=== PATIENT | female | born 1975 | race Caucasian/White ===

== ENCOUNTER 2017-02-06 14:54 | Inpatient (IN) | payer OTHER ==
[2017-02-06 15:05] VITALS: BMI 31.5
[2017-02-06] MEDS ORDERED: MAGNESIUM CITRATE 300 ML BOTTLE PO PRN (15:32)
[2017-02-06] MEDS ORDERED: chlordiazePOXIDE HCL 25 MG CAPSULE PO ONE (15:32)
[2017-02-06] MEDS ORDERED: ACETAMINOPHEN 325 MG TABLET (FP) PO PRN (15:32)
[2017-02-06] MEDS ORDERED: LOPERAMIDE HCL 2 MG CAPSULE PO PRN (15:32)
[2017-02-06] MEDS ORDERED: NICOTINE POLACRILEX 2 MG GUM BC PRN (15:32)
[2017-02-06] MEDS ORDERED: MAGNESIUM HYDROX 2400MG/30ML ORAL SUSPENSION 30 ML CUP PO PRN (15:32)
--- NOTE | 2017-02-06 15:35 | HP ---
CIWA Score - CIWA Score Nausea/Vomitin Muscle Tremors: 4-Moderate,w/Arms Extend Anxiety: 4-Mod. Anxious/Guarded Agitation: 4-Moderately Restless Paroxysmal Sweats: 3 Orientation: 1-Uncertain about Date Tacttile Disturbances: 0-None Auditory Disturbances: 0-None Visual Disturbances: 0-None Headache: 0-None Present CIWA-Ar Total Score: 19 Admission ROS [facility] - HPI Chief Complaint: Withdrawal sx. Allergies/Adverse Reactions: Allergies Allergy/AdvReac Type Severity Reaction Status Date / Time No Known Allergies Allergy Verified 02/06/17 15:26 History of Present Illness: 41 y/o woman with a along hx. of alcoholism is admitted for detox. Pt. denies previous detox, however she was at [facility] last night because she was drunk. Exam Limitations: No Limitations - Ebola screening Have you traveled outside of the country in the last 21 days: No (N) Have you had contact with anyone from an Ebola affected area: No Have you been sick,other than usual withdrawal symptoms: No Do you have a fever: No - Review of Systems Constitutional: Diaphoresis EENT: reports: No Symptoms Reported Respiratory: reports: No Symptoms reported Cardiac: reports: No Symptoms Reported GI: reports: Nausea, Abdominal cramping : reports: No Symptoms Reported Musculoskeletal: reports: No Symptoms Reported Integumentary: reports: Sweating Neuro: reports: Tingling, Tremors Endocrine: reports: No Symptoms Reported Hematology: reports: No Symptoms Reported Psychiatric: reports: No Sypmtoms Reported Other Systems: Reviewed and Negative Patient History - Patient Medical History Hx Anemia: No Hx Asthma: No Hx Chronic Obstructive Pulmonary Disease (COPD): No Hx Cancer: No Hx Cardiac Disorders: No Hx Congestive Heart Failure: No Hx Hypertension: No Hx Hypercholesterolemia: No Hx Pacemaker: No HX Cerebrovascular Accident: No Hx Seizures: No Hx Dementia: No Hx Diabetes: Yes (Pre-Diabetic) Hx Gastrointestinal Disorders: Yes (Dyspepsia) Hx Liver Disease: No Hx Genitourinary Disorders: No Hx Sexually Transmitted Disorders: No Hx Renal Disease (ESRD): No Hx Thyroid Disease: No Hx Human Immunodeficiency Virus (HIV): No Hx Hepatitis C: No Hx Depression: Yes (No meds, in Therapy) Hx Suicide Attempt: No Hx Bipolar Disorder: No Hx Schizophrenia: No Other Medical History: PTSD - Patient Surgical History Past Surgical History: Yes Hx Section: Yes (x 1) - PPD History Previous Implant?: Yes Documented Results: Negative w/o proof PPD to be Administered?: Yes - Reproductive History Patient is a Female of Child Bearing Age (11 -55 yrs old): Yes Last Menstrual Period: 01/27/17 Patient : No - Smoking Cessation Smoking history: Current every day smoker Have you smoked in the past 12 months: Yes Aproximately how many cigarettes per day: 6 Hx Chewing Tobacco Use: No Initiated information on smoking cessation: Yes 'Breaking Loose' booklet given: 02/06/17 - Substance & Tx. History Hx Alcohol Use: Yes Hx Substance Use: Yes Substance Use Type: Alcohol, Cocaine Hx Substance Use Treatment: No - Substances Abused Alcohol Route: Oral Frequency: Daily Amount used: Beer 40 oz, Vodka 1/2 pint Age of first use: 17 (worse since 37 y/o) Date of Last Use: 02/05/17 Cocaine Route: Inhalation Frequency: Daily Amount used: 1 bag Age of first use: 37 Date of Last Use: 02/05/17 Family Disease History - Family Disease History Family Disease History: Heart Disease: Mother (HTN,Asthma), Respiratory: Mother Admission Physical Exam [facility] - Vital Signs Vital Signs: Vital Signs - 24 hr 02/06/17 14:59 Temperature 98.7 F Pulse Rate 61 Respiratory 20 Rate Blood Pressure 131/61 - Physical General Appearance: Yes: Alcohol on Breath, Tremorous, Irritable, Sweating, Anxious HEENTM: Yes: Rhinorrhea Respiratory: Yes: Chest Non-Tender, Lungs Clear, Normal Breath Sounds Neck: Yes: Supple Breast: Yes: Breast Exam Deferred Cardiology: Yes: Regular Rhythm, Regular Rate, S1, S2 Abdominal: Yes: Normal Bowel Sounds, Non Tender, Flat, Soft Genitourinary: Yes: Within Normal Limits Back: Yes: Within Normal Limits Musculoskeletal: Yes: Within Normal Limits Extremities: Yes: Tremors Neurological: Yes: Fully Oriented, Alert Integumentary: Yes: Diaphoresis Lymphatic: Yes: Within Normal Limits - Diagnostic (1) Alcohol dependence with uncomplicated withdrawal Current Visit: Yes Status: Acute (2) Cocaine dependence, uncomplicated Current Visit: Yes Status: Acute Cleared for Admission [facility] - Detox or Rehab [facility] Level of Care: Medically Managed Detox Regimen/Protocol: Librium [facility] Breath Alcohol Content Breath Alcohol Content: 0.047 Urine Pregancy Test - Result Urine Test Results: Negative- NO Line Present Urine Drug Screen - Results Drug Screen Negative: No Urine Drug Screen Results: THC-Marijuana, SACHIN-Cocaine, BZO-Benzodiazepines
[2017-02-06] MEDS: chlordiazePOXIDE HCL 25 MG CAPSULE PO SCH ×2 (17:36→22:11)
[2017-02-06] MEDS: NICOTINE 14 MG/24 HOURS TOPICAL PATCH TD SCH (17:37)
[2017-02-06] MEDS: THIAMINE HCL 100 MG TABLET (FP) PO SCH (22:12)
[2017-02-06] MEDS: IBUPROFEN 400 MG TABLET (FP) PO PRN (22:14)
[2017-02-06] MEDS: hydrOXYzine PAMOATE 50 MG CAPSULE (FP) PO PRN (22:45)
[2017-02-07 01:57] LABS: URINE APPEARANCE SLCLOUDY; URINE BILIRUBIN NEGATIVE (NEGATIVE); URINE BLOOD NEGATIVE (NEGATIVE); URINE COLOR YELLOW; URINE GLUCOSE (UA) NEGATIVE (NEGATIVE); URINE KETONE NEGATIVE (NEGATIVE); URINE LEUK ESTERASE TRACE (NEGATIVE); URINE NITRITE POSITIVE (NEGATIVE); URINE PROTEIN NEGATIVE (NEGATIVE); URINE UROBILINOGEN NEGATIVE mg/dL (0.2-1.0)
[2017-02-07 02:09] LABS: EPI CELLS RARE /HPF (FEW); URINE BACTERIA MANY /hpf (NONE SEEN); URINE MUCUS RARE; YEAST RARE
[2017-02-07] MEDS: chlordiazePOXIDE HCL 25 MG CAPSULE PO SCH ×4 (05:30→22:26)
[2017-02-07] MEDS: P-EPHED 60MG/TRIPROLIDI 2.5MG TABLET PO PRN (05:30)
[2017-02-07] MEDS: guaiFENesin/D-METHORPHAN HB 10 ML UNIT-DOSE CUPS PO PRN ×2 (09:14→18:28)
[2017-02-07] MEDS: PRENATAL VITAMINS W/ FOLIC ACID TABLET (FP) PO SCH (10:32)
[2017-02-07 10:33] LABS: ALBUMIN 3.5 g/dl (3.4-5.0); ALK PHOS 73 U/L (45-117); ANION GAP 13 (8-16); BILIRUBIN,TOTAL 0.2 mg/dL (0.2-1.0); BLOOD UREA NITROGEN 9 mg/dL (7-18); CALCIUM 8.4 mg/dL (8.5-10.1); CHLORIDE 108 mmol/L (98-107); CO2 21 mmol/L (21-32); CREATININE 0.8 mg/dL (0.55-1.02); GLUCOSE,RANDOM 113 mg/dL (74-106); POTASSIUM 3.5 mmol/L (3.5-5.1); SGOT/AST 22 U/L (15-37); SGPT/ALT 22 U/L (12-78); SODIUM 142 mmol/L (136-145); TOT PROT 6.8 g/dl (6.4-8.2)
[2017-02-07] MEDS: NICOTINE 14 MG/24 HOURS TOPICAL PATCH TD SCH (10:33)
--- NOTE | 2017-02-07 10:33 | EKG ---
Test Reason : Blood Pressure : / mmHG Vent. Rate : 080 BPM Atrial Rate : 080 BPM P-R Int : 136 ms QRS Dur : 078 ms QT Int : 388 ms P-R-T Axes : 018 023 018 degrees QTc Int : 447 ms NORMAL SINUS RHYTHM NORMAL ECG NO PREVIOUS ECGS AVAILABLE BASELINE ARTIFACT Confirmed by JONNIE MARTINEZ, NOEMI ([id number]) on 02/07/2017 10:33:16 AM Referred By: Confirmed By:NOEMI CRISTINA MD
[2017-02-07] MEDS: MENTHOL/PHENOL 1 EACH UD MM PRN ×2 (10:35→18:28)
[2017-02-07 10:45] LABS: HEMATOCRIT 41.1 % (32.4-45.2); HEMOGLOBIN 13.1 GM/dL (10.7-15.3); MCH 26.8 pg (25.7-33.7); MCHC 31.8 g/dl (32.0-36.0); MEAN CELL VOLUME 84.1 fl (80-96); MEAN PLT VOLUME 11.2 fl (7.5-11.1); PLATELET COUNT 114 K/MM3 (134-434); RBC 4.89 M/mm3 (3.60-5.2); RDW 13.4 % (11.6-15.6); WHITE BLOOD COUNT 5.3 K/mm3 (4.0-10.0)
[2017-02-07] MEDS: IBUPROFEN 400 MG TABLET (FP) PO PRN ×3 (10:47→22:26)
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
[2017-02-07] MEDS: hydrOXYzine PAMOATE 50 MG CAPSULE (FP) PO PRN ×2 (11:54→16:43)
--- NOTE | 2017-02-07 16:12 | PN ---
[facility] CIWA - CIWA Score Nausea/Vomitin Muscle Tremors: 3 Anxiety: 4-Mod. Anxious/Guarded Agitation: 4-Moderately Restless Paroxysmal Sweats: 2 Orientation: 0-Oriented Tacttile Disturbances: 0-None Auditory Disturbances: 0-None Visual Disturbances: 0-None Headache: 0-None Present CIWA-Ar Total Score: 16 S Progress Note (SOAP) Subjective: Tremors, Night sweats, diarrhea Anxious, nasl congestion Objective: 02/07/17 16:09 Vital Signs Temperature 98.2 F 02/07/17 14:29 Pulse Rate 81 02/07/17 14:29 Respiratory Rate 16 02/07/17 14:29 Blood Pressure 141/81 02/07/17 14:29 O2 Sat by Pulse Oximetry (%) Laboratory Last Values WBC 5.3 K/mm3 (4.0-10.0) 02/07/17 07:45 RBC 4.89 M/mm3 (3.60-5.2) 02/07/17 07:45 Hgb 13.1 GM/dL (10.7-15.3) 02/07/17 07:45 Hct 41.1 % (32.4-45.2) 02/07/17 07:45 MCV 84.1 fl (80-96) 02/07/17 07:45 MCH 26.8 pg (25.7-33.7) 02/07/17 07:45 MCHC 31.8 g/dl (32.0-36.0) L 02/07/17 07:45 RDW 13.4 % (11.6-15.6) 02/07/17 07:45 Plt Count 114 K/MM3 (134-434) L 02/07/17 07:45 MPV 11.2 fl (7.5-11.1) H 02/07/17 07:45 Sodium 142 mmol/L (136-145) 02/07/17 07:45 Potassium 3.5 mmol/L (3.5-5.1) 02/07/17 07:45 Chloride 108 mmol/L (98-107) H 02/07/17 07:45 Carbon Dioxide 21 mmol/L (21-32) 02/07/17 07:45 Anion Gap 13 (8-16) 02/07/17 07:45 BUN 9 mg/dL (7-18) 02/07/17 07:45 Creatinine 0.8 mg/dL (0.55-1.02) 02/07/17 07:45 Creat Clearance w eGFR > 60 (>60) 02/07/17 07:45 Random Glucose 113 mg/dL (74-106) H 02/07/17 07:45 Calcium 8.4 mg/dL (8.5-10.1) L 02/07/17 07:45 Total Bilirubin 0.2 mg/dL (0.2-1.0) 02/07/17 07:45 AST 22 U/L (15-37) 02/07/17 07:45 ALT 22 U/L (12-78) 02/07/17 07:45 Alkaline Phosphatase 73 U/L (45-117) 02/07/17 07:45 Total Protein 6.8 g/dl (6.4-8.2) 02/07/17 07:45 Albumin 3.5 g/dl (3.4-5.0) 02/07/17 07:45 Urine Color Yellow 02/06/17 19:45 Urine Appearance Slcloudy 02/06/17 19:45 Urine pH 5.0 (5.0-8.0) 02/06/17 19:45 Ur Specific [place] 1.020 (1.001-1.035) 02/06/17 19:45 Urine Protein Negative (NEGATIVE) 02/06/17 19:45 Urine Glucose (UA) Negative (NEGATIVE) 02/06/17 19:45 Urine Ketones Negative (NEGATIVE) 02/06/17 19:45 Urine Blood Negative (NEGATIVE) 02/06/17 19:45 Urine Nitrite Positive (NEGATIVE) 02/06/17 19:45 Urine Bilirubin Negative (NEGATIVE) 02/06/17 19:45 Urine Urobilinogen Negative mg/dL (0.2-1.0) 02/06/17 19:45 Ur Leukocyte Esterase Negative (NEGATIVE) 02/06/17 19:45 Urine WBC (Auto) 4 /hpf (3-5) 02/06/17 19:45 Urine RBC (Auto) 1 /hpf (0-3) 02/06/17 19:45 Ur Epithelial Cells Rare /HPF (FEW) 02/06/17 19:45 Urine Bacteria Many /hpf (NONE SEEN) 02/06/17 19:45 Urine Mucus Rare 02/06/17 19:45 Urine Yeast Rare 02/06/17 19:45 RPR Titer Nonreactive (NONREACTIVE) 02/07/17 07:45 HIV 1&2 Antibody Screen Negative 02/07/17 07:45 HIV P24 Antigen Negative 02/07/17 07:45 labs noted, UA nitrite positive Assessment: 02/07/17 16:11 withdrawal symptoms UTI Plan: continue detox Bactrim BID
[2017-02-07] MEDS: MAG HYDROX/AL HYDROX/SIMETH 30 ML UNIT-DOSE CUP PO PRN (16:43)
[2017-02-07] MEDS: ZOLPIDEM TARTRATE 5 MG TABLET PO PRN (22:24)
[2017-02-07] MEDS: SULFAMETHOXAZOLE/TRIMETHOPRIM 800MG/160MG D.S. TABLET PO SCH (22:25)
[2017-02-07] MEDS: THIAMINE HCL 100 MG TABLET (FP) PO SCH (22:42)
[2017-02-08] MEDS: hydrOXYzine PAMOATE 50 MG CAPSULE (FP) PO PRN ×4 (00:24→17:18)
[2017-02-08] MEDS: chlordiazePOXIDE HCL 25 MG CAPSULE PO SCH ×2 (05:33→10:37)
[2017-02-08] MEDS: MENTHOL/PHENOL 1 EACH UD MM PRN ×2 (05:34→10:36)
[2017-02-08] MEDS: guaiFENesin/D-METHORPHAN HB 10 ML UNIT-DOSE CUPS PO PRN ×3 (05:37→22:01)
[2017-02-08] MEDS: P-EPHED 60MG/TRIPROLIDI 2.5MG TABLET PO PRN ×2 (10:36→22:01)
[2017-02-08] MEDS: PRENATAL VITAMINS W/ FOLIC ACID TABLET (FP) PO SCH (10:37)
[2017-02-08] MEDS: SULFAMETHOXAZOLE/TRIMETHOPRIM 800MG/160MG D.S. TABLET PO SCH ×2 (10:37→22:01)
[2017-02-08] MEDS: NICOTINE 14 MG/24 HOURS TOPICAL PATCH TD SCH (10:37)
[2017-02-08] MEDS: MAG HYDROX/AL HYDROX/SIMETH 30 ML UNIT-DOSE CUP PO PRN (11:01)
--- NOTE | 2017-02-08 12:58 | PN ---
[facility] CIWA - CIWA Score Nausea/Vomitin Muscle Tremors: 3 Agitation: 2 Paroxysmal Sweats: 1-Minimal Palms Moist Orientation: 0-Oriented Tacttile Disturbances: 1-Very Mild Itch/Numbness Auditory Disturbances: 1-Very Mild Visual Disturbances: 0-None Headache: 2-Mild BHS Progress Note (SOAP) Subjective: ALERT,IRRITABLE,ANXIOUS,INTERRUPTED SLEEP,ANXIOUS, Objective: 02/08/17 12:56 Vital Signs Temperature 98.9 F 02/08/17 10:00 Pulse Rate 74 02/08/17 10:00 Respiratory Rate 18 02/08/17 10:00 Blood Pressure 123/81 02/08/17 10:00 O2 Sat by Pulse Oximetry (%) 02/08/17 12:57 EKG NSR Laboratory Last Values WBC 5.3 K/mm3 (4.0-10.0) 02/07/17 07:45 RBC 4.89 M/mm3 (3.60-5.2) 02/07/17 07:45 Hgb 13.1 GM/dL (10.7-15.3) 02/07/17 07:45 Hct 41.1 % (32.4-45.2) 02/07/17 07:45 MCV 84.1 fl (80-96) 02/07/17 07:45 MCH 26.8 pg (25.7-33.7) 02/07/17 07:45 MCHC 31.8 g/dl (32.0-36.0) L 02/07/17 07:45 RDW 13.4 % (11.6-15.6) 02/07/17 07:45 Plt Count 114 K/MM3 (134-434) L 02/07/17 07:45 MPV 11.2 fl (7.5-11.1) H 02/07/17 07:45 Sodium 142 mmol/L (136-145) 02/07/17 07:45 Potassium 3.5 mmol/L (3.5-5.1) 02/07/17 07:45 Chloride 108 mmol/L (98-107) H 02/07/17 07:45 Carbon Dioxide 21 mmol/L (21-32) 02/07/17 07:45 Anion Gap 13 (8-16) 02/07/17 07:45 BUN 9 mg/dL (7-18) 02/07/17 07:45 Creatinine 0.8 mg/dL (0.55-1.02) 02/07/17 07:45 Creat Clearance w eGFR > 60 (>60) 02/07/17 07:45 Random Glucose 113 mg/dL (74-106) H 02/07/17 07:45 Calcium 8.4 mg/dL (8.5-10.1) L 02/07/17 07:45 Total Bilirubin 0.2 mg/dL (0.2-1.0) 02/07/17 07:45 AST 22 U/L (15-37) 02/07/17 07:45 ALT 22 U/L (12-78) 02/07/17 07:45 Alkaline Phosphatase 73 U/L (45-117) 02/07/17 07:45 Total Protein 6.8 g/dl (6.4-8.2) 02/07/17 07:45 Albumin 3.5 g/dl (3.4-5.0) 02/07/17 07:45 Urine Color Yellow 02/06/17 19:45 Urine Appearance Slcloudy 02/06/17 19:45 Urine pH 5.0 (5.0-8.0) 02/06/17 19:45 Ur Specific [place] 1.020 (1.001-1.035) 02/06/17 19:45 Urine Protein Negative (NEGATIVE) 02/06/17 19:45 Urine Glucose (UA) Negative (NEGATIVE) 02/06/17 19:45 Urine Ketones Negative (NEGATIVE) 02/06/17 19:45 Urine Blood Negative (NEGATIVE) 02/06/17 19:45 Urine Nitrite Positive (NEGATIVE) 02/06/17 19:45 Urine Bilirubin Negative (NEGATIVE) 02/06/17 19:45 Urine Urobilinogen Negative mg/dL (0.2-1.0) 02/06/17 19:45 Ur Leukocyte Esterase Negative (NEGATIVE) 02/06/17 19:45 Urine WBC (Auto) 4 /hpf (3-5) 02/06/17 19:45 Urine RBC (Auto) 1 /hpf (0-3) 02/06/17 19:45 Ur Epithelial Cells Rare /HPF (FEW) 02/06/17 19:45 Urine Bacteria Many /hpf (NONE SEEN) 02/06/17 19:45 Urine Mucus Rare 02/06/17 19:45 Urine Yeast Rare 02/06/17 19:45 RPR Titer Nonreactive (NONREACTIVE) 02/07/17 07:45 HIV 1&2 Antibody Screen Negative 02/07/17 07:45 HIV P24 Antigen Negative 02/07/17 07:45 Assessment: 02/08/17 12:57 WITHDRAWAL SYMPTOM Plan: CONTINUE DETOX
[2017-02-08] MEDS: BACITRACIN 0.9 GM PACKET TP SCH ×2 (13:55→22:01)
[2017-02-08] MEDS: chlordiazePOXIDE 5 MG CAPSULE PO SCH ×2 (17:15→22:01)
[2017-02-08] MEDS: chlordiazePOXIDE HCL 25 MG CAPSULE PO PRN (19:51)
[2017-02-08] MEDS: ZOLPIDEM TARTRATE 5 MG TABLET PO PRN (22:01)
[2017-02-08] MEDS: THIAMINE HCL 100 MG TABLET (FP) PO SCH (22:41)
[2017-02-09] MEDS: hydrOXYzine PAMOATE 50 MG CAPSULE (FP) PO PRN ×4 (00:52→22:13)
[2017-02-09] MEDS: MENTHOL/PHENOL 1 EACH UD MM PRN ×2 (00:54→22:16)
[2017-02-09] MEDS: chlordiazePOXIDE 5 MG CAPSULE PO SCH ×2 (05:25→10:32)
[2017-02-09] MEDS: guaiFENesin/D-METHORPHAN HB 10 ML UNIT-DOSE CUPS PO PRN ×3 (05:29→22:16)
--- NOTE | 2017-02-09 10:25 | PN ---
[facility] Progress Note (SOAP) Subjective: insomnia sweats shakes anxiety Objective: 02/09/17 10:25 Vital Signs Temperature 97.8 F 02/09/17 05:59 Pulse Rate 78 02/09/17 05:59 Respiratory Rate 18 02/09/17 05:59 Blood Pressure 147/81 02/09/17 05:59 O2 Sat by Pulse Oximetry (%) aaox3 ambulating no acute distress Assessment: 02/09/17 10:27 withdrawal sx Plan: continue detox increase fluids d/c in am
[2017-02-09] MEDS: BACITRACIN 0.9 GM PACKET TP SCH ×2 (10:32→22:12)
[2017-02-09] MEDS: SULFAMETHOXAZOLE/TRIMETHOPRIM 800MG/160MG D.S. TABLET PO SCH ×2 (10:32→22:13)
[2017-02-09] MEDS: PRENATAL VITAMINS W/ FOLIC ACID TABLET (FP) PO SCH (10:32)
[2017-02-09] MEDS: NICOTINE 14 MG/24 HOURS TOPICAL PATCH TD SCH (10:33)
[2017-02-09] MEDS: chlordiazePOXIDE HCL 25 MG CAPSULE PO PRN (12:59)
[2017-02-09] MEDS: IBUPROFEN 400 MG TABLET (FP) PO PRN ×2 (12:59→22:13)
[2017-02-09] MEDS: chlordiazePOXIDE HCL 10 MG CAPSULE PO SCH ×2 (16:47→22:13)
[2017-02-09] MEDS: ZOLPIDEM TARTRATE 5 MG TABLET PO PRN (22:13)
[2017-02-09] MEDS: THIAMINE HCL 100 MG TABLET (FP) PO SCH (22:14)
[2017-02-09] MEDS: MAG HYDROX/AL HYDROX/SIMETH 30 ML UNIT-DOSE CUP PO PRN (23:06)
[2017-02-10] MEDS: chlordiazePOXIDE HCL 10 MG CAPSULE PO SCH ×2 (05:39→11:00)
--- NOTE | 2017-02-10 08:59 | DS ---
[facility] Detox Discharge Summary Admission Date: 02/06/17 Discharge Date: 02/10/17 - History Present History: Alcohol Dependence, Cannabis Dependence, Cocaine Dependence - Physical Exam Results Vital Signs: Vital Signs Temperature 97.3 F L 02/10/17 06:56 Pulse Rate 79 02/10/17 06:56 Respiratory Rate 18 02/10/17 06:56 Blood Pressure 150/90 02/10/17 06:56 O2 Sat by Pulse Oximetry (%) - Treatment Hospital Course: Detox Protocol Followed, Detoxed Safely, Responded well, Discharged Condition Good, Rehab Referral Accepted - Medication Discharge Medications: Ambulatory Orders NK [No Known Home Medication] 02/06/17 - Diagnosis (1) Alcohol dependence with uncomplicated withdrawal Current Visit: Yes Status: Chronic (2) Cannabis dependence Current Visit: Yes Status: Chronic (3) Cocaine dependence, uncomplicated Current Visit: Yes Status: Chronic (4) Nicotine dependence Current Visit: Yes Status: Acute Qualifiers: Nicotine product type: cigarettes Substance use status: uncomplicated Qualified Code(s): F17.210 - Nicotine dependence, cigarettes, uncomplicated (5) Substance-induced anxiety disorder Current Visit: Yes Status: Acute (6) Substance-induced sleep disorder Current Visit: Yes Status: Acute (7) Urinary tract infection without hematuria Current Visit: Yes Status: Acute Qualifiers: Urinary tract infection type: site unspecified Qualified Code(s): N39.0 - Urinary tract infection, site not specified (8) GERD (gastroesophageal reflux disease) Current Visit: Yes Status: Chronic (9) PTSD (post-traumatic stress disorder) Current Visit: Yes Status: Ruled-out - AMA Did Patient Leave Against Medical Advice: No ([facility])
[2017-02-10] MEDS: IBUPROFEN 400 MG TABLET (FP) PO PRN (09:54)
[2017-02-10] MEDS: MAG HYDROX/AL HYDROX/SIMETH 30 ML UNIT-DOSE CUP PO PRN (09:55)
[2017-02-10] MEDS: hydrOXYzine PAMOATE 50 MG CAPSULE (FP) PO PRN (09:55)
[2017-02-10 10:48] VITALS: BP 128/74; PULSE 94; TEMP 98.1
[2017-02-10] MEDS: SULFAMETHOXAZOLE/TRIMETHOPRIM 800MG/160MG D.S. TABLET PO SCH (11:00)
[2017-02-10] MEDS: BACITRACIN 0.9 GM PACKET TP SCH (11:00)
[2017-02-10] MEDS: PRENATAL VITAMINS W/ FOLIC ACID TABLET (FP) PO SCH (11:00)
[2017-02-10] MEDS: NICOTINE 14 MG/24 HOURS TOPICAL PATCH TD SCH (11:01)
[2017-02-10] MEDS: guaiFENesin/D-METHORPHAN HB 10 ML UNIT-DOSE CUPS PO PRN (11:05)
== END 2017-02-10 11:18 | disposition other institution (70) | DRG 774 ==
LOC: YASAS 14:54 → Y6N 15:56
PROVIDERS: ADMIT Internal Medicine; ATTEND Internal Medicine
PROC: HZ2ZZZZ Detoxification Services for Substance Abuse Treatment (ICD-10-PCS; principal; 2017-02-06)
DX: F10.230 Alcohol dependence with withdrawal, uncomplicated (principal); F14.20 Cocaine dependence, uncomplicated; F12.20 Cannabis dependence, uncomplicated; F17.210 Nicotine dependence, cigarettes, uncomplicated; F19.280 Other psychoactive substance dependence with psychoactive substance-induced anxiety disorder; F19.282 Other psychoactive substance dependence with psychoactive substance-induced sleep disorder; F43.10 Post-traumatic stress disorder, unspecified; N39.0 Urinary tract infection, site not specified; R31.9 Hematuria, unspecified; K21.9 Gastro-esophageal reflux disease without esophagitis; R73.03 Prediabetes
CPT/HCPCS: 36415; 80053; 81003; 81015; 85027; 86593; 87389; 93005; 93010

== ENCOUNTER 2017-02-10 10:42 | Inpatient (IN) | payer OTHER ==
[2017-02-10] MEDS ORDERED: PNEUMOC 13-VAL CONJ-DIP CRM/PF 0.5 ML DISP.SYRIN IM ONE (12:00)
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
[2017-02-10] MEDS ORDERED: MAGNESIUM HYDROX 2400MG/30ML ORAL SUSPENSION 30 ML CUP PO PRN (13:09)
[2017-02-10] MEDS ORDERED: P-EPHED 60MG/TRIPROLIDI 2.5MG TABLET PO PRN (13:09)
[2017-02-10] MEDS ORDERED: LOPERAMIDE HCL 2 MG CAPSULE PO PRN (13:09)
[2017-02-10] MEDS ORDERED: NICOTINE POLACRILEX 2 MG GUM BUC PRN (13:09)
[2017-02-10] MEDS ORDERED: MAGNESIUM CITRATE 300 ML BOTTLE PO PRN (13:09)
[2017-02-10] MEDS ORDERED: MENTHOL/PHENOL 1 EACH UD MM PRN (13:09)
--- NOTE | 2017-02-10 13:09 | HP ---
[facility] Rehab Assess/Revision - Admission History Admitted to Rehab from: Y [address] [place] [address] - Vital signs Vital Signs: Vital Signs Period Temp Pulse Resp BP Sys/Rice Pulse Ox Last 24 Hr 97.3 F 87 18 127/85 - Findings Detox History & Physical reviewed: Yes Concur with findings: Yes Comments/Additional Findings: Patient discharge from detox and admitted to rehab Inpatient Rehab Admission - Initial Determination Are CD services needed?: Yes Free of communicable disease: Yes Not in need of hospitalization: Yes - Rehab Admission Criteria Previous failed treatment: Yes Comorbidities: Yes Patient is meeting Inpatient Rehab admission criteria:: Yes
[2017-02-10] MEDS: hydrOXYzine PAMOATE 50 MG CAPSULE (FP) PO PRN ×2 (14:02→18:38)
[2017-02-10] MEDS: MAG HYDROX/AL HYDROX/SIMETH 30 ML UNIT-DOSE CUP PO PRN (14:25)
[2017-02-10] MEDS: guaiFENesin/D-METHORPHAN HB 10 ML UNIT-DOSE CUPS PO PRN ×2 (17:41→23:02)
[2017-02-10] MEDS: BACITRACIN 0.9 GM PACKET TP SCH (21:16)
[2017-02-10] MEDS: THIAMINE HCL 100 MG TABLET (FP) PO SCH (21:16)
[2017-02-10] MEDS: SULFAMETHOXAZOLE/TRIMETHOPRIM 800MG/160MG D.S. TABLET PO SCH (21:17)
[2017-02-10] MEDS: traZODone HCL 100 MG TABLET (FP) PO SCH (21:17)
[2017-02-10] MEDS: QUEtiapine FUMARATE 50 MG TABLET PO SCH (21:17)
[2017-02-10] MEDS ORDERED: PT OWN MED DRAWER 7, Y5N ONE (22:47)
[2017-02-11] MEDS: hydrOXYzine PAMOATE 50 MG CAPSULE (FP) PO PRN ×4 (06:11→18:05)
[2017-02-11] MEDS: guaiFENesin/D-METHORPHAN HB 10 ML UNIT-DOSE CUPS PO PRN ×2 (08:56→18:06)
[2017-02-11] MEDS: SULFAMETHOXAZOLE/TRIMETHOPRIM 800MG/160MG D.S. TABLET PO SCH ×2 (09:55→21:08)
[2017-02-11] MEDS: PRENATAL VITAMINS W/ FOLIC ACID TABLET (FP) PO SCH (09:55)
[2017-02-11] MEDS: BACITRACIN 0.9 GM PACKET TP SCH ×2 (09:56→21:07)
[2017-02-11] MEDS: NICOTINE 14 MG/24 HOURS TOPICAL PATCH TD SCH (09:56)
[2017-02-11] MEDS ORDERED: PNEUMOCOCCAL 23 VACCINE 0.5 ML VIAL IM ONE (12:00)
[2017-02-11] MEDS ORDERED: FLU VACCINE QUAD 60 MCG/0.5 ML (MDV 17-18) IM ONE (12:00)
[2017-02-11] MEDS: IBUPROFEN 400 MG TABLET (FP) PO PRN (12:34)
[2017-02-11] MEDS: ALBUTEROL SO4 0.083% IH SOL 2.5 MG/3 ML VIAL.NEB. NEB PRN (14:58)
[2017-02-11] MEDS: MAG HYDROX/AL HYDROX/SIMETH 30 ML UNIT-DOSE CUP PO PRN (18:22)
[2017-02-11] MEDS: QUEtiapine FUMARATE 50 MG TABLET PO SCH (21:07)
[2017-02-11] MEDS: traZODone HCL 100 MG TABLET (FP) PO SCH (21:07)
[2017-02-11] MEDS: THIAMINE HCL 100 MG TABLET (FP) PO SCH (21:07)
[2017-02-12] MEDS: hydrOXYzine PAMOATE 50 MG CAPSULE (FP) PO PRN ×3 (06:51→16:28)
[2017-02-12] MEDS: PRENATAL VITAMINS W/ FOLIC ACID TABLET (FP) PO SCH (10:10)
[2017-02-12] MEDS: BACITRACIN 0.9 GM PACKET TP SCH ×2 (10:10→21:20)
[2017-02-12] MEDS: SULFAMETHOXAZOLE/TRIMETHOPRIM 800MG/160MG D.S. TABLET PO SCH ×2 (10:10→21:20)
[2017-02-12] MEDS: NICOTINE 14 MG/24 HOURS TOPICAL PATCH TD SCH (10:10)
[2017-02-12] MEDS: MAG HYDROX/AL HYDROX/SIMETH 30 ML UNIT-DOSE CUP PO PRN ×2 (10:19→20:04)
[2017-02-12] MEDS: IBUPROFEN 400 MG TABLET (FP) PO PRN ×2 (12:31→18:40)
[2017-02-12] MEDS: ALBUTEROL SO4 0.083% IH SOL 2.5 MG/3 ML VIAL.NEB. NEB PRN (12:33)
[2017-02-12] MEDS: COLLOIDAL OATMEAL 1 BAR EACH TP PRN (13:46)
--- NOTE | 2017-02-12 15:11 | PN ---
Psychiatric Progress Note Vital Signs: Vital Signs Period Temp Pulse Resp BP Sys/Rice Pulse Ox Last 24 Hr -97.7 F 96 16-18 102/71 Date of Session: 02/13/16 Chief Complaint:: ""i'm having a difficult time sleeping and i'm hearing voices. " HPI: Pt. with a history of anxiety, insomnia, depression and auditory hallucinations. Reports auditory hallucinations since 1996. Claims to hear multiple voices telling her "why are you here," "you will fail again" and "read the bible, keep praying." Pt. denies command auditory hallucinations. Pt. currently denies suicidal and homicidal ideation. ROS: Unremarkable Current Medications: Active Medications Generic Name Dose Route Start Last Admin Trade Name Freq PRN Reason Stop Dose Admin Acetaminophen 650 mg 02/10/17 13:09 Tylenol - PO Q4H PRN FEVER OR PAIN Al Hydroxide/Mg Hydroxide 30 ml 02/10/17 13:09 02/12/17 10:19 Mylanta Oral Suspension - PO 30 ml Q6H PRN Administration DYSPEPSIA Albuterol Sulfate 1 amp 02/11/17 14:32 02/12/17 12:33 Ventolin 0.083% Nebulizer Soln - NEB 1 amp Q6H PRN Administration SHORT OF BREATH/WHEEZING Bacitracin 0.9 gm 02/10/17 22:00 02/12/17 10:10 Bacitracin - TP 0.9 gm BID LA NENA Administration Colloidal Oatmeal 1 applic 02/12/17 12:07 02/12/17 13:46 Aveeno Soap - TP 1 applic DAILY PRN Administration HYGEINE Eucalyptus/Menthol/Phenol/Sorbitol 1 each 02/10/17 13:09 Cepastat Lozenge - MM Q4H PRN SORE THROAT Guaifenesin 10 ml 02/10/17 13:09 02/11/17 18:06 Robitussin Dm - PO 10 ml Q6H PRN Administration COUGH Hydroxyzine Pamoate 50 mg 02/10/17 13:49 02/12/17 12:07 Vistaril - PO 50 mg Q4H PRN Administration ANXIETY Ibuprofen 400 mg 02/10/17 13:09 02/12/17 12:31 Motrin - PO 400 mg Q6H PRN Administration PAIN Loperamide HCl 4 mg 02/10/17 13:09 Imodium - PO Q6H PRN DIARRHEA Magnesium Citrate 300 ml 02/10/17 13:09 Citroma - PO Q48H PRN CONSTIPATION Magnesium Hydroxide 30 ml 02/10/17 13:09 Milk Of Magnesia - PO DAILY PRN CONSTIPATION Nicotine 14 mg 02/11/17 10:00 02/12/17 10:10 Nicoderm Patch - TD 14 mg DAILY LA NENA Administration Nicotine Polacrilex 2 mg 02/10/17 13:09 Nicorette Gum - BUC Q2H PRN NICOTINE REPLACEMENT RX Multivit/Folic Acid/Iron 1 tab 02/11/17 10:00 02/12/17 10:10 Vitamins (Sjr) - PO 1 tab DAILY LA NENA Administration Pseudoephedrine/Triprolidine 1 combo 02/10/17 13:09 02/10/17 23:02 Actifed - PO 1 combo TID PRN Administration NASAL CONGESTION Quetiapine Fumarate 50 mg 02/10/17 22:00 02/11/17 21:07 Seroquel - PO 50 mg HS LA NENA Administration Thiamine HCl 100 mg 02/10/17 22:00 02/11/17 21:07 Vitamin B1 - PO 100 mg HS LA NENA Administration Trazodone HCl 100 mg 02/10/17 22:00 02/11/17 21:07 Desyrel - PO 100 mg HS LA NENA Administration Trimethoprim/Sulfamethoxazole 1 each 02/10/17 22:00 02/12/17 10:10 Bactrim Ds - PO 02/14/17 06:00 1 each BID LA NENA Administration Medication(s) Change(s): Yes. Will increase seroquel to 100mg qhs Current Side Effect: No Lab tests ordered: No Lab tests reviewed: Yes Provider note:: [employer] approached patient in reference to a request to see the psychiatric nurse practitioner. Pt. reports difficulty sleeping and auditory hallucinations. Pt. states the auditory hallucinations are constant, and reports first experiencing auditory hallucinations in 1996. The patient currently reports hearing multiple voices telling her, "You will fail", "why are you here," and " read the bible, keep praying." Pt denies command auditory hallucinations. Seroquel to be increased to 100mg. Pt. denies oversedation and dizziness from her current dose of seroquel 50mg qhs. Verbal consent given, benefits and side effects discussed. Will continue to monitor. Total face to face time:: 25 Mental Status Exam - Mental Status Exam Alert and Oriented to: Time, Place, Person Cognitive Function: Good Patient Appearance: Well Groomed Mood: Anxious Affect: Mood Congruent Patient Behavior: Restless, Talkative Speech Pattern: Pressured Voice Loudness: Normal Thought Process: Circumstantial Thought Disorder: Not Present Hallucinations: Auditory (Voices telling her " why are you here", "you will fail ", and " read the bible, keep praying") Suicidal Ideation: Denies Homicidal Ideation: Denies Insight/Judgement: Poor Sleep: Poorly Appetite: Fair Muscle strength/Tone: Normal Gait/Station: Normal Psychiatric Treatment Plan - Problem List (1) Alcohol dependence Current Visit: Yes (2) Cannabis dependence Current Visit: Yes (3) PTSD (post-traumatic stress disorder) Current Visit: Yes (4) Substance-induced anxiety disorder Current Visit: Yes (5) Schizophrenia Current Visit: Yes Comment: Possible schizophrenia Initial treatment plan: To increase seroquel to 100mg qhs (6) Substance-induced sleep disorder Current Visit: Yes
[2017-02-12] MEDS: THIAMINE HCL 100 MG TABLET (FP) PO SCH (21:20)
[2017-02-12] MEDS: traZODone HCL 100 MG TABLET (FP) PO SCH (21:20)
[2017-02-12] MEDS: QUEtiapine FUMARATE 100 MG TABLET (FP) PO SCH (21:21)
[2017-02-13] MEDS: hydrOXYzine PAMOATE 50 MG CAPSULE (FP) PO PRN ×4 (06:38→21:25)
[2017-02-13] MEDS: SULFAMETHOXAZOLE/TRIMETHOPRIM 800MG/160MG D.S. TABLET PO SCH ×2 (09:49→21:25)
[2017-02-13] MEDS: BACITRACIN 0.9 GM PACKET TP SCH ×2 (09:49→21:25)
[2017-02-13] MEDS: PRENATAL VITAMINS W/ FOLIC ACID TABLET (FP) PO SCH (09:49)
[2017-02-13] MEDS: NICOTINE 14 MG/24 HOURS TOPICAL PATCH TD SCH (09:50)
[2017-02-13] MEDS: MAG HYDROX/AL HYDROX/SIMETH 30 ML UNIT-DOSE CUP PO PRN (10:43)
[2017-02-13] MEDS: PANTOPRAZOLE 40 MG TABLET (FP) PO SCH (17:25)
[2017-02-13] MEDS: QUEtiapine FUMARATE 100 MG TABLET (FP) PO SCH (21:25)
[2017-02-13] MEDS: traZODone HCL 100 MG TABLET (FP) PO SCH (21:25)
[2017-02-13] MEDS: THIAMINE HCL 100 MG TABLET (FP) PO SCH (21:25)
[2017-02-13] MEDS: ALBUTEROL SO4 0.083% IH SOL 2.5 MG/3 ML VIAL.NEB. NEB PRN (21:26)
[2017-02-14] MEDS: hydrOXYzine PAMOATE 50 MG CAPSULE (FP) PO PRN ×4 (06:43→19:00)
[2017-02-14] MEDS: PANTOPRAZOLE 40 MG TABLET (FP) PO SCH (09:43)
[2017-02-14] MEDS: PRENATAL VITAMINS W/ FOLIC ACID TABLET (FP) PO SCH (09:43)
[2017-02-14] MEDS: NICOTINE 14 MG/24 HOURS TOPICAL PATCH TD SCH (09:44)
[2017-02-14] MEDS: BACITRACIN 0.9 GM PACKET TP SCH ×2 (09:44→21:14)
[2017-02-14] MEDS ORDERED: HYDROCORTISONE 1% TOPICAL CREAM 30 GM TUBE TP ONE (14:58)
[2017-02-14] MEDS: QUEtiapine FUMARATE 100 MG TABLET (FP) PO SCH (21:14)
[2017-02-14] MEDS: THIAMINE HCL 100 MG TABLET (FP) PO SCH (21:14)
[2017-02-14] MEDS: traZODone HCL 100 MG TABLET (FP) PO SCH (21:14)
[2017-02-14] MEDS: HYDROCORTISONE 1% TOPICAL CREAM 30 GM TUBE TP SCH (21:16)
[2017-02-14] MEDS ORDERED: PT OWN MED DRAWER 7, Y5N ONE (21:17)
[2017-02-15] MEDS: hydrOXYzine PAMOATE 50 MG CAPSULE (FP) PO PRN ×4 (06:11→21:14)
[2017-02-15] MEDS: NICOTINE 14 MG/24 HOURS TOPICAL PATCH TD SCH (10:07)
[2017-02-15] MEDS: HYDROCORTISONE 1% TOPICAL CREAM 30 GM TUBE TP SCH ×2 (10:07→21:17)
[2017-02-15] MEDS: BACITRACIN 0.9 GM PACKET TP SCH ×2 (10:07→21:14)
[2017-02-15] MEDS: PANTOPRAZOLE 40 MG TABLET (FP) PO SCH (10:08)
[2017-02-15] MEDS: PRENATAL VITAMINS W/ FOLIC ACID TABLET (FP) PO SCH (10:08)
[2017-02-15] MEDS: guaiFENesin/D-METHORPHAN HB 10 ML UNIT-DOSE CUPS PO PRN ×2 (14:29→21:17)
[2017-02-15] MEDS ORDERED: BETAMETHASONE DIPR 0.05% OINT 45 GM TUBE TP SCH (14:45)
[2017-02-15] MEDS: BETAMETHASONE DIPR 0.05% OINTMENT 15 GM TUBE TP SCH ×2 (15:48→21:17)
[2017-02-15] MEDS: QUEtiapine FUMARATE 100 MG TABLET (FP) PO SCH (21:14)
[2017-02-15] MEDS: traZODone HCL 100 MG TABLET (FP) PO SCH (21:14)
[2017-02-15] MEDS: THIAMINE HCL 100 MG TABLET (FP) PO SCH (21:15)
[2017-02-15] MEDS ORDERED: PT OWN MED DRAWER 7, Y5N ONE (21:16)
[2017-02-16] MEDS: hydrOXYzine PAMOATE 50 MG CAPSULE (FP) PO PRN ×4 (06:08→21:13)
[2017-02-16] MEDS: BETAMETHASONE DIPR 0.05% OINTMENT 15 GM TUBE TP SCH ×2 (10:08→21:14)
[2017-02-16] MEDS: HYDROCORTISONE 1% TOPICAL CREAM 30 GM TUBE TP SCH ×2 (10:08→21:14)
[2017-02-16] MEDS: BACITRACIN 0.9 GM PACKET TP SCH ×2 (10:08→21:22)
[2017-02-16] MEDS: PANTOPRAZOLE 40 MG TABLET (FP) PO SCH (10:09)
[2017-02-16] MEDS: PRENATAL VITAMINS W/ FOLIC ACID TABLET (FP) PO SCH (10:09)
[2017-02-16] MEDS: NICOTINE 14 MG/24 HOURS TOPICAL PATCH TD SCH (10:09)
[2017-02-16] MEDS: IBUPROFEN 400 MG TABLET (FP) PO PRN (12:42)
[2017-02-16] MEDS ORDERED: PT OWN MED DRAWER 7, Y5N ONE (19:19)
[2017-02-16] MEDS: THIAMINE HCL 100 MG TABLET (FP) PO SCH (21:14)
[2017-02-16] MEDS: traZODone HCL 100 MG TABLET (FP) PO SCH (21:14)
[2017-02-16] MEDS: QUEtiapine FUMARATE 100 MG TABLET (FP) PO SCH (21:14)
[2017-02-17] MEDS: hydrOXYzine PAMOATE 50 MG CAPSULE (FP) PO PRN ×3 (06:35→21:20)
[2017-02-17] MEDS: COLLOIDAL OATMEAL 1 BAR EACH TP PRN (07:38)
[2017-02-17] MEDS ORDERED: PT OWN MED DRAWER 7, Y5N ONE (08:40)
[2017-02-17] MEDS: BACITRACIN 0.9 GM PACKET TP SCH ×2 (10:01→21:20)
[2017-02-17] MEDS: NICOTINE 14 MG/24 HOURS TOPICAL PATCH TD SCH (10:01)
[2017-02-17] MEDS: PRENATAL VITAMINS W/ FOLIC ACID TABLET (FP) PO SCH (10:01)
[2017-02-17] MEDS: PANTOPRAZOLE 40 MG TABLET (FP) PO SCH (10:01)
[2017-02-17] MEDS: BETAMETHASONE DIPR 0.05% OINTMENT 15 GM TUBE TP SCH ×2 (10:02→21:21)
[2017-02-17] MEDS: HYDROCORTISONE 1% TOPICAL CREAM 30 GM TUBE TP SCH ×2 (10:03→21:21)
[2017-02-17] MEDS: IBUPROFEN 400 MG TABLET (FP) PO PRN (12:00)
[2017-02-17] MEDS: QUEtiapine FUMARATE 100 MG TABLET (FP) PO SCH (21:20)
[2017-02-17] MEDS: THIAMINE HCL 100 MG TABLET (FP) PO SCH (21:20)
[2017-02-17] MEDS: traZODone HCL 100 MG TABLET (FP) PO SCH (21:20)
[2017-02-18] MEDS: hydrOXYzine PAMOATE 50 MG CAPSULE (FP) PO PRN ×2 (06:38→12:38)
[2017-02-18] MEDS: BETAMETHASONE DIPR 0.05% OINTMENT 15 GM TUBE TP SCH ×2 (10:07→21:14)
[2017-02-18] MEDS: HYDROCORTISONE 1% TOPICAL CREAM 30 GM TUBE TP SCH ×2 (10:07→21:15)
[2017-02-18] MEDS: BACITRACIN 0.9 GM PACKET TP SCH ×2 (10:08→21:13)
[2017-02-18] MEDS: PANTOPRAZOLE 40 MG TABLET (FP) PO SCH (10:08)
[2017-02-18] MEDS: PRENATAL VITAMINS W/ FOLIC ACID TABLET (FP) PO SCH (10:08)
[2017-02-18] MEDS: NICOTINE 14 MG/24 HOURS TOPICAL PATCH TD SCH (10:09)
[2017-02-18] MEDS ORDERED: IBUPROFEN 400 MG TABLET (FP) PO ONE (12:28)
[2017-02-18] MEDS ORDERED: NAPROXEN 500 MG TABLET (FP) PO SCH (13:15)
--- NOTE | 2017-02-18 13:34 | PN ---
S Progress Note (SOAP) Subjective: patient c/o left sided chest pain x1 day, [facility] and don arm related to anxiety, hungry wants to eat. no sweats, no palpitation, chante fevers Objective: 02/18/17 13:32 Vital Signs - 24 hr 02/18/17 02/18/17 02/18/17 00:30 03:30 07:35 Temperature 98.0 F Pulse Rate 80 Respiratory 18 18 18 Rate Blood Pressure 112/76 02/18/17 12:16 Temperature 98 F Pulse Rate 81 Respiratory 19 Rate Blood Pressure 133/82 labs reewed, cxr reviewed, - atelectiasis ekg NSR no abnormalities noted. reviewed with patient 02/18/17 13:32 chest clear, s1 and s2 abdo soft, tender left u quadrant on deep palaption Assessment: 02/18/17 13:33 musculoskeletal pain luq, naprosyn 500mg bid with protonix, food patite reassureed, advsed to f/u w pcp when discharged.
--- NOTE | 2017-02-18 14:34 | EKG ---
Test Reason : Blood Pressure : / mmHG Vent. Rate : 075 BPM Atrial Rate : 075 BPM P-R Int : 152 ms QRS Dur : 078 ms QT Int : 398 ms P-R-T Axes : 030 -02 011 degrees QTc Int : 444 ms NORMAL SINUS RHYTHM NORMAL ECG WHEN COMPARED WITH ECG OF 06-FEB-2017 17:45, NO SIGNIFICANT CHANGE WAS FOUND Confirmed by FREDDY WILHELM MD ([id number]) on 02/18/2017 2:33:36 PM Referred By: Confirmed By:FREDDY WILHELM MD
[2017-02-18] MEDS: NAPROXEN 500 MG TABLET (FP) PO SCH ×2 (20:05→21:15)
[2017-02-18] MEDS: THIAMINE HCL 100 MG TABLET (FP) PO SCH (21:13)
[2017-02-18] MEDS: QUEtiapine FUMARATE 100 MG TABLET (FP) PO SCH (21:14)
[2017-02-18] MEDS: traZODone HCL 100 MG TABLET (FP) PO SCH (21:14)
[2017-02-19] MEDS: hydrOXYzine PAMOATE 50 MG CAPSULE (FP) PO PRN ×2 (06:55→21:14)
[2017-02-19] MEDS ORDERED: PT OWN MED DRAWER 7, Y5N ONE (08:00)
[2017-02-19] MEDS: NAPROXEN 500 MG TABLET (FP) PO SCH ×2 (09:36→21:15)
[2017-02-19] MEDS: PRENATAL VITAMINS W/ FOLIC ACID TABLET (FP) PO SCH (09:36)
[2017-02-19] MEDS: PANTOPRAZOLE 40 MG TABLET (FP) PO SCH (09:36)
[2017-02-19] MEDS: BETAMETHASONE DIPR 0.05% OINTMENT 15 GM TUBE TP SCH ×2 (09:36→21:15)
[2017-02-19] MEDS: BACITRACIN 0.9 GM PACKET TP SCH ×2 (09:37→21:15)
[2017-02-19] MEDS: HYDROCORTISONE 1% TOPICAL CREAM 30 GM TUBE TP SCH ×2 (09:37→22:24)
[2017-02-19] MEDS: NICOTINE 14 MG/24 HOURS TOPICAL PATCH TD SCH (09:37)
[2017-02-19] MEDS: ACETAMINOPHEN 325 MG TABLET (FP) PO PRN (17:01)
[2017-02-19] MEDS: THIAMINE HCL 100 MG TABLET (FP) PO SCH (21:14)
[2017-02-19] MEDS: QUEtiapine FUMARATE 100 MG TABLET (FP) PO SCH (21:14)
[2017-02-19] MEDS: traZODone HCL 100 MG TABLET (FP) PO SCH (21:15)
[2017-02-20] MEDS: hydrOXYzine PAMOATE 50 MG CAPSULE (FP) PO PRN ×3 (07:02→21:09)
[2017-02-20] MEDS ORDERED: PT OWN MED DRAWER 7, Y5N ONE (08:36)
[2017-02-20] MEDS: PANTOPRAZOLE 40 MG TABLET (FP) PO SCH (09:52)
[2017-02-20] MEDS: PRENATAL VITAMINS W/ FOLIC ACID TABLET (FP) PO SCH (09:52)
[2017-02-20] MEDS: NAPROXEN 500 MG TABLET (FP) PO SCH ×2 (09:52→21:09)
[2017-02-20] MEDS: BACITRACIN 0.9 GM PACKET TP SCH ×2 (09:52→21:09)
[2017-02-20] MEDS: NICOTINE 14 MG/24 HOURS TOPICAL PATCH TD SCH (09:52)
[2017-02-20] MEDS: HYDROCORTISONE 1% TOPICAL CREAM 30 GM TUBE TP SCH ×2 (09:53→21:10)
[2017-02-20] MEDS: BETAMETHASONE DIPR 0.05% OINTMENT 15 GM TUBE TP SCH ×2 (09:53→21:10)
[2017-02-20] MEDS: MAG HYDROX/AL HYDROX/SIMETH 30 ML UNIT-DOSE CUP PO PRN (19:37)
--- NOTE | 2017-02-20 20:16 | PN ---
[facility] Progress Note Note: Pt c/o chest pain, EKG was done showing SNR. Pt verbalized relief and burping after PRN mylanta was administered.
[2017-02-20] MEDS: THIAMINE HCL 100 MG TABLET (FP) PO SCH (21:09)
[2017-02-20] MEDS: traZODone HCL 100 MG TABLET (FP) PO SCH (21:09)
[2017-02-20] MEDS: QUEtiapine FUMARATE 100 MG TABLET (FP) PO SCH (21:09)
[2017-02-21] MEDS: MAG HYDROX/AL HYDROX/SIMETH 30 ML UNIT-DOSE CUP PO PRN (06:45)
[2017-02-21] MEDS: hydrOXYzine PAMOATE 50 MG CAPSULE (FP) PO PRN ×2 (06:45→17:46)
[2017-02-21] MEDS: BACITRACIN 0.9 GM PACKET TP SCH ×2 (09:36→21:10)
[2017-02-21] MEDS: NICOTINE 14 MG/24 HOURS TOPICAL PATCH TD SCH (09:36)
[2017-02-21] MEDS: BETAMETHASONE DIPR 0.05% OINTMENT 15 GM TUBE TP SCH ×2 (09:37→21:15)
[2017-02-21] MEDS: HYDROCORTISONE 1% TOPICAL CREAM 30 GM TUBE TP SCH ×2 (09:37→21:10)
[2017-02-21] MEDS: PRENATAL VITAMINS W/ FOLIC ACID TABLET (FP) PO SCH (09:37)
[2017-02-21] MEDS: PANTOPRAZOLE 40 MG TABLET (FP) PO SCH (09:37)
[2017-02-21] MEDS: NAPROXEN 500 MG TABLET (FP) PO SCH ×2 (09:37→21:10)
[2017-02-21] MEDS ORDERED: PT OWN MED DRAWER 7, Y5N ONE (10:12)
[2017-02-21] MEDS: ACETAMINOPHEN 325 MG TABLET (FP) PO PRN (17:46)
[2017-02-21] MEDS: COLLOIDAL OATMEAL 1 BAR EACH TP PRN (20:26)
[2017-02-21] MEDS: THIAMINE HCL 100 MG TABLET (FP) PO SCH (21:10)
[2017-02-21] MEDS: traZODone HCL 100 MG TABLET (FP) PO SCH (21:11)
[2017-02-21] MEDS: QUEtiapine FUMARATE 100 MG TABLET (FP) PO SCH (21:11)
[2017-02-21] MEDS ORDERED: CYCLOBENZAPRINE HCL 10 MG TABLET (FP) PO SCH (22:00)
[2017-02-22] MEDS: CYCLOBENZAPRINE HCL 5 MG TABLET PO SCH ×3 (06:33→21:13)
[2017-02-22] MEDS: hydrOXYzine PAMOATE 50 MG CAPSULE (FP) PO PRN ×2 (06:33→21:13)
[2017-02-22] MEDS: PANTOPRAZOLE 40 MG TABLET (FP) PO SCH (09:30)
[2017-02-22] MEDS: BACITRACIN 0.9 GM PACKET TP SCH ×2 (09:30→21:13)
[2017-02-22] MEDS: BETAMETHASONE DIPR 0.05% OINTMENT 15 GM TUBE TP SCH ×2 (09:30→21:14)
[2017-02-22] MEDS: PRENATAL VITAMINS W/ FOLIC ACID TABLET (FP) PO SCH (09:30)
[2017-02-22] MEDS: NAPROXEN 500 MG TABLET (FP) PO SCH ×2 (09:30→21:13)
[2017-02-22] MEDS: NICOTINE 14 MG/24 HOURS TOPICAL PATCH TD SCH (09:31)
[2017-02-22] MEDS: HYDROCORTISONE 1% TOPICAL CREAM 30 GM TUBE TP SCH (09:40)
[2017-02-22] MEDS: traZODone HCL 100 MG TABLET (FP) PO SCH (21:13)
[2017-02-22] MEDS: QUEtiapine FUMARATE 100 MG TABLET (FP) PO SCH (21:13)
[2017-02-22] MEDS: THIAMINE HCL 100 MG TABLET (FP) PO SCH (21:13)
[2017-02-23] MEDS: CYCLOBENZAPRINE HCL 5 MG TABLET PO SCH ×2 (06:38→14:00)
[2017-02-23] MEDS: hydrOXYzine PAMOATE 50 MG CAPSULE (FP) PO PRN (06:38)
[2017-02-23 07:13] VITALS: BP 120/86; PULSE 88; TEMP 98
[2017-02-23] MEDS: PANTOPRAZOLE 40 MG TABLET (FP) PO SCH (10:16)
[2017-02-23] MEDS: NAPROXEN 500 MG TABLET (FP) PO SCH (10:16)
[2017-02-23] MEDS: BACITRACIN 0.9 GM PACKET TP SCH (10:16)
[2017-02-23] MEDS: NICOTINE 14 MG/24 HOURS TOPICAL PATCH TD SCH (10:16)
[2017-02-23] MEDS: PRENATAL VITAMINS W/ FOLIC ACID TABLET (FP) PO SCH (10:16)
[2017-02-23] MEDS: BETAMETHASONE DIPR 0.05% OINTMENT 15 GM TUBE TP SCH (10:17)
[2017-02-23] MEDS: HYDROCORTISONE 1% TOPICAL CREAM 30 GM TUBE TP SCH (10:18)
--- NOTE | 2017-02-23 12:24 | EKG ---
Test Reason : Blood Pressure : / mmHG Vent. Rate : 076 BPM Atrial Rate : 076 BPM P-R Int : 150 ms QRS Dur : 082 ms QT Int : 394 ms P-R-T Axes : 038 019 038 degrees QTc Int : 443 ms NORMAL SINUS RHYTHM NORMAL ECG WHEN COMPARED WITH ECG OF 18-FEB-2017 13:40, NO SIGNIFICANT CHANGE WAS FOUND Confirmed by MD Sims Daniel ([id number]) on 02/23/2017 12:24:11 PM Referred By: Confirmed By:Eugenio Sims MD
[2017-02-23] MEDS ORDERED: ALBUTEROL SO4 18 GM HFA INHALER IH PRN (13:14)
--- NOTE | 2017-02-23 13:45 | PN ---
Psychiatric Progress Note Vital Signs: Vital Signs Period Temp Pulse Resp BP Sys/Rice Pulse Ox Last 24 Hr 98.0 F 88 18-18 120/86 Current Medications: Active Medications Generic Name Dose Route Start Last Admin Trade Name Freq PRN Reason Stop Dose Admin Acetaminophen 650 mg 02/10/17 13:09 02/21/17 17:46 Tylenol - PO 650 mg Q4H PRN Administration FEVER OR PAIN Al Hydroxide/Mg Hydroxide 30 ml 02/10/17 13:09 02/21/17 06:45 Mylanta Oral Suspension - PO 30 ml Q6H PRN Administration DYSPEPSIA Albuterol Sulfate 1 amp 02/11/17 14:32 02/13/17 21:26 Ventolin 0.083% Nebulizer Soln - NEB 1 amp Q6H PRN Administration SHORT OF BREATH/WHEEZING Albuterol Sulfate 2 puff 02/23/17 13:14 Ventolin Hfa Inhaler - IH Q4H PRN SHORT OF BREATH/WHEEZING Bacitracin 0.9 gm 02/10/17 22:00 02/23/17 10:16 Bacitracin - TP 0.9 gm BID LA NNEA Administration Betamethasone Dipropionate 1 applic 02/15/17 15:30 02/23/17 10:17 Diprosone 0.05% Ointment - TP 1 applic BID LA NENA Administration Colloidal Oatmeal 1 applic 02/12/17 12:07 02/21/17 20:26 Aveeno Soap - TP 1 applic DAILY PRN Administration HYGEINE Cyclobenzaprine HCl 5 mg 02/22/17 06:00 02/23/17 06:38 Cyclobenzaprine Hcl PO 5 mg TID LA NENA Administration Eucalyptus/Menthol/Phenol/Sorbitol 1 each 02/10/17 13:09 Cepastat Lozenge - MM Q4H PRN SORE THROAT Guaifenesin 10 ml 02/10/17 13:09 02/15/17 21:17 Robitussin Dm - PO 10 ml Q6H PRN Administration COUGH Hydrocortisone 1 applic 02/14/17 22:00 02/23/17 10:18 Hytone 1% Cream - TP 1 applic BID LA NENA Administration Hydroxyzine Pamoate 50 mg 02/10/17 13:49 02/23/17 06:38 Vistaril - PO 50 mg Q4H PRN Administration ANXIETY Loperamide HCl 4 mg 02/10/17 13:09 Imodium - PO Q6H PRN DIARRHEA Magnesium Citrate 300 ml 02/10/17 13:09 Citroma - PO Q48H PRN CONSTIPATION Magnesium Hydroxide 30 ml 02/10/17 13:09 Milk Of Magnesia - PO DAILY PRN CONSTIPATION Naproxen 500 mg 02/18/17 20:00 02/23/17 10:16 Naprosyn - PO 500 mg BID LA NENA Administration Nicotine 14 mg 02/11/17 10:00 02/23/17 10:16 Nicoderm Patch - TD Not Given DAILY LA NENA Nicotine Polacrilex 2 mg 02/10/17 13:09 02/14/17 10:47 Nicorette Gum - BUC 2 mg Q2H PRN Administration NICOTINE REPLACEMENT RX Pantoprazole Sodium 40 mg 02/13/17 16:30 02/23/17 10:16 Protonix - PO 40 mg DAILY LA NENA Administration Multivit/Folic Acid/Iron 1 tab 02/11/17 10:00 02/23/17 10:16 Vitamins (Sjr) - PO 1 tab DAILY LA NENA Administration Pseudoephedrine/Triprolidine 1 combo 02/10/17 13:09 02/10/17 23:02 Actifed - PO 1 combo TID PRN Administration NASAL CONGESTION Quetiapine Fumarate 100 mg 02/12/17 22:00 02/22/17 21:13 Seroquel - PO 100 mg HS LA NENA Administration Thiamine HCl 100 mg 02/10/17 22:00 02/22/17 21:13 Vitamin B1 - PO 100 mg HS LA NENA Administration Trazodone HCl 100 mg 02/10/17 22:00 02/22/17 21:13 Desyrel - PO 100 mg HS LA NENA Administration
--- NOTE | 2017-02-23 13:50 | PN ---
[facility] Progress Note Note: Informed by nursing staff that patient wants to leave the program today in lieu of tomorrow which is her scheduled discharge date. Reportedly she is stable for discharge. Discharge order placed and scripts for 30 days supply of Seroquel 100 mg po HS, Trazadone 100 mg po HS and Vistaril 50 mg po QID electronically transmitted to [facility] at [address] [place], [place] [id number]
[2017-02-23] MEDS: ACETAMINOPHEN 325 MG TABLET (FP) PO PRN (14:00)
== END 2017-02-23 14:30 | disposition home or self-care (01) | DRG 772 ==
LOC: YASAS 10:42 → Y3E 10:43
PROVIDERS: ADMIT Psychiatry & Neurology Psychiatry; ATTEND Psychiatry & Neurology Psychiatry
PROC: HZ42ZZZ Group Counseling for Substance Abuse Treatment, Cognitive-Behavioral (ICD-10-PCS; principal; 2017-02-10)
DX: F10.20 Alcohol dependence, uncomplicated (principal); F14.20 Cocaine dependence, uncomplicated; F17.210 Nicotine dependence, cigarettes, uncomplicated; F20.9 Schizophrenia, unspecified; F19.280 Other psychoactive substance dependence with psychoactive substance-induced anxiety disorder; F19.282 Other psychoactive substance dependence with psychoactive substance-induced sleep disorder; F43.10 Post-traumatic stress disorder, unspecified; K21.9 Gastro-esophageal reflux disease without esophagitis; R07.89 Other chest pain
CPT/HCPCS: 71046-TC; 87086; 93005; 93010; 94640

== ENCOUNTER 2017-08-01 18:13 | Inpatient (IN) | payer OTHER ==
[2017-08-01 18:19] VITALS: BMI 36.6
--- NOTE | 2017-08-01 20:38 | HP ---
CIWA Score - CIWA Score Nausea/Vomitin-Mild Nausea/No Vomiting Muscle Tremors: 3 Anxiety: 4-Mod. Anxious/Guarded Agitation: 4-Moderately Restless Paroxysmal Sweats: 1-Minimal Palms Moist Orientation: 1-Uncertain about Date Tacttile Disturbances: 0-None Auditory Disturbances: 0-None Visual Disturbances: 0-None Headache: 3-Moderate CIWA-Ar Total Score: 17 Admission [facility] - HPI Chief Complaint: Alcohol withdrawal symptoms Allergies/Adverse Reactions: Allergies Allergy/AdvReac Type Severity Reaction Status Date / Time No Known Allergies Allergy Verified 08/01/17 19:16 History of Present Illness: 41 years old female with a 5 years history of alcohol dependence is seeking admission to detox. Patient has been in previous detox, last at [facility] and reports insignificant period of sobriety. She has medical history of pre- diabetes, GERD, dyspepsia, depression, right knee arthritis and anxiety. Reports suicide attempt at age 36 and denies suicidal ideation at this time. Exam Limitations: No Limitations - Ebola screening Have you traveled outside of the country in the last 21 days: No Have you been sick,other than usual withdrawal symptoms: No Do you have a fever: No - Review of Systems Constitutional: Chills, Loss of Appetite, Malaise, Changes in sleep, Weakness EENT: reports: No Symptoms Reported Respiratory: reports: No Symptoms reported Cardiac: reports: No Symptoms Reported GI: reports: Poor Appetite, Poor Fluid Intake, Abdominal cramping : reports: No Symptoms Reported Musculoskeletal: reports: Back Pain, Joint Pain, Muscle Weakness, Other (right lizette arthritis) Integumentary: reports: Dryness Neuro: reports: Headache, Tremors Endocrine: reports: No Symptoms Reported Hematology: reports: No Symptoms Reported Psychiatric: reports: Agitated, Anxious, Depressed Other Systems: Reviewed and Negative Patient History - Patient Medical History Hx Anemia: No Hx Asthma: Yes (Albuterol) Hx Chronic Obstructive Pulmonary Disease (COPD): No Hx Cancer: No Hx Cardiac Disorders: No Hx Congestive Heart Failure: No Hx Hypertension: No Hx Hypercholesterolemia: No Hx Pacemaker: No HX Cerebrovascular Accident: No Hx Seizures: No Hx Dementia: No Hx Diabetes: Yes (Pre- diabetes - Not on medication) Hx Gastrointestinal Disorders: Yes (GERD) Hx Liver Disease: No Hx Genitourinary Disorders: No Hx Sexually Transmitted Disorders: No Hx Renal Disease (ESRD): No Hx Thyroid Disease: No Hx Human Immunodeficiency Virus (HIV): No (Negative 2018) Hx Hepatitis C: No Hx Depression: Yes (Seroquel, Trazodone) Hx Suicide Attempt: No Hx Bipolar Disorder: No Hx Schizophrenia: No Other Medical History: Anxiety - - Patient Surgical History Past Surgical History: Yes Hx Neurologic Surgery: No Hx Cataract Extraction: No Hx Cardiac Surgery: No Hx Lung Surgery: No Hx Breast Surgery: No Hx Breast Biopsy: No Hx Abdominal Surgery: No Hx Appendectomy: No Hx Cholecystectomy: No Hx Genitourinary Surgery: No Hx Section: Yes (x 1) Hx Orthopedic Surgery: No Anesthesia Reaction: No - PPD History Previous Implant?: Yes Documented Results: Negative w/proof Date: 02/08/17 Results: 0mm PPD to be Administered?: No - Reproductive History Patient is a Female of Child Bearing Age (11 -55 yrs old): Yes Last Menstrual Period: 07/13/17 Patient : No - Smoking Cessation Smoking history: Current every day smoker Have you smoked in the past 12 months: Yes Aproximately how many cigarettes per day: 6 Hx Chewing Tobacco Use: No Initiated information on smoking cessation: Yes 'Breaking Loose' booklet given: 08/01/17 - Substance & Tx. History Hx Alcohol Use: Yes Hx Substance Use: Yes Substance Use Type: Cocaine Hx Substance Use Treatment: Yes ([facility]) - Substances Abused Alcohol Route: Oral Frequency: Daily Amount used: liquor- 2 , , beer- 1 six pack Age of first use: 23 Date of Last Use: 07/31/17 Cocaine Route: Inhalation Frequency: Daily Amount used: 2 bags Age of first use: 37 Date of Last Use: 07/31/17 Family Disease History - Family Disease History Family Disease History: Heart Disease: Mother (HTN,Asthma), Respiratory: Mother Admission Physical Exam [facility] - Vital Signs Vital Signs: Vital Signs - 24 hr 08/01/17 18:17 Temperature 98.5 F Pulse Rate 86 Respiratory 18 Rate Blood Pressure 126/80 - Physical General Appearance: Yes: Moderate Distress, Tremorous, Irritable, Sweating, Anxious HEENTM: Yes: EOMI, Normal ENT Inspection, Normocephalic, Normal Voice, KENDALL Respiratory: Yes: Lungs Clear, Normal Breath Sounds, No Respiratory Distress Neck: Yes: Supple Breast: Yes: Breast Exam Deferred Cardiology: Yes: Regular Rhythm, Regular Rate, S1, S2 Abdominal: Yes: Normal Bowel Sounds, Distended Genitourinary: Yes: Within Normal Limits Back: Yes: Normal Inspection Musculoskeletal: Yes: Back pain, Muscle Pain, Muscle weakness Extremities: Yes: Tremors Neurological: Yes: Alert, Normal Mood/Affect Integumentary: Yes: Warm Lymphatic: Yes: Within Normal Limits - Diagnostic (1) Arthritis Current Visit: Yes Status: Chronic (2) Anxiety Current Visit: Yes Status: Chronic (3) Depression Current Visit: Yes Status: Chronic Qualifiers: Depression Type: unspecified Qualified Code(s): F32.9 - Major depressive disorder, single episode, unspecified (4) Pre-diabetes Current Visit: Yes Status: Chronic (5) Alcohol dependence with uncomplicated withdrawal Current Visit: Yes Status: Chronic (6) Cocaine dependence, uncomplicated Current Visit: Yes Status: Chronic (7) GERD (gastroesophageal reflux disease) Current Visit: Yes Status: Chronic (8) Nicotine dependence Current Visit: Yes Status: Chronic Qualifiers: Nicotine product type: cigarettes Substance use status: uncomplicated Qualified Code(s): F17.210 - Nicotine dependence, cigarettes, uncomplicated (9) Asthma Current Visit: Yes Status: Chronic Qualifiers: Asthma complication type: unspecified Cleared for Admission S - Detox or Rehab [facility] Level of Care: Medically Managed Detox Regimen/Protocol: Librium [facility] Breath Alcohol Content Breath Alcohol Content: 0 Urine Pregancy Test - Result Urine Test Results: Negative- NO Line Present Urine Drug Screen - Results Drug Screen Negative: No Urine Drug Screen Results: SACHIN-Cocaine, BZO-Benzodiazepines, TCA-Tricyclic Antidepress
[2017-08-01] MEDS ORDERED: MENTHOL/PHENOL 1 EACH UD MM PRN (20:51)
[2017-08-01] MEDS ORDERED: ACETAMINOPHEN 325 MG TABLET (FP) PO PRN (20:51)
[2017-08-01] MEDS ORDERED: P-EPHED 60MG/TRIPROLIDI 2.5MG TABLET PO PRN (20:51)
[2017-08-01] MEDS ORDERED: MAGNESIUM CITRATE 300 ML BOTTLE PO PRN (20:51)
[2017-08-01] MEDS ORDERED: chlordiazePOXIDE HCL 25 MG CAPSULE PO PRN (20:51)
[2017-08-01] MEDS ORDERED: LOPERAMIDE HCL 2 MG CAPSULE PO PRN (20:51)
[2017-08-01] MEDS ORDERED: NICOTINE POLACRILEX 2 MG GUM BC PRN (20:51)
[2017-08-01] MEDS ORDERED: guaiFENesin/D-METHORPHAN HB 10 ML UNIT-DOSE CUPS PO PRN (20:51)
[2017-08-01] MEDS ORDERED: IBUPROFEN 400 MG TABLET (FP) PO PRN (20:51)
[2017-08-01] MEDS ORDERED: MAGNESIUM HYDROX 2400MG/30ML ORAL SUSPENSION 30 ML CUP PO PRN (20:51)
[2017-08-01] MEDS ORDERED: ALBUTEROL SO4 18 GM HFA INHALER IH PRN (20:53)
[2017-08-01] MEDS ORDERED: MELATONIN 5 MG TABLETS PO PRN (22:00)
[2017-08-02] MEDS: chlordiazePOXIDE HCL 25 MG CAPSULE PO SCH ×6 (06:24→22:05)
[2017-08-02] MEDS: THIAMINE HCL 100 MG TABLET (FP) PO SCH ×2 (08:28→22:05)
[2017-08-02 10:07] LABS: HEMATOCRIT 39.1 % (32.4-45.2); HEMOGLOBIN 12.9 GM/dL (10.7-15.3); MCHC 32.9 g/dl (32.0-36.0); MEAN PLT VOLUME 10.8 fl (7.5-11.1); PLATELET COUNT 141 K/MM3 (134-434); RBC 4.77 M/mm3 (3.60-5.2); RDW 13.5 % (11.6-15.6); WHITE BLOOD COUNT 6.8 K/mm3 (4.0-10.0)
[2017-08-02] MEDS: PRENATAL VITAMINS W/ FOLIC ACID TABLET (FP) PO SCH (10:15)
[2017-08-02 10:16] LABS: CHLORIDE 106 mmol/L (98-107); POTASSIUM 4.2 mmol/L (3.5-5.1); SODIUM 139 mmol/L (136-145)
[2017-08-02] MEDS: NICOTINE 14 MG/24 HOURS TOPICAL PATCH TD SCH (10:16)
[2017-08-02] MEDS: hydrOXYzine PAMOATE 50 MG CAPSULE (FP) PO PRN ×3 (10:19→19:37)
[2017-08-02 10:29] LABS: ALBUMIN 3.5 g/dl (3.4-5.0); ALK PHOS 54 U/L (45-117); ANION GAP 6 (8-16); BILIRUBIN,TOTAL 0.4 mg/dL (0.2-1.0); BLOOD UREA NITROGEN 14 mg/dL (7-18); CALCIUM 8.5 mg/dL (8.5-10.1); CO2 27 mmol/L (21-32); CREATININE 0.9 mg/dL (0.55-1.02); GLUCOSE,RANDOM 113 mg/dL (74-106); SGOT/AST 16 U/L (15-37); SGPT/ALT 22 U/L (12-78); TOT PROT 6.5 g/dl (6.4-8.2)
--- NOTE | 2017-08-02 10:30 | CONSULT ---
[facility] Psychiatric Consult - Data Date of interview: 08/02/17 Admission source: [facility] Identifying data: This is 41 years old female, single mother of four, living with family, unemployed, on PA, with no history of psychiatric hospitalizations , with a 5 years history of alcohol, cocoaine, benzodoazepins and nicotine dependence, reports withdrawal symptoms and is seeking admission to detox. Substance Abuse History: Smoking Cessation. Smoking history: Current every day smoker. Have you smoked in the past 12 months: Yes. Aproximately how many cigarettes per day: 6. Hx Chewing Tobacco Use: No. Initiated information on smoking cessation: Yes. 'Breaking Loose' booklet given: 08/01/17. - Substance & Tx. History. Hx Alcohol Use: Yes. Hx Substance Use: Yes. Substance Use Type : Cocaine. Hx Substance Use Treatment: Yes ([facility]). - Substances Abused. Alcohol. Route: Oral. Frequency: Daily. Amount used: liquor- 2 , , beer- 1 six pack. Age of first use: 23. Date of Last Use: 07/31/17. Cocaine. Route: Inhalation. Frequency: Daily. Amount used: 2 bags. Age of first use: 37. Date of Last Use: 07/31/17 Medical History: Arthritis, GERD, DM-2, Psychiatric History: Patient reports history of depression, reports taking prior to admission: Trazodone 100mg po qhs. Trazodone 100mg po qhs. Vistaril 50mg po p[rn q4 for agitation. As per computer there is a history os Schozophrenia, PTSD, as well. Physical/Sexual Abuse/Trauma History: Denies Additional Comment: Trazodone 100mg po qhs. Trazodone 100mg po qhs. Vistaril 50mg po p[rn q4 for agitation. Mental Status Exam - Mental Status Exam Additional Comments: Trazodone 100mg po qhs. Trazodone 100mg po qhs. Vistaril 50mg po p[rn q4 for agitation. Psychiatric Findings - Problem List ([place] 1, 2,3) (1) Alcohol dependence with uncomplicated withdrawal Current Visit: Yes Status: Chronic (2) Anxiety Current Visit: Yes Status: Chronic (3) Arthritis Current Visit: Yes Status: Chronic (4) Asthma Current Visit: Yes Status: Chronic Qualifiers: Asthma complication type: unspecified (5) Cocaine dependence, uncomplicated Current Visit: Yes Status: Chronic (6) GERD (gastroesophageal reflux disease) Current Visit: Yes Status: Chronic (7) Nicotine dependence Current Visit: Yes Status: Chronic Qualifiers: Nicotine product type: cigarettes Substance use status: uncomplicated Qualified Code(s): F17.210 - Nicotine dependence, cigarettes, uncomplicated (8) Alcohol dependence Current Visit: No Status: Acute (9) Urinary tract infection without hematuria Current Visit: No Status: Acute Qualifiers: Urinary tract infection type: site unspecified Qualified Code(s): N39.0 - Urinary tract infection, site not specified (10) Cannabis dependence Current Visit: No Status: Chronic (11) PTSD (post-traumatic stress disorder) Current Visit: No Status: Chronic (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 Trazodone 100mg po qhs. Vistaril 50mg po p[rn q4 for agitation.
--- NOTE | 2017-08-02 12:06 | PN ---
S CIWA - CIWA Score Nausea/Vomitin-Mild Nausea/No Vomiting Muscle Tremors: 4-Moderate,w/Arms Extend Anxiety: 3 Agitation: 3 Paroxysmal Sweats: 1-Minimal Palms Moist Orientation: 0-Oriented Tacttile Disturbances: 1-Very Mild Itch/Numbness Auditory Disturbances: 0-None Visual Disturbances: 0-None Headache: 0-None Present CIWA-Ar Total Score: 13 [facility] Progress Note (SOAP) Subjective: sweat tremor anxiety restlessness trouble sleep at night Objective: 08/02/17 12:09 Vital Signs Temperature 98.2 F 08/02/17 11:33 Pulse Rate 88 08/02/17 11:33 Respiratory Rate 20 08/02/17 11:33 Blood Pressure 121/76 08/02/17 11:33 O2 Sat by Pulse Oximetry (%) Laboratory Last Values WBC 6.8 K/mm3 (4.0-10.0) 08/02/17 07:30 RBC 4.77 M/mm3 (3.60-5.2) 08/02/17 07:30 Hgb 12.9 GM/dL (10.7-15.3) 08/02/17 07:30 Hct 39.1 % (32.4-45.2) 08/02/17 07:30 MCV 82.0 fl (80-96) 08/02/17 07:30 MCH 27.0 pg (25.7-33.7) 08/02/17 07:30 MCHC 32.9 g/dl (32.0-36.0) 08/02/17 07:30 RDW 13.5 % (11.6-15.6) 08/02/17 07:30 Plt Count 141 K/MM3 (134-434) D 08/02/17 07:30 MPV 10.8 fl (7.5-11.1) 08/02/17 07:30 Sodium 139 mmol/L (136-145) 08/02/17 07:30 Potassium 4.2 mmol/L (3.5-5.1) 08/02/17 07:30 Chloride 106 mmol/L (98-107) 08/02/17 07:30 Carbon Dioxide 27 mmol/L (21-32) 08/02/17 07:30 Anion Gap 6 (8-16) L 08/02/17 07:30 BUN 14 mg/dL (7-18) 08/02/17 07:30 Creatinine 0.9 mg/dL (0.55-1.02) 08/02/17 07:30 Creat Clearance w eGFR > 60 (>60) 08/02/17 07:30 POC Glucometer 126 UNITS (80-120) 08/02/17 06:27 Random Glucose 113 mg/dL (74-106) H 08/02/17 07:30 Calcium 8.5 mg/dL (8.5-10.1) 08/02/17 07:30 Total Bilirubin 0.4 mg/dL (0.2-1.0) 08/02/17 07:30 AST 16 U/L (15-37) 08/02/17 07:30 ALT 22 U/L (12-78) 08/02/17 07:30 Alkaline Phosphatase 54 U/L (45-117) 08/02/17 07:30 Total Protein 6.5 g/dl (6.4-8.2) 08/02/17 07:30 Albumin 3.5 g/dl (3.4-5.0) 08/02/17 07:30 RPR Titer Nonreactive (NONREACTIVE) 08/02/17 07:30 HIV 1&2 Antibody Screen Negative 08/02/17 07:30 HIV P24 Antigen Negative 08/02/17 07:30 lab noted Assessment: 08/02/17 12:09 withdrawal sx Plan: continue detox
[2017-08-02 14:57] LABS: URINE APPEARANCE TURBID; URINE BILIRUBIN NEGATIVE (<2.0 mg/dL); URINE COLOR YELLOW; URINE GLUCOSE (UA) NEGATIVE (NEGATIVE); URINE KETONE NEGATIVE (NEGATIVE); URINE NITRITE NEGATIVE (NEGATIVE); URINE PROTEIN NEGATIVE (NEGATIVE); URINE UROBILINOGEN NEGATIVE mg/dL (0.2-1.0)
[2017-08-02 14:58] LABS: URINE LEUK ESTERASE 1+ (NEGATIVE)
[2017-08-02 15:13] LABS: URINE BACTERIA MANY /hpf (NONE SEEN); URINE HYALINE CAST 30 /lpf; YEAST MANY
[2017-08-02] MEDS: MAG HYDROX/AL HYDROX/SIMETH 30 ML UNIT-DOSE CUP PO PRN (17:20)
[2017-08-02] MEDS: traZODone HCL 100 MG TABLET (FP) PO SCH (22:05)
[2017-08-02] MEDS: QUEtiapine FUMARATE 100 MG TABLET (FP) PO SCH (22:05)
--- NOTE | 2017-08-02 22:11 | EKG ---
Test Reason : Blood Pressure : / mmHG Vent. Rate : 077 BPM Atrial Rate : 077 BPM P-R Int : 132 ms QRS Dur : 074 ms QT Int : 400 ms P-R-T Axes : -13 014 023 degrees QTc Int : 452 ms NORMAL SINUS RHYTHM NORMAL ECG WHEN COMPARED WITH ECG OF 20-FEB-2017 20:43, NO SIGNIFICANT CHANGE WAS FOUND Confirmed by CURT DE AL CRUZ MD ([id number]) on 08/02/2017 10:11:00 PM Referred By: J Luis Lanza Confirmed By:CURT DE LA CRUZ MD
[2017-08-03] MEDS: chlordiazePOXIDE HCL 25 MG CAPSULE PO SCH ×3 (05:17→17:08)
[2017-08-03] MEDS: MAG HYDROX/AL HYDROX/SIMETH 30 ML UNIT-DOSE CUP PO PRN ×3 (05:18→22:22)
[2017-08-03] MEDS: PRENATAL VITAMINS W/ FOLIC ACID TABLET (FP) PO SCH (10:23)
[2017-08-03] MEDS: NICOTINE 14 MG/24 HOURS TOPICAL PATCH TD SCH (10:26)
--- NOTE | 2017-08-03 11:04 | PN ---
S CIWA - CIWA Score Nausea/Vomitin-Mild Nausea/No Vomiting Muscle Tremors: 4-Moderate,w/Arms Extend Anxiety: 3 Agitation: 3 Paroxysmal Sweats: 1-Minimal Palms Moist Orientation: 0-Oriented Tacttile Disturbances: 0-None Auditory Disturbances: 0-None Visual Disturbances: 0-None Headache: 0-None Present CIWA-Ar Total Score: 12 BHS Progress Note (SOAP) Subjective: SWEAT TREMOR GI DISTRESS LOW ENERGY Objective: 08/03/17 11:03 Vital Signs Temperature 97.7 F 08/03/17 06:00 Pulse Rate 82 08/03/17 06:00 Respiratory Rate 18 08/03/17 06:00 Blood Pressure 107/63 08/03/17 06:00 O2 Sat by Pulse Oximetry (%) Laboratory Last Values WBC 6.8 K/mm3 (4.0-10.0) 08/02/17 07:30 RBC 4.77 M/mm3 (3.60-5.2) 08/02/17 07:30 Hgb 12.9 GM/dL (10.7-15.3) 08/02/17 07:30 Hct 39.1 % (32.4-45.2) 08/02/17 07:30 MCV 82.0 fl (80-96) 08/02/17 07:30 MCH 27.0 pg (25.7-33.7) 08/02/17 07:30 MCHC 32.9 g/dl (32.0-36.0) 08/02/17 07:30 RDW 13.5 % (11.6-15.6) 08/02/17 07:30 Plt Count 141 K/MM3 (134-434) D 08/02/17 07:30 MPV 10.8 fl (7.5-11.1) 08/02/17 07:30 Sodium 139 mmol/L (136-145) 08/02/17 07:30 Potassium 4.2 mmol/L (3.5-5.1) 08/02/17 07:30 Chloride 106 mmol/L (98-107) 08/02/17 07:30 Carbon Dioxide 27 mmol/L (21-32) 08/02/17 07:30 Anion Gap 6 (8-16) L 08/02/17 07:30 BUN 14 mg/dL (7-18) 08/02/17 07:30 Creatinine 0.9 mg/dL (0.55-1.02) 08/02/17 07:30 Creat Clearance w eGFR > 60 (>60) 08/02/17 07:30 POC Glucometer 126 UNITS (80-120) 08/02/17 06:27 Random Glucose 113 mg/dL (74-106) H 08/02/17 07:30 Calcium 8.5 mg/dL (8.5-10.1) 08/02/17 07:30 Total Bilirubin 0.4 mg/dL (0.2-1.0) 08/02/17 07:30 AST 16 U/L (15-37) 08/02/17 07:30 ALT 22 U/L (12-78) 08/02/17 07:30 Alkaline Phosphatase 54 U/L (45-117) 08/02/17 07:30 Total Protein 6.5 g/dl (6.4-8.2) 08/02/17 07:30 Albumin 3.5 g/dl (3.4-5.0) 08/02/17 07:30 Urine Color Yellow 08/01/17 08:54 Urine Appearance Turbid 08/01/17 08:54 Urine pH 5.0 (5.0-8.0) 08/01/17 08:54 Ur Specific [place] 1.028 (1.001-1.035) 08/01/17 08:54 Urine Protein Negative (NEGATIVE) 08/01/17 08:54 Urine Glucose (UA) Negative (NEGATIVE) 08/01/17 08:54 Urine Ketones Negative (NEGATIVE) 08/01/17 08:54 Urine Blood Negative (NEGATIVE) 08/01/17 08:54 Urine Nitrite Negative (NEGATIVE) 08/01/17 08:54 Urine Bilirubin Negative (<2.0 mg/dL) 08/01/17 08:54 Urine Urobilinogen Negative mg/dL (0.2-1.0) 08/01/17 08:54 Ur Leukocyte Esterase 1+ (NEGATIVE) H 08/01/17 08:54 Urine WBC (Auto) 178 /hpf (3-5) 08/01/17 08:54 Urine RBC (Auto) None /hpf (0-3) 08/01/17 08:54 Urine Bacteria Many /hpf (NONE SEEN) 08/01/17 08:54 Hyaline Casts 30 /lpf 08/01/17 08:54 Urine Yeast Many 08/01/17 08:54 RPR Titer Nonreactive (NONREACTIVE) 08/02/17 07:30 HIV 1&2 Antibody Screen Negative 08/02/17 07:30 HIV P24 Antigen Negative 08/02/17 07:30 LAB NOTED 08/03/17 11:08 UTI Assessment: 08/03/17 11:08 WITHDRAWAL SX UTI Plan: CONTINUE DETOX BACTRIM DS BID
[2017-08-03] MEDS: hydrOXYzine PAMOATE 50 MG CAPSULE (FP) PO PRN ×2 (11:22→15:31)
[2017-08-03] MEDS: SULFAMETHOXAZOLE/TRIMETHOPRIM 800MG/160MG D.S. TABLET PO SCH ×2 (12:02→22:19)
[2017-08-03] MEDS: LIDOCAINE 5% TOPICAL PATCH TP SCH (14:35)
[2017-08-03] MEDS: THIAMINE HCL 100 MG TABLET (FP) PO SCH (22:19)
[2017-08-03] MEDS: traZODone HCL 100 MG TABLET (FP) PO SCH (22:19)
[2017-08-03] MEDS: QUEtiapine FUMARATE 100 MG TABLET (FP) PO SCH (22:19)
[2017-08-03] MEDS: chlordiazePOXIDE 5 MG CAPSULE PO SCH (22:19)
[2017-08-03] MEDS: LIDOCAINE PATCH REMOVAL MC SCH (22:19)
[2017-08-04] MEDS: chlordiazePOXIDE 5 MG CAPSULE PO SCH ×3 (06:03→17:29)
--- NOTE | 2017-08-04 10:27 | PN ---
BHS Progress Note (SOAP) Subjective: feeling better no tremor less sweat sleep better at night social with peers in day room discuss aftercare with provider Objective: 08/04/17 10:27 Vital Signs Temperature 97.7 F 08/04/17 07:47 Pulse Rate 101 H 08/04/17 07:47 Respiratory Rate 20 08/04/17 07:47 Blood Pressure 118/72 08/04/17 07:47 O2 Sat by Pulse Oximetry (%) Laboratory Last Values WBC 6.8 K/mm3 (4.0-10.0) 08/02/17 07:30 RBC 4.77 M/mm3 (3.60-5.2) 08/02/17 07:30 Hgb 12.9 GM/dL (10.7-15.3) 08/02/17 07:30 Hct 39.1 % (32.4-45.2) 08/02/17 07:30 MCV 82.0 fl (80-96) 08/02/17 07:30 MCH 27.0 pg (25.7-33.7) 08/02/17 07:30 MCHC 32.9 g/dl (32.0-36.0) 08/02/17 07:30 RDW 13.5 % (11.6-15.6) 08/02/17 07:30 Plt Count 141 K/MM3 (134-434) D 08/02/17 07:30 MPV 10.8 fl (7.5-11.1) 08/02/17 07:30 Sodium 139 mmol/L (136-145) 08/02/17 07:30 Potassium 4.2 mmol/L (3.5-5.1) 08/02/17 07:30 Chloride 106 mmol/L (98-107) 08/02/17 07:30 Carbon Dioxide 27 mmol/L (21-32) 08/02/17 07:30 Anion Gap 6 (8-16) L 08/02/17 07:30 BUN 14 mg/dL (7-18) 08/02/17 07:30 Creatinine 0.9 mg/dL (0.55-1.02) 08/02/17 07:30 Creat Clearance w eGFR > 60 (>60) 08/02/17 07:30 POC Glucometer 153 UNITS (80-120) 08/03/17 16:34 Random Glucose 113 mg/dL (74-106) H 08/02/17 07:30 Calcium 8.5 mg/dL (8.5-10.1) 08/02/17 07:30 Total Bilirubin 0.4 mg/dL (0.2-1.0) 08/02/17 07:30 AST 16 U/L (15-37) 08/02/17 07:30 ALT 22 U/L (12-78) 08/02/17 07:30 Alkaline Phosphatase 54 U/L (45-117) 08/02/17 07:30 Total Protein 6.5 g/dl (6.4-8.2) 08/02/17 07:30 Albumin 3.5 g/dl (3.4-5.0) 08/02/17 07:30 Urine Color Yellow 08/01/17 08:54 Urine Appearance Turbid 08/01/17 08:54 Urine pH 5.0 (5.0-8.0) 08/01/17 08:54 Ur Specific [place] 1.028 (1.001-1.035) 08/01/17 08:54 Urine Protein Negative (NEGATIVE) 08/01/17 08:54 Urine Glucose (UA) Negative (NEGATIVE) 08/01/17 08:54 Urine Ketones Negative (NEGATIVE) 08/01/17 08:54 Urine Blood Negative (NEGATIVE) 08/01/17 08:54 Urine Nitrite Negative (NEGATIVE) 08/01/17 08:54 Urine Bilirubin Negative (<2.0 mg/dL) 08/01/17 08:54 Urine Urobilinogen Negative mg/dL (0.2-1.0) 08/01/17 08:54 Ur Leukocyte Esterase 1+ (NEGATIVE) H 08/01/17 08:54 Urine WBC (Auto) 178 /hpf (3-5) 08/01/17 08:54 Urine RBC (Auto) None /hpf (0-3) 08/01/17 08:54 Urine Bacteria Many /hpf (NONE SEEN) 08/01/17 08:54 Hyaline Casts 30 /lpf 08/01/17 08:54 Urine Yeast Many 08/01/17 08:54 RPR Titer Nonreactive (NONREACTIVE) 08/02/17 07:30 HIV 1&2 Antibody Screen Negative 08/02/17 07:30 HIV P24 Antigen Negative 08/02/17 07:30 lab noted Assessment: 08/04/17 10:35 mild withdrawal sx Plan: medically supervised detox
[2017-08-04] MEDS: PRENATAL VITAMINS W/ FOLIC ACID TABLET (FP) PO SCH (10:29)
[2017-08-04] MEDS: SULFAMETHOXAZOLE/TRIMETHOPRIM 800MG/160MG D.S. TABLET PO SCH ×2 (10:29→22:07)
[2017-08-04] MEDS: NICOTINE 14 MG/24 HOURS TOPICAL PATCH TD SCH (10:29)
[2017-08-04] MEDS: LIDOCAINE 5% TOPICAL PATCH TP SCH (10:30)
[2017-08-04] MEDS ORDERED: COLLOIDAL OATMEAL 1 BAR EACH TP PRN (10:48)
[2017-08-04] MEDS: BACLOFEN 10 MG TABLET (FP) PO PRN ×2 (12:08→22:07)
[2017-08-04] MEDS: hydrOXYzine PAMOATE 50 MG CAPSULE (FP) PO PRN ×2 (13:39→19:52)
[2017-08-04] MEDS: MAG HYDROX/AL HYDROX/SIMETH 30 ML UNIT-DOSE CUP PO PRN (14:34)
[2017-08-04] MEDS: THIAMINE HCL 100 MG TABLET (FP) PO SCH (22:07)
[2017-08-04] MEDS: LIDOCAINE PATCH REMOVAL MC SCH (22:07)
[2017-08-04] MEDS: traZODone HCL 100 MG TABLET (FP) PO SCH (22:07)
[2017-08-04] MEDS: QUEtiapine FUMARATE 100 MG TABLET (FP) PO SCH (22:07)
[2017-08-04] MEDS: chlordiazePOXIDE HCL 10 MG CAPSULE PO SCH (22:07)
[2017-08-05] MEDS: chlordiazePOXIDE HCL 10 MG CAPSULE PO SCH ×2 (05:18→10:38)
--- NOTE | 2017-08-05 08:52 | DS ---
[facility] Detox Discharge Summary Admission Date: 08/01/17 Discharge Date: 08/05/17 - History Present History: Alcohol Dependence Additional Comments: 41 years old female admitted 08/01/17 for alcohol withdrawal sx completed alcohol detox regimen tolerated well denies alcohol withdrawal sx alert oriented x 3 no acute distress acknowledge uti continue bactrim ds and personal hygiene aftercare [facility] for physical mental and addiction issues - Physical Exam Results Vital Signs: Vital Signs Temperature 97.7 F 08/05/17 06:18 Pulse Rate 86 08/05/17 06:18 Respiratory Rate 18 08/05/17 06:18 Blood Pressure 104/67 08/05/17 06:18 O2 Sat by Pulse Oximetry (%) Pertinent Admission Physical Exam Findings: alcohol withdrawal sx Vital Signs Temperature 97.7 F 08/05/17 06:18 Pulse Rate 86 08/05/17 06:18 Respiratory Rate 18 08/05/17 06:18 Blood Pressure 104/67 08/05/17 06:18 O2 Sat by Pulse Oximetry (%) Laboratory Last Values WBC 6.8 K/mm3 (4.0-10.0) 08/02/17 07:30 RBC 4.77 M/mm3 (3.60-5.2) 08/02/17 07:30 Hgb 12.9 GM/dL (10.7-15.3) 08/02/17 07:30 Hct 39.1 % (32.4-45.2) 08/02/17 07:30 MCV 82.0 fl (80-96) 08/02/17 07:30 MCH 27.0 pg (25.7-33.7) 08/02/17 07:30 MCHC 32.9 g/dl (32.0-36.0) 08/02/17 07:30 RDW 13.5 % (11.6-15.6) 08/02/17 07:30 Plt Count 141 K/MM3 (134-434) D 08/02/17 07:30 MPV 10.8 fl (7.5-11.1) 08/02/17 07:30 Sodium 139 mmol/L (136-145) 08/02/17 07:30 Potassium 4.2 mmol/L (3.5-5.1) 08/02/17 07:30 Chloride 106 mmol/L (98-107) 08/02/17 07:30 Carbon Dioxide 27 mmol/L (21-32) 08/02/17 07:30 Anion Gap 6 (8-16) L 08/02/17 07:30 BUN 14 mg/dL (7-18) 08/02/17 07:30 Creatinine 0.9 mg/dL (0.55-1.02) 08/02/17 07:30 Creat Clearance w eGFR > 60 (>60) 08/02/17 07:30 POC Glucometer 115 UNITS (80-120) 08/04/17 16:42 Random Glucose 113 mg/dL (74-106) H 08/02/17 07:30 Calcium 8.5 mg/dL (8.5-10.1) 08/02/17 07:30 Total Bilirubin 0.4 mg/dL (0.2-1.0) 08/02/17 07:30 AST 16 U/L (15-37) 08/02/17 07:30 ALT 22 U/L (12-78) 08/02/17 07:30 Alkaline Phosphatase 54 U/L (45-117) 08/02/17 07:30 Total Protein 6.5 g/dl (6.4-8.2) 08/02/17 07:30 Albumin 3.5 g/dl (3.4-5.0) 08/02/17 07:30 Urine Color Yellow 08/01/17 08:54 Urine Appearance Turbid 08/01/17 08:54 Urine pH 5.0 (5.0-8.0) 08/01/17 08:54 Ur Specific [place] 1.028 (1.001-1.035) 08/01/17 08:54 Urine Protein Negative (NEGATIVE) 08/01/17 08:54 Urine Glucose (UA) Negative (NEGATIVE) 08/01/17 08:54 Urine Ketones Negative (NEGATIVE) 08/01/17 08:54 Urine Blood Negative (NEGATIVE) 08/01/17 08:54 Urine Nitrite Negative (NEGATIVE) 08/01/17 08:54 Urine Bilirubin Negative (<2.0 mg/dL) 08/01/17 08:54 Urine Urobilinogen Negative mg/dL (0.2-1.0) 08/01/17 08:54 Ur Leukocyte Esterase 1+ (NEGATIVE) H 08/01/17 08:54 Urine WBC (Auto) 178 /hpf (3-5) 08/01/17 08:54 Urine RBC (Auto) None /hpf (0-3) 08/01/17 08:54 Urine Bacteria Many /hpf (NONE SEEN) 08/01/17 08:54 Hyaline Casts 30 /lpf 08/01/17 08:54 Urine Yeast Many 08/01/17 08:54 RPR Titer Nonreactive (NONREACTIVE) 08/02/17 07:30 HIV 1&2 Antibody Screen Negative 08/02/17 07:30 HIV P24 Antigen Negative 08/02/17 07:30 lab noted continue uti treatment - Treatment Hospital Course: Detox Protocol Followed, Detoxed Safely, Responded well, Discharged Condition Good, Rehab Referral Accepted Patient has Accepted a Rehab Referral to: [facility] - Medication Discharge Medications: Ambulatory Orders Quetiapine Fumarate [Seroquel] 100 mg PO HS #30 tablet 08/02/17 hydrOXYzine PAMOATE [Vistaril -] 50 mg PO QID #120 capsule 08/02/17 traZODone HCL [Desyrel -] 100 mg PO HS #30 tablet 08/02/17 Albuterol Sulfate Inhaler - [Ventolin HFA Inhaler -] 2 puff IH Q4H PRN #1 inhaler 08/04/17 Sulfamethoxazole/Trimethoprim [Bactrim DS -] 1 each PO BID #7 tablet 08/04/17 - Diagnosis (1) Alcohol dependence with uncomplicated withdrawal Current Visit: Yes Status: Acute (2) GERD (gastroesophageal reflux disease) Current Visit: Yes Status: Chronic Qualifiers: Esophagitis presence: without esophagitis Qualified Code(s): K21.9 - Gastro -esophageal reflux disease without esophagitis (3) Urinary tract infection without hematuria Current Visit: Yes Status: Acute Qualifiers: Urinary tract infection type: site unspecified Qualified Code(s): N39.0 - Urinary tract infection, site not specified (4) Nicotine dependence Current Visit: Yes Status: Acute Qualifiers: Nicotine product type: cigarettes Substance use status: in withdrawal Qualified Code(s): F17.213 - Nicotine dependence, cigarettes, with withdrawal (5) Schizophrenia Current Visit: Yes Status: Suspected Qualifiers: Schizophrenia type: unspecified Qualified Code(s): F20.9 - Schizophrenia, unspecified (6) Asthma Current Visit: Yes Status: Chronic Qualifiers: Asthma severity: mild Asthma persistence: intermittent Asthma complication type: with status asthmaticus Qualified Code(s): J45.22 - Mild intermittent asthma with status asthmaticus - AMA Did Patient Leave Against Medical Advice: No
[2017-08-05] MEDS: hydrOXYzine PAMOATE 50 MG CAPSULE (FP) PO PRN (09:09)
[2017-08-05 10:17] VITALS: BP 125/83; PULSE 111; TEMP 97.5
[2017-08-05] MEDS: SULFAMETHOXAZOLE/TRIMETHOPRIM 800MG/160MG D.S. TABLET PO SCH (10:38)
[2017-08-05] MEDS: LIDOCAINE 5% TOPICAL PATCH TP SCH (10:38)
[2017-08-05] MEDS: PRENATAL VITAMINS W/ FOLIC ACID TABLET (FP) PO SCH (10:38)
[2017-08-05] MEDS: NICOTINE 14 MG/24 HOURS TOPICAL PATCH TD SCH (10:38)
[2017-08-05] MEDS ORDERED: hydrOXYzine PAMOATE 50 MG CAPSULE (FP) PO PRN (12:26)
--- NOTE | 2017-08-05 12:31 | PN ---
Psychiatric Progress Note Vital Signs: Vital Signs Period Temp Pulse Resp BP Sys/Rice Pulse Ox Last 24 Hr 97.1 F-98.4 F 86-115 18-20 104-135/67-91 Date of Session: 08/05/17 Chief Complaint:: Amxiety HPI: Patient reports anxiety and agitation, asking to increase Atatrax she is taking as prn for anxiety Current Medications: Active Medications Generic Name Dose Route Start Last Admin Trade Name Freq PRN Reason Stop Dose Admin Acetaminophen 650 mg 08/01/17 20:51 Tylenol - PO Q4H PRN FEVER Al Hydroxide/Mg Hydroxide 30 ml 08/01/17 20:51 08/04/17 14:34 Mylanta Oral Suspension - PO 30 ml Q6H PRN Administration DYSPEPSIA Albuterol Sulfate 2 puff 08/01/17 20:53 Ventolin Hfa Inhaler - IH Q4H PRN SHORT OF BREATH/WHEEZING Baclofen 10 mg 08/04/17 10:35 08/04/17 22:07 Lioresal - PO 10 mg TID PRN Administration BACK PAIN Chlordiazepoxide HCl 10 mg 08/04/17 23:00 08/05/17 10:38 Librium - PO 08/05/17 17:01 10 mg [id number] LA NENA Administration Colloidal Oatmeal 1 applic 08/04/17 10:48 08/04/17 13:54 Aveeno Soap - TP 1 applic DAILY PRN Administration HYGEINE Eucalyptus/Menthol/Phenol/Sorbitol 1 each 08/01/17 20:51 Cepastat Lozenge - MM Q4H PRN SORE THROAT Guaifenesin 10 ml 08/01/17 20:51 Robitussin Dm - PO Q6H PRN COUGH Hydroxyzine Pamoate 100 mg 08/05/17 12:26 Vistaril - PO Q4H PRN FOR ITCHING Ibuprofen 400 mg 08/01/17 20:51 08/03/17 13:54 Motrin - PO 400 mg Q6H PRN Administration PAIN LEVEL 4-6 Lidocaine 1 patch 08/03/17 14:15 08/05/17 10:38 Lidoderm Patch - TP 1 patch DAILY LA NENA Administration Loperamide HCl 4 mg 08/01/17 20:51 Imodium - PO Q6H PRN DIARRHEA Magnesium Citrate 300 ml 08/01/17 20:51 Citroma - PO Q48H PRN CONSTIPATION Magnesium Hydroxide 30 ml 08/01/17 20:51 Milk Of Magnesia - PO DAILY PRN CONSTIPATION Melatonin 5 mg 08/01/17 22:00 08/04/17 22:07 Melatonin PO 5 mg HS PRN Administration INSOMNIA Miscellaneous 1 each 08/03/17 22:00 08/04/17 22:07 Lidoderm Patch Removal MC Not Given DAILY@2200 LA NENA Nicotine 14 mg 08/02/17 10:00 08/05/17 10:38 Nicoderm Patch - TD Not Given DAILY LA NENA Nicotine Polacrilex 2 mg 08/01/17 20:51 Nicorette Gum - BC Q2H PRN NICOTINE REPLACEMENT RX Multivit/Folic Acid/Iron 1 tab 08/02/17 10:00 08/05/17 10:38 Vitamins (Sjr) - PO 1 tab DAILY LA NENA Administration Pseudoephedrine/Triprolidine 1 combo 08/01/17 20:51 Actifed - PO TID PRN NASAL CONGESTION Quetiapine Fumarate 100 mg 08/02/17 22:00 08/04/17 22:07 Seroquel - PO 100 mg HS LA NENA Administration Thiamine HCl 100 mg 08/01/17 22:00 08/04/17 22:07 Vitamin B1 - PO 100 mg HS LA NENA Administration Trazodone HCl 100 mg 08/02/17 22:00 08/04/17 22:07 Desyrel - PO 100 mg HS LA NENA Administration Trimethoprim/Sulfamethoxazole 1 each 08/03/17 12:00 08/05/17 10:38 Bactrim Ds - PO 08/06/17 11:59 1 each BID LA NENA Administration Medication(s) Change(s): Vistaril 100mg po prn q4 for anxiety and agitation Mental Status Exam - Mental Status Exam Alert and Oriented to: Place, Person Cognitive Function: Fair Patient Appearance: Unkempt Mood: Anxious Affect: Mood Congruent Patient Behavior: Cooperative Speech Pattern: Excessive Voice Loudness: Mildly Loud Thought Process: Goal Oriented Thought Disorder: Being Controlled Hallucinations: Denies Suicidal Ideation: Denies Homicidal Ideation: Denies Insight/Judgement: Fair Sleep: Difficulty falling asleep Appetite: Weight gain Muscle strength/Tone: Normal Gait/Station: Normal Additional Comments: Vistaril 100mg po prn q4 for anxiety and agitation Psychiatric Treatment Plan - Problem List (1) Alcohol dependence with uncomplicated withdrawal Current Visit: Yes (2) Anxiety Current Visit: Yes (3) Arthritis Current Visit: Yes (4) Asthma Current Visit: Yes Qualifiers: Asthma severity: mild Asthma persistence: intermittent Asthma complication type: with status asthmaticus Qualified Code(s): J45.22 - Mild intermittent asthma with status asthmaticus (5) Cocaine dependence, uncomplicated Current Visit: Yes (6) GERD (gastroesophageal reflux disease) Current Visit: Yes Qualifiers: Esophagitis presence: without esophagitis Qualified Code(s): K21.9 - Gastro -esophageal reflux disease without esophagitis (7) Nicotine dependence Current Visit: Yes Qualifiers: Nicotine product type: cigarettes Substance use status: in withdrawal Qualified Code(s): F17.213 - Nicotine dependence, cigarettes, with withdrawal (8) Alcohol dependence Current Visit: No (9) Urinary tract infection without hematuria Current Visit: Yes Qualifiers: Urinary tract infection type: site unspecified Qualified Code(s): N39.0 - Urinary tract infection, site not specified (10) Cannabis dependence Current Visit: No (11) PTSD (post-traumatic stress disorder) Current Visit: No (12) Substance-induced anxiety disorder Current Visit: No (13) Substance-induced sleep disorder Current Visit: No (14) Schizophrenia Current Visit: Yes Qualifiers: Schizophrenia type: unspecified Qualified Code(s): F20.9 - Schizophrenia, unspecified Comment: Possible schizophrenia Initial treatment plan: Vistaril 100mg po prn q4 for anxiety and agitation
== END 2017-08-05 12:55 | disposition other institution (70) | DRG 774 ==
LOC: YASAS 18:13 → Y6N 19:18
PROVIDERS: ADMIT Family Medicine Addiction Medicine; ATTEND Family Medicine Addiction Medicine
PROC: HZ2ZZZZ Detoxification Services for Substance Abuse Treatment (ICD-10-PCS; principal; 2017-08-01)
DX: F10.230 Alcohol dependence with withdrawal, uncomplicated (principal); F14.20 Cocaine dependence, uncomplicated; F12.20 Cannabis dependence, uncomplicated; F17.213 Nicotine dependence, cigarettes, with withdrawal; F32.9 Major depressive disorder, single episode, unspecified; F19.24 Other psychoactive substance dependence with psychoactive substance-induced mood disorder; F20.9 Schizophrenia, unspecified; F43.10 Post-traumatic stress disorder, unspecified; F41.9 Anxiety disorder, unspecified; R73.03 Prediabetes; K21.9 Gastro-esophageal reflux disease without esophagitis; J45.22 Mild intermittent asthma with status asthmaticus; M12.9 Arthropathy, unspecified; N39.0 Urinary tract infection, site not specified
CPT/HCPCS: 36415; 80053; 81003; 81015; 82962; 85027; 86593; 87389; 93005; 93010; J0475

== ENCOUNTER 2017-11-30 10:09 | Inpatient (IN) | payer OTHER ==
[2017-11-30 10:39] VITALS: BMI 35.4
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
[2017-11-30] MEDS ORDERED: MAG HYDROX/AL HYDROX/SIMETH 30 ML UNIT-DOSE CUP PO PRN (11:00)
[2017-11-30] MEDS ORDERED: ACETAMINOPHEN 325 MG TABLET (FP) PO PRN (11:00)
[2017-11-30] MEDS ORDERED: MAGNESIUM HYDROX 2400MG/30ML ORAL SUSPENSION 30 ML CUP PO PRN (11:00)
[2017-11-30] MEDS ORDERED: MAGNESIUM CITRATE 300 ML BOTTLE PO PRN (11:00)
[2017-11-30] MEDS ORDERED: MENTHOL/PHENOL 1 EACH UD MM PRN (11:00)
[2017-11-30] MEDS ORDERED: chlordiazePOXIDE HCL 25 MG CAPSULE PO PRN (11:00)
[2017-11-30] MEDS ORDERED: guaiFENesin/D-METHORPHAN HB 10 ML UNIT-DOSE CUPS PO PRN (11:00)
[2017-11-30] MEDS ORDERED: LOPERAMIDE HCL 2 MG CAPSULE PO PRN (11:00)
[2017-11-30] MEDS ORDERED: P-EPHED 60MG/TRIPROLIDI 2.5MG TABLET PO PRN (11:00)
[2017-11-30] MEDS ORDERED: ALBUTEROL SO4 8 GM HFA INHALER IH PRN (11:02)
[2017-11-30] MEDS: IBUPROFEN 400 MG TABLET (FP) PO PRN (11:55)
[2017-11-30] MEDS: hydrOXYzine PAMOATE 50 MG CAPSULE (FP) PO PRN ×2 (11:56→17:10)
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
[2017-11-30] MEDS: chlordiazePOXIDE HCL 25 MG CAPSULE PO SCH ×2 (17:10→22:14)
--- NOTE | 2017-11-30 17:42 | EKG ---
Test Reason : Blood Pressure : / mmHG Vent. Rate : 092 BPM Atrial Rate : 092 BPM P-R Int : 134 ms QRS Dur : 078 ms QT Int : 378 ms P-R-T Axes : -07 031 028 degrees QTc Int : 467 ms NORMAL SINUS RHYTHM NORMAL ECG WHEN COMPARED WITH ECG OF 07-AUG-2017 14:33, NONSPECIFIC T WAVE ABNORMALITY NO LONGER EVIDENT IN LATERAL LEADS Confirmed by Alverto Colon MD ([id number]) on 11/30/2017 5:41:46 PM Referred By: Confirmed By:Alverto Colon MD
[2017-11-30 19:25] LABS: URINE APPEARANCE TURBID; URINE BILIRUBIN NEGATIVE (<2.0 mg/dL); URINE COLOR YELLOW; URINE GLUCOSE (UA) NEGATIVE (NEGATIVE); URINE KETONE NEGATIVE (NEGATIVE); URINE LEUK ESTERASE NEGATIVE (NEGATIVE); URINE NITRITE NEGATIVE (NEGATIVE); URINE PROTEIN NEGATIVE (NEGATIVE); URINE UROBILINOGEN NEGATIVE mg/dL (0.2-1.0)
[2017-11-30] MEDS ORDERED: MELATONIN 5 MG TABLETS PO PRN (22:00)
[2017-11-30] MEDS: THIAMINE HCL 100 MG TABLET (FP) PO SCH (22:14)
[2017-11-30] MEDS: QUEtiapine FUMARATE 100 MG TABLET (FP) PO SCH (22:14)
[2017-12-01] MEDS: chlordiazePOXIDE HCL 25 MG CAPSULE PO SCH ×4 (05:31→22:18)
[2017-12-01] MEDS: PRENATAL VITAMINS W/ FOLIC ACID TABLET (FP) PO SCH (10:21)
--- NOTE | 2017-12-01 10:49 | PN ---
S CIWA - CIWA Score Nausea/Vomitin-No Nausea/No Vomiting Muscle Tremors: 4-Moderate,w/Arms Extend Anxiety: 4-Mod. Anxious/Guarded Agitation: 4-Moderately Restless Paroxysmal Sweats: 3 Orientation: 0-Oriented Tacttile Disturbances: 0-None Auditory Disturbances: 0-None Visual Disturbances: 0-None Headache: 0-None Present CIWA-Ar Total Score: 15 BHS Progress Note (SOAP) Subjective: tired sweats body aches muscle cramps Objective: 12/01/17 10:48 Vital Signs Temperature 96.4 F L 12/01/17 09:38 Pulse Rate 85 12/01/17 09:38 Respiratory Rate 18 12/01/17 09:38 Blood Pressure 136/92 12/01/17 09:38 O2 Sat by Pulse Oximetry (%) Laboratory Tests 11/30/17 16:03 Urine Color Yellow Urine Appearance Turbid Urine pH 5.0 D Ur Specific [place] 1.024 Urine Protein Negative Urine Glucose (UA) Negative Urine Ketones Negative Urine Blood Negative Urine Nitrite Negative Urine Bilirubin Negative Urine Urobilinogen Negative Ur Leukocyte Esterase Negative rest of labs pending aaox3 ambulating no acute distress Assessment: 12/01/17 10:49 withdrawal sx Plan: continue detox increase fluids flexiril 10mg prn
[2017-12-01] MEDS: hydrOXYzine PAMOATE 50 MG CAPSULE (FP) PO PRN ×3 (11:21→20:12)
[2017-12-01] MEDS: CYCLOBENZAPRINE HCL 10 MG TABLET (FP) PO PRN (11:21)
[2017-12-01 14:28] LABS: HEMATOCRIT 43.3 % (32.4-45.2); HEMOGLOBIN 14.2 GM/dL (10.7-15.3); MCHC 32.8 g/dl (32.0-36.0); MEAN CELL VOLUME 82.3 fl (80-96); MEAN PLT VOLUME 10.8 fl (7.5-11.1); PLATELET COUNT 223 K/MM3 (134-434); RBC 5.26 M/mm3 (3.60-5.2); RDW 14.4 % (11.6-15.6); WHITE BLOOD COUNT 8.1 K/mm3 (4.0-10.0)
[2017-12-01 15:12] LABS: ALBUMIN 3.9 g/dl (3.4-5.0); ALK PHOS 75 U/L (45-117); ANION GAP 13 MMOL/L (8-16); BILIRUBIN,TOTAL 0.6 mg/dL (0.2-1); BLOOD UREA NITROGEN 12 mg/dL (7-18); CALCIUM 8.9 mg/dL (8.5-10.1); CHLORIDE 106 mmol/L (98-107); CO2 23 mmol/L (21-32); CREATININE 0.9 mg/dL (0.55-1.3); GLUCOSE,RANDOM 131 mg/dL (74-106); SGOT/AST 22 U/L (15-37); SGPT/ALT 31 U/L (13-61); SODIUM 141 mmol/L (136-145); TOT PROT 7.3 g/dl (6.4-8.2)
[2017-12-01] MEDS: QUEtiapine FUMARATE 100 MG TABLET (FP) PO SCH (22:18)
[2017-12-01] MEDS: THIAMINE HCL 100 MG TABLET (FP) PO SCH (22:18)
[2017-12-02] MEDS: chlordiazePOXIDE HCL 25 MG CAPSULE PO SCH ×2 (06:12→10:34)
[2017-12-02] MEDS: hydrOXYzine PAMOATE 50 MG CAPSULE (FP) PO PRN ×2 (09:11→22:21)
[2017-12-02] MEDS: PRENATAL VITAMINS W/ FOLIC ACID TABLET (FP) PO SCH (10:34)
--- NOTE | 2017-12-02 11:38 | PN ---
S CIWA - CIWA Score Nausea/Vomitin-No Nausea/No Vomiting Muscle Tremors: 3 Anxiety: 4-Mod. Anxious/Guarded Agitation: 4-Moderately Restless Paroxysmal Sweats: 3 Orientation: 0-Oriented Tacttile Disturbances: 0-None Auditory Disturbances: 0-None Visual Disturbances: 0-None Headache: 0-None Present CIWA-Ar Total Score: 14 BHS Progress Note (SOAP) Subjective: sweats anxiety shakes interrupted sleep i want my trazadone earlier afternoon not at night time. Objective: 12/02/17 11:36 Vital Signs Temperature 96.8 F L 12/02/17 09:30 Pulse Rate 84 12/02/17 09:30 Respiratory Rate 18 12/02/17 09:30 Blood Pressure 135/73 12/02/17 09:30 O2 Sat by Pulse Oximetry (%) Laboratory Tests 11/30/17 12/01/17 12/01/17 16:03 05:55 05:55 WBC 8.1 RBC 5.26 H Hgb 14.2 Hct 43.3 MCV 82.3 MCH 27.0 MCHC 32.8 RDW 14.4 Plt Count 223 D MPV 10.8 Sodium 141 Potassium 4.0 Chloride 106 Carbon Dioxide 23 Anion Gap 13 BUN 12 Creatinine 0.9 Creat Clearance w eGFR > 60 Random Glucose 131 H Calcium 8.9 Total Bilirubin 0.6 AST 22 ALT 31 Alkaline Phosphatase 75 Total Protein 7.3 Albumin 3.9 Urine Color Yellow Urine Appearance Turbid Urine pH 5.0 D Ur Specific [place] 1.024 Urine Protein Negative Urine Glucose (UA) Negative Urine Ketones Negative Urine Blood Negative Urine Nitrite Negative Urine Bilirubin Negative Urine Urobilinogen Negative Ur Leukocyte Esterase Negative RPR Titer 12/01/17 05:55 WBC RBC Hgb Hct MCV MCH MCHC RDW Plt Count MPV Sodium Potassium Chloride Carbon Dioxide Anion Gap BUN Creatinine Creat Clearance w eGFR Random Glucose Calcium Total Bilirubin AST ALT Alkaline Phosphatase Total Protein Albumin Urine Color Urine Appearance Urine pH Ur Specific [place] Urine Protein Urine Glucose (UA) Urine Ketones Urine Blood Urine Nitrite Urine Bilirubin Urine Urobilinogen Ur Leukocyte Esterase RPR Titer Nonreactive aaox3 ambulating no acute distress psych revisit ordered for trazadone time change. Assessment: 12/02/17 11:37 withdrawal sx Plan: continue detox increase fluids visitiril prn
[2017-12-02] MEDS: LIDOCAINE 5% TOPICAL PATCH TP SCH (11:50)
[2017-12-02] MEDS ORDERED: QUEtiapine FUMARATE 100 MG TABLET (FP) PO STA (12:07)
--- NOTE | 2017-12-02 12:13 | PN ---
Psychiatric Progress Note Vital Signs: Vital Signs Period Temp Pulse Resp BP Sys/Rice Pulse Ox Last 24 Hr 96.8 F-98.1 F 76-102 16-18 95-135/64-90 Date of Session: 12/02/17 Chief Complaint:: Agitation HPI: Patient reports taking prior to admission: Trazodone 100mg po qhs. Sweroquel 200mg po qhs. TReports anxiety and agitation day time Current Medications: Active Medications Generic Name Dose Route Start Last Admin Trade Name Freq PRN Reason Stop Dose Admin Acetaminophen 650 mg 11/30/17 11:00 Tylenol - PO Q4H PRN FEVER Al Hydroxide/Mg Hydroxide 30 ml 11/30/17 11:00 Mylanta Oral Suspension - PO Q6H PRN DYSPEPSIA Albuterol Sulfate 2 puff 11/30/17 11:02 Ventolin Hfa Inhaler - IH Q4H PRN SHORT OF BREATH/WHEEZING Chlordiazepoxide HCl 15 mg 12/02/17 17:00 Librium - PO 12/03/17 11:01 [id number] LA NENA Chlordiazepoxide HCl 25 mg 11/30/17 11:00 11/30/17 11:54 Librium - PO 12/03/17 10:59 25 mg Q4H PRN Administration WITHDRAWAL(CONT SUBST) Chlordiazepoxide HCl 10 mg 12/03/17 17:00 Librium - PO 12/04/17 11:01 [id number] LA NENA Cyclobenzaprine HCl 10 mg 12/01/17 10:47 12/01/17 11:21 Flexeril - PO 10 mg TID PRN Administration MUSCLE SPASMS Eucalyptus/Menthol/Phenol/Sorbitol 1 each 11/30/17 11:00 Cepastat Lozenge - MM Q4H PRN SORE THROAT Guaifenesin 10 ml 11/30/17 11:00 Robitussin Dm - PO Q6H PRN COUGH Hydroxyzine Pamoate 50 mg 11/30/17 11:00 12/02/17 09:11 Vistaril - PO 50 mg Q4H PRN Administration AGITATION Ibuprofen 400 mg 11/30/17 11:00 11/30/17 11:55 Motrin - PO 400 mg Q6H PRN Administration PAIN LEVEL 4-6 Lidocaine 2 patch 12/02/17 11:45 12/02/17 11:50 Lidoderm Patch - TP 2 patch DAILY LA NENA Administration Loperamide HCl 4 mg 11/30/17 11:00 Imodium - PO Q6H PRN DIARRHEA Magnesium Citrate 300 ml 11/30/17 11:00 Citroma - PO Q48H PRN CONSTIPATION Magnesium Hydroxide 30 ml 11/30/17 11:00 Milk Of Magnesia - PO DAILY PRN CONSTIPATION Melatonin 5 mg 11/30/17 22:00 11/30/17 22:14 Melatonin PO 5 mg HS PRN Administration INSOMNIA Miscellaneous 1 each 12/02/17 22:00 Lidoderm Patch Removal MC DAILY@2200 [facility] Multivit/Folic Acid/Iron 1 tab 12/01/17 10:00 12/02/17 10:34 Vitamins (Sjr) - PO 1 tab DAILY [facility] Administration Pseudoephedrine/Triprolidine 1 combo 11/30/17 11:00 Actifed - PO TID PRN NASAL CONGESTION Quetiapine Fumarate 100 mg 12/02/17 22:00 Seroquel - PO BID [facility] Quetiapine Fumarate 100 mg 12/02/17 12:07 Seroquel - PO 12/02/17 12:08 NOW STA Thiamine HCl 100 mg 11/30/17 22:00 12/01/17 22:18 Vitamin B1 - PO 100 mg HS [facility] Administration Trazodone HCl 100 mg 12/02/17 22:00 Desyrel - PO HS [facility] Medication(s) Change(s): Seroquel 100mg po bid. Trazodon 100mg p[o qhs. Seroquel 100mg po qhs to d/c Mental Status Exam - Mental Status Exam Alert and Oriented to: Place, Person Cognitive Function: Fair Patient Appearance: Well Groomed Mood: Anxious Affect: Mood Congruent Patient Behavior: Cooperative Speech Pattern: Appropriate Voice Loudness: Normal Thought Process: Goal Oriented Thought Disorder: Being Controlled Hallucinations: Denies Suicidal Ideation: Denies Homicidal Ideation: Denies Insight/Judgement: Fair Sleep: Difficulty falling asleep Appetite: Weight gain Muscle strength/Tone: Normal Gait/Station: Normal Additional Comments: Seroquel 100mg po bid. Trazodon 100mg p[o qhs. Seroquel 100mg po qhs to d/c Psychiatric Treatment Plan - Problem List (1) Alcohol dependence with uncomplicated withdrawal Current Visit: Yes (2) Nicotine abuse Current Visit: Yes (3) PTSD (post-traumatic stress disorder) Current Visit: Yes (4) Substance induced mood disorder Current Visit: Yes (5) Substance-induced sleep disorder Current Visit: Yes (6) Alcohol dependence Current Visit: No (7) Bilateral swelling of feet Current Visit: No (8) Low back pain with sciatica Current Visit: No (9) UTI (urinary tract infection) Current Visit: No Qualifiers: Encounter type: subsequent encounter (10) Arthritis Current Visit: No (11) Arthritis of right knee Current Visit: No (12) Asthma Current Visit: No Qualifiers: Asthma severity: mild Asthma persistence: intermittent Asthma complication type: with status asthmaticus Qualified Code(s): J45.22 - Mild intermittent asthma with status asthmaticus (13) Cannabis dependence Current Visit: No (14) Cocaine dependence, uncomplicated Current Visit: No (15) PTSD (post-traumatic stress disorder) Current Visit: No (16) Pre-diabetes Current Visit: No (17) Substance-induced anxiety disorder Current Visit: No (18) Substance-induced sleep disorder Current Visit: No (19) Schizophrenia Current Visit: No Qualifiers: Schizophrenia type: unspecified Qualified Code(s): F20.9 - Schizophrenia, unspecified Comment: Possible schizophrenia Initial treatment plan: Seroquel 100mg po bid. Trazodon 100mg p[o qhs. Seroquel 100mg po qhs to d/c
[2017-12-02] MEDS: chlordiazePOXIDE 5 MG CAPSULE PO SCH ×2 (17:21→22:21)
[2017-12-02] MEDS: QUEtiapine FUMARATE 100 MG TABLET (FP) PO SCH (22:21)
[2017-12-02] MEDS: THIAMINE HCL 100 MG TABLET (FP) PO SCH (22:21)
[2017-12-02] MEDS: traZODone HCL 100 MG TABLET (FP) PO SCH (22:21)
[2017-12-02] MEDS: CYCLOBENZAPRINE HCL 10 MG TABLET (FP) PO PRN (22:21)
[2017-12-02] MEDS: LIDOCAINE PATCH REMOVAL MC SCH (22:22)
[2017-12-02] MEDS: IBUPROFEN 400 MG TABLET (FP) PO PRN (22:22)
[2017-12-03] MEDS: chlordiazePOXIDE 5 MG CAPSULE PO SCH ×2 (05:31→10:14)
[2017-12-03] MEDS: PRENATAL VITAMINS W/ FOLIC ACID TABLET (FP) PO SCH (10:13)
[2017-12-03] MEDS: LIDOCAINE 5% TOPICAL PATCH TP SCH (10:13)
[2017-12-03] MEDS: QUEtiapine FUMARATE 100 MG TABLET (FP) PO SCH ×2 (10:13→22:28)
[2017-12-03] MEDS: CYCLOBENZAPRINE HCL 10 MG TABLET (FP) PO PRN (10:13)
--- NOTE | 2017-12-03 11:27 | PN ---
BHS Progress Note (SOAP) Subjective: sweats feeling better Objective: 12/03/17 11:26 Vital Signs Temperature 97.2 F L 12/03/17 09:48 Pulse Rate 101 H 12/03/17 09:48 Respiratory Rate 20 12/03/17 09:48 Blood Pressure 159/97 12/03/17 09:48 O2 Sat by Pulse Oximetry (%) aaox3 ambulating no acute distress Assessment: 12/03/17 11:26 withdrawal sx Plan: continue detox increase fluids d/c in am
[2017-12-03] MEDS: hydrOXYzine PAMOATE 50 MG CAPSULE (FP) PO PRN (15:10)
[2017-12-03] MEDS: chlordiazePOXIDE HCL 10 MG CAPSULE PO SCH ×2 (18:34→22:28)
[2017-12-03] MEDS: LIDOCAINE PATCH REMOVAL MC SCH (22:28)
[2017-12-03] MEDS: traZODone HCL 100 MG TABLET (FP) PO SCH (22:28)
[2017-12-03] MEDS: THIAMINE HCL 100 MG TABLET (FP) PO SCH (22:28)
[2017-12-04] MEDS: chlordiazePOXIDE HCL 10 MG CAPSULE PO SCH ×2 (05:31→10:20)
[2017-12-04] MEDS: hydrOXYzine PAMOATE 50 MG CAPSULE (FP) PO PRN ×2 (08:46→13:12)
[2017-12-04] MEDS: LIDOCAINE 5% TOPICAL PATCH TP SCH (10:20)
[2017-12-04] MEDS: QUEtiapine FUMARATE 100 MG TABLET (FP) PO SCH (10:20)
[2017-12-04] MEDS: PRENATAL VITAMINS W/ FOLIC ACID TABLET (FP) PO SCH (10:20)
[2017-12-04 14:11] VITALS: BP 141/88; PULSE 78; TEMP 97.9
== END 2017-12-04 02:23 | disposition home or self-care (01) | DRG 774 ==
LOC: YASAS 10:09 → Y6N 11:08
PROC: HZ2ZZZZ Detoxification Services for Substance Abuse Treatment (ICD-10-PCS; principal; 2017-11-30)
DX: F10.230 Alcohol dependence with withdrawal, uncomplicated (principal); F14.20 Cocaine dependence, uncomplicated; F12.20 Cannabis dependence, uncomplicated; F17.210 Nicotine dependence, cigarettes, uncomplicated; F19.280 Other psychoactive substance dependence with psychoactive substance-induced anxiety disorder; F19.24 Other psychoactive substance dependence with psychoactive substance-induced mood disorder; F19.282 Other psychoactive substance dependence with psychoactive substance-induced sleep disorder; F43.10 Post-traumatic stress disorder, unspecified; F20.9 Schizophrenia, unspecified; F32.9 Major depressive disorder, single episode, unspecified; J45.22 Mild intermittent asthma with status asthmaticus; M54.40 Lumbago with sciatica, unspecified side; M17.11 Unilateral primary osteoarthritis, right knee; R73.03 Prediabetes; K21.9 Gastro-esophageal reflux disease without esophagitis; R60.0 Localized edema; N39.0 Urinary tract infection, site not specified; G47.00 Insomnia, unspecified; S00.83XA Contusion of other part of head, initial encounter; S40.029A Contusion of unspecified upper arm, initial encounter; Y04.2XXA Assault by strike against or bumped into by another person, initial encounter; Y93.89 Activity, other specified; Y92.89 Other specified places as the place of occurrence of the external cause; Y07.03 Male partner, perpetrator of maltreatment and neglect
CPT/HCPCS: 36415; 80053; 81003; 85027; 86593; 93005; 93010

== ENCOUNTER 2017-12-29 15:11 | Inpatient (IN) | payer OTHER ==
[2017-12-29 15:41] VITALS: BMI 35.6
--- NOTE | 2017-12-29 18:26 | HP ---
CIWA Score Nausea/Vomitin-No Nausea/No Vomiting Muscle Tremors: 4-Moderate,w/Arms Extend Anxiety: 4-Mod. Anxious/Guarded Agitation: 4-Moderately Restless Paroxysmal Sweats: 3 (Facial moisture) Orientation: 3-Disoriented Date>2 days Tacttile Disturbances: 0-None Auditory Disturbances: 0-None Visual Disturbances: 0-None Headache: 0-None Present CIWA-Ar Total Score: 18 - Admission Criteria [facility]ASAS Guidelines: Admission for Medically Managed Detox: Requires at least one of the followin. CIWA greater than 12 2. Seizures within the past 24 hours 3. Delirium tremens within the past 24 hours 4. Hallucinations within the past 24 hours 5. Acute intervention needed for co occurring medical disorder 6. Acute intervention needed for co occurring psychiatric disorder 7. Severe withdrawal that cannot be handled at a lower level of care (continued vomiting, continued diarrhea, abnormal vital signs) requiring intravenous medication and/or fluids 8. Patient presents the following: CIWA greater than 12 Admission Criteria Met: Admission criteria met Admission ROS [facility] Chief Complaint: Here for alcohol withdrawal. Allergies/Adverse Reactions: Allergies Allergy/AdvReac Type Severity Reaction Status Date / Time No Known Allergies Allergy Verified 11/30/17 10:46 History of Present Illness: Alcohol use began at age 18. Cocaine use began at age 37. Nicotine use began at age 37. Marijuana use began at age 14. Denies benzo use. Denies h/o seizures, blackouts. or overdose. Longest length of sobriety 2 months. Hx asthma - last exacerbation years ago; arthritis Hx intermittent abdominal pain and was seen at [facility] in July with negative abdominal CT scan. MH: insomnia, anxiety, depression. States seeing a MH provider at [facility] Was seen in [facility] on 12/28, medicated w/?, and referred to [facility] today for assistance w/ detox. No known hx pancreatitis or hepatitis. PDMP - negative Exam Limitations: No Limitations - Ebola screening Have you traveled outside of the country in the last 21 days: No Have you had contact with anyone from an Ebola affected area: No Have you been sick,other than usual withdrawal symptoms: No Do you have a fever: No - Review of Systems Constitutional: Diaphoresis, Changes in sleep (Difficulty falling asleep. Takes Trazodone and Seroquel) EENT: reports: Blurred Vision, Tearing (Crying alot r/t life choices and family/ significant other issues.), Nose Congestion Respiratory: reports: No Symptoms reported, Other (Hx asthma - Denies recent exacerbation) Cardiac: reports: No Symptoms Reported GI: reports: Diarrhea (Episodes today - 3-4 x brown/black watery) : reports: No Symptoms Reported Musculoskeletal: reports: Joint Pain (Knee pain) Integumentary: reports: No Symptoms Reported Neuro: reports: Tremors Endocrine: reports: No Symptoms Reported Hematology: reports: No Symptoms Reported Psychiatric: reports: Judgement Intact, Agitated, Anxious, Depressed (Denies thoughts of harming self or others.), Disorientated (Oriented x month and year, off by 3 days) Patient History - Patient Medical History Hx Anemia: No Hx Asthma: Yes Hx Chronic Obstructive Pulmonary Disease (COPD): No Hx Cancer: No Hx Cardiac Disorders: No Hx Congestive Heart Failure: No Hx Hypertension: No Hx Hypercholesterolemia: No Hx Pacemaker: No HX Cerebrovascular Accident: No Hx Seizures: No Hx Dementia: No Hx Diabetes: No Hx Gastrointestinal Disorders: No Hx Liver Disease: No Hx Genitourinary Disorders: No Hx Sexually Transmitted Disorders: No Hx Renal Disease (ESRD): No Hx Thyroid Disease: No Hx Human Immunodeficiency Virus (HIV): No (Negative 2018) Hx Hepatitis C: No Hx Depression: Yes (Denies thoughts of harming self or others) Hx Suicide Attempt: No Hx Bipolar Disorder: No Hx Schizophrenia: No - Patient Surgical History Past Surgical History: Yes Hx Neurologic Surgery: No Hx Cataract Extraction: No Hx Cardiac Surgery: No Hx Lung Surgery: No Hx Breast Surgery: No Hx Breast Biopsy: No Hx Abdominal Surgery: No Hx Appendectomy: No Hx Cholecystectomy: No Hx Genitourinary Surgery: No Hx Section: Yes (x 1) Hx Orthopedic Surgery: No Anesthesia Reaction: No - PPD History Previous Implant?: Yes Documented Results: Negative w/proof Implanted On Prior [facility] Admission?: Yes Date: 02/08/17 Results: 0 MM PPD to be Administered?: No - Reproductive History Patient is a Female of Child Bearing Age (11 -55 yrs old): Yes Last Menstrual Period: 12/22/17 Patient : No - Smoking Cessation Smoking history: Current every day smoker Have you smoked in the past 12 months: Yes Aproximately how many cigarettes per day: 6 Cigars Per Day: 0 Hx Chewing Tobacco Use: No Initiated information on smoking cessation: Yes 'Breaking Loose' booklet given: 12/29/17 - Substance & Tx. History Hx Alcohol Use: Yes Hx Substance Use: Yes Substance Use Type: Alcohol, Cocaine, Marijuana Hx Substance Use Treatment: Yes (detox, rehab) - Substances Abused Alcohol Route: Oral Frequency: Daily Amount used: 1 PINT GIN Age of first use: 18 Date of Last Use: 12/29/17 Cocaine Route: Inhalation Frequency: Daily Amount used: $100 Age of first use: 37 Date of Last Use: 12/29/17 Marijuana/Hashish Route: Smoking Frequency: Daily Amount used: 5 BLUNTS Age of first use: 14 Date of Last Use: 12/28/17 Family Disease History - Family Disease History Family Disease History: Heart Disease: Mother (HTN,Asthma), Respiratory: Mother Admission Physical Exam [facility] - Vital Signs Vital Signs: Vital Signs - 24 hr 12/29/17 15:36 Temperature 97.2 F L Pulse Rate 88 Respiratory 18 Rate Blood Pressure 138/80 - Physical General Appearance: Yes: Mild Distress, Tremorous, Sweating, Anxious HEENTM: Yes: EOMI, Hearing grossly Normal, Normal ENT Inspection, Normal Voice, KENDALL, Pharynx Normal, Nasal Congestion Respiratory: Yes: Chest Non-Tender, Lungs Clear, Normal Breath Sounds, No Respiratory Distress Neck: Yes: No masses,lesions,Nodules, Supple Breast: Yes: Breast Exam Deferred Cardiology: Yes: Regular Rhythm, Regular Rate, S1, S2 Abdominal: Yes: Soft, Increased Bowel Sounds, Protuberent (increased abdominal adiposity), Tenderness ((L) and (R) UQ tenderness upon palpation. No guarding. No rebound tenderness.) Genitourinary: Yes: Within Normal Limits Back: Yes: Normal Inspection Musculoskeletal: Yes: full range of Motion, Gait Steady Extremities: Yes: Normal Range of Motion, Tremors (Gross temors of hands o arm elevation) Neurological: Yes: healthcare risk control consultant II-XII NML intact, Alert, Motor Strength 5/5, Normal Response Integumentary: Yes: Normal Color, Dry, Warm Lymphatic: Yes: Within Normal Limits - Diagnostic (1) Alcohol dependence with uncomplicated withdrawal Current Visit: Yes Status: Acute (2) Insomnia Current Visit: No Status: Acute Qualifiers: Insomnia type: unspecified Qualified Code(s): G47.00 - Insomnia, unspecified (3) Nicotine abuse Current Visit: Yes Status: Chronic (4) Arthritis Current Visit: No Status: Chronic (5) Cannabis dependence Current Visit: Yes Status: Chronic Comment: Knees and legs (6) Cocaine dependence, uncomplicated Current Visit: Yes Status: Chronic (7) Personal history of other diseases of the respiratory system Current Visit: Yes Status: Chronic Comment: H/o asthma. Denies recent exacerbation or need for medication. Cleared for Admission [facility] - Detox or Rehab [facility] Level of Care: Medically Managed Detox Regimen/Protocol: Librium [facility] Breath Alcohol Content Breath Alcohol Content: 0 Urine Pregancy Test - Result Urine Test Results: Negative- NO Line Present Urine Drug Screen - Results Drug Screen Negative: No Urine Drug Screen Results: THC-Marijuana, SACHIN-Cocaine, BZO-Benzodiazepines
[2017-12-29] MEDS ORDERED: MAGNESIUM HYDROX 2400MG/30ML ORAL SUSPENSION 30 ML CUP PO PRN (19:04)
[2017-12-29] MEDS ORDERED: MAG HYDROX/AL HYDROX/SIMETH 30 ML UNIT-DOSE CUP PO PRN (19:04)
[2017-12-29] MEDS ORDERED: ACETAMINOPHEN 325 MG TABLET (FP) PO PRN (19:04)
[2017-12-29] MEDS ORDERED: chlordiazePOXIDE HCL 25 MG CAPSULE PO ONE (19:04)
[2017-12-29] MEDS ORDERED: IBUPROFEN 400 MG TABLET (FP) PO PRN (19:04)
[2017-12-29] MEDS ORDERED: MAGNESIUM CITRATE 300 ML BOTTLE PO PRN (19:04)
[2017-12-29] MEDS ORDERED: LOPERAMIDE HCL 2 MG CAPSULE PO PRN (19:04)
[2017-12-29] MEDS ORDERED: MENTHOL/PHENOL 1 EACH UD MM PRN (19:04)
[2017-12-29] MEDS ORDERED: NICOTINE POLACRILEX 2 MG GUM BC PRN (19:04)
[2017-12-29] MEDS: THIAMINE HCL 100 MG TABLET (FP) PO SCH (22:14)
[2017-12-29] MEDS: chlordiazePOXIDE HCL 25 MG CAPSULE PO SCH (22:14)
[2017-12-29] MEDS: MELATONIN 5 MG TABLETS PO PRN (22:15)
[2017-12-30 02:58] LABS: URINE APPEARANCE SLCLOUDY; URINE BILIRUBIN NEGATIVE (<2.0 mg/dL); URINE COLOR YELLOW; URINE GLUCOSE (UA) NEGATIVE (NEGATIVE); URINE KETONE NEGATIVE (NEGATIVE); URINE LEUK ESTERASE NEGATIVE (NEGATIVE); URINE NITRITE NEGATIVE (NEGATIVE); URINE PROTEIN NEGATIVE (NEGATIVE); URINE UROBILINOGEN NEGATIVE mg/dL (0.2-1.0)
[2017-12-30] MEDS: chlordiazePOXIDE HCL 25 MG CAPSULE PO SCH ×4 (05:12→22:38)
[2017-12-30] MEDS: chlordiazePOXIDE HCL 25 MG CAPSULE PO PRN ×2 (08:48→14:40)
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
[2017-12-30] MEDS: hydrOXYzine PAMOATE 50 MG CAPSULE (FP) PO PRN ×3 (09:59→22:39)
[2017-12-30] MEDS: PRENATAL VITAMINS W/ FOLIC ACID TABLET (FP) PO SCH (10:00)
[2017-12-30 10:20] LABS: HEMATOCRIT 39.4 % (32.4-45.2); HEMOGLOBIN 12.6 GM/dL (10.7-15.3); MCH 26.3 pg (25.7-33.7); MEAN CELL VOLUME 82.1 fl (80-96); MEAN PLT VOLUME 10.2 fl (7.5-11.1); PLATELET COUNT 153 K/MM3 (134-434); RDW 14.4 % (11.6-15.6); WHITE BLOOD COUNT 6.5 K/mm3 (4.0-10.0)
[2017-12-30 10:42] LABS: ALBUMIN 3.2 g/dl (3.4-5.0); ALK PHOS 65 U/L (45-117); ANION GAP 10 MMOL/L (8-16); BILIRUBIN,TOTAL 0.3 mg/dL (0.2-1); BLOOD UREA NITROGEN 11 mg/dL (7-18); CALCIUM 7.8 mg/dL (8.5-10.1); CHLORIDE 106 mmol/L (98-107); CO2 25 mmol/L (21-32); CREATININE 0.8 mg/dL (0.55-1.3); GLUCOSE,RANDOM 121 mg/dL (74-106); POTASSIUM 4.1 mmol/L (3.5-5.1); SGOT/AST 17 U/L (15-37); SGPT/ALT 22 U/L (13-61); SODIUM 141 mmol/L (136-145)
--- NOTE | 2017-12-30 13:04 | PN ---
S CIWA - CIWA Score Nausea/Vomitin-Mild Nausea/No Vomiting Muscle Tremors: 3 Anxiety: 3 Agitation: 3 Paroxysmal Sweats: 1-Minimal Palms Moist Orientation: 1-Uncertain about Date Tacttile Disturbances: 1-Very Mild Itch/Numbness Auditory Disturbances: 0-None Visual Disturbances: 0-None Headache: 1-Very Mild CIWA-Ar Total Score: 14 B[facility] Progress Note (SOAP) Subjective: sweat tremor restlessness anxiety gi distress Objective: 12/30/17 13:05 Vital Signs Temperature 98.2 F 12/30/17 09:20 Pulse Rate 66 12/30/17 09:20 Respiratory Rate 18 12/30/17 09:20 Blood Pressure 124/75 12/30/17 09:20 O2 Sat by Pulse Oximetry (%) Laboratory Last Values WBC 6.5 K/mm3 (4.0-10.0) 12/30/17 07:50 RBC 4.80 M/mm3 (3.60-5.2) 12/30/17 07:50 Hgb 12.6 GM/dL (10.7-15.3) 12/30/17 07:50 Hct 39.4 % (32.4-45.2) 12/30/17 07:50 MCV 82.1 fl (80-96) 12/30/17 07:50 MCH 26.3 pg (25.7-33.7) 12/30/17 07:50 MCHC 32.0 g/dl (32.0-36.0) 12/30/17 07:50 RDW 14.4 % (11.6-15.6) 12/30/17 07:50 Plt Count 153 K/MM3 (134-434) D 12/30/17 07:50 MPV 10.2 fl (7.5-11.1) 12/30/17 07:50 Sodium 141 mmol/L (136-145) 12/30/17 07:50 Potassium 4.1 mmol/L (3.5-5.1) 12/30/17 07:50 Chloride 106 mmol/L (98-107) 12/30/17 07:50 Carbon Dioxide 25 mmol/L (21-32) 12/30/17 07:50 Anion Gap 10 MMOL/L (8-16) 12/30/17 07:50 BUN 11 mg/dL (7-18) 12/30/17 07:50 Creatinine 0.8 mg/dL (0.55-1.3) 12/30/17 07:50 Creat Clearance w eGFR > 60 (>60) 12/30/17 07:50 Random Glucose 121 mg/dL (74-106) H 12/30/17 07:50 Calcium 7.8 mg/dL (8.5-10.1) L 12/30/17 07:50 Total Bilirubin 0.3 mg/dL (0.2-1) 12/30/17 07:50 AST 17 U/L (15-37) 12/30/17 07:50 ALT 22 U/L (13-61) 12/30/17 07:50 Alkaline Phosphatase 65 U/L (45-117) 12/30/17 07:50 Total Protein 6.0 g/dl (6.4-8.2) L 12/30/17 07:50 Albumin 3.2 g/dl (3.4-5.0) L 12/30/17 07:50 Urine Color Yellow 12/29/17 22:51 Urine Appearance Slcloudy 12/29/17 22:51 Urine pH 5.0 (5.0-8.0) 12/29/17 22:51 Ur Specific [place] 1.024 (1.010-1.035) 12/29/17 22:51 Urine Protein Negative (NEGATIVE) 12/29/17 22:51 Urine Glucose (UA) Negative (NEGATIVE) 12/29/17 22:51 Urine Ketones Negative (NEGATIVE) 12/29/17 22:51 Urine Blood Negative (NEGATIVE) 12/29/17 22:51 Urine Nitrite Negative (NEGATIVE) 12/29/17 22:51 Urine Bilirubin Negative (<2.0 mg/dL) 12/29/17 22:51 Urine Urobilinogen Negative mg/dL (0.2-1.0) 12/29/17 22:51 Ur Leukocyte Esterase Negative (NEGATIVE) 12/29/17 22:51 RPR Titer Nonreactive (NONREACTIVE) 12/30/17 07:50 lab noted Assessment: 12/30/17 13:06 withdrawal sx 12/30/17 13:06 low calcium Plan: continue detox
[2017-12-30] MEDS: CALCIUM 250MG/VIT-D 125 UNITS 1 COMBO TABLET PO SCH ×2 (13:41→22:38)
[2017-12-30] MEDS: traZODone HCL 100 MG TABLET (FP) PO SCH (22:37)
[2017-12-30] MEDS: QUEtiapine FUMARATE 100 MG TABLET (FP) PO SCH (22:37)
[2017-12-30] MEDS: THIAMINE HCL 100 MG TABLET (FP) PO SCH (22:38)
[2017-12-31] MEDS: chlordiazePOXIDE HCL 25 MG CAPSULE PO SCH ×3 (05:23→17:16)
[2017-12-31] MEDS: PRENATAL VITAMINS W/ FOLIC ACID TABLET (FP) PO SCH (10:04)
[2017-12-31] MEDS: CALCIUM 250MG/VIT-D 125 UNITS 1 COMBO TABLET PO SCH ×2 (10:04→22:32)
[2017-12-31] MEDS ORDERED: ONDANSETRON *ODT* 4 MG TABLET SL PRN (10:18)
--- NOTE | 2017-12-31 10:18 | PN ---
[facility] CIWA - CIWA Score Nausea/Vomitin-No Nausea/No Vomiting Muscle Tremors: 3 Anxiety: 3 Agitation: 3 Paroxysmal Sweats: 3 Orientation: 0-Oriented Tacttile Disturbances: 0-None Auditory Disturbances: 0-None Visual Disturbances: 0-None Headache: 0-None Present CIWA-Ar Total Score: 12 S Progress Note (SOAP) Subjective: agitation sweats sleepy nausea Objective: 12/31/17 10:17 Vital Signs Temperature 97.5 F L 12/31/17 09:09 Pulse Rate 76 12/31/17 09:09 Respiratory Rate 18 12/31/17 09:09 Blood Pressure 124/64 12/31/17 09:09 O2 Sat by Pulse Oximetry (%) Laboratory Tests 12/29/17 12/30/17 12/30/17 22:51 07:50 07:50 WBC 6.5 RBC 4.80 Hgb 12.6 Hct 39.4 MCV 82.1 MCH 26.3 MCHC 32.0 RDW 14.4 Plt Count 153 D MPV 10.2 Sodium 141 Potassium 4.1 Chloride 106 Carbon Dioxide 25 Anion Gap 10 BUN 11 Creatinine 0.8 Creat Clearance w eGFR > 60 Random Glucose 121 H Calcium 7.8 L Total Bilirubin 0.3 AST 17 ALT 22 Alkaline Phosphatase 65 Total Protein 6.0 L Albumin 3.2 L Urine Color Yellow Urine Appearance Slcloudy Urine pH 5.0 Ur Specific [place] 1.024 Urine Protein Negative Urine Glucose (UA) Negative Urine Ketones Negative Urine Blood Negative Urine Nitrite Negative Urine Bilirubin Negative Urine Urobilinogen Negative Ur Leukocyte Esterase Negative RPR Titer 12/30/17 07:50 WBC RBC Hgb Hct MCV MCH MCHC RDW Plt Count MPV Sodium Potassium Chloride Carbon Dioxide Anion Gap BUN Creatinine Creat Clearance w eGFR Random Glucose Calcium Total Bilirubin AST ALT Alkaline Phosphatase Total Protein Albumin Urine Color Urine Appearance Urine pH Ur Specific [place] Urine Protein Urine Glucose (UA) Urine Ketones Urine Blood Urine Nitrite Urine Bilirubin Urine Urobilinogen Ur Leukocyte Esterase RPR Titer Nonreactive aaox3 ambulating no acute distress Assessment: 12/31/17 10:18 withdrawal sx Plan: continue detox increase fluids zofran prn
[2017-12-31] MEDS: hydrOXYzine PAMOATE 50 MG CAPSULE (FP) PO PRN ×2 (11:38→20:17)
[2017-12-31] MEDS: chlordiazePOXIDE HCL 25 MG CAPSULE PO PRN (20:17)
[2017-12-31] MEDS: THIAMINE HCL 100 MG TABLET (FP) PO SCH (22:32)
[2017-12-31] MEDS: chlordiazePOXIDE 5 MG CAPSULE PO SCH (22:32)
[2017-12-31] MEDS: QUEtiapine FUMARATE 100 MG TABLET (FP) PO SCH (22:33)
[2017-12-31] MEDS: traZODone HCL 100 MG TABLET (FP) PO SCH (22:33)
[2018-01-01] MEDS: chlordiazePOXIDE 5 MG CAPSULE PO SCH ×3 (05:10→17:00)
[2018-01-01] MEDS ORDERED: ALBUTEROL SO4 8 GM HFA INHALER IH PRN (09:06)
[2018-01-01] MEDS ORDERED: ALBUTEROL SO4 2.5/IPRATROPIUM 0.5 INH SOL 3 ML VIAL.NEB. NEB PRN (09:07)
[2018-01-01] MEDS ORDERED: ALBUTEROL SO4 2.5/IPRATROPIUM 0.5 INH SOL 3 ML VIAL.NEB. NEB ONE (09:07)
--- NOTE | 2018-01-01 09:14 | PN ---
[facility] Progress Note (SOAP) Subjective: wheezing sweats feeling much better Objective: 01/01/18 09:13 Vital Signs Temperature 97.2 F L 01/01/18 06:21 Pulse Rate 85 01/01/18 06:21 Respiratory Rate 18 01/01/18 06:21 Blood Pressure 126/76 01/01/18 06:21 O2 Sat by Pulse Oximetry (%) aaox3 ambulating no acute distress Assessment: 01/01/18 09:13 mild withdrawal sx Plan: continue detox increase fluids albuterol ordered duoneb ordered d/c in am
[2018-01-01] MEDS: PRENATAL VITAMINS W/ FOLIC ACID TABLET (FP) PO SCH (10:09)
[2018-01-01] MEDS: CALCIUM 250MG/VIT-D 125 UNITS 1 COMBO TABLET PO SCH ×2 (10:09→22:11)
[2018-01-01] MEDS ORDERED: IBUPROFEN 400 MG TABLET (FP) PO PRN (10:56)
[2018-01-01] MEDS: CYCLOBENZAPRINE HCL 10 MG TABLET (FP) PO PRN ×2 (12:08→22:10)
[2018-01-01] MEDS: hydrOXYzine PAMOATE 50 MG CAPSULE (FP) PO PRN ×2 (12:08→18:46)
[2018-01-01] MEDS: chlordiazePOXIDE HCL 25 MG CAPSULE PO PRN (15:10)
[2018-01-01] MEDS: MELATONIN 5 MG TABLETS PO PRN (22:09)
[2018-01-01] MEDS: QUEtiapine FUMARATE 100 MG TABLET (FP) PO SCH (22:10)
[2018-01-01] MEDS: traZODone HCL 100 MG TABLET (FP) PO SCH (22:10)
[2018-01-01] MEDS: THIAMINE HCL 100 MG TABLET (FP) PO SCH (22:11)
[2018-01-01] MEDS: chlordiazePOXIDE HCL 10 MG CAPSULE PO SCH (22:12)
[2018-01-02] MEDS: hydrOXYzine PAMOATE 50 MG CAPSULE (FP) PO PRN ×2 (05:18→09:39)
[2018-01-02] MEDS: chlordiazePOXIDE HCL 10 MG CAPSULE PO SCH ×2 (05:18→10:59)
[2018-01-02 09:25] VITALS: BP 113/72; PULSE 106; TEMP 98.2
[2018-01-02] MEDS: CALCIUM 250MG/VIT-D 125 UNITS 1 COMBO TABLET PO SCH (09:39)
[2018-01-02] MEDS: PRENATAL VITAMINS W/ FOLIC ACID TABLET (FP) PO SCH (09:39)
[2018-01-02] MEDS: CYCLOBENZAPRINE HCL 10 MG TABLET (FP) PO PRN (09:40)
--- NOTE | 2018-01-02 11:01 | DS ---
[facility] Detox Discharge Summary Admission Date: 12/29/17 Discharge Date: 01/02/18 - History Present History: Alcohol Dependence - Physical Exam Results Vital Signs: Vital Signs Temperature 98.2 F 01/02/18 09:24 Pulse Rate 106 H 01/02/18 09:24 Respiratory Rate 18 01/02/18 09:24 Blood Pressure 113/72 01/02/18 09:24 O2 Sat by Pulse Oximetry (%) Pertinent Admission Physical Exam Findings: alcohol withdrawal sx Vital Signs Temperature 98.2 F 01/02/18 09:24 Pulse Rate 106 H 01/02/18 09:24 Respiratory Rate 18 01/02/18 09:24 Blood Pressure 113/72 01/02/18 09:24 O2 Sat by Pulse Oximetry (%) Laboratory Last Values WBC 6.5 K/mm3 (4.0-10.0) 12/30/17 07:50 RBC 4.80 M/mm3 (3.60-5.2) 12/30/17 07:50 Hgb 12.6 GM/dL (10.7-15.3) 12/30/17 07:50 Hct 39.4 % (32.4-45.2) 12/30/17 07:50 MCV 82.1 fl (80-96) 12/30/17 07:50 MCH 26.3 pg (25.7-33.7) 12/30/17 07:50 MCHC 32.0 g/dl (32.0-36.0) 12/30/17 07:50 RDW 14.4 % (11.6-15.6) 12/30/17 07:50 Plt Count 153 K/MM3 (134-434) D 12/30/17 07:50 MPV 10.2 fl (7.5-11.1) 12/30/17 07:50 Sodium 141 mmol/L (136-145) 12/30/17 07:50 Potassium 4.1 mmol/L (3.5-5.1) 12/30/17 07:50 Chloride 106 mmol/L (98-107) 12/30/17 07:50 Carbon Dioxide 25 mmol/L (21-32) 12/30/17 07:50 Anion Gap 10 MMOL/L (8-16) 12/30/17 07:50 BUN 11 mg/dL (7-18) 12/30/17 07:50 Creatinine 0.8 mg/dL (0.55-1.3) 12/30/17 07:50 Creat Clearance w eGFR > 60 (>60) 12/30/17 07:50 Random Glucose 121 mg/dL (74-106) H 12/30/17 07:50 Calcium 7.8 mg/dL (8.5-10.1) L 12/30/17 07:50 Total Bilirubin 0.3 mg/dL (0.2-1) 12/30/17 07:50 AST 17 U/L (15-37) 12/30/17 07:50 ALT 22 U/L (13-61) 12/30/17 07:50 Alkaline Phosphatase 65 U/L (45-117) 12/30/17 07:50 Total Protein 6.0 g/dl (6.4-8.2) L 12/30/17 07:50 Albumin 3.2 g/dl (3.4-5.0) L 12/30/17 07:50 Urine Color Yellow 12/29/17 22:51 Urine Appearance Slcloudy 12/29/17 22:51 Urine pH 5.0 (5.0-8.0) 12/29/17 22:51 Ur Specific [place] 1.024 (1.010-1.035) 12/29/17 22:51 Urine Protein Negative (NEGATIVE) 12/29/17 22:51 Urine Glucose (UA) Negative (NEGATIVE) 12/29/17 22:51 Urine Ketones Negative (NEGATIVE) 12/29/17 22:51 Urine Blood Negative (NEGATIVE) 12/29/17 22:51 Urine Nitrite Negative (NEGATIVE) 12/29/17 22:51 Urine Bilirubin Negative (<2.0 mg/dL) 12/29/17 22:51 Urine Urobilinogen Negative mg/dL (0.2-1.0) 12/29/17 22:51 Ur Leukocyte Esterase Negative (NEGATIVE) 12/29/17 22:51 RPR Titer Nonreactive (NONREACTIVE) 12/30/17 07:50 lab noted - Treatment Hospital Course: Detox Protocol Followed, Detoxed Safely, Responded well, Discharged Condition Good, Rehab Referral Accepted [facility] - Medication Discharge Medications: Ambulatory Orders Albuterol Sulfate Inhaler - [Ventolin HFA Inhaler -] 2 puff IH Q4H PRN #1 inhaler 08/04/17 traZODone HCL [Desyrel -] 100 mg PO HS #30 tablet 12/02/17 Quetiapine Fumarate [Seroquel] 100 mg PO HS #30 tablet 12/03/17 hydrOXYzine PAMOATE [Vistaril -] 50 mg PO Q4H PRN #30 capsule 12/03/17 - Diagnosis (1) Alcohol dependence with uncomplicated withdrawal Current Visit: Yes Status: Acute (2) Nicotine dependence Current Visit: Yes Status: Acute Qualifiers: Nicotine product type: cigarettes Substance use status: in withdrawal Qualified Code(s): F17.213 - Nicotine dependence, cigarettes, with withdrawal (3) Asthma Current Visit: Yes Status: Chronic Qualifiers: Asthma severity: mild Asthma persistence: intermittent Asthma complication type: with status asthmaticus Qualified Code(s): J45.22 - Mild intermittent asthma with status asthmaticus (4) GERD (gastroesophageal reflux disease) Current Visit: Yes Status: Chronic Qualifiers: Esophagitis presence: without esophagitis Qualified Code(s): K21.9 - Gastro -esophageal reflux disease without esophagitis (5) Substance-induced anxiety disorder Current Visit: Yes Status: Suspected - AMA Did Patient Leave Against Medical Advice: No
== END 2018-01-02 10:58 | disposition other institution (70) | DRG 774 ==
LOC: YASAS 15:11 → Y6N 18:42
PROVIDERS: ADMIT Neuromusculoskeletal Medicine & OMM; ATTEND Neuromusculoskeletal Medicine & OMM
PROC: HZ2ZZZZ Detoxification Services for Substance Abuse Treatment (ICD-10-PCS; principal; 2017-12-29)
DX: F10.230 Alcohol dependence with withdrawal, uncomplicated (principal); F14.20 Cocaine dependence, uncomplicated; F12.20 Cannabis dependence, uncomplicated; F17.213 Nicotine dependence, cigarettes, with withdrawal; F19.24 Other psychoactive substance dependence with psychoactive substance-induced mood disorder; F19.280 Other psychoactive substance dependence with psychoactive substance-induced anxiety disorder; F19.282 Other psychoactive substance dependence with psychoactive substance-induced sleep disorder; F43.10 Post-traumatic stress disorder, unspecified; G47.00 Insomnia, unspecified; K21.9 Gastro-esophageal reflux disease without esophagitis; M12.9 Arthropathy, unspecified; Z87.09 Personal history of other diseases of the respiratory system
CPT/HCPCS: 36415; 80053; 81003; 85027; 86593; 94640; Q0162

== ENCOUNTER 2018-01-02 10:45 | Inpatient (IN) | payer OTHER ==
[2018-01-02] MEDS ORDERED: P-EPHED 60MG/TRIPROLIDI 2.5MG TABLET PO PRN (11:02)
[2018-01-02] MEDS ORDERED: NICOTINE 14 MG/24 HOURS TOPICAL PATCH TD PRN (11:02)
[2018-01-02] MEDS ORDERED: MENTHOL/PHENOL 1 EACH UD MM PRN (11:02)
[2018-01-02] MEDS ORDERED: LOPERAMIDE HCL 2 MG CAPSULE PO PRN (11:02)
[2018-01-02] MEDS ORDERED: MAG HYDROX/AL HYDROX/SIMETH 30 ML UNIT-DOSE CUP PO PRN (11:02)
[2018-01-02] MEDS ORDERED: MAGNESIUM CITRATE 300 ML BOTTLE PO PRN (11:02)
[2018-01-02] MEDS ORDERED: ACETAMINOPHEN 325 MG TABLET (FP) PO PRN (11:02)
[2018-01-02] MEDS ORDERED: guaiFENesin/D-METHORPHAN HB 10 ML UNIT-DOSE CUPS PO PRN (11:02)
[2018-01-02] MEDS ORDERED: IBUPROFEN 400 MG TABLET (FP) PO PRN (11:02)
[2018-01-02] MEDS ORDERED: NICOTINE POLACRILEX 2 MG GUM BUC PRN (11:02)
--- NOTE | 2018-01-02 11:02 | HP ---
[facility] Rehab Assess/Revision - Admission History Admitted to Rehab from: [facility] [place] Date of Admission to Rehab: 01/02/18 - Findings Detox History & Physical reviewed: Yes Concur with findings: Yes Comments/Additional Findings: transferred from detox to rehab admission as pedr protocol Inpatient Rehab Admission - Initial Determination Are CD services needed?: Yes Free of communicable disease: Yes Not in need of hospitalization: Yes - Rehab Admission Criteria Previous failed treatment: Yes Poor recovery environment: Yes Comorbidities: Yes Lacks judgement: No Patient is meeting Inpatient Rehab admission criteria:: Yes
[2018-01-02] MEDS ORDERED: ALBUTEROL SO4 8 GM HFA INHALER IH PRN (11:03)
[2018-01-02] MEDS: CALCIUM 250MG/VIT-D 125 UNITS 1 COMBO TABLET PO SCH ×2 (12:32→23:49)
--- NOTE | 2018-01-02 15:59 | PN ---
[facility] Progress Note Note: Psychiatry Attending's on-call note : Called for medications orders. Ms Perez is a transfer from [address] [place] [address] Oh's note (12/27/17) : appreciated. Medications reconciled. Seroquel 100 mg po hs Trazodone 100 mg po hs Hydroxyzine 50 mg po q 4 hrs prn Already taken on [address] [place] [address]. No report of adverse effects. Resumed for continuity of care.
[2018-01-02] MEDS: hydrOXYzine PAMOATE 50 MG CAPSULE (FP) PO PRN ×2 (18:19→22:14)
[2018-01-02] MEDS ORDERED: PT OWN MED DRAWER 7, Y5N ONE ×2 (19:16→22:16)
[2018-01-02] MEDS: THIAMINE HCL 100 MG TABLET (FP) PO SCH (22:12)
[2018-01-02] MEDS: QUEtiapine FUMARATE 100 MG TABLET (FP) PO SCH (22:14)
[2018-01-02] MEDS: traZODone HCL 100 MG TABLET (FP) PO SCH (22:14)
[2018-01-03] MEDS: hydrOXYzine PAMOATE 50 MG CAPSULE (FP) PO PRN (06:40)
[2018-01-03] MEDS ORDERED: NICOTINE 21 MG/24 HOURS TOPICAL PATCH TD SCH (10:00)
[2018-01-03] MEDS: PRENATAL VITAMINS W/ FOLIC ACID TABLET (FP) PO SCH (10:02)
[2018-01-03] MEDS: CALCIUM 250MG/VIT-D 125 UNITS 1 COMBO TABLET PO SCH ×2 (10:02→21:40)
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
[2018-01-03] MEDS: hydrOXYzine PAMOATE 50 MG CAPSULE (FP) PO SCH ×3 (12:01→21:39)
[2018-01-03] MEDS ORDERED: CYCLOBENZAPRINE HCL 10 MG TABLET (FP) PO PRN (13:12)
[2018-01-03] MEDS ORDERED: LIDOCAINE 5% TOPICAL PATCH TP ONE (13:30)
[2018-01-03] MEDS: QUEtiapine FUMARATE 100 MG TABLET (FP) PO SCH (21:39)
[2018-01-03] MEDS: traZODone HCL 100 MG TABLET (FP) PO SCH (21:39)
[2018-01-03] MEDS: THIAMINE HCL 100 MG TABLET (FP) PO SCH (21:39)
[2018-01-03] MEDS ORDERED: LIDOCAINE PATCH REMOVAL MC ONE (22:00)
[2018-01-04] MEDS: hydrOXYzine PAMOATE 50 MG CAPSULE (FP) PO SCH ×3 (06:20→21:20)
[2018-01-04] MEDS ORDERED: PT OWN MED DRAWER 7, Y5N ONE (09:20)
[2018-01-04] MEDS: CALCIUM 250MG/VIT-D 125 UNITS 1 COMBO TABLET PO SCH ×2 (10:03→21:20)
[2018-01-04] MEDS: LIDOCAINE 5% TOPICAL PATCH TP SCH (10:03)
[2018-01-04] MEDS: PRENATAL VITAMINS W/ FOLIC ACID TABLET (FP) PO SCH (10:03)
--- NOTE | 2018-01-04 11:49 | PN ---
[facility] Progress Note Note: PT C/O LEFT HEEL PAIN AND CHRONIC RIGHT KNEE ARTHRITIS. DENIES ANY TRUAMA. Vital Signs 01/04/18 06:57 Temperature 97.3 F L Pulse Rate 91 H Respiratory 18 Rate Blood Pressure 108/76 PT IS OOB AMBULATING WITH SLIGHT LIMP. PLAN:WARM COMPRESS TO LEFT HEEL TID ANALGESIC BALM APPLY TO LEFT HEEL DIRECTED. FLEXERIL DIRECTED.
[2018-01-04] MEDS: METHYL SALICYLATE/MENTHOL OINT 30 GM TUBE TP SCH ×2 (12:50→21:22)
[2018-01-04] MEDS: CYCLOBENZAPRINE HCL 10 MG TABLET (FP) PO SCH ×2 (14:13→21:20)
[2018-01-04] MEDS: traZODone HCL 100 MG TABLET (FP) PO SCH (21:20)
[2018-01-04] MEDS: QUEtiapine FUMARATE 100 MG TABLET (FP) PO SCH (21:20)
[2018-01-04] MEDS: THIAMINE HCL 100 MG TABLET (FP) PO SCH (21:20)
[2018-01-04] MEDS: LIDOCAINE PATCH REMOVAL MC SCH (21:20)
[2018-01-05] MEDS: hydrOXYzine PAMOATE 50 MG CAPSULE (FP) PO SCH ×3 (06:29→21:20)
[2018-01-05] MEDS: CYCLOBENZAPRINE HCL 10 MG TABLET (FP) PO SCH ×3 (06:29→21:20)
[2018-01-05] MEDS ORDERED: PT OWN MED DRAWER 7, Y5N ONE (08:32)
[2018-01-05] MEDS: LIDOCAINE 5% TOPICAL PATCH TP SCH (09:52)
[2018-01-05] MEDS: METHYL SALICYLATE/MENTHOL OINT 30 GM TUBE TP SCH ×2 (09:52→21:22)
[2018-01-05] MEDS: PRENATAL VITAMINS W/ FOLIC ACID TABLET (FP) PO SCH (09:53)
[2018-01-05] MEDS: CALCIUM 250MG/VIT-D 125 UNITS 1 COMBO TABLET PO SCH ×2 (09:53→21:20)
[2018-01-05] MEDS: QUEtiapine FUMARATE 100 MG TABLET (FP) PO SCH (21:20)
[2018-01-05] MEDS: traZODone HCL 100 MG TABLET (FP) PO SCH (21:20)
[2018-01-05] MEDS: THIAMINE HCL 100 MG TABLET (FP) PO SCH (21:20)
[2018-01-05] MEDS: LIDOCAINE PATCH REMOVAL MC SCH (21:21)
[2018-01-06] MEDS: hydrOXYzine PAMOATE 50 MG CAPSULE (FP) PO SCH ×3 (06:15→21:35)
[2018-01-06] MEDS: CYCLOBENZAPRINE HCL 10 MG TABLET (FP) PO SCH ×3 (06:15→21:35)
[2018-01-06] MEDS ORDERED: PT OWN MED DRAWER 7, Y5N ONE (08:45)
[2018-01-06] MEDS: METHYL SALICYLATE/MENTHOL OINT 30 GM TUBE TP SCH ×2 (09:55→21:37)
[2018-01-06] MEDS: CALCIUM 250MG/VIT-D 125 UNITS 1 COMBO TABLET PO SCH ×2 (09:56→21:35)
[2018-01-06] MEDS: PRENATAL VITAMINS W/ FOLIC ACID TABLET (FP) PO SCH (09:56)
[2018-01-06] MEDS: LIDOCAINE 5% TOPICAL PATCH TP SCH (09:56)
[2018-01-06] MEDS: QUEtiapine FUMARATE 100 MG TABLET (FP) PO SCH (21:35)
[2018-01-06] MEDS: THIAMINE HCL 100 MG TABLET (FP) PO SCH (21:35)
[2018-01-06] MEDS: traZODone HCL 100 MG TABLET (FP) PO SCH (21:35)
[2018-01-06] MEDS: LIDOCAINE PATCH REMOVAL MC SCH (21:36)
[2018-01-07] MEDS: CYCLOBENZAPRINE HCL 10 MG TABLET (FP) PO SCH ×3 (06:18→21:29)
[2018-01-07] MEDS: hydrOXYzine PAMOATE 50 MG CAPSULE (FP) PO SCH ×3 (06:18→21:29)
[2018-01-07] MEDS: CALCIUM 250MG/VIT-D 125 UNITS 1 COMBO TABLET PO SCH ×2 (10:03→21:29)
[2018-01-07] MEDS: PRENATAL VITAMINS W/ FOLIC ACID TABLET (FP) PO SCH (10:03)
[2018-01-07] MEDS: LIDOCAINE 5% TOPICAL PATCH TP SCH (10:04)
[2018-01-07] MEDS: METHYL SALICYLATE/MENTHOL OINT 30 GM TUBE TP SCH ×2 (10:05→21:30)
[2018-01-07] MEDS: traZODone HCL 100 MG TABLET (FP) PO SCH (21:29)
[2018-01-07] MEDS: QUEtiapine FUMARATE 100 MG TABLET (FP) PO SCH (21:29)
[2018-01-07] MEDS: THIAMINE HCL 100 MG TABLET (FP) PO SCH (21:29)
[2018-01-07] MEDS: LIDOCAINE PATCH REMOVAL MC SCH (21:30)
[2018-01-08] MEDS: hydrOXYzine PAMOATE 50 MG CAPSULE (FP) PO SCH ×3 (06:36→21:10)
[2018-01-08] MEDS: CYCLOBENZAPRINE HCL 10 MG TABLET (FP) PO SCH ×3 (06:36→21:10)
[2018-01-08] MEDS ORDERED: PT OWN MED DRAWER 7, Y5N ONE ×2 (08:09→08:42)
[2018-01-08] MEDS: LIDOCAINE 5% TOPICAL PATCH TP SCH (10:11)
[2018-01-08] MEDS: PRENATAL VITAMINS W/ FOLIC ACID TABLET (FP) PO SCH (10:11)
[2018-01-08] MEDS: CALCIUM 250MG/VIT-D 125 UNITS 1 COMBO TABLET PO SCH ×2 (10:12→21:10)
[2018-01-08] MEDS: METHYL SALICYLATE/MENTHOL OINT 30 GM TUBE TP SCH ×2 (10:13→21:10)
[2018-01-08] MEDS: THIAMINE HCL 100 MG TABLET (FP) PO SCH (21:10)
[2018-01-08] MEDS: QUEtiapine FUMARATE 100 MG TABLET (FP) PO SCH (21:10)
[2018-01-08] MEDS: LIDOCAINE PATCH REMOVAL MC SCH (21:10)
[2018-01-08] MEDS: traZODone HCL 100 MG TABLET (FP) PO SCH (21:10)
[2018-01-09] MEDS: hydrOXYzine PAMOATE 50 MG CAPSULE (FP) PO SCH ×3 (06:33→21:51)
[2018-01-09] MEDS: CYCLOBENZAPRINE HCL 10 MG TABLET (FP) PO SCH ×3 (06:33→21:51)
[2018-01-09] MEDS: CALCIUM 250MG/VIT-D 125 UNITS 1 COMBO TABLET PO SCH ×2 (10:12→21:52)
[2018-01-09] MEDS: PRENATAL VITAMINS W/ FOLIC ACID TABLET (FP) PO SCH (10:12)
[2018-01-09] MEDS: METHYL SALICYLATE/MENTHOL OINT 30 GM TUBE TP SCH ×2 (10:13→21:51)
[2018-01-09] MEDS: LIDOCAINE 5% TOPICAL PATCH TP SCH (10:13)
[2018-01-09] MEDS: traZODone HCL 100 MG TABLET (FP) PO SCH (21:51)
[2018-01-09] MEDS: LIDOCAINE PATCH REMOVAL MC SCH (21:52)
[2018-01-09] MEDS: QUEtiapine FUMARATE 100 MG TABLET (FP) PO SCH (21:52)
[2018-01-09] MEDS: THIAMINE HCL 100 MG TABLET (FP) PO SCH (21:52)
[2018-01-10] MEDS: CYCLOBENZAPRINE HCL 10 MG TABLET (FP) PO SCH ×3 (06:31→21:39)
[2018-01-10] MEDS: hydrOXYzine PAMOATE 50 MG CAPSULE (FP) PO SCH ×3 (06:31→21:40)
[2018-01-10] MEDS: CALCIUM 250MG/VIT-D 125 UNITS 1 COMBO TABLET PO SCH ×2 (10:01→21:40)
[2018-01-10] MEDS: METHYL SALICYLATE/MENTHOL OINT 30 GM TUBE TP SCH ×2 (10:01→21:41)
[2018-01-10] MEDS: PRENATAL VITAMINS W/ FOLIC ACID TABLET (FP) PO SCH (10:01)
[2018-01-10] MEDS: LIDOCAINE 5% TOPICAL PATCH TP SCH (10:01)
[2018-01-10] MEDS: QUEtiapine FUMARATE 100 MG TABLET (FP) PO SCH (21:39)
[2018-01-10] MEDS: THIAMINE HCL 100 MG TABLET (FP) PO SCH (21:39)
[2018-01-10] MEDS: LIDOCAINE PATCH REMOVAL MC SCH (21:40)
[2018-01-10] MEDS: traZODone HCL 100 MG TABLET (FP) PO SCH (21:40)
[2018-01-11] MEDS: hydrOXYzine PAMOATE 50 MG CAPSULE (FP) PO SCH ×3 (06:26→21:32)
[2018-01-11] MEDS: CYCLOBENZAPRINE HCL 10 MG TABLET (FP) PO SCH ×3 (06:27→21:32)
[2018-01-11] MEDS: LIDOCAINE 5% TOPICAL PATCH TP SCH (09:59)
[2018-01-11] MEDS: METHYL SALICYLATE/MENTHOL OINT 30 GM TUBE TP SCH ×2 (09:59→21:33)
[2018-01-11] MEDS: PRENATAL VITAMINS W/ FOLIC ACID TABLET (FP) PO SCH (09:59)
[2018-01-11] MEDS: CALCIUM 250MG/VIT-D 125 UNITS 1 COMBO TABLET PO SCH ×2 (09:59→21:32)
--- NOTE | 2018-01-11 15:04 | PN ---
Psychiatric Progress Note Vital Signs: Vital Signs Period Temp Pulse Resp BP Sys/Rice Pulse Ox Last 24 Hr 97.6 F 93 18-18 123/87 Date of Session: 01/11/18 Chief Complaint:: "I feel anxious." HPI: Patient admitted to for alcohol, cocaine, and cannabis dependence. ROS: Significant for bronchial asthma and a history of x1. Current Medications: Active Medications Generic Name Dose Route Start Last Admin Trade Name Freq PRN Reason Stop Dose Admin Acetaminophen 650 mg 01/02/18 11:02 Tylenol - PO Q4H PRN FEVER Al Hydroxide/Mg Hydroxide 30 ml 01/02/18 11:02 01/05/18 14:45 Mylanta Oral Suspension - PO 30 ml Q6H PRN Administration DYSPEPSIA Albuterol Sulfate 2 puff 01/02/18 11:03 Ventolin Hfa Inhaler - IH Q4H PRN SHORT OF BREATH/WHEEZING Calcium/Vitamin D 1 tab 01/02/18 11:30 01/11/18 09:59 Oscal 250 Mg+D - PO 1 tab BID LA NENA Administration Cyclobenzaprine HCl 10 mg 01/04/18 14:00 01/11/18 14:03 Flexeril - PO 10 mg TID LA NENA Administration Eucalyptus/Menthol/Phenol/Sorbitol 1 each 01/02/18 11:02 Cepastat Lozenge - MM Q4H PRN SORE THROAT Guaifenesin 10 ml 01/02/18 11:02 Robitussin Dm - PO Q6H PRN COUGH Hydroxyzine Pamoate 100 mg 01/03/18 10:30 01/11/18 14:03 Vistaril - PO 100 mg TID LA NENA Administration Ibuprofen 400 mg 01/02/18 11:02 Motrin - PO Q6H PRN Pain Level 4-6 Lidocaine 1 patch 01/04/18 10:00 01/11/18 09:59 Lidoderm Patch - TP Not Given DAILY LA NENA Loperamide HCl 4 mg 01/02/18 11:02 Imodium - PO Q6H PRN DIARRHEA Magnesium Citrate 300 ml 01/02/18 11:02 01/06/18 12:45 Citroma - PO 300 ml Q48H PRN Administration CONSTIPATION Magnesium Hydroxide 30 ml 01/02/18 11:02 Milk Of Magnesia - PO DAILY PRN CONSTIPATION Melatonin 5 mg 01/02/18 22:00 Melatonin PO HS PRN INSOMNIA Methyl Salicylate 1 applic 01/04/18 11:45 01/11/18 09:59 Dmitri-Gomez - TP Not Given BID LA NENA Miscellaneous 1 each 01/04/18 22:00 01/10/18 21:40 Lidoderm Patch Removal MC Not Given DAILY@2200 LA NENA Nicotine 14 mg 01/02/18 11:02 Nicoderm Patch - TD DAILY PRN WITHDRAWAL(CONT SUBST) Nicotine Polacrilex 2 mg 01/02/18 11:02 Nicorette Gum - BUC Q2H PRN NICOTINE REPLACEMENT RX Multivit/Folic Acid/Iron 1 tab 01/03/18 10:00 01/11/18 09:59 Vitamins (Sjr) - PO 1 tab DAILY LA NENA Administration Pseudoephedrine/Triprolidine 1 combo 01/02/18 11:02 Actifed - PO TID PRN NASAL CONGESTION Quetiapine Fumarate 100 mg 01/02/18 22:00 01/10/18 21:39 Seroquel - PO 100 mg HS LA NENA Administration Thiamine HCl 100 mg 01/02/18 22:00 01/10/18 21:39 Vitamin B1 - PO 100 mg HS LA NENA Administration Trazodone HCl 100 mg 01/02/18 22:00 01/10/18 21:40 Desyrel - PO 100 mg HS LA NENA Administration Medication(s) Change(s): No. Current Side Effect: No Lab tests ordered: No Lab tests reviewed: Yes Provider note:: Chart reviewed. Dr. Vidal's note read and appreciated. Patient complaining of ongoing anxiety. Patient is currently prescribed Vistaril 100mg TID + trazodone 100mg + Seroquel 100mg qhs. Patient encouraged to utilize her coping skills so that she can learn how to better manage her anxiety. Patient encouraged to use writing, reading, and positive thoughts as a coping mechanism. Patient satisifed and receptive to feedback. Total face to face time:: 15 Mental Status Exam - Mental Status Exam Alert and Oriented to: Time, Place, Person Cognitive Function: Good Patient Appearance: Well Groomed Mood: Hopeful Affect: Appropriate Patient Behavior: Appropriate, Cooperative Speech Pattern: Clear, Appropriate Voice Loudness: Normal Thought Process: Intact, Goal Oriented Thought Disorder: Not Present Hallucinations: Denies Suicidal Ideation: Denies Homicidal Ideation: Denies Insight/Judgement: Poor Sleep: Fair Appetite: Fair Muscle strength/Tone: Normal Gait/Station: Normal Psychiatric Treatment Plan - Problem List (1) Alcohol dependence Current Visit: Yes (2) Cannabis dependence Current Visit: Yes Comment: Knees and legs (3) Cocaine dependence, uncomplicated Current Visit: Yes
[2018-01-11] MEDS: THIAMINE HCL 100 MG TABLET (FP) PO SCH (21:32)
[2018-01-11] MEDS: QUEtiapine FUMARATE 100 MG TABLET (FP) PO SCH (21:32)
[2018-01-11] MEDS: traZODone HCL 100 MG TABLET (FP) PO SCH (21:32)
[2018-01-11] MEDS: LIDOCAINE PATCH REMOVAL MC SCH (21:33)
[2018-01-12] MEDS: CYCLOBENZAPRINE HCL 10 MG TABLET (FP) PO SCH ×3 (06:31→21:11)
[2018-01-12] MEDS: hydrOXYzine PAMOATE 50 MG CAPSULE (FP) PO SCH ×3 (06:31→21:12)
[2018-01-12] MEDS: CALCIUM 250MG/VIT-D 125 UNITS 1 COMBO TABLET PO SCH ×2 (09:45→21:12)
[2018-01-12] MEDS: PRENATAL VITAMINS W/ FOLIC ACID TABLET (FP) PO SCH (09:45)
[2018-01-12] MEDS: LIDOCAINE 5% TOPICAL PATCH TP SCH (09:46)
[2018-01-12] MEDS: METHYL SALICYLATE/MENTHOL OINT 30 GM TUBE TP SCH ×2 (09:46→21:13)
[2018-01-12] MEDS: traZODone HCL 100 MG TABLET (FP) PO SCH (21:11)
[2018-01-12] MEDS: THIAMINE HCL 100 MG TABLET (FP) PO SCH (21:12)
[2018-01-12] MEDS: QUEtiapine FUMARATE 100 MG TABLET (FP) PO SCH (21:12)
[2018-01-12] MEDS: LIDOCAINE PATCH REMOVAL MC SCH (21:13)
[2018-01-12] MEDS ORDERED: PT OWN MED DRAWER 7, Y5N ONE (22:40)
[2018-01-13] MEDS: hydrOXYzine PAMOATE 50 MG CAPSULE (FP) PO SCH ×3 (06:24→21:37)
[2018-01-13] MEDS: CYCLOBENZAPRINE HCL 10 MG TABLET (FP) PO SCH ×3 (06:24→21:37)
[2018-01-13] MEDS ORDERED: PT OWN MED DRAWER 7, Y5N ONE (08:15)
[2018-01-13] MEDS: LIDOCAINE 5% TOPICAL PATCH TP SCH (09:47)
[2018-01-13] MEDS: PRENATAL VITAMINS W/ FOLIC ACID TABLET (FP) PO SCH (09:47)
[2018-01-13] MEDS: CALCIUM 250MG/VIT-D 125 UNITS 1 COMBO TABLET PO SCH ×2 (09:47→21:38)
[2018-01-13] MEDS: METHYL SALICYLATE/MENTHOL OINT 30 GM TUBE TP SCH ×2 (09:47→21:37)
[2018-01-13] MEDS: MAGNESIUM HYDROX 2400MG/30ML ORAL SUSPENSION 30 ML CUP PO PRN (09:49)
[2018-01-13] MEDS: THIAMINE HCL 100 MG TABLET (FP) PO SCH (21:37)
[2018-01-13] MEDS: QUEtiapine FUMARATE 100 MG TABLET (FP) PO SCH (21:38)
[2018-01-13] MEDS: traZODone HCL 100 MG TABLET (FP) PO SCH (21:38)
[2018-01-13] MEDS: LIDOCAINE PATCH REMOVAL MC SCH (21:38)
[2018-01-14] MEDS: hydrOXYzine PAMOATE 50 MG CAPSULE (FP) PO SCH ×3 (06:26→21:10)
[2018-01-14] MEDS: CYCLOBENZAPRINE HCL 10 MG TABLET (FP) PO SCH ×3 (06:26→21:10)
[2018-01-14] MEDS ORDERED: COLLOIDAL OATMEAL 1 BAR EACH TP PRN (09:44)
--- NOTE | 2018-01-14 09:48 | PN ---
S Progress Note (SOAP) Subjective: Pt requesting aveeno soap, and something to fight her cravings from crack cocaine. d/w pt that there are no medications per se to help with cocaine withdrawal- she can try the vistaril which she is taking. Sheela ordered.
[2018-01-14] MEDS: CALCIUM 250MG/VIT-D 125 UNITS 1 COMBO TABLET PO SCH ×2 (10:04→21:10)
[2018-01-14] MEDS: PRENATAL VITAMINS W/ FOLIC ACID TABLET (FP) PO SCH (10:04)
[2018-01-14] MEDS: LIDOCAINE 5% TOPICAL PATCH TP SCH (10:07)
[2018-01-14] MEDS: METHYL SALICYLATE/MENTHOL OINT 30 GM TUBE TP SCH ×2 (10:07→21:42)
[2018-01-14] MEDS: QUEtiapine FUMARATE 100 MG TABLET (FP) PO SCH (21:10)
[2018-01-14] MEDS: THIAMINE HCL 100 MG TABLET (FP) PO SCH (21:10)
[2018-01-14] MEDS: traZODone HCL 100 MG TABLET (FP) PO SCH (21:10)
[2018-01-14] MEDS: MELATONIN 5 MG TABLETS PO PRN (21:11)
[2018-01-14] MEDS: LIDOCAINE PATCH REMOVAL MC SCH (21:43)
[2018-01-15] MEDS: hydrOXYzine PAMOATE 50 MG CAPSULE (FP) PO SCH ×3 (06:36→21:26)
[2018-01-15] MEDS: CYCLOBENZAPRINE HCL 10 MG TABLET (FP) PO SCH ×3 (06:36→21:26)
[2018-01-15] MEDS: MAGNESIUM HYDROX 2400MG/30ML ORAL SUSPENSION 30 ML CUP PO PRN (06:36)
[2018-01-15] MEDS: CALCIUM 250MG/VIT-D 125 UNITS 1 COMBO TABLET PO SCH ×2 (09:54→21:26)
[2018-01-15] MEDS: PRENATAL VITAMINS W/ FOLIC ACID TABLET (FP) PO SCH (09:54)
[2018-01-15] MEDS: METHYL SALICYLATE/MENTHOL OINT 30 GM TUBE TP SCH ×2 (09:54→21:27)
[2018-01-15] MEDS: LIDOCAINE 5% TOPICAL PATCH TP SCH (09:55)
[2018-01-15] MEDS: traZODone HCL 100 MG TABLET (FP) PO SCH (21:26)
[2018-01-15] MEDS: MELATONIN 5 MG TABLETS PO PRN (21:26)
[2018-01-15] MEDS: THIAMINE HCL 100 MG TABLET (FP) PO SCH (21:26)
[2018-01-15] MEDS: QUEtiapine FUMARATE 100 MG TABLET (FP) PO SCH (21:27)
[2018-01-15] MEDS: LIDOCAINE PATCH REMOVAL MC SCH (21:27)
[2018-01-16] MEDS: CYCLOBENZAPRINE HCL 10 MG TABLET (FP) PO SCH (06:45)
[2018-01-16] MEDS: hydrOXYzine PAMOATE 50 MG CAPSULE (FP) PO SCH (06:45)
[2018-01-16 07:08] VITALS: BP 121/85; PULSE 92; TEMP 98.2
[2018-01-16] MEDS: CALCIUM 250MG/VIT-D 125 UNITS 1 COMBO TABLET PO SCH (09:32)
[2018-01-16] MEDS: PRENATAL VITAMINS W/ FOLIC ACID TABLET (FP) PO SCH (09:32)
--- NOTE | 2018-01-16 14:30 | PN ---
[facility] Progress Note Note: Asked by nursing staff to evaluate this patient as she requested her dscharge from the unit this morning. It is to note thta patient was scheduled to be officially discharged tomorrow after the completion of her detox treatment Patient left the unit without being seen by fiction and nonfiction prose writer Please refer to staff note and summary regarding her discharge plan and recommendation Plan Discharge from the unit
== END 2018-01-16 09:54 | disposition left against medical advice (07) | DRG 770 ==
LOC: YASAS 10:45 → Y3E 10:46
PROVIDERS: ADMIT Psychiatry & Neurology Psychiatry; ATTEND Psychiatry & Neurology Psychiatry
PROC: HZ42ZZZ Group Counseling for Substance Abuse Treatment, Cognitive-Behavioral (ICD-10-PCS; principal; 2018-01-02)
DX: F10.20 Alcohol dependence, uncomplicated (principal); F14.20 Cocaine dependence, uncomplicated; F12.20 Cannabis dependence, uncomplicated; F43.10 Post-traumatic stress disorder, unspecified; F41.9 Anxiety disorder, unspecified; F32.9 Major depressive disorder, single episode, unspecified; R73.03 Prediabetes; M13.861 Other specified arthritis, right knee; Z87.09 Personal history of other diseases of the respiratory system
CPT/HCPCS: 36415; 82962; 87389

== ENCOUNTER 2018-05-08 15:14 | Inpatient (IN) | payer OTHER ==
[2018-05-08 15:40] VITALS: BMI 37.2
--- NOTE | 2018-05-08 15:53 | HP ---
CIWA Score Nausea/Vomitin Muscle Tremors: 2 Anxiety: 2 Agitation: 2 Paroxysmal Sweats: 2 Orientation: 1-Uncertain about Date Tacttile Disturbances: 0-None Auditory Disturbances: 1-Very Mild Visual Disturbances: 1-Very Mild Sensitivity Headache: 2-Mild CIWA-Ar Total Score: 15 - Admission Criteria OASAS Guidelines: Admission for Medically Managed Detox: Requires at least one of the followin. CIWA greater than 12 2. Seizures within the past 24 hours 3. Delirium tremens within the past 24 hours 4. Hallucinations within the past 24 hours 5. Acute intervention needed for co occurring medical disorder 6. Acute intervention needed for co occurring psychiatric disorder 7. Severe withdrawal that cannot be handled at a lower level of care (continued vomiting, continued diarrhea, abnormal vital signs) requiring intravenous medication and/or fluids 8. Admission ROS S - HPI Chief Complaint: i need help to stop drinking alcohol,cocaine,marijuana Allergies/Adverse Reactions: Allergies Allergy/AdvReac Type Severity Reaction Status Date / Time No Known Allergies Allergy Verified 05/08/18 17:16 History of Present Illness: this 42 years old female with alcohol ,cocaine and marijuana dependence,seeking detox,withdrawal symptom, seen in [facility] yesterday multiple admissions in detox,[facility] detox 12/29/17 to 01/02/18 [facility],rehab 01/02/18 to 01/16/18 longest period of sobriety 3 months ptsd ,anxiety,depression plan for rehab after detox Exam Limitations: No Limitations - Ebola screening Have you traveled outside of the country in the last 21 days: No Have you been sick,other than usual withdrawal symptoms: No - Review of Systems Constitutional: Loss of Appetite, Malaise, Night Sweats, Changes in sleep, Weakness, Unintentional Wgt. Loss EENT: reports: Tearing, Nose Congestion Respiratory: reports: No Symptoms reported Cardiac: reports: No Symptoms Reported GI: reports: Nausea, Poor Appetite, Abdominal cramping : reports: No Symptoms Reported Musculoskeletal: reports: Back Pain, Muscle Pain Integumentary: reports: Dryness Neuro: reports: Headache, Tremors Endocrine: reports: No Symptoms Reported Hematology: reports: No Symptoms Reported Psychiatric: reports: No Sypmtoms Reported, Judgement Intact, Mood/Affect Appropiate, Orientated x3, Anxious, Depressed, other (ptsd) Other Systems: Reviewed and Negative Patient History - Patient Medical History Hx Anemia: No Hx Asthma: Yes (on albuterol inhaler,singulair inhaler) Hx Chronic Obstructive Pulmonary Disease (COPD): No Hx Cancer: No Hx Cardiac Disorders: No Hx Congestive Heart Failure: No Hx Hypertension: No Hx Hypercholesterolemia: No Hx Pacemaker: No HX Cerebrovascular Accident: No Hx Seizures: No Hx Dementia: No Hx Diabetes: No Hx Gastrointestinal Disorders: No Hx Liver Disease: No Hx Genitourinary Disorders: No Hx Sexually Transmitted Disorders: No Hx Renal Disease (ESRD): No Hx Thyroid Disease: No Hx Human Immunodeficiency Virus (HIV): No (02/26 last negative) Hx Hepatitis C: No Hx Depression: Yes (anxiety,ptsd) Hx Suicide Attempt: No Hx Bipolar Disorder: No Hx Schizophrenia: No Other Medical History: no suiidal,no homicidal - Patient Surgical History Past Surgical History: Yes Hx Neurologic Surgery: No Hx Cataract Extraction: No Hx Cardiac Surgery: No Hx Lung Surgery: No Hx Breast Surgery: No Hx Breast Biopsy: No Hx Abdominal Surgery: No Hx Appendectomy: No Hx Cholecystectomy: No Hx Genitourinary Surgery: No Hx Section: Yes (x 1 8years ago) Hx Orthopedic Surgery: No Anesthesia Reaction: No - PPD History Previous Implant?: Yes Documented Results: Negative w/o proof Date: 02/08/17 Results: 0 MM PPD to be Administered?: Yes - Reproductive History Patient is a Female of Child Bearing Age (11 -55 yrs old): Yes Last Menstrual Period: 04/25/18 Patient : No - Smoking Cessation Smoking history: Current every day smoker Have you smoked in the past 12 months: Yes Aproximately how many cigarettes per day: 6 Cigars Per Day: 0 Hx Chewing Tobacco Use: No Initiated information on smoking cessation: Yes 'Breaking Loose' booklet given: 05/08/18 - Substance & Tx. History Hx Alcohol Use: Yes Hx Substance Use: Yes Substance Use Type: Alcohol, Cocaine, Marijuana Hx Substance Use Treatment: Yes ([facility] 12/29/17 to 01/02/18,rehab 01/02/18 to 10/26) - Substances Abused Alcohol Route: Oral Frequency: Daily Amount used: 2pints of liquor vodka Age of first use: 16 Date of Last Use: 05/07/18 Cocaine Route: Inhalation Frequency: 3-6 times per week Amount used: 70$ Age of first use: 37 Date of Last Use: 05/07/18 Marijuana/Hashish Route: Smoking Frequency: Daily Amount used: 40$ Age of first use: 14 Date of Last Use: 05/07/18 Family Disease History - Family Disease History Family Disease History: Heart Disease: Mother (HTN,Asthma), Respiratory: Mother Admission Physical Exam [facility] - Vital Signs Vital Signs: Vital Signs - 24 hr 05/08/18 15:37 Temperature 98.6 F Pulse Rate 92 H Respiratory 18 Rate Blood Pressure 128/72 - Physical General Appearance: Yes: Moderate Distress, Tremorous, Irritable, Sweating, Anxious HEENTM: Yes: Normal ENT Inspection, KENDALL, Pharynx Normal Respiratory: Yes: Lungs Clear, Normal Breath Sounds, No Respiratory Distress Neck: Yes: Within Normal Limits, Supple, Trachea in good position Breast: Yes: Breast Exam Deferred Cardiology: Yes: Within Normal Limits, Regular Rhythm, Regular Rate, S1, S2 Abdominal: Yes: Within Normal Limits, Normal Bowel Sounds, Non Tender, Flat, Soft Genitourinary: Yes: Within Normal Limits Back: Yes: Muscle Spasm Musculoskeletal: Yes: full range of Motion, Back pain, Muscle Pain Extremities: Yes: Within Normal Limits, Normal Range of Motion, Tremors Neurological: Yes: buttonhole marker II-XII NML intact, Fully Oriented, Alert, Motor Strength 5/5 Integumentary: Yes: Dry Lymphatic: Yes: Within Normal Limits - Diagnostic (1) Alcohol dependence with uncomplicated withdrawal Current Visit: No Status: Acute (2) Low back pain with sciatica Current Visit: No Status: Acute (3) Nicotine dependence Current Visit: No Status: Acute Qualifiers: Nicotine product type: cigarettes Substance use status: in withdrawal Qualified Code(s): F17.213 - Nicotine dependence, cigarettes, with withdrawal (4) Arthritis of right knee Current Visit: No Status: Chronic (5) Asthma Current Visit: No Status: Chronic Qualifiers: Asthma severity: mild Asthma persistence: intermittent Asthma complication type: with status asthmaticus Qualified Code(s): J45.22 - Mild intermittent asthma with status asthmaticus (6) Cannabis dependence Current Visit: No Status: Chronic (7) Cocaine dependence Current Visit: No Status: Chronic (8) DM type 2 (diabetes mellitus, type 2) Current Visit: Yes Status: Acute Cleared for Admission [facility] - Detox or Rehab [facility] Level of Care: Medically Managed Detox Regimen/Protocol: Librium [facility] Breath Alcohol Content Breath Alcohol Content: 0 Urine Pregancy Test - Result Urine Test Results: Negative - NO line present Urine Drug Screen - Results Urine Drug Screen Results: THC-Marijuana, SACHIN-Cocaine Drug Screen Negative: No
[2018-05-08] MEDS ORDERED: ACETAMINOPHEN 325 MG TABLET (FP) PO PRN ×2 (17:07)
[2018-05-08] MEDS ORDERED: MAGNESIUM HYDROX 2400MG/30ML ORAL SUSPENSION 30 ML CUP PO PRN (17:07)
[2018-05-08] MEDS ORDERED: chlordiazePOXIDE HCL 25 MG CAPSULE PO PRN (17:07)
[2018-05-08] MEDS ORDERED: IBUPROFEN 400 MG TABLET (FP) PO PRN (17:07)
[2018-05-08] MEDS ORDERED: MELATONIN 5 MG TABLETS PO PRN (17:07)
[2018-05-08] MEDS ORDERED: NICOTINE POLACRILEX 2 MG GUM BUC PRN (17:07)
[2018-05-08] MEDS ORDERED: MENTHOL/PHENOL 1 EACH UD MM PRN (17:07)
[2018-05-08] MEDS ORDERED: MAGNESIUM CITRATE 300 ML BOTTLE PO PRN (17:07)
[2018-05-08] MEDS ORDERED: BISMUTH SUBSALICYLATE 524 MG/30 ML UD PO PRN (17:07)
[2018-05-08] MEDS ORDERED: ALBUTEROL SO4 8 GM HFA INHALER IH PRN (17:49)
[2018-05-08] MEDS: NICOTINE 21 MG/24 HOURS TOPICAL PATCH TD SCH (18:37)
[2018-05-08] MEDS: METHOCARBAMOL 500 MG TABLET PO PRN (19:48)
[2018-05-08] MEDS: hydrOXYzine PAMOATE 25 MG CAPSULE (FP) PO PRN (19:48)
[2018-05-08] MEDS: chlordiazePOXIDE HCL 25 MG CAPSULE PO SCH (22:17)
[2018-05-08] MEDS: THIAMINE HCL 100 MG TABLET (FP) PO SCH (22:17)
[2018-05-08] MEDS: traZODone HCL 100 MG TABLET (FP) PO SCH (22:17)
[2018-05-08] MEDS: QUEtiapine FUMARATE 100 MG TABLET (FP) PO SCH (22:17)
[2018-05-09] MEDS: chlordiazePOXIDE HCL 25 MG CAPSULE PO SCH ×4 (05:30→22:33)
[2018-05-09 10:05] LABS: HEMATOCRIT 40.5 % (32.4-45.2); HEMOGLOBIN 12.8 GM/dL (10.7-15.3); MCH 25.7 pg (25.7-33.7); MCHC 31.7 g/dl (32.0-36.0); MEAN CELL VOLUME 81.3 fl (80-96); MEAN PLT VOLUME 10.5 fl (7.5-11.1); PLATELET COUNT 146 K/MM3 (134-434); RBC 4.99 M/mm3 (3.60-5.2); RDW 15.1 % (11.6-15.6); WHITE BLOOD COUNT 6.8 K/mm3 (4.0-10.0)
[2018-05-09 10:16] LABS: ALBUMIN 3.2 g/dl (3.4-5.0); ALK PHOS 59 U/L (45-117); ANION GAP 6 MMOL/L (8-16); BILIRUBIN,TOTAL 0.2 mg/dL (0.2-1); BLOOD UREA NITROGEN 17 mg/dL (7-18); CALCIUM 8.7 mg/dL (8.5-10.1); CHLORIDE 105 mmol/L (98-107); CO2 27 mmol/L (21-32); CREATININE 0.9 mg/dL (0.55-1.3); GLUCOSE,RANDOM 144 mg/dL (74-106); POTASSIUM 3.7 mmol/L (3.5-5.1); SGOT/AST 8 U/L (15-37); SGPT/ALT 17 U/L (13-61); SODIUM 138 mmol/L (136-145); TOT PROT 6.3 g/dl (6.4-8.2)
[2018-05-09] MEDS: PRENATAL VITAMINS W/ FOLIC ACID TABLET (FP) PO SCH (10:20)
[2018-05-09] MEDS: NICOTINE 21 MG/24 HOURS TOPICAL PATCH TD SCH (10:20)
[2018-05-09] MEDS: hydrOXYzine PAMOATE 25 MG CAPSULE (FP) PO PRN ×3 (10:22→22:52)
[2018-05-09 11:18] LABS: EPI CELLS 4.2 /HPF (0-5); URINE APPEARANCE Clear; URINE BACTERIA 62.5 /hpf (NEGATIVE); URINE BILIRUBIN Negative (NEGATIVE); URINE CASTS 1 /hpf (0-8); URINE COLOR Yellow; URINE GLUCOSE (UA) Negative (NEGATIVE); URINE KETONE Negative (NEGATIVE); URINE LEUK ESTERASE Trace (NEGATIVE); URINE NITRITE Negative (NEGATIVE); URINE PROTEIN Negative (NEGATIVE); URINE UROBILINOGEN 0.2 mg/dL (0.2-1.0); URINE WBC 2 /hpf (0-5)
[2018-05-09 13:07] LABS: URINE RBC 6.8 /hpf (0-4)
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
--- NOTE | 2018-05-09 15:19 | PN ---
S CIWA - CIWA Score Nausea/Vomitin-No Nausea/No Vomiting Muscle Tremors: 3 Anxiety: 4-Mod. Anxious/Guarded Agitation: 1-Slight > Activity Paroxysmal Sweats: No Perspiration Orientation: 0-Oriented Tacttile Disturbances: 0-None Auditory Disturbances: 2-Mild Harshness/Frighten Visual Disturbances: 3-Moderate Sensitivity Headache: 0-None Present CIWA-Ar Total Score: 13 [facility] Progress Note (SOAP) Subjective: Fatigue, Anxious, Tremors. Objective: PATIENT A & O X 3. IN NO ACUTE DISTRESS. 05/09/18 15:18 Laboratory Tests 05/09/18 05/09/18 05/09/18 07:00 07:00 07:00 WBC 6.8 RBC 4.99 Hgb 12.8 Hct 40.5 MCV 81.3 MCH 25.7 MCHC 31.7 L RDW 15.1 Plt Count 146 MPV 10.5 Sodium 138 Potassium 3.7 Chloride 105 Carbon Dioxide 27 Anion Gap 6 L BUN 17 Creatinine 0.9 Creat Clearance w eGFR 68.66 Random Glucose 144 H Calcium 8.7 Total Bilirubin 0.2 AST 8 L ALT 17 Alkaline Phosphatase 59 Total Protein 6.3 L Albumin 3.2 L Urine Color Urine Appearance Urine pH Ur Specific [place] Urine Protein Urine Glucose (UA) Urine Ketones Urine Blood Urine Nitrite Urine Bilirubin Urine Urobilinogen Ur Leukocyte Esterase Urine WBC (Auto) Urine RBC (Auto) Urine Casts (Auto) U Epithel Cells (Auto) Urine Bacteria (Auto) RPR Titer Nonreactive 05/09/18 08:40 WBC RBC Hgb Hct MCV MCH MCHC RDW Plt Count MPV Sodium Potassium Chloride Carbon Dioxide Anion Gap BUN Creatinine Creat Clearance w eGFR Random Glucose Calcium Total Bilirubin AST ALT Alkaline Phosphatase Total Protein Albumin Urine Color Yellow Urine Appearance Clear Urine pH 7.0 D Ur Specific [place] 1.017 Urine Protein Negative Urine Glucose (UA) Negative Urine Ketones Negative Urine Blood Negative Urine Nitrite Negative Urine Bilirubin Negative Urine Urobilinogen 0.2 Ur Leukocyte Esterase Trace Urine WBC (Auto) 2 Urine RBC (Auto) 6.8 Urine Casts (Auto) 1 U Epithel Cells (Auto) 4.2 Urine Bacteria (Auto) 62.5 RPR Titer LABS NOTED. Assessment: 05/09/18 15:19 WITHDRAWAL SYMPTOMS. Plan: CONTINUE DETOX. INCREASE DAILY PO FLUID INTAKE.
--- NOTE | 2018-05-09 18:59 | PN ---
[facility] Progress Note Note: Vital Signs Temperature 97 F L 05/09/18 17:31 Pulse Rate 93 H 05/09/18 17:31 Respiratory Rate 16 05/09/18 17:31 Blood Pressure 121/81 05/09/18 17:31 O2 Sat by Pulse Oximetry (%) Patient reports taking metformin 500 mg qd for DM. Home meds reviewed. Metformin 500 mg qd ordered. continue to monitor
[2018-05-09] MEDS: QUEtiapine FUMARATE 100 MG TABLET (FP) PO SCH (22:33)
[2018-05-09] MEDS: traZODone HCL 100 MG TABLET (FP) PO SCH (22:33)
[2018-05-09] MEDS: THIAMINE HCL 100 MG TABLET (FP) PO SCH (22:33)
[2018-05-10] MEDS: chlordiazePOXIDE HCL 25 MG CAPSULE PO SCH ×3 (05:27→17:29)
[2018-05-10] MEDS: hydrOXYzine PAMOATE 25 MG CAPSULE (FP) PO PRN ×3 (05:28→22:07)
[2018-05-10] MEDS: metFORMIN HCL 500 MG TABLET (FP) PO SCH (06:20)
[2018-05-10] MEDS: PRENATAL VITAMINS W/ FOLIC ACID TABLET (FP) PO SCH (10:04)
[2018-05-10] MEDS: NICOTINE 21 MG/24 HOURS TOPICAL PATCH TD SCH (10:05)
[2018-05-10] MEDS: METHOCARBAMOL 500 MG TABLET PO PRN (15:02)
--- NOTE | 2018-05-10 16:31 | PN ---
S CIWA - CIWA Score Nausea/Vomitin-No Nausea/No Vomiting Muscle Tremors: 3 Anxiety: 2 Agitation: 1-Slight > Activity Paroxysmal Sweats: No Perspiration Orientation: 0-Oriented Tacttile Disturbances: 2-Mild Itch/Numbness/Burn Auditory Disturbances: 0-None Visual Disturbances: 2-Mild Sensitivity Headache: 0-None Present CIWA-Ar Total Score: 10 [facility] Progress Note (SOAP) Subjective: Fatigue, Tremors. Objective: PATIENT A & O X 3. IN NO ACUTE DISTRESS. 05/10/18 16:29 Vital Signs Temperature 98.2 F 05/10/18 13:37 Pulse Rate 104 H 05/10/18 13:37 Respiratory Rate 18 05/10/18 13:37 Blood Pressure 123/83 05/10/18 13:37 O2 Sat by Pulse Oximetry (%) Laboratory Tests 05/09/18 05/09/18 05/09/18 07:00 07:00 07:00 WBC 6.8 RBC 4.99 Hgb 12.8 Hct 40.5 MCV 81.3 MCH 25.7 MCHC 31.7 L RDW 15.1 Plt Count 146 MPV 10.5 Sodium 138 Potassium 3.7 Chloride 105 Carbon Dioxide 27 Anion Gap 6 L BUN 17 Creatinine 0.9 Creat Clearance w eGFR 68.66 POC Glucometer Random Glucose 144 H Calcium 8.7 Total Bilirubin 0.2 AST 8 L ALT 17 Alkaline Phosphatase 59 Total Protein 6.3 L Albumin 3.2 L Urine Color Urine Appearance Urine pH Ur Specific [place] Urine Protein Urine Glucose (UA) Urine Ketones Urine Blood Urine Nitrite Urine Bilirubin Urine Urobilinogen Ur Leukocyte Esterase Urine WBC (Auto) Urine RBC (Auto) Urine Casts (Auto) U Epithel Cells (Auto) Urine Bacteria (Auto) RPR Titer Nonreactive 05/09/18 05/09/18 05/10/18 08:40 16:20 05:26 WBC RBC Hgb Hct MCV MCH MCHC RDW Plt Count MPV Sodium Potassium Chloride Carbon Dioxide Anion Gap BUN Creatinine Creat Clearance w eGFR POC Glucometer 165 157 Random Glucose Calcium Total Bilirubin AST ALT Alkaline Phosphatase Total Protein Albumin Urine Color Yellow Urine Appearance Clear Urine pH 7.0 D Ur Specific [place] 1.017 Urine Protein Negative Urine Glucose (UA) Negative Urine Ketones Negative Urine Blood Negative Urine Nitrite Negative Urine Bilirubin Negative Urine Urobilinogen 0.2 Ur Leukocyte Esterase Trace Urine WBC (Auto) 2 Urine RBC (Auto) 6.8 Urine Casts (Auto) 1 U Epithel Cells (Auto) 4.2 Urine Bacteria (Auto) 62.5 RPR Titer LABS NOTED. Assessment: 05/10/18 16:31 WITHDRAWAL SYMPTOMS. Plan: CONTINUE DETOX.
[2018-05-10] MEDS: MAG HYDROX/AL HYDROX/SIMETH 30 ML UNIT-DOSE CUP PO PRN (17:30)
[2018-05-10] MEDS: THIAMINE HCL 100 MG TABLET (FP) PO SCH (22:06)
[2018-05-10] MEDS: chlordiazePOXIDE HCL 10 MG CAPSULE PO SCH (22:06)
[2018-05-10] MEDS: traZODone HCL 100 MG TABLET (FP) PO SCH (22:06)
[2018-05-10] MEDS: QUEtiapine FUMARATE 100 MG TABLET (FP) PO SCH (22:06)
[2018-05-10] MEDS ORDERED: chlordiazePOXIDE HCL 10 MG CAPSULE PO PRN (23:00)
[2018-05-11] MEDS: chlordiazePOXIDE HCL 10 MG CAPSULE PO SCH ×3 (05:39→17:22)
[2018-05-11] MEDS: metFORMIN HCL 500 MG TABLET (FP) PO SCH (06:58)
[2018-05-11] MEDS: hydrOXYzine PAMOATE 25 MG CAPSULE (FP) PO PRN (07:35)
[2018-05-11] MEDS: NICOTINE 21 MG/24 HOURS TOPICAL PATCH TD SCH (10:37)
[2018-05-11] MEDS: PRENATAL VITAMINS W/ FOLIC ACID TABLET (FP) PO SCH (10:38)
[2018-05-11] MEDS: METHOCARBAMOL 500 MG TABLET PO PRN (10:38)
--- NOTE | 2018-05-11 13:28 | PN ---
[facility] Progress Note (SOAP) Subjective: pt states she would like vistaril seroquel and trazodone doses adjusted- says she was on higher doses of these meds at home. O: Vital Signs - 24 hr 05/10/18 05/10/18 05/10/18 13:37 18:08 21:42 Temperature 98.2 F 97.8 F 97.6 F Pulse Rate 104 H 94 H 90 Respiratory 18 18 20 Rate Blood Pressure 123/83 89/59 L 129/85 05/11/18 05/11/18 05/11/18 00:30 03:30 06:18 Temperature 97.0 F L Pulse Rate 88 Respiratory 18 18 18 Rate Blood Pressure 104/70 05/11/18 05/11/18 06:30 09:39 Temperature 96.2 F L Pulse Rate 110 H Respiratory 18 18 Rate Blood Pressure 109/75 a/p: continue alcohol detox protocol consult to review med doses
[2018-05-11] MEDS: MAG HYDROX/AL HYDROX/SIMETH 30 ML UNIT-DOSE CUP PO PRN (14:22)
--- NOTE | 2018-05-11 17:16 | PN ---
Psychiatric Progress Note Vital Signs: Vital Signs Period Temp Pulse Resp BP Sys/Rice Pulse Ox Last 24 Hr 96.2 F-97.8 F 88-110 18-20 89-129/59-85 Date of Session: 05/11/18 Chief Complaint:: " I need more vistaril. I am on 150 mg daily ". HPI: Called to re-consult on this patient, seen on 05/09/18, in response to complaint of anxiety and request for increase dose of vistaril. Hospital course has remained uneventful until now. Ms Perez has been observed socializing, ambulating around the unit without production of complaints. ROS: Feels anxious. Wants more vistaril. No other somatic complaints. Alert, cognitively intact. Current Medications: Active Medications Generic Name Dose Route Start Last Admin Trade Name Freq PRN Reason Stop Dose Admin Acetaminophen 650 mg 05/08/18 17:07 Tylenol - PO Q6H PRN PAIN LEVEL 4 - 6 Acetaminophen 650 mg 05/08/18 17:07 Tylenol - PO Q6H PRN FEVER Al Hydroxide/Mg Hydroxide 30 ml 05/08/18 17:07 05/11/18 14:22 Mylanta Oral Suspension - PO 30 ml Q6H PRN Administration DYSPEPSIA Albuterol Sulfate 2 puff 05/08/18 17:49 Ventolin Hfa Inhaler - IH Q4H PRN SHORT OF BREATH/WHEEZING Bismuth Subsalicylate 524 mg 05/08/18 17:07 Pepto-Bismol - PO Q1H PRN DIARRHEA Chlordiazepoxide HCl 10 mg 05/11/18 23:00 Librium - PO 05/12/18 23:01 Q12H LA NENA Chlordiazepoxide HCl 10 mg 05/10/18 23:00 Librium - PO 05/11/18 23:00 Q4H PRN WITHDRAWAL(CONT SUBST) Eucalyptus/Menthol/Phenol/Sorbitol 1 each 05/08/18 17:07 Cepastat Lozenge - MM 05/14/18 17:08 Q4H PRN SORE THROAT Hydroxyzine Pamoate 25 mg 05/08/18 17:07 05/11/18 07:35 Vistaril - PO 05/14/18 17:08 25 mg Q6H PRN Administration For Anxiety Ibuprofen 400 mg 05/08/18 17:07 05/08/18 19:48 Motrin - PO 400 mg Q6H PRN Administration PAIN LEVEL 1 - 3 Magnesium Citrate 300 ml 05/08/18 17:07 Citroma - PO Q48H PRN CONSTIPATION Magnesium Hydroxide 30 ml 05/08/18 17:07 Milk Of Magnesia - PO PRN PRN CONSTIPATION Melatonin 5 mg 05/08/18 17:07 Melatonin PO HS PRN INSOMNIA Metformin HCl 500 mg 05/10/18 07:00 05/11/18 06:58 Glucophage - PO 500 mg DAILY@0700 LA NENA Administration Methocarbamol 500 mg 05/08/18 17:07 05/11/18 10:38 Robaxin - PO 05/14/18 17:08 500 mg Q6H PRN Administration MUSCLE SPASMS Nicotine 21 mg 05/08/18 17:30 05/11/18 10:37 Nicoderm Patch - TD Not Given DAILY LA NENA Nicotine Polacrilex 2 mg 05/08/18 17:07 Nicorette Gum - BUC Q2H PRN NICOTINE REPLACEMENT RX Multivit/Folic Acid/Iron 1 tab 05/09/18 10:00 05/11/18 10:38 Vitamins (Sjr) - PO 1 tab DAILY LA NENA Administration Quetiapine Fumarate 100 mg 05/08/18 22:00 05/10/18 22:06 Seroquel - PO 100 mg HS LA NENA Administration Thiamine HCl 100 mg 05/08/18 22:00 05/10/18 22:06 Vitamin B1 - PO 100 mg HS LA NENA Administration Trazodone HCl 100 mg 05/08/18 22:00 05/10/18 22:06 Desyrel - PO 100 mg HS LA NENA Administration Medication(s) Change(s): Records are revisited. 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 Medications discussed with the patient. Complaint validated. Vistaril dose is increased to 50 mg po q 8 hrs. First dose NOW. Side effects/ benefits reviewed. Patient expresses her agreement with this plan of care. Current Side Effect: No Lab tests ordered: No Lab tests reviewed: Yes Provider note:: Met with the patient to address feelings of anxiety + request for medication. Chart reviewed. Case discussed with staff. Ms Perez is interviewed at bedside in the presence of counselor erection shop supervisor Drake. Support provided. Limits set. Detailed information about medication protocols, indications, side effects and goals of LAURA (substance use disorder) treatment : explained to patient. This multidisciplinary approach is well received by the patient. She calmed down. Regained composure. Negotiated with MD. Agrees to be dispensed vistaril as prn totaling 150 mg (three divided doses). Patient is not psychotic. No evidenced of chiquita. She wanted to see the Total face to face time:: 35 Mental Status Exam - Mental Status Exam Alert and Oriented to: Time, Place, Person Cognitive Function: Good Patient Appearance: Well Groomed Mood: Nervous, Anxious, Irritable Affect: Mood Congruent, Constricted Patient Behavior: Crying (pressuring MD to prescribe a bulk dose of 150 mg of vistaril), Cooperative Speech Pattern: Clear Voice Loudness: Normal Thought Process: Intact, Goal Oriented Thought Disorder: Not Present Hallucinations: Denies Suicidal Ideation: Denies Homicidal Ideation: Denies Insight/Judgement: Poor Sleep: Fair Appetite: Good Muscle strength/Tone: Normal Gait/Station: Normal Psychiatric Treatment Plan - Problem List (1) Alcohol dependence with uncomplicated withdrawal Current Visit: Yes Comment: . (2) Cocaine dependence Current Visit: Yes Comment: . (3) Cannabis dependence Current Visit: Yes Comment: . (4) Nicotine dependence Current Visit: Yes Qualifiers: Nicotine product type: cigarettes Substance use status: in withdrawal Qualified Code(s): F17.213 - Nicotine dependence, cigarettes, with withdrawal Comment: . (5) Substance induced mood disorder Current Visit: Yes Comment: . (6) PTSD (post-traumatic stress disorder) Current Visit: Yes Comment: .As per history and existing records. (7) Insomnia Current Visit: Yes Qualifiers: Insomnia type: unspecified Qualified Code(s): G47.00 - Insomnia, unspecified Comment: .
[2018-05-11] MEDS: hydrOXYzine HCL 25 MG TABLET (FP) PO PRN (18:27)
[2018-05-11] MEDS: QUEtiapine FUMARATE 100 MG TABLET (FP) PO SCH (22:23)
[2018-05-11] MEDS: THIAMINE HCL 100 MG TABLET (FP) PO SCH (22:23)
[2018-05-11] MEDS: traZODone HCL 100 MG TABLET (FP) PO SCH (22:23)
[2018-05-11] MEDS ORDERED: chlordiazePOXIDE HCL 10 MG CAPSULE PO SCH (23:00)
[2018-05-12] MEDS: hydrOXYzine HCL 25 MG TABLET (FP) PO PRN (05:47)
[2018-05-12] MEDS: metFORMIN HCL 500 MG TABLET (FP) PO SCH (07:12)
[2018-05-12 09:21] VITALS: BP 108/74; PULSE 85; TEMP 96.9
[2018-05-12] MEDS: PRENATAL VITAMINS W/ FOLIC ACID TABLET (FP) PO SCH (10:23)
[2018-05-12] MEDS: METHOCARBAMOL 500 MG TABLET PO PRN (10:24)
[2018-05-12] MEDS: NICOTINE 21 MG/24 HOURS TOPICAL PATCH TD SCH (10:24)
--- NOTE | 2018-05-12 11:05 | DS ---
[facility] Detox Discharge Summary Admission Date: 05/08/18 Discharge Date: 05/12/18 - History Present History: Alcohol Dependence, Cannabis Dependence, Cocaine Dependence Additional Comments: PATIENT GOING TO [facility] ([place], [place]) FOR AFTERCARE. PATIENT WAS DISCHARGED FROM DETOX UNIT TO BE TAKEN OVER TO REHAB UNIT IN STABLE MEDICAL CONDITION. Pertinent Past History: Asthma, Depression, Anxiety, P.T.S.D., Insomnia, Nicotine Dependence, Arthritis of Right Knee, Asthma, Lower Back Pain With Sciatica, Type II DM. - Physical Exam Results Vital Signs: Vital Signs Temperature 96.9 F L 05/12/18 09:20 Pulse Rate 85 05/12/18 09:20 Respiratory Rate 18 05/12/18 09:20 Blood Pressure 108/74 05/12/18 09:20 O2 Sat by Pulse Oximetry (%) Pertinent Admission Physical Exam Findings: WITHDRAWAL SYMPTOMS. Laboratory Tests 05/09/18 05/09/18 05/09/18 07:00 07:00 07:00 WBC 6.8 RBC 4.99 Hgb 12.8 Hct 40.5 MCV 81.3 MCH 25.7 MCHC 31.7 L RDW 15.1 Plt Count 146 MPV 10.5 Sodium 138 Potassium 3.7 Chloride 105 Carbon Dioxide 27 Anion Gap 6 L BUN 17 Creatinine 0.9 Creat Clearance w eGFR 68.66 POC Glucometer Random Glucose 144 H Calcium 8.7 Total Bilirubin 0.2 AST 8 L ALT 17 Alkaline Phosphatase 59 Total Protein 6.3 L Albumin 3.2 L Urine Color Urine Appearance Urine pH Ur Specific [place] Urine Protein Urine Glucose (UA) Urine Ketones Urine Blood Urine Nitrite Urine Bilirubin Urine Urobilinogen Ur Leukocyte Esterase Urine WBC (Auto) Urine RBC (Auto) Urine Casts (Auto) U Epithel Cells (Auto) Urine Bacteria (Auto) RPR Titer Nonreactive 05/09/18 05/09/18 05/10/18 08:40 16:20 05:26 WBC RBC Hgb Hct MCV MCH MCHC RDW Plt Count MPV Sodium Potassium Chloride Carbon Dioxide Anion Gap BUN Creatinine Creat Clearance w eGFR POC Glucometer 165 157 Random Glucose Calcium Total Bilirubin AST ALT Alkaline Phosphatase Total Protein Albumin Urine Color Yellow Urine Appearance Clear Urine pH 7.0 D Ur Specific [place] 1.017 Urine Protein Negative Urine Glucose (UA) Negative Urine Ketones Negative Urine Blood Negative Urine Nitrite Negative Urine Bilirubin Negative Urine Urobilinogen 0.2 Ur Leukocyte Esterase Trace Urine WBC (Auto) 2 Urine RBC (Auto) 6.8 Urine Casts (Auto) 1 U Epithel Cells (Auto) 4.2 Urine Bacteria (Auto) 62.5 RPR Titer 05/11/18 05/11/18 05/12/18 05:41 16:01 05:46 WBC RBC Hgb Hct MCV MCH MCHC RDW Plt Count MPV Sodium Potassium Chloride Carbon Dioxide Anion Gap BUN Creatinine Creat Clearance w eGFR POC Glucometer 148 124 130 Random Glucose Calcium Total Bilirubin AST ALT Alkaline Phosphatase Total Protein Albumin Urine Color Urine Appearance Urine pH Ur Specific [place] Urine Protein Urine Glucose (UA) Urine Ketones Urine Blood Urine Nitrite Urine Bilirubin Urine Urobilinogen Ur Leukocyte Esterase Urine WBC (Auto) Urine RBC (Auto) Urine Casts (Auto) U Epithel Cells (Auto) Urine Bacteria (Auto) RPR Titer LABS NOTED. - Treatment Hospital Course: Detox Protocol Followed, Detoxed Safely, Responded well, Discharged Condition Good, Rehab Referral Accepted Patient has Accepted a Rehab Referral to: [facility] ([place], [place]). - Medication Discharge Medications: Ambulatory Orders Albuterol Sulfate Inhaler - [Ventolin HFA Inhaler -] 2 puff IH Q4H PRN #1 inhaler 08/04/17 traZODone HCL [Desyrel -] 100 mg PO HS #30 tablet 12/02/17 Quetiapine Fumarate [Seroquel] 100 mg PO HS #30 tablet 12/03/17 hydrOXYzine PAMOATE [Vistaril -] 50 mg PO Q4H PRN #30 capsule 12/03/17 - Diagnosis (1) Alcohol dependence with uncomplicated withdrawal Current Visit: Yes Status: Acute (2) DM type 2 (diabetes mellitus, type 2) Current Visit: Yes Status: Chronic Qualifiers: Diabetes mellitus prison insulin use: without prison use Diabetes mellitus complication status: with unspecified complications Qualified Code(s) : E11.8 - Type 2 diabetes mellitus with unspecified complications (3) Nicotine dependence Current Visit: Yes Status: Acute Qualifiers: Nicotine product type: cigarettes Substance use status: in withdrawal Qualified Code(s): F17.213 - Nicotine dependence, cigarettes, with withdrawal (4) Cannabis dependence Current Visit: Yes Status: Chronic (5) Cocaine dependence Current Visit: Yes Status: Chronic Qualifiers: Substance use status: uncomplicated Qualified Code(s): F14.20 - Cocaine dependence, uncomplicated (6) Nicotine dependence Current Visit: Yes Status: Chronic Qualifiers: Nicotine product type: cigarettes Substance use status: in withdrawal Qualified Code(s): F17.213 - Nicotine dependence, cigarettes, with withdrawal (7) Low back pain with sciatica Current Visit: Yes Status: Chronic Qualifiers: Chronicity: chronic Back pain laterality: unspecified Sciatica laterality : sciatica laterality unspecified Qualified Code(s): M54.40 - Lumbago with sciatica, unspecified side; G89.29 - Other chronic pain (8) Arthritis of right knee Current Visit: Yes Status: Chronic (9) Insomnia Current Visit: Yes Status: Chronic Qualifiers: Insomnia type: unspecified Qualified Code(s): G47.00 - Insomnia, unspecified (10) PTSD (post-traumatic stress disorder) Current Visit: Yes Status: Chronic (11) Substance induced mood disorder Current Visit: Yes Status: Chronic - AMA Did Patient Leave Against Medical Advice: No
== END 2018-05-12 11:41 | disposition other institution (70) | DRG 774 ==
LOC: YASAS 15:14 → Y3N 17:18
PROVIDERS: ADMIT Surgery; ATTEND Surgery
PROC: HZ2ZZZZ Detoxification Services for Substance Abuse Treatment (ICD-10-PCS; principal; 2018-05-08)
DX: F10.230 Alcohol dependence with withdrawal, uncomplicated (principal); F14.20 Cocaine dependence, uncomplicated; F12.20 Cannabis dependence, uncomplicated; F17.213 Nicotine dependence, cigarettes, with withdrawal; F43.10 Post-traumatic stress disorder, unspecified; F19.24 Other psychoactive substance dependence with psychoactive substance-induced mood disorder; E11.9 Type 2 diabetes mellitus without complications; M54.40 Lumbago with sciatica, unspecified side; G89.29 Other chronic pain; M17.12 Unilateral primary osteoarthritis, left knee; G47.00 Insomnia, unspecified; J45.909 Unspecified asthma, uncomplicated; Z79.84 Long term (current) use of oral hypoglycemic drugs
CPT/HCPCS: 36415; 80053; 81003; 82962; 85027; 86593

== ENCOUNTER 2018-05-12 10:33 | Inpatient (IN) | payer OTHER ==
[2018-05-12] MEDS ORDERED: guaiFENesin 200 MG/10 ML 10 ML UNIT-DOSE CUPS PO PRN (11:13)
[2018-05-12] MEDS ORDERED: MAGNESIUM CITRATE 300 ML BOTTLE PO PRN (11:13)
[2018-05-12] MEDS ORDERED: NICOTINE POLACRILEX 2 MG GUM BUC PRN (11:13)
[2018-05-12] MEDS ORDERED: MENTHOL/PHENOL 1 EACH UD MM PRN (11:13)
[2018-05-12] MEDS ORDERED: MAGNESIUM HYDROX 2400MG/30ML ORAL SUSPENSION 30 ML CUP PO PRN (11:13)
[2018-05-12] MEDS ORDERED: P-EPHED 60MG/TRIPROLIDI 2.5MG TABLET PO PRN (11:13)
[2018-05-12] MEDS ORDERED: ACETAMINOPHEN 325 MG TABLET (FP) PO PRN (11:13)
[2018-05-12] MEDS ORDERED: LOPERAMIDE HCL 2 MG CAPSULE PO PRN (11:13)
--- NOTE | 2018-05-12 11:18 | HP ---
[facility] Rehab Assess/Revision - Admission History Admitted to Rehab from: [facility] Date of Admission to Rehab: 05/12/2018 - Vital signs Vital Signs: NOTED; STABLE. - Findings Detox History & Physical reviewed: Yes Concur with findings: Yes Comments/Additional Findings: PATIENT'S MEDICAL / MEDICATION HISTORY REVIEWED PRIOR TO DISCHARGE FROM DETOX UNIT. PATIENT WAS DISCHARGED FROM DETOX UNIT TO BE TAKEN OVER TO REHAB UNIT IN STABLE MEDICAL CONDITION. Inpatient Rehab Admission - Rehab Decision to Admit Inpatient rehab admission?: Yes - Initial Determination Are CD services needed?: Yes Free of communicable disease: Yes Not in need of hospitalization: Yes - Rehab Admission Criteria Previous failed treatment: Yes Poor recovery environment: Yes Comorbidities: Yes Lacks judgement: No Patient is meeting Inpatient Rehab admission criteria:: Yes
[2018-05-12] MEDS: hydrOXYzine PAMOATE 50 MG CAPSULE (FP) PO PRN ×2 (13:15→21:05)
[2018-05-12] MEDS: LIDOCAINE 5% TOPICAL PATCH TP SCH (13:15)
[2018-05-12] MEDS: THIAMINE HCL 100 MG TABLET (FP) PO SCH (21:05)
[2018-05-12] MEDS: MAG HYDROX/AL HYDROX/SIMETH 30 ML UNIT-DOSE CUP PO PRN (21:05)
[2018-05-12] MEDS: MELATONIN 5 MG TABLETS PO PRN (21:05)
[2018-05-12] MEDS: LIDOCAINE PATCH REMOVAL MC SCH (21:06)
[2018-05-13] MEDS: hydrOXYzine PAMOATE 50 MG CAPSULE (FP) PO PRN ×4 (06:24→21:31)
[2018-05-13] MEDS: metFORMIN HCL 500 MG TABLET (FP) PO SCH (06:24)
[2018-05-13] MEDS: IBUPROFEN 400 MG TABLET (FP) PO PRN (06:25)
[2018-05-13] MEDS: NICOTINE 21 MG/24 HOURS TOPICAL PATCH TD SCH (09:29)
[2018-05-13] MEDS: LIDOCAINE 5% TOPICAL PATCH TP SCH (09:29)
[2018-05-13] MEDS: PRENATAL VITAMINS W/ FOLIC ACID TABLET (FP) PO SCH (09:29)
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
[2018-05-13] MEDS: MAG HYDROX/AL HYDROX/SIMETH 30 ML UNIT-DOSE CUP PO PRN (19:24)
[2018-05-13] MEDS: THIAMINE HCL 100 MG TABLET (FP) PO SCH (21:29)
[2018-05-13] MEDS: QUEtiapine FUMARATE 100 MG TABLET (FP) PO SCH (21:31)
[2018-05-13] MEDS: LIDOCAINE PATCH REMOVAL MC SCH (21:31)
[2018-05-13] MEDS: traZODone HCL 100 MG TABLET (FP) PO SCH (21:31)
[2018-05-14] MEDS: metFORMIN HCL 500 MG TABLET (FP) PO SCH (06:27)
[2018-05-14] MEDS: hydrOXYzine PAMOATE 50 MG CAPSULE (FP) PO PRN ×5 (06:27→22:43)
[2018-05-14] MEDS: NICOTINE 21 MG/24 HOURS TOPICAL PATCH TD SCH (09:57)
[2018-05-14] MEDS: LIDOCAINE 5% TOPICAL PATCH TP SCH (09:57)
[2018-05-14] MEDS: PRENATAL VITAMINS W/ FOLIC ACID TABLET (FP) PO SCH (09:58)
[2018-05-14] MEDS: QUEtiapine FUMARATE 100 MG TABLET (FP) PO SCH (21:21)
[2018-05-14] MEDS: THIAMINE HCL 100 MG TABLET (FP) PO SCH (21:21)
[2018-05-14] MEDS: traZODone HCL 100 MG TABLET (FP) PO SCH (21:21)
[2018-05-14] MEDS: LIDOCAINE PATCH REMOVAL MC SCH (21:22)
[2018-05-14] MEDS: MELATONIN 5 MG TABLETS PO PRN (21:23)
[2018-05-15] MEDS: hydrOXYzine PAMOATE 50 MG CAPSULE (FP) PO PRN ×5 (06:19→23:42)
[2018-05-15] MEDS: metFORMIN HCL 500 MG TABLET (FP) PO SCH (06:19)
[2018-05-15] MEDS: LIDOCAINE 5% TOPICAL PATCH TP SCH (09:28)
[2018-05-15] MEDS: NICOTINE 21 MG/24 HOURS TOPICAL PATCH TD SCH (09:28)
[2018-05-15] MEDS: PRENATAL VITAMINS W/ FOLIC ACID TABLET (FP) PO SCH (09:28)
[2018-05-15] MEDS: ALBUTEROL SO4 8 GM HFA INHALER IH PRN (09:30)
[2018-05-15] MEDS: QUEtiapine FUMARATE 100 MG TABLET (FP) PO SCH (21:14)
[2018-05-15] MEDS: MELATONIN 5 MG TABLETS PO PRN (21:14)
[2018-05-15] MEDS: LIDOCAINE PATCH REMOVAL MC SCH (21:14)
[2018-05-15] MEDS: THIAMINE HCL 100 MG TABLET (FP) PO SCH (21:14)
[2018-05-15] MEDS: traZODone HCL 100 MG TABLET (FP) PO SCH (21:14)
[2018-05-16] MEDS: hydrOXYzine PAMOATE 50 MG CAPSULE (FP) PO PRN ×4 (06:32→19:56)
[2018-05-16] MEDS: metFORMIN HCL 500 MG TABLET (FP) PO SCH (06:32)
[2018-05-16] MEDS: ALBUTEROL SO4 8 GM HFA INHALER IH PRN (09:11)
[2018-05-16] MEDS: PRENATAL VITAMINS W/ FOLIC ACID TABLET (FP) PO SCH (09:42)
[2018-05-16] MEDS: LIDOCAINE 5% TOPICAL PATCH TP SCH (09:42)
[2018-05-16] MEDS: NICOTINE 21 MG/24 HOURS TOPICAL PATCH TD SCH (09:42)
[2018-05-16] MEDS ORDERED: COLLOIDAL OATMEAL 1 BAR EACH TP PRN (16:04)
[2018-05-16] MEDS: QUEtiapine FUMARATE 100 MG TABLET (FP) PO SCH (21:45)
[2018-05-16] MEDS: traZODone HCL 100 MG TABLET (FP) PO SCH (21:45)
[2018-05-16] MEDS: THIAMINE HCL 100 MG TABLET (FP) PO SCH (21:45)
[2018-05-16] MEDS: MELATONIN 5 MG TABLETS PO PRN (21:46)
[2018-05-16] MEDS: LIDOCAINE PATCH REMOVAL MC SCH (21:46)
[2018-05-17] MEDS: hydrOXYzine PAMOATE 50 MG CAPSULE (FP) PO PRN ×4 (06:34→21:38)
[2018-05-17] MEDS: metFORMIN HCL 500 MG TABLET (FP) PO SCH (06:34)
[2018-05-17] MEDS: IBUPROFEN 400 MG TABLET (FP) PO PRN ×2 (06:38→14:00)
[2018-05-17] MEDS: LIDOCAINE 5% TOPICAL PATCH TP SCH (09:43)
[2018-05-17] MEDS: NICOTINE 21 MG/24 HOURS TOPICAL PATCH TD SCH (09:43)
[2018-05-17] MEDS: PRENATAL VITAMINS W/ FOLIC ACID TABLET (FP) PO SCH (09:43)
[2018-05-17] MEDS: LIDOCAINE PATCH REMOVAL MC SCH (21:38)
[2018-05-17] MEDS: THIAMINE HCL 100 MG TABLET (FP) PO SCH (21:38)
[2018-05-17] MEDS: traZODone HCL 100 MG TABLET (FP) PO SCH (21:38)
[2018-05-17] MEDS: QUEtiapine FUMARATE 100 MG TABLET (FP) PO SCH (21:38)
[2018-05-17] MEDS: MELATONIN 5 MG TABLETS PO PRN (21:38)
[2018-05-17] MEDS ORDERED: PT OWN MED DRAWER 7, Y5N ONE (22:51)
[2018-05-18] MEDS: metFORMIN HCL 500 MG TABLET (FP) PO SCH (06:24)
[2018-05-18] MEDS: hydrOXYzine PAMOATE 50 MG CAPSULE (FP) PO PRN ×3 (06:25→19:12)
[2018-05-18] MEDS: ALBUTEROL SO4 8 GM HFA INHALER IH PRN (07:06)
[2018-05-18] MEDS: PANTOPRAZOLE 40 MG TABLET (FP) PO SCH (09:53)
[2018-05-18] MEDS: PRENATAL VITAMINS W/ FOLIC ACID TABLET (FP) PO SCH (09:53)
[2018-05-18] MEDS: LIDOCAINE 5% TOPICAL PATCH TP SCH (09:53)
[2018-05-18] MEDS: NICOTINE 21 MG/24 HOURS TOPICAL PATCH TD SCH (09:54)
[2018-05-18] MEDS: THIAMINE HCL 100 MG TABLET (FP) PO SCH (21:13)
[2018-05-18] MEDS: traZODone HCL 100 MG TABLET (FP) PO SCH (21:13)
[2018-05-18] MEDS: LIDOCAINE PATCH REMOVAL MC SCH (21:13)
[2018-05-18] MEDS: QUEtiapine FUMARATE 100 MG TABLET (FP) PO SCH (21:13)
[2018-05-18] MEDS: MELATONIN 5 MG TABLETS PO PRN (21:14)
[2018-05-19] MEDS: metFORMIN HCL 500 MG TABLET (FP) PO SCH (06:43)
[2018-05-19] MEDS: hydrOXYzine PAMOATE 50 MG CAPSULE (FP) PO PRN ×4 (06:43→23:51)
[2018-05-19] MEDS: IBUPROFEN 400 MG TABLET (FP) PO PRN (06:44)
[2018-05-19 07:00] VITALS: TEMP 97.7
[2018-05-19] MEDS: ALBUTEROL SO4 8 GM HFA INHALER IH PRN (08:42)
[2018-05-19] MEDS: PRENATAL VITAMINS W/ FOLIC ACID TABLET (FP) PO SCH (09:34)
[2018-05-19] MEDS: LIDOCAINE 5% TOPICAL PATCH TP SCH (09:35)
[2018-05-19] MEDS: PANTOPRAZOLE 40 MG TABLET (FP) PO SCH (09:35)
[2018-05-19] MEDS: NICOTINE 21 MG/24 HOURS TOPICAL PATCH TD SCH (09:35)
[2018-05-19] MEDS: CYCLOBENZAPRINE HCL 10 MG TABLET (FP) PO SCH ×2 (13:36→21:31)
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
[2018-05-19] MEDS: QUEtiapine FUMARATE 100 MG TABLET (FP) PO SCH (21:31)
[2018-05-19] MEDS: traZODone HCL 100 MG TABLET (FP) PO SCH (21:31)
[2018-05-19] MEDS: THIAMINE HCL 100 MG TABLET (FP) PO SCH (21:31)
[2018-05-19] MEDS: LIDOCAINE PATCH REMOVAL MC SCH (21:32)
[2018-05-19] MEDS ORDERED: MELATONIN 5 MG TABLETS PO PRN (22:00)
[2018-05-20] MEDS: CYCLOBENZAPRINE HCL 10 MG TABLET (FP) PO SCH ×2 (06:21→13:16)
[2018-05-20] MEDS: metFORMIN HCL 500 MG TABLET (FP) PO SCH (06:21)
[2018-05-20] MEDS: hydrOXYzine PAMOATE 50 MG CAPSULE (FP) PO PRN ×2 (06:23→11:10)
[2018-05-20] MEDS: ALBUTEROL SO4 8 GM HFA INHALER IH PRN ×2 (09:34→13:17)
[2018-05-20] MEDS: PRENATAL VITAMINS W/ FOLIC ACID TABLET (FP) PO SCH (09:59)
[2018-05-20] MEDS: PANTOPRAZOLE 40 MG TABLET (FP) PO SCH (09:59)
[2018-05-20] MEDS: LIDOCAINE 5% TOPICAL PATCH TP SCH (09:59)
[2018-05-20] MEDS: NICOTINE 21 MG/24 HOURS TOPICAL PATCH TD SCH (10:00)
[2018-05-20 11:05] VITALS: BP 135/97; PULSE 102
--- NOTE | 2018-05-20 16:25 | DS ---
[facility] Detox Discharge Summary Admission Date: 05/12/18 Discharge Date: 05/20/18 - Physical Exam Results Vital Signs: Vital Signs Temperature 97.7 F 05/20/18 06:54 Pulse Rate 102 H 05/20/18 09:04 Respiratory Rate 18 05/20/18 09:04 Blood Pressure 135/97 05/20/18 09:04 O2 Sat by Pulse Oximetry (%) - Treatment Patient has Accepted a Rehab Referral to: informed by nursing that patient is being administratively discharged . - Medication Discharge Medications: Ambulatory Orders Albuterol Sulfate Inhaler - [Ventolin HFA Inhaler -] 2 puff IH Q4H PRN #1 inhaler 08/04/17 traZODone HCL [Desyrel -] 100 mg PO HS #30 tablet 12/02/17 Quetiapine Fumarate [Seroquel] 100 mg PO HS #30 tablet 12/03/17 hydrOXYzine PAMOATE [Vistaril -] 50 mg PO Q4H PRN #30 capsule 12/03/17 Metformin HCl [Glucophage] 500 mg PO DAILY 05/12/18 - AMA Did Patient Leave Against Medical Advice: No (administrative d/c )
== END 2018-05-20 17:00 | disposition home or self-care (01) | DRG 772 ==
LOC: YASAS 10:33 → Y3E 10:34
PROVIDERS: ADMIT Neuromusculoskeletal Medicine & OMM; ATTEND Neuromusculoskeletal Medicine & OMM
PROC: HZ42ZZZ Group Counseling for Substance Abuse Treatment, Cognitive-Behavioral (ICD-10-PCS; principal; 2018-05-12)
DX: F10.20 Alcohol dependence, uncomplicated (principal); F14.20 Cocaine dependence, uncomplicated; F12.20 Cannabis dependence, uncomplicated; F17.213 Nicotine dependence, cigarettes, with withdrawal; F43.10 Post-traumatic stress disorder, unspecified; F19.24 Other psychoactive substance dependence with psychoactive substance-induced mood disorder; F91.8 Other conduct disorders; J45.22 Mild intermittent asthma with status asthmaticus; M54.40 Lumbago with sciatica, unspecified side; G89.29 Other chronic pain; E11.8 Type 2 diabetes mellitus with unspecified complications; M13.861 Other specified arthritis, right knee
CPT/HCPCS: 36415; 82962; 87389

== ENCOUNTER 2018-08-05 10:05 | Inpatient (IN) | payer OTHER ==
[2018-08-05 10:54] VITALS: BMI 37.2
--- NOTE | 2018-08-05 12:16 | HP ---
CIWA Score Nausea/Vomitin Muscle Tremors: None Anxiety: 3 Agitation: 4-Moderately Restless Paroxysmal Sweats: No Perspiration Orientation: 0-Oriented Tacttile Disturbances: 0-None Auditory Disturbances: 0-None Visual Disturbances: 0-None Headache: 1-Very Mild CIWA-Ar Total Score: 10 - Admission Criteria OASAS Guidelines: Admission for Medically Managed Detox: Requires at least one of the followin. CIWA greater than 12 2. Seizures within the past 24 hours 3. Delirium tremens within the past 24 hours 4. Hallucinations within the past 24 hours 5. Acute intervention needed for co occurring medical disorder 6. Acute intervention needed for co occurring psychiatric disorder 7. Severe withdrawal that cannot be handled at a lower level of care (continued vomiting, continued diarrhea, abnormal vital signs) requiring intravenous medication and/or fluids 8. Admission ROS S - HPI Allergies/Adverse Reactions: Allergies Allergy/AdvReac Type Severity Reaction Status Date / Time No Known Allergies Allergy Verified 08/05/18 10:47 History of Present Illness: pt reports relapse after d/c from rehab 07/06/18 , reports drinking " a few beers " not daily , reports severe anxiety , has not taken meds since yesterday, pacing in room. Denies tremors, blackouts or seizures, current symptoms as above, latest use yesterday . PMHX : pre- DM Exam Limitations: Clinical Condition - Ebola screening Have you traveled outside of the country in the last 21 days: No Have you had contact with anyone from an Ebola affected area: No - Review of Systems Constitutional: No Symptoms Reported EENT: reports: No Symptoms Reported Respiratory: reports: No Symptoms reported Cardiac: reports: No Symptoms Reported GI: reports: Diarrhea, Nausea : reports: No Symptoms Reported Musculoskeletal: reports: Back Pain (chronic r-sided), Joint Pain (r knee , chronic) Integumentary: reports: No Symptoms Reported Neuro: reports: See HPI, Headache Endocrine: reports: See HPI Psychiatric: reports: Orientated x3, Agitated, Anxious Patient History - Patient Medical History Hx Anemia: No Hx Asthma: Yes Hx Chronic Obstructive Pulmonary Disease (COPD): No Hx Cancer: No Hx Cardiac Disorders: No Hx Congestive Heart Failure: No Hx Hypertension: No Hx Hypercholesterolemia: No Hx Pacemaker: No HX Cerebrovascular Accident: No Hx Seizures: No Hx Dementia: No Hx Diabetes: Yes Hx Gastrointestinal Disorders: Yes Hx Liver Disease: No Hx Genitourinary Disorders: No Hx Sexually Transmitted Disorders: No Hx Renal Disease (ESRD): No Hx Thyroid Disease: No Hx Human Immunodeficiency Virus (HIV): No (02/26 last negative) Hx Hepatitis C: No Hx Depression: Yes Hx Suicide Attempt: No Hx Bipolar Disorder: No Hx Schizophrenia: Yes - Patient Surgical History Past Surgical History: Yes Hx Neurologic Surgery: No Hx Cataract Extraction: No Hx Cardiac Surgery: No Hx Lung Surgery: No Hx Breast Surgery: No Hx Breast Biopsy: No Hx Abdominal Surgery: No Hx Appendectomy: No Hx Cholecystectomy: No Hx Genitourinary Surgery: No Hx Section: Yes (x 1 8years ago) Hx Orthopedic Surgery: No Anesthesia Reaction: No - PPD History Date: 05/10/18 Results: 0mm - Reproductive History Last Menstrual Period: 04/24/18 - Smoking Cessation Smoking history: Current every day smoker Have you smoked in the past 12 months: Yes Aproximately how many cigarettes per day: 6 If you are a former smoker, when did you quit?: t-7 Cigars Per Day: 0 Hx Chewing Tobacco Use: No Initiated information on smoking cessation: No - Substances abused Alcohol Substance route: Oral Frequency: Daily Amount used: 1 pint vodka/ 1 22oz beer Age of first use: 18 Date of last use: 08/04/18 Crack Substance route: Smoking Frequency: Daily Amount used: 20 bags Age of first use: 42 Date of last use: 08/04/18 Marijuana/Hashish Substance route: Smoking Frequency: Daily Amount used: 1 joint Age of first use: 16 Date of last use: 08/04/18 Family Disease History - Family Disease History Family Disease History: Heart Disease: Mother (HTN,Asthma), Respiratory: Mother Admission Physical Exam S - Vital Signs Vital Signs: Vital Signs - 24 hr 08/05/18 08/05/18 10:50 11:11 Temperature 96.8 F L 96.8 F L Pulse Rate 83 83 Respiratory 18 18 Rate Blood Pressure 125/69 125/69 - Physical General Appearance: Yes: Mild Distress, Irritable, Anxious HEENTM: Yes: EOMI, Hearing grossly Normal, Normocephalic, Normal Voice Respiratory: Yes: Lungs Clear, Normal Breath Sounds, No Respiratory Distress, No Accessory Muscle Use Neck: Yes: No masses,lesions,Nodules, Trachea in good position Cardiology: Yes: Regular Rhythm, Regular Rate, S1, S2 Abdominal: Yes: Non Tender, Soft Musculoskeletal: Yes: Gait Steady Extremities: Yes: Normal Range of Motion, Non-Tender Neurological: Yes: Alert, Motor Strength 5/5, Normal Mood/Affect Integumentary: Yes: Warm - Diagnostic (1) Alcohol abuse, episodic drinking behavior Current Visit: Yes Status: Acute (2) Nicotine dependence Current Visit: No Status: Acute Qualifiers: Nicotine product type: cigarettes (3) Cannabis dependence Current Visit: Yes Status: Chronic Comment: Knees and legs (4) Cocaine dependence Current Visit: Yes Status: Chronic Qualifiers: Substance use status: uncomplicated Qualified Code(s): F14.20 - Cocaine dependence, uncomplicated Comment: . Breathalyzer - Breathalyzer Breathalyzer: 0 Urine Drug Screen - Test Device Lot number: [id number] Expiration date: 04/07/18 - Control Is test valid?: Yes - Results Drug screen NEGATIVE: Yes Urine drug screen results: THC-Marijuana, SACHIN-Cocaine Inpatient Rehab Admission - Rehab Decision to Admit Inpatient rehab admission?: No
[2018-08-05] MEDS ORDERED: ALBUTEROL SO4 8 GM HFA INHALER IH PRN (12:23)
[2018-08-05] MEDS ORDERED: MAGNESIUM HYDROX 2400MG/30ML ORAL SUSPENSION 30 ML CUP PO PRN (12:24)
[2018-08-05] MEDS ORDERED: ACETAMINOPHEN 325 MG TABLET (FP) PO PRN (12:24)
[2018-08-05] MEDS ORDERED: MAG HYDROX/AL HYDROX/SIMETH 30 ML UNIT-DOSE CUP PO PRN (12:24)
[2018-08-05] MEDS ORDERED: NICOTINE POLACRILEX 2 MG GUM BUC PRN (12:24)
[2018-08-05] MEDS ORDERED: BISMUTH SUBSALICYLATE 262 MG/15 ML BTL PO PRN (12:24)
[2018-08-05] MEDS ORDERED: MENTHOL/PHENOL 1 EACH UD MM PRN (12:24)
[2018-08-05] MEDS ORDERED: MAGNESIUM CITRATE 300 ML BOTTLE PO PRN (12:24)
[2018-08-05] MEDS: diazePAM 5 MG TABLET PO SCH ×2 (13:42→22:45)
[2018-08-05] MEDS: hydrOXYzine PAMOATE 50 MG CAPSULE (FP) PO PRN ×2 (13:50→22:50)
[2018-08-05] MEDS: THIAMINE HCL 100 MG TABLET (FP) PO SCH (22:45)
[2018-08-05] MEDS: MELATONIN 5 MG TABLETS PO PRN (22:48)
[2018-08-05] MEDS: IBUPROFEN 400 MG TABLET (FP) PO PRN (22:50)
[2018-08-06] MEDS: diazePAM 5 MG TABLET PO SCH ×3 (05:29→22:27)
[2018-08-06] MEDS: metFORMIN HCL 500 MG TABLET (FP) PO SCH (06:17)
[2018-08-06] MEDS ORDERED: metFORMIN HCL 500 MG TABLET (FP) PO SCH (07:00)
[2018-08-06 10:21] LABS: ALBUMIN 3.2 g/dl (3.4-5.0); BILIRUBIN,TOTAL 0.2 mg/dL (0.2-1); BLOOD UREA NITROGEN 13.2 mg/dL (7-18); CALCIUM 8.3 mg/dL (8.5-10.1); CREATININE 0.8 mg/dL (0.55-1.3); POTASSIUM 4.2 mmol/L (3.5-5.1); TOT PROT 6.2 g/dl (6.4-8.2)
[2018-08-06 10:36] LABS: HEMATOCRIT 39.4 % (32.4-45.2); HEMOGLOBIN 12.9 GM/dL (10.7-15.3); MCH 26.2 pg (25.7-33.7); MCHC 32.6 g/dl (32.0-36.0); MEAN CELL VOLUME 80.4 fl (80-96); MEAN PLT VOLUME 10.7 fl (7.5-11.1); RDW 14.6 % (11.6-15.6); WHITE BLOOD COUNT 6.2 K/mm3 (4.0-10.0)
[2018-08-06] MEDS: diazePAM 5 MG TABLET PO PRN (10:48)
[2018-08-06] MEDS: IBUPROFEN 400 MG TABLET (FP) PO PRN (10:48)
[2018-08-06] MEDS: PRENATAL VITAMINS W/ FOLIC ACID TABLET (FP) PO SCH (10:48)
[2018-08-06 11:23] LABS: PLATELET COUNT 163 K/MM3 (134-434)
--- NOTE | 2018-08-06 11:28 | PN ---
S CIWA - CIWA Score Nausea/Vomitin-No Nausea/No Vomiting Muscle Tremors: 2 Anxiety: 2 Agitation: 0-Normal Activity Paroxysmal Sweats: 3 Orientation: 0-Oriented Tacttile Disturbances: 1-Very Mild Itch/Numbness Auditory Disturbances: 0-None Visual Disturbances: 0-None Headache: 0-None Present CIWA-Ar Total Score: 8 S Progress Note (SOAP) Subjective: c/o sweats, anxiety, and mild shakes. Objective: 08/06/18 11:27 Vital Signs 08/06/18 08/06/18 06:00 10:55 Temperature 97.9 F 98.1 F Pulse Rate 82 81 Respiratory 18 17 Rate Blood Pressure 113/71 114/71 Lab Results WBC 6.2 K/mm3 (4.0-10.0) 08/06/18 07:50 RBC 4.90 M/mm3 (3.60-5.2) 08/06/18 07:50 Hgb 12.9 GM/dL (10.7-15.3) 08/06/18 07:50 Hct 39.4 % (32.4-45.2) 08/06/18 07:50 MCV 80.4 fl (80-96) 08/06/18 07:50 MCHC 32.6 g/dl (32.0-36.0) 08/06/18 07:50 RDW 14.6 % (11.6-15.6) 08/06/18 07:50 Plt Count 163 K/MM3 (134-434) 08/06/18 07:50 Sodium 140 mmol/L (136-145) 08/06/18 07:50 Potassium 4.2 mmol/L (3.5-5.1) 08/06/18 07:50 Chloride 109 mmol/L (98-107) H 08/06/18 07:50 Carbon Dioxide 26 mmol/L (21-32) 08/06/18 07:50 Anion Gap 5 MMOL/L (8-16) L 08/06/18 07:50 BUN 13.2 mg/dL (7-18) 08/06/18 07:50 Creatinine 0.8 mg/dL (0.55-1.3) 08/06/18 07:50 Random Glucose 116 mg/dL (74-106) H 08/06/18 07:50 Calcium 8.3 mg/dL (8.5-10.1) L 08/06/18 07:50 Labs noted. Assessment: 08/06/18 11:28 AOX3, in no acute distress Full ROM, ambulating in the unit. withdrawal symptoms. Plan: continue detox.
[2018-08-06] MEDS: hydrOXYzine PAMOATE 50 MG CAPSULE (FP) PO PRN (18:26)
[2018-08-06] MEDS: THIAMINE HCL 100 MG TABLET (FP) PO SCH (22:27)
[2018-08-06] MEDS: MELATONIN 5 MG TABLETS PO PRN (22:28)
[2018-08-07] MEDS ORDERED: diazePAM 5 MG TABLET PO ONE (06:00)
[2018-08-07] MEDS: metFORMIN HCL 500 MG TABLET (FP) PO SCH (07:23)
[2018-08-07] MEDS: PRENATAL VITAMINS W/ FOLIC ACID TABLET (FP) PO SCH (10:22)
[2018-08-07] MEDS: hydrOXYzine PAMOATE 50 MG CAPSULE (FP) PO PRN ×2 (10:24→17:24)
[2018-08-07] MEDS: IBUPROFEN 400 MG TABLET (FP) PO PRN (10:24)
[2018-08-07] MEDS ORDERED: IBUPROFEN 400 MG TABLET (FP) PO ONE (12:38)
--- NOTE | 2018-08-07 17:17 | PN ---
S CIWA - CIWA Score Nausea/Vomitin-No Nausea/No Vomiting Muscle Tremors: 2 Anxiety: 2 Agitation: 2 Paroxysmal Sweats: 2 Orientation: 0-Oriented Tacttile Disturbances: 0-None Auditory Disturbances: 0-None Visual Disturbances: 0-None Headache: 0-None Present CIWA-Ar Total Score: 8 BHS Progress Note (SOAP) Subjective: Anxious, back pain, interrupted sleep. Requesting higher dose of motrin. Objective: 08/07/18 17:12 Last Vital Signs Temp Pulse Resp BP Pulse Ox 98.6 F 89 18 117/81 08/07/18 17:11 08/07/18 17:11 08/07/18 17:11 08/07/18 17:11 Laboratory Tests 08/05/18 08/06/18 08/06/18 12:37 05:31 07:50 WBC 6.2 RBC 4.90 Hgb 12.9 Hct 39.4 MCV 80.4 MCH 26.2 MCHC 32.6 RDW 14.6 Plt Count 163 MPV 10.7 Sodium Potassium Chloride Carbon Dioxide Anion Gap BUN Creatinine Est GFR (CKD-EPI)AfAm Est GFR (CKD-EPI)NonAf POC Glucometer 151 132 Random Glucose Calcium Total Bilirubin AST ALT Alkaline Phosphatase Total Protein Albumin RPR Titer HIV 1&2 Antibody Screen HIV P24 Antigen 08/06/18 08/06/18 08/06/18 07:50 07:50 07:50 WBC RBC Hgb Hct MCV MCH MCHC RDW Plt Count MPV Sodium 140 Potassium 4.2 Chloride 109 H Carbon Dioxide 26 Anion Gap 5 L BUN 13.2 Creatinine 0.8 Est GFR (CKD-EPI)AfAm 105.39 Est GFR (CKD-EPI)NonAf 90.93 POC Glucometer Random Glucose 116 H Calcium 8.3 L Total Bilirubin 0.2 AST 7 L ALT 17 Alkaline Phosphatase 55 Total Protein 6.2 L Albumin 3.2 L RPR Titer Nonreactive HIV 1&2 Antibody Screen Negative HIV P24 Antigen Negative 08/07/18 08/07/18 05:52 16:45 WBC RBC Hgb Hct MCV MCH MCHC RDW Plt Count MPV Sodium Potassium Chloride Carbon Dioxide Anion Gap BUN Creatinine Est GFR (CKD-EPI)AfAm Est GFR (CKD-EPI)NonAf POC Glucometer 119 169 Random Glucose Calcium Total Bilirubin AST ALT Alkaline Phosphatase Total Protein Albumin RPR Titer HIV 1&2 Antibody Screen HIV P24 Antigen Labs reviewed: hyperglycemia noted Assessment: 08/07/18 17:14 Withdrawal symptoms Hyperglycemia noted Plan: Continue detox Encouraged PO water intake Back pain: Motrin 400mg PO x 1 dose then 600mg PO q6hr prn (limit motrin use due to DM), use prn tylenol instead Hyperglycemia due to DM: continue metformin
[2018-08-07] MEDS ORDERED: IBUPROFEN 400 MG TABLET (FP) PO PRN (18:00)
[2018-08-07] MEDS: IBUPROFEN 600 MG TABLET (FP) PO PRN (18:14)
[2018-08-07] MEDS: MELATONIN 5 MG TABLETS PO PRN ×2 (22:49→23:13)
[2018-08-07] MEDS: THIAMINE HCL 100 MG TABLET (FP) PO SCH (22:49)
[2018-08-07] MEDS: diazePAM 5 MG TABLET PO PRN (22:51)
[2018-08-07] MEDS: ACETAMINOPHEN 325 MG TABLET (FP) PO PRN (22:51)
[2018-08-08] MEDS: IBUPROFEN 600 MG TABLET (FP) PO PRN (05:27)
[2018-08-08] MEDS: diazePAM 5 MG TABLET PO PRN (05:29)
[2018-08-08] MEDS: metFORMIN HCL 500 MG TABLET (FP) PO SCH (06:45)
--- NOTE | 2018-08-08 08:59 | DS ---
[facility] Detox Discharge Summary Admission Date: 08/05/18 Discharge Date: 08/08/18 - History Present History: Alcohol Dependence, Cannabis Dependence, Cocaine Dependence - Physical Exam Results Vital Signs: Vital Signs Temperature 97.9 F 08/08/18 06:00 Pulse Rate 79 08/08/18 06:00 Respiratory Rate 18 08/08/18 06:00 Blood Pressure 126/79 08/08/18 06:00 O2 Sat by Pulse Oximetry (%) - Treatment Hospital Course: Detox Protocol Followed, Detoxed Safely, Responded well, Discharged Condition Good, Rehab Referral Accepted - Medication Discharge Medications: Ambulatory Orders Albuterol Sulfate Inhaler - [Ventolin HFA Inhaler -] 2 puff IH Q4H PRN #1 inhaler 08/04/17 Metformin HCl [Glucophage] 500 mg PO DAILY 05/12/18 hydrOXYzine PAMOATE [Vistaril -] 100 mg PO TID PRN 08/05/18 traZODone HCL [Desyrel -] 200 mg PO HS 08/05/18 - Diagnosis (1) Alcohol abuse, episodic drinking behavior Current Visit: Yes Status: Acute (2) Cannabis dependence Current Visit: Yes Status: Chronic (3) Cocaine dependence Current Visit: Yes Status: Chronic Qualifiers: Substance use status: uncomplicated Qualified Code(s): F14.20 - Cocaine dependence, uncomplicated (4) Alcohol dependence with uncomplicated withdrawal Current Visit: No Status: Acute (5) Nicotine dependence Current Visit: Yes Status: Chronic Qualifiers: Nicotine product type: cigarettes Substance use status: uncomplicated Qualified Code(s): F17.210 - Nicotine dependence, cigarettes, uncomplicated (6) Substance-induced sleep disorder Current Visit: No Status: Acute (7) Anxiety Current Visit: No Status: Chronic (8) Arthritis of right knee Current Visit: No Status: Chronic (9) Asthma Current Visit: Yes Status: Chronic Qualifiers: Asthma severity: mild Asthma persistence: intermittent Asthma complication type: with status asthmaticus Qualified Code(s): J45.22 - Mild intermittent asthma with status asthmaticus (10) Cannabis dependence Current Visit: Yes Status: Chronic (11) Cocaine dependence, uncomplicated Current Visit: No Status: Chronic (12) DM type 2 (diabetes mellitus, type 2) Current Visit: Yes Status: Chronic Qualifiers: Diabetes mellitus retirement insulin use: without retirement use Diabetes mellitus complication status: with unspecified complications (13) Depression Current Visit: No Status: Chronic Qualifiers: Depression Type: unspecified Qualified Code(s): F32.9 - Major depressive disorder, single episode, unspecified (14) GERD (gastroesophageal reflux disease) Current Visit: No Status: Chronic Qualifiers: Esophagitis presence: without esophagitis Qualified Code(s): K21.9 - Gastro -esophageal reflux disease without esophagitis (15) Insomnia Current Visit: No Status: Chronic Qualifiers: Insomnia type: unspecified Qualified Code(s): G47.00 - Insomnia, unspecified (16) Low back pain with sciatica Current Visit: No Status: Chronic Qualifiers: Chronicity: chronic Back pain laterality: unspecified Sciatica laterality : sciatica laterality unspecified Qualified Code(s): M54.40 - Lumbago with sciatica, unspecified side; G89.29 - Other chronic pain (17) Nicotine dependence Current Visit: No Status: Chronic Qualifiers: Nicotine product type: cigarettes Substance use status: in withdrawal Qualified Code(s): F17.213 - Nicotine dependence, cigarettes, with withdrawal (18) PTSD (post-traumatic stress disorder) Current Visit: No Status: Chronic (19) PTSD (post-traumatic stress disorder) Current Visit: No Status: Chronic (20) Substance induced mood disorder Current Visit: No Status: Chronic (21) Substance-induced sleep disorder Current Visit: No Status: Chronic (22) Schizophrenia Current Visit: No Status: Suspected Qualifiers: Schizophrenia type: unspecified Qualified Code(s): F20.9 - Schizophrenia, unspecified (23) Substance-induced anxiety disorder Current Visit: No Status: Suspected - AMA Did Patient Leave Against Medical Advice: No (referred to [facility])
[2018-08-08 09:29] VITALS: BP 128/79; PULSE 102; TEMP 97.5
[2018-08-08] MEDS: PRENATAL VITAMINS W/ FOLIC ACID TABLET (FP) PO SCH (09:35)
[2018-08-08] MEDS: ACETAMINOPHEN 325 MG TABLET (FP) PO PRN (09:35)
[2018-08-08] MEDS: hydrOXYzine PAMOATE 50 MG CAPSULE (FP) PO PRN (09:35)
== END 2018-08-08 09:40 | disposition home or self-care (01) | DRG 774 ==
LOC: YASAS 10:05 → Y6N 12:41
PROVIDERS: ADMIT Surgery; ATTEND Surgery
PROC: HZ2ZZZZ Detoxification Services for Substance Abuse Treatment (ICD-10-PCS; principal; 2018-08-05)
DX: F10.230 Alcohol dependence with withdrawal, uncomplicated (principal); F14.20 Cocaine dependence, uncomplicated; F12.20 Cannabis dependence, uncomplicated; F17.210 Nicotine dependence, cigarettes, uncomplicated; F41.9 Anxiety disorder, unspecified; F32.9 Major depressive disorder, single episode, unspecified; F43.10 Post-traumatic stress disorder, unspecified; F20.9 Schizophrenia, unspecified; F19.24 Other psychoactive substance dependence with psychoactive substance-induced mood disorder; F19.280 Other psychoactive substance dependence with psychoactive substance-induced anxiety disorder; F19.282 Other psychoactive substance dependence with psychoactive substance-induced sleep disorder; J45.22 Mild intermittent asthma with status asthmaticus; E11.9 Type 2 diabetes mellitus without complications; Z79.84 Long term (current) use of oral hypoglycemic drugs
CPT/HCPCS: 36415; 80053; 81025; 82962; 85027; 86593; 87389

== ENCOUNTER 2018-09-05 17:58 | Inpatient (IN) | payer OTHER ==
[2018-09-05 18:49] VITALS: BMI 35.4
--- NOTE | 2018-09-05 20:32 | HP ---
CIWA Score Nausea/Vomitin-No Nausea/No Vomiting Muscle Tremors: 4-Moderate,w/Arms Extend Anxiety: 1-Mildly Anxious Agitation: 1-Slight > Activity Paroxysmal Sweats: 3 (Increased facial moisture) Orientation: 0-Oriented Tacttile Disturbances: 0-None Auditory Disturbances: 0-None Visual Disturbances: 0-None Headache: 4-Moderately Severe CIWA-Ar Total Score: 13 - Admission Criteria OASAS Guidelines: Admission for Medically Managed Detox: Requires at least one of the followin. CIWA greater than 12 2. Seizures within the past 24 hours 3. Delirium tremens within the past 24 hours 4. Hallucinations within the past 24 hours 5. Acute intervention needed for co occurring medical disorder 6. Acute intervention needed for co occurring psychiatric disorder 7. Severe withdrawal that cannot be handled at a lower level of care (continued vomiting, continued diarrhea, abnormal vital signs) requiring intravenous medication and/or fluids 8. Patient presents the following: CIWA greater than 12 Admission Criteria Met: Admission criteria met Admission ROS [facility] Chief Complaint: Having alcohol withdrawal symptoms Allergies/Adverse Reactions: Allergies Allergy/AdvReac Type Severity Reaction Status Date / Time No Known Allergies Allergy Verified 09/05/18 18:41 History of Present Illness: 42 yo presents w/ alcohol withdrawal and seeking detox. States went to rehab fo4 14 days, after last discharge and relapsed as soon as discharged. Alcohol use began at age 18. Current use 1 pint + beer. States drinking same amount. Cocaine use began at age 37. Crack use at 42. Current daily use. Marijuana use began at age 16. Current daily use. Nicotine use began at age 37. Down to 3 cig/day Denies h/o seizures, blackouts. or overdose. Longest length of sobriety 2 months. Hx Asthma(last exacerbation Feb 2018- mild); Arthritis - (R) knee; DM (States on metformin);Heart burn EK11/30/17: NSR MH: Insomnia, Anxiety, Depression. PTSD; States not seeing a MH provider. Denies thoughts of harming self or others. Search Terms: Rachelle Perez, 1975 Search Date: 09/05/2018 08:28:33 PM The Drug Utilization Report below displays all of the controlled substance prescriptions, if any, that your patient has filled in the last twelve months. The information displayed on this report is compiled from pharmacy submissions to the Department, and accurately reflects the information as submitted by the pharmacies. This report was requested by: Naila Villaseñor | Reference #: [id number] There are no results for the search terms that you entered. Search Terms: Rachelle Perez, 1975 Search Date: 09/05/2018 08:29:01 PM States Searched: [place], [place], [place], [place], [place], [place], [place] The Drug Utilization Report below displays the controlled substance prescriptions, if any, that were dispensed in the indicated state(s). The information displayed on this report is compiled from requests submitted to other states' PMPs, and accurately reflects the information as returned by them. Blank mckenzie indicate data not provided by other state. This report was requested by: Naila Villaseñor | Reference #: [id number] Exam Limitations: No Limitations - Ebola screening Have you traveled outside of the country in the last 21 days: No (N) Have you had contact with anyone from an Ebola affected area: No Have you been sick,other than usual withdrawal symptoms: No (Denies exposure to measles) Do you have a fever: No - Review of Systems Constitutional: Diaphoresis (Increased facial moisture), Changes in sleep ( Difficulty falling asleep) EENT: reports: No Symptoms Reported Respiratory: reports: Shortness of Breath Cardiac: reports: No Symptoms Reported GI: reports: No Symptoms Reported : reports: No Symptoms Reported Musculoskeletal: reports: Joint Pain ((R) knee - arthritis), Muscle Pain ((L) calf - cramping. Started 1 day ago.) Integumentary: reports: No Symptoms Reported Neuro: reports: Headache (Pinching headache, sides of head: "7") Endocrine: reports: Increased Thirst Hematology: reports: No Symptoms Reported Psychiatric: reports: Judgement Intact, Orientated x3, Anxious, Depressed ( Denies thoughts of harming self or others.) Other Systems: Reviewed and Negative Patient History - Patient Medical History Hx Anemia: No Hx Asthma: Yes Hx Chronic Obstructive Pulmonary Disease (COPD): No Hx Cancer: No Hx Cardiac Disorders: No Hx Congestive Heart Failure: No Hx Hypertension: No Hx Hypercholesterolemia: No Hx Pacemaker: No HX Cerebrovascular Accident: No Hx Seizures: No Hx Dementia: No Hx Diabetes: Yes Hx Gastrointestinal Disorders: Yes Hx Liver Disease: No Hx Genitourinary Disorders: No Hx Sexually Transmitted Disorders: No Hx Renal Disease (ESRD): No Hx Thyroid Disease: No Hx Human Immunodeficiency Virus (HIV): No (02/26 last negative) Hx Hepatitis C: No Hx Depression: Yes Hx Suicide Attempt: No Hx Bipolar Disorder: No Hx Schizophrenia: Yes - Patient Surgical History Past Surgical History: Yes Hx Neurologic Surgery: No Hx Cataract Extraction: No Hx Cardiac Surgery: No Hx Lung Surgery: No Hx Breast Surgery: No Hx Breast Biopsy: No Hx Abdominal Surgery: No Hx Appendectomy: No Hx Cholecystectomy: No Hx Genitourinary Surgery: No Hx Section: Yes (x 1 8years ago) Hx Orthopedic Surgery: No Anesthesia Reaction: No - PPD History Previous Implant?: Yes Documented Results: Negative w/proof Implanted On Prior R Admission?: Yes Date: 05/10/18 Results: 0mm PPD to be Administered?: No - Reproductive History Patient is a Female of Child Bearing Age (11 -55 yrs old): Yes Last Menstrual Period: 04/19/18 Patient : No - Smoking Cessation Smoking history: Current every day smoker Have you smoked in the past 12 months: Yes Aproximately how many cigarettes per day: 3 Cigars Per Day: 0 Hx Chewing Tobacco Use: No Initiated information on smoking cessation: Yes 'Breaking Loose' booklet given: 09/05/18 - Substance & Tx. History Hx Alcohol Use: Yes Hx Substance Use: Yes Substance Use Type: Alcohol, Cocaine, Marijuana Hx Substance Use Treatment: Yes (detox, rehab) - Substances abused Alcohol Substance route: Oral Frequency: Daily Amount used: 1 pint vodka/ 1 22oz beer Age of first use: 18 Date of last use: 09/05/18 Crack Substance route: Smoking Frequency: Daily Amount used: 8 bags Age of first use: 42 Date of last use: 09/04/18 Marijuana/Hashish Substance route: Smoking Frequency: Daily Amount used: 1 joint Age of first use: 16 Date of last use: 08/04/18 Family Disease History - Family Disease History Family Disease History: Heart Disease: Mother (HTN,Asthma), Respiratory: Mother Admission Physical Exam BHS - Vital Signs Vital Signs: Vital Signs - 24 hr 09/05/18 09/05/18 18:44 19:07 Temperature 98.6 F 98.6 F Pulse Rate 84 84 Respiratory 18 18 Rate Blood Pressure 131/87 131/87 - Physical General Appearance: Yes: Nourished, Mild Distress, Obese, Tremorous (Gross tremors w/ arms extended), Sweating (Increased facial moisture) HEENTM: Yes: Normocephalic, Normal Voice, KENDALL, Pharynx Normal Respiratory: Yes: Lungs Clear (O2 Sat = 98 %), Normal Breath Sounds, No Respiratory Distress Neck: Yes: No masses,lesions,Nodules, Supple Breast: Yes: Breast Exam Deferred Cardiology: Yes: Regular Rhythm, Regular Rate, S1, S2 Abdominal: Yes: Non Tender, Soft, Increased Bowel Sounds, Protuberent ( Increased abdominal adiposity) Genitourinary: Yes: Within Normal Limits Back: Yes: Normal Inspection Musculoskeletal: Yes: full range of Motion, Gait Steady Extremities: Yes: Normal Capillary Refill, Normal Range of Motion, Tremors Neurological: Yes: pipe joints supervisor II-XII NML intact, Fully Oriented, Alert, Motor Strength 5/5 Integumentary: Yes: Normal Color, Warm, Diaphoresis (Increased facial moisture) , Other (Abrasions w/ tenderness (L) calf area. No increased warmth or erythema. (L) and (R) Calf measurements equa/. Negative Leticia's. Pedal pulses (+ )) Lymphatic: Yes: Within Normal Limits - Diagnostic (1) History of asthma Current Visit: Yes Status: Chronic (2) Alcohol dependence with uncomplicated withdrawal Current Visit: Yes Status: Acute Comment: . (3) Arthritis of right knee Current Visit: Yes Status: Chronic (4) Cannabis dependence Current Visit: Yes Status: Chronic Comment: . (5) Cocaine dependence, uncomplicated Current Visit: Yes Status: Chronic (6) DM type 2 (diabetes mellitus, type 2) Current Visit: Yes Status: Chronic Qualifiers: Diabetes mellitus director long term care insulin use: without director long term care use Diabetes mellitus complication status: without complication Qualified Code(s): E11.9 - Type 2 diabetes mellitus without complications (7) GERD (gastroesophageal reflux disease) Current Visit: Yes Status: Chronic Qualifiers: Esophagitis presence: without esophagitis Qualified Code(s): K21.9 - Gastro -esophageal reflux disease without esophagitis (8) Nicotine dependence Current Visit: Yes Status: Chronic Qualifiers: Nicotine product type: cigarettes Substance use status: uncomplicated Qualified Code(s): F17.210 - Nicotine dependence, cigarettes, uncomplicated (9) Abrasion Current Visit: Yes Status: Acute Comment: (L) calf area Cleared for Admission S - Detox or Rehab [facility] Level of Care: Medically Managed Detox Regimen/Protocol: Valium Claeared for Rehab Admission: No Breathalyzer - Breathalyzer Breathalyzer: 0 Urine Drug Screen - Test Device Lot number: [id number] Expiration date: 06/07/20 - Control Is test valid?: Yes - Results Drug screen NEGATIVE: Yes Urine drug screen results: THC-Marijuana, SACHIN-Cocaine, BZO-Benzodiazepines Inpatient Rehab Admission - Rehab Decision to Admit Inpatient rehab admission?: No
[2018-09-05] MEDS ORDERED: MELATONIN 5 MG TABLETS PO PRN (21:04)
[2018-09-05] MEDS ORDERED: BISMUTH SUBSALICYLATE 524 MG/30 ML UD PO PRN (21:04)
[2018-09-05] MEDS ORDERED: MAG HYDROX/AL HYDROX/SIMETH 30 ML UNIT-DOSE CUP PO PRN (21:04)
[2018-09-05] MEDS ORDERED: NICOTINE POLACRILEX 2 MG GUM BUC PRN (21:04)
[2018-09-05] MEDS ORDERED: ACETAMINOPHEN 325 MG TABLET (FP) PO PRN ×2 (21:04)
[2018-09-05] MEDS ORDERED: IBUPROFEN 400 MG TABLET (FP) PO PRN (21:04)
[2018-09-05] MEDS ORDERED: MAGNESIUM HYDROX 2400MG/30ML ORAL SUSPENSION 30 ML CUP PO PRN (21:04)
[2018-09-05] MEDS ORDERED: MENTHOL/PHENOL 1 EACH UD MM PRN (21:04)
[2018-09-05] MEDS ORDERED: MAGNESIUM CITRATE 300 ML BOTTLE PO PRN (21:04)
[2018-09-05] MEDS ORDERED: ALBUTEROL SO4 0.083% IH SOL 2.5 MG/3 ML VIAL.NEB. NEB PRN (21:08)
[2018-09-05] MEDS: diazePAM 5 MG TABLET PO PRN (22:05)
[2018-09-05] MEDS: THIAMINE HCL 100 MG TABLET (FP) PO SCH (22:08)
[2018-09-05] MEDS: diazePAM 5 MG TABLET PO SCH (22:56)
[2018-09-06] MEDS: diazePAM 5 MG TABLET PO SCH ×3 (06:23→22:38)
[2018-09-06] MEDS: metFORMIN HCL 500 MG TABLET (FP) PO SCH ×2 (06:26→17:26)
--- NOTE | 2018-09-06 10:00 | PN ---
S CIWA - CIWA Score Nausea/Vomitin-No Nausea/No Vomiting Muscle Tremors: 3 Anxiety: 3 Agitation: 3 Paroxysmal Sweats: 3 Orientation: 0-Oriented Tacttile Disturbances: 0-None Auditory Disturbances: 0-None Visual Disturbances: 0-None Headache: 0-None Present CIWA-Ar Total Score: 12 BHS Progress Note (SOAP) Subjective: restless anxiety sweats shakes interrupted sleep body aches Objective: 09/06/18 12:15 Vital Signs Temperature 98.3 F 09/06/18 09:30 Pulse Rate 85 09/06/18 09:30 Respiratory Rate 18 09/06/18 09:30 Blood Pressure 124/81 09/06/18 09:30 O2 Sat by Pulse Oximetry (%) Laboratory Tests 09/06/18 09/06/18 06:24 07:00 Sodium 141 Potassium 3.7 Chloride 106 Carbon Dioxide 28 Anion Gap 7 L BUN 12.2 Creatinine 0.9 Est GFR (CKD-EPI)AfAm 91.40 Est GFR (CKD-EPI)NonAf 78.86 POC Glucometer 171 Random Glucose 138 H Calcium 9.0 Total Bilirubin 0.2 AST 10 L ALT 23 Alkaline Phosphatase 62 Total Protein 6.9 Albumin 3.7 labs noted aaox3 ambulating no acute distress Assessment: 09/06/18 12:16 withdrawal sx Plan: continue detox increase fluids
[2018-09-06 10:36] LABS: ALBUMIN 3.7 g/dl (3.4-5.0); BILIRUBIN,TOTAL 0.2 mg/dL (0.2-1); BLOOD UREA NITROGEN 12.2 mg/dL (7-18); CREATININE 0.9 mg/dL (0.55-1.3); POTASSIUM 3.7 mmol/L (3.5-5.1); TOT PROT 6.9 g/dl (6.4-8.2)
[2018-09-06] MEDS: PRENATAL VITAMINS W/ FOLIC ACID TABLET (FP) PO SCH (10:44)
[2018-09-06] MEDS: METHOCARBAMOL 500 MG TABLET PO PRN (10:45)
[2018-09-06 10:57] LABS: HEMOGLOBIN 13.2 GM/dL (10.7-15.3); MCH 26.2 pg (25.7-33.7); MCHC 32.9 g/dl (32.0-36.0); MEAN CELL VOLUME 79.7 fl (80-96); MEAN PLT VOLUME 10.3 fl (7.5-11.1); PLATELET COUNT 172 K/MM3 (134-434); RBC 5.02 M/mm3 (3.60-5.2); WHITE BLOOD COUNT 7.2 K/mm3 (4.0-10.0)
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
[2018-09-06] MEDS: diazePAM 5 MG TABLET PO PRN ×2 (11:24→16:50)
[2018-09-06] MEDS: hydrOXYzine PAMOATE 50 MG CAPSULE (FP) PO PRN ×2 (11:27→22:44)
[2018-09-06 13:17] LABS: EPI CELLS 19.9 /HPF (0-5/HPF); HYALINE CASTS 36 /lpf (0-8); PH,URINE 5.5 (5.0-8.0); URINE APPEARANCE CLOUDY; URINE BACTERIA 847.9 /hpf (NEGATIVE); URINE BILIRUBIN NEGATIVE (NEGATIVE); URINE COLOR YELLOW; URINE GLUCOSE (UA) NEGATIVE (NEGATIVE); URINE KETONE TRACE (NEGATIVE); URINE LEUK ESTERASE 2+ (NEGATIVE); URINE NITRITE NEGATIVE (NEGATIVE); URINE PROTEIN NEGATIVE (NEGATIVE); URINE RBC 8 /hpf (0-4); URINE WBC 573 /hpf (0-5)
[2018-09-06 14:00] LABS: URINE CRYSTALS MOD /hpf
[2018-09-06] MEDS: BACITRACIN 15 GM TUBE TOPICAL OINTMENT TP SCH ×2 (15:07→22:39)
[2018-09-06] MEDS: traZODone HCL 50 MG TABLET (FP) PO SCH (22:38)
[2018-09-06] MEDS: GABAPENTIN 300 MG CAPSULE (FP) PO SCH (22:38)
[2018-09-06] MEDS: THIAMINE HCL 100 MG TABLET (FP) PO SCH (22:39)
[2018-09-07] MEDS: metFORMIN HCL 500 MG TABLET (FP) PO SCH ×2 (06:09→17:27)
[2018-09-07] MEDS: diazePAM 5 MG TABLET PO SCH ×2 (06:10→17:27)
[2018-09-07] MEDS: hydrOXYzine PAMOATE 50 MG CAPSULE (FP) PO PRN ×3 (08:58→22:09)
[2018-09-07] MEDS: METHOCARBAMOL 500 MG TABLET PO PRN (10:43)
[2018-09-07] MEDS: PRENATAL VITAMINS W/ FOLIC ACID TABLET (FP) PO SCH (10:43)
[2018-09-07] MEDS: BACITRACIN 15 GM TUBE TOPICAL OINTMENT TP SCH ×2 (10:43→22:11)
[2018-09-07] MEDS: diazePAM 5 MG TABLET PO PRN (10:44)
[2018-09-07] MEDS: LIDOCAINE 5% TOPICAL PATCH TP ONE ×2 (12:53→12:57)
[2018-09-07] MEDS ORDERED: ALBUTEROL SO4 8 GM HFA INHALER IH PRN (13:29)
--- NOTE | 2018-09-07 13:32 | PN ---
S CIWA - CIWA Score Nausea/Vomitin-No Nausea/No Vomiting Muscle Tremors: 2 Anxiety: 1-Mildly Anxious Agitation: 1-Slight > Activity Paroxysmal Sweats: 1-Minimal Palms Moist Orientation: 0-Oriented Tacttile Disturbances: 0-None Auditory Disturbances: 0-None Visual Disturbances: 0-None Headache: 0-None Present CIWA-Ar Total Score: 5 BHS Progress Note (SOAP) Subjective: achy muscle to my calfs and legs little anxiety body aches Objective: 09/07/18 13:31 Vital Signs Temperature 98.8 F 09/07/18 13:26 Pulse Rate 90 09/07/18 13:26 Respiratory Rate 20 09/07/18 13:26 Blood Pressure 133/84 09/07/18 13:26 O2 Sat by Pulse Oximetry (%) Laboratory Tests 09/06/18 09/06/18 09/06/18 06:24 07:00 07:00 WBC 7.2 RBC 5.02 Hgb 13.2 Hct 40.0 MCV 79.7 L MCH 26.2 MCHC 32.9 RDW 15.0 Plt Count 172 MPV 10.3 Sodium 141 Potassium 3.7 Chloride 106 Carbon Dioxide 28 Anion Gap 7 L BUN 12.2 Creatinine 0.9 Est GFR (CKD-EPI)AfAm 91.40 Est GFR (CKD-EPI)NonAf 78.86 POC Glucometer 171 Random Glucose 138 H Calcium 9.0 Total Bilirubin 0.2 AST 10 L ALT 23 Alkaline Phosphatase 62 Total Protein 6.9 Albumin 3.7 Urine Color Urine Appearance Urine pH Ur Specific [place] Urine Protein Urine Glucose (UA) Urine Ketones Urine Blood Urine Nitrite Urine Bilirubin Urine Urobilinogen Ur Leukocyte Esterase Urine WBC (Auto) Urine RBC (Auto) Urine Casts (Auto) U Epithel Cells (Auto) Urine Crystals (Auto) Urine Bacteria (Auto) 09/06/18 09/06/18 09/07/18 07:00 16:43 06:08 WBC RBC Hgb Hct MCV MCH MCHC RDW Plt Count MPV Sodium Potassium Chloride Carbon Dioxide Anion Gap BUN Creatinine Est GFR (CKD-EPI)AfAm Est GFR (CKD-EPI)NonAf POC Glucometer 160 136 Random Glucose Calcium Total Bilirubin AST ALT Alkaline Phosphatase Total Protein Albumin Urine Color Yellow Urine Appearance Cloudy Urine pH 5.5 D Ur Specific [place] 1.029 Urine Protein Negative Urine Glucose (UA) Negative Urine Ketones Trace H Urine Blood Negative Urine Nitrite Negative Urine Bilirubin Negative Urine Urobilinogen 1.0 Ur Leukocyte Esterase 2+ H Urine WBC (Auto) 573 Urine RBC (Auto) 8 Urine Casts (Auto) 36 U Epithel Cells (Auto) 19.9 Urine Crystals (Auto) Mod Urine Bacteria (Auto) 847.9 labs noted aaox3 ambulating no acute distress Assessment: 09/07/18 13:32 mild withdrawal sx Plan: continue detox increase fluids lidocaine patch analgesic balm d/c in am
[2018-09-07] MEDS ORDERED: LIDOCAINE PATCH REMOVAL MC SCH (22:00)
[2018-09-07] MEDS ORDERED: METHYL SALICYLATE/MENTHOL OINT 30 GM TUBE TP SCH (22:00)
[2018-09-07] MEDS: traZODone HCL 50 MG TABLET (FP) PO SCH (22:07)
[2018-09-07] MEDS: GABAPENTIN 300 MG CAPSULE (FP) PO SCH (22:08)
[2018-09-07] MEDS: THIAMINE HCL 100 MG TABLET (FP) PO SCH (22:09)
[2018-09-08] MEDS ORDERED: diazePAM 5 MG TABLET PO ONE (06:00)
[2018-09-08] MEDS: metFORMIN HCL 500 MG TABLET (FP) PO SCH (06:38)
[2018-09-08] MEDS: PRENATAL VITAMINS W/ FOLIC ACID TABLET (FP) PO SCH (09:21)
[2018-09-08] MEDS: hydrOXYzine PAMOATE 50 MG CAPSULE (FP) PO PRN (09:21)
--- NOTE | 2018-09-08 09:45 | DS ---
[facility] Detox Discharge Summary Admission Date: 09/05/18 Discharge Date: 09/08/18 - History Present History: Alcohol Dependence, Cannabis Dependence, Cocaine Dependence - Physical Exam Results Vital Signs: Vital Signs Temperature 98.6 F 09/08/18 08:40 Pulse Rate 93 H 09/08/18 08:40 Respiratory Rate 18 09/08/18 08:40 Blood Pressure 137/83 09/08/18 08:40 O2 Sat by Pulse Oximetry (%) Pertinent Admission Physical Exam Findings: pt arrived in withdrawals Laboratory Tests 09/06/18 09/06/18 09/06/18 06:24 07:00 07:00 WBC 7.2 RBC 5.02 Hgb 13.2 Hct 40.0 MCV 79.7 L MCH 26.2 MCHC 32.9 RDW 15.0 Plt Count 172 MPV 10.3 Sodium 141 Potassium 3.7 Chloride 106 Carbon Dioxide 28 Anion Gap 7 L BUN 12.2 Creatinine 0.9 Est GFR (CKD-EPI)AfAm 91.40 Est GFR (CKD-EPI)NonAf 78.86 POC Glucometer 171 Random Glucose 138 H Calcium 9.0 Total Bilirubin 0.2 AST 10 L ALT 23 Alkaline Phosphatase 62 Total Protein 6.9 Albumin 3.7 Urine Color Urine Appearance Urine pH Ur Specific [place] Urine Protein Urine Glucose (UA) Urine Ketones Urine Blood Urine Nitrite Urine Bilirubin Urine Urobilinogen Ur Leukocyte Esterase Urine WBC (Auto) Urine RBC (Auto) Urine Casts (Auto) U Epithel Cells (Auto) Urine Crystals (Auto) Urine Bacteria (Auto) 09/06/18 09/06/18 09/07/18 07:00 16:43 06:08 WBC RBC Hgb Hct MCV MCH MCHC RDW Plt Count MPV Sodium Potassium Chloride Carbon Dioxide Anion Gap BUN Creatinine Est GFR (CKD-EPI)AfAm Est GFR (CKD-EPI)NonAf POC Glucometer 160 136 Random Glucose Calcium Total Bilirubin AST ALT Alkaline Phosphatase Total Protein Albumin Urine Color Yellow Urine Appearance Cloudy Urine pH 5.5 D Ur Specific [place] 1.029 Urine Protein Negative Urine Glucose (UA) Negative Urine Ketones Trace H Urine Blood Negative Urine Nitrite Negative Urine Bilirubin Negative Urine Urobilinogen 1.0 Ur Leukocyte Esterase 2+ H Urine WBC (Auto) 573 Urine RBC (Auto) 8 Urine Casts (Auto) 36 U Epithel Cells (Auto) 19.9 Urine Crystals (Auto) Mod Urine Bacteria (Auto) 847.9 09/07/18 09/08/18 16:27 06:37 WBC RBC Hgb Hct MCV MCH MCHC RDW Plt Count MPV Sodium Potassium Chloride Carbon Dioxide Anion Gap BUN Creatinine Est GFR (CKD-EPI)AfAm Est GFR (CKD-EPI)NonAf POC Glucometer 103 124 Random Glucose Calcium Total Bilirubin AST ALT Alkaline Phosphatase Total Protein Albumin Urine Color Urine Appearance Urine pH Ur Specific [place] Urine Protein Urine Glucose (UA) Urine Ketones Urine Blood Urine Nitrite Urine Bilirubin Urine Urobilinogen Ur Leukocyte Esterase Urine WBC (Auto) Urine RBC (Auto) Urine Casts (Auto) U Epithel Cells (Auto) Urine Crystals (Auto) Urine Bacteria (Auto) today pt is aaox3 ambulating no acute distress no s/s of withdrawal sx - Treatment Hospital Course: Detox Protocol Followed, Detoxed Safely, Responded well, Discharged Condition Good, Rehab Referral Accepted Patient has Accepted a Rehab Referral to: referred to [facility] rehab - Medication Discharge Medications: Ambulatory Orders Albuterol Sulfate Inhaler - [Ventolin HFA Inhaler -] 2 puff IH Q4H PRN #1 inhaler 08/04/17 hydrOXYzine PAMOATE [Vistaril -] 100 mg PO TID PRN #10 capsule 08/08/18 Metformin HCl [Glucophage] 500 mg PO BID 09/05/18 traZODone HCL [Desyrel -] 200 mg PO HS 09/05/18 - Diagnosis (1) Abrasion Current Visit: Yes Status: Acute (2) Alcohol dependence with uncomplicated withdrawal Current Visit: Yes Status: Chronic (3) Cannabis dependence Current Visit: Yes Status: Chronic (4) Cocaine dependence, uncomplicated Current Visit: Yes Status: Chronic (5) Substance-induced anxiety disorder Current Visit: Yes Status: Acute (6) Substance-induced sleep disorder Current Visit: Yes Status: Acute (7) Arthritis of right knee Current Visit: Yes Status: Chronic (8) DM type 2 (diabetes mellitus, type 2) Current Visit: Yes Status: Chronic Qualifiers: Diabetes mellitus intermediate accountant insulin use: without intermediate accountant use Diabetes mellitus complication status: without complication Qualified Code(s): E11.9 - Type 2 diabetes mellitus without complications (9) GERD (gastroesophageal reflux disease) Current Visit: Yes Status: Chronic Qualifiers: Esophagitis presence: without esophagitis Qualified Code(s): K21.9 - Gastro -esophageal reflux disease without esophagitis (10) History of asthma Current Visit: Yes Status: Chronic (11) MDD (major depressive disorder) Current Visit: Yes Status: Chronic (12) Nicotine dependence Current Visit: Yes Status: Chronic Qualifiers: Nicotine product type: cigarettes Substance use status: uncomplicated Qualified Code(s): F17.210 - Nicotine dependence, cigarettes, uncomplicated (13) PTSD (post-traumatic stress disorder) Current Visit: Yes Status: Chronic (14) Alcohol abuse, episodic drinking behavior Current Visit: No Status: Acute (15) Substance-induced sleep disorder Current Visit: No Status: Acute (16) Anxiety Current Visit: No Status: Chronic (17) Asthma Current Visit: No Status: Chronic Qualifiers: Asthma severity: mild Asthma persistence: intermittent Asthma complication type: with status asthmaticus Qualified Code(s): J45.22 - Mild intermittent asthma with status asthmaticus (18) Cannabis dependence Current Visit: Yes Status: Chronic (19) Cocaine dependence Current Visit: Yes Status: Chronic Qualifiers: Substance use status: uncomplicated Qualified Code(s): F14.20 - Cocaine dependence, uncomplicated (20) Depression Current Visit: No Status: Chronic Qualifiers: Depression Type: unspecified Qualified Code(s): F32.9 - Major depressive disorder, single episode, unspecified (21) Insomnia Current Visit: No Status: Chronic Qualifiers: Insomnia type: unspecified Qualified Code(s): G47.00 - Insomnia, unspecified (22) Low back pain with sciatica Current Visit: No Status: Chronic Qualifiers: Chronicity: chronic Back pain laterality: unspecified Sciatica laterality : sciatica laterality unspecified Qualified Code(s): M54.40 - Lumbago with sciatica, unspecified side; G89.29 - Other chronic pain (23) Nicotine dependence Current Visit: No Status: Chronic Qualifiers: Nicotine product type: cigarettes Substance use status: in withdrawal Qualified Code(s): F17.213 - Nicotine dependence, cigarettes, with withdrawal (24) PTSD (post-traumatic stress disorder) Current Visit: No Status: Chronic (25) Substance induced mood disorder Current Visit: No Status: Chronic (26) Substance-induced sleep disorder Current Visit: No Status: Chronic (27) Schizophrenia Current Visit: No Status: Suspected Qualifiers: Schizophrenia type: unspecified Qualified Code(s): F20.9 - Schizophrenia, unspecified (28) Substance-induced anxiety disorder Current Visit: No Status: Suspected - AMA Did Patient Leave Against Medical Advice: No
[2018-09-08 09:51] VITALS: BP 113/68; PULSE 75; TEMP 97.9
[2018-09-08] MEDS ORDERED: LIDOCAINE 5% TOPICAL PATCH TP SCH (10:00)
== END 2018-09-08 11:22 | disposition other institution (70) | DRG 774 ==
LOC: YASAS 17:58 → Y3N 21:07 → UNDOADMIN 21:07 → Y6N 21:21
PROVIDERS: ADMIT Surgery; ATTEND Surgery
PROC: HZ2ZZZZ Detoxification Services for Substance Abuse Treatment (ICD-10-PCS; principal; 2018-09-05)
DX: F10.230 Alcohol dependence with withdrawal, uncomplicated (principal); F14.20 Cocaine dependence, uncomplicated; F12.20 Cannabis dependence, uncomplicated; F17.210 Nicotine dependence, cigarettes, uncomplicated; F19.280 Other psychoactive substance dependence with psychoactive substance-induced anxiety disorder; F19.282 Other psychoactive substance dependence with psychoactive substance-induced sleep disorder; F33.9 Major depressive disorder, recurrent, unspecified; F43.10 Post-traumatic stress disorder, unspecified; E11.9 Type 2 diabetes mellitus without complications; Z79.84 Long term (current) use of oral hypoglycemic drugs; K21.9 Gastro-esophageal reflux disease without esophagitis; M13.861 Other specified arthritis, right knee; S80.812A Abrasion, left lower leg, initial encounter; X58.XXXA Exposure to other specified factors, initial encounter; Y93.9 Activity, unspecified; Y92.89 Other specified places as the place of occurrence of the external cause; Y99.8 Other external cause status
CPT/HCPCS: 36415; 80053; 81003; 81025; 82962; 85027

== ENCOUNTER 2018-09-08 11:37 | Inpatient (IN) | payer OTHER | END 2018-09-22 09:11 | disposition home or self-care (01) | LOC: YASAS 11:37 → Y3E 11:38 ==

== ENCOUNTER 2018-10-19 11:52 | Inpatient (IN) | payer OTHER ==
[2018-10-19 13:24] VITALS: BMI 35.6
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
--- NOTE | 2018-10-19 15:25 | PN ---
Teaching Attending Note Name of Resident: Dash Tavera ATTENDING PHYSICIAN STATEMENT I saw and evaluated the patient. I reviewed the resident's note and discussed the case with the resident. I agree with the resident's findings and plan as documented. SUBJECTIVE: 43 yo with DM, here for alcohol use and cocaine use disorders. Last use yesterday. HEre for detox Pt was last in detox here last month-relapsed. OBJECTIVE: Vital Signs - 24 hr 10/19/18 13:14 Temperature 100.0 F H Pulse Rate 104 H Respiratory 20 Rate Blood Pressure 139/89 nl PE alert and oriented ASSESSMENT AND PLAN: admit pt for alcohol detox- [facility] detox protocol
[2018-10-19] MEDS ORDERED: MAG HYDROX/AL HYDROX/SIMETH 30 ML UNIT-DOSE CUP PO PRN (15:35)
[2018-10-19] MEDS ORDERED: NICOTINE POLACRILEX 2 MG GUM BUC PRN (15:35)
[2018-10-19] MEDS ORDERED: IBUPROFEN 400 MG TABLET (FP) PO PRN (15:35)
[2018-10-19] MEDS ORDERED: MENTHOL/PHENOL 1 EACH UD MM PRN (15:35)
[2018-10-19] MEDS ORDERED: BISMUTH SUBSALICYLATE 524 MG/30 ML UD PO PRN (15:35)
[2018-10-19] MEDS ORDERED: MAGNESIUM CITRATE 300 ML BOTTLE PO PRN (15:35)
[2018-10-19] MEDS ORDERED: ACETAMINOPHEN 325 MG TABLET (FP) PO PRN ×2 (15:35)
[2018-10-19] MEDS ORDERED: MAGNESIUM HYDROX 2400MG/30ML ORAL SUSPENSION 30 ML CUP PO PRN (15:35)
[2018-10-19] MEDS ORDERED: ALBUTEROL SO4 8 GM HFA INHALER IH PRN (15:39)
[2018-10-19] MEDS: chlordiazePOXIDE HCL 10 MG CAPSULE PO PRN (17:09)
[2018-10-19] MEDS: metFORMIN HCL 500 MG TABLET (FP) PO SCH (17:09)
[2018-10-19] MEDS: hydrOXYzine PAMOATE 25 MG CAPSULE (FP) PO PRN (17:09)
[2018-10-19] MEDS: METHOCARBAMOL 500 MG TABLET PO PRN (17:11)
[2018-10-19] MEDS: chlordiazePOXIDE HCL 25 MG CAPSULE PO SCH (21:47)
[2018-10-19] MEDS: THIAMINE HCL 100 MG TABLET (FP) PO SCH (21:47)
[2018-10-19] MEDS ORDERED: traZODone HCL 100 MG TABLET (FP) PO SCH (22:00)
[2018-10-20] MEDS: chlordiazePOXIDE HCL 25 MG CAPSULE PO SCH ×3 (06:21→22:36)
[2018-10-20] MEDS: metFORMIN HCL 500 MG TABLET (FP) PO SCH ×2 (06:21→17:22)
[2018-10-20] MEDS: hydrOXYzine PAMOATE 25 MG CAPSULE (FP) PO PRN (10:16)
[2018-10-20] MEDS: PRENATAL VITAMINS W/ FOLIC ACID TABLET (FP) PO SCH (10:16)
[2018-10-20] MEDS ORDERED: IBUPROFEN 400 MG TABLET (FP) PO PRN (13:03)
--- NOTE | 2018-10-20 13:07 | PN ---
S CIWA - CIWA Score Nausea/Vomitin-No Nausea/No Vomiting Muscle Tremors: 3 Anxiety: 3 Agitation: 3 Paroxysmal Sweats: 2 Orientation: 0-Oriented Tacttile Disturbances: 0-None Auditory Disturbances: 0-None Visual Disturbances: 0-None Headache: 0-None Present CIWA-Ar Total Score: 11 BHS Progress Note (SOAP) Subjective: sweats shakes body aches chronic knee pain (both) irritable Objective: 10/20/18 13:05 Vital Signs Temperature 97.5 F L 10/20/18 09:35 Pulse Rate 87 10/20/18 09:35 Respiratory Rate 16 10/20/18 09:35 Blood Pressure 105/73 10/20/18 09:35 O2 Sat by Pulse Oximetry (%) Laboratory Tests 10/19/18 10/19/18 10/20/18 14:36 16:08 06:19 POC Glucometer 114 118 POC Urine HCG, Qual Negative labs ordered aaox3 ambulating no acute distress Assessment: 10/20/18 13:06 withdrawals Plan: continue detox motrin 800mg tid as per pt request increase fluids labs ordered; results pending
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
[2018-10-20] MEDS: GABAPENTIN 300 MG CAPSULE (FP) PO SCH ×2 (14:18→22:35)
[2018-10-20] MEDS: THIAMINE HCL 100 MG TABLET (FP) PO SCH (22:36)
[2018-10-20] MEDS: traZODone HCL 100 MG TABLET (FP) PO SCH (22:36)
[2018-10-20] MEDS: MELATONIN 5 MG TABLETS PO PRN (22:37)
[2018-10-21] MEDS: chlordiazePOXIDE 5 MG CAPSULE PO SCH ×3 (05:37→22:17)
[2018-10-21] MEDS: GABAPENTIN 300 MG CAPSULE (FP) PO SCH ×3 (05:38→22:17)
[2018-10-21] MEDS: metFORMIN HCL 500 MG TABLET (FP) PO SCH ×2 (06:58→16:31)
[2018-10-21 09:45] LABS: BASO % 0.4 % (0-2.0); EOS % 4.3 % (0-4.5); HEMOGLOBIN 12.7 GM/dL (10.7-15.3); LYMPH % 40.2 % (8-40); MCH 26.8 pg (25.7-33.7); MCHC 32.5 g/dl (32.0-36.0); MEAN CELL VOLUME 82.4 fl (80-96); MEAN PLT VOLUME 10.5 fl (7.5-11.1); NEUT % 48.1 % (42.8-82.8); PLATELET COUNT 162 K/MM3 (134-434); RBC 4.73 M/mm3 (3.60-5.2); RDW 14.8 % (11.6-15.6); WHITE BLOOD COUNT 6.8 K/mm3 (4.0-10.0)
[2018-10-21 10:00] LABS: ALBUMIN 3.1 g/dl (3.4-5.0); BILIRUBIN,TOTAL 0.2 mg/dL (0.2-1); BLOOD UREA NITROGEN 14.1 mg/dL (7-18); CALCIUM 9.1 mg/dL (8.5-10.1); CREATININE 0.8 mg/dL (0.55-1.3); POTASSIUM 4.1 mmol/L (3.5-5.1); TOT PROT 5.9 g/dl (6.4-8.2)
[2018-10-21] MEDS: PRENATAL VITAMINS W/ FOLIC ACID TABLET (FP) PO SCH (10:00)
[2018-10-21] MEDS: chlordiazePOXIDE HCL 10 MG CAPSULE PO PRN ×2 (10:00→18:34)
[2018-10-21] MEDS: hydrOXYzine PAMOATE 25 MG CAPSULE (FP) PO PRN ×2 (10:00→16:31)
--- NOTE | 2018-10-21 13:50 | PN ---
S CIWA - CIWA Score Nausea/Vomitin-No Nausea/No Vomiting Muscle Tremors: 3 Anxiety: 2 Agitation: 3 Paroxysmal Sweats: 2 Orientation: 0-Oriented Tacttile Disturbances: 0-None Auditory Disturbances: 0-None Visual Disturbances: 0-None Headache: 0-None Present CIWA-Ar Total Score: 10 S Progress Note (SOAP) Subjective: sweats tired interrupted sleep restless Objective: 10/21/18 13:49 Vital Signs Temperature 97.5 F L 10/21/18 09:41 Pulse Rate 80 10/21/18 09:41 Respiratory Rate 18 10/21/18 09:41 Blood Pressure 124/70 10/21/18 09:41 O2 Sat by Pulse Oximetry (%) Laboratory Tests 10/19/18 10/19/18 10/20/18 14:36 16:08 06:19 WBC RBC Hgb Hct MCV MCH MCHC RDW Plt Count MPV Absolute Neuts (auto) Neutrophils % Lymphocytes % Monocytes % Eosinophils % Basophils % Nucleated RBC % Sodium Potassium Chloride Carbon Dioxide Anion Gap BUN Creatinine Est GFR (CKD-EPI)AfAm Est GFR (CKD-EPI)NonAf POC Glucometer 114 118 Random Glucose Calcium Total Bilirubin AST ALT Alkaline Phosphatase Total Protein Albumin POC Urine HCG, Qual Negative RPR Titer 10/20/18 10/21/18 10/21/18 16:39 05:35 08:00 WBC 6.8 RBC 4.73 Hgb 12.7 Hct 39.0 MCV 82.4 MCH 26.8 MCHC 32.5 RDW 14.8 Plt Count 162 MPV 10.5 Absolute Neuts (auto) 3.3 Neutrophils % 48.1 Lymphocytes % 40.2 H Monocytes % 7.0 Eosinophils % 4.3 Basophils % 0.4 Nucleated RBC % 0 Sodium Potassium Chloride Carbon Dioxide Anion Gap BUN Creatinine Est GFR (CKD-EPI)AfAm Est GFR (CKD-EPI)NonAf POC Glucometer 128 123 Random Glucose Calcium Total Bilirubin AST ALT Alkaline Phosphatase Total Protein Albumin POC Urine HCG, Qual RPR Titer 10/21/18 10/21/18 08:00 08:00 WBC RBC Hgb Hct MCV MCH MCHC RDW Plt Count MPV Absolute Neuts (auto) Neutrophils % Lymphocytes % Monocytes % Eosinophils % Basophils % Nucleated RBC % Sodium 140 Potassium 4.1 Chloride 107 Carbon Dioxide 27 Anion Gap 6 L BUN 14.1 Creatinine 0.8 Est GFR (CKD-EPI)AfAm 104.65 Est GFR (CKD-EPI)NonAf 90.30 POC Glucometer Random Glucose 114 H Calcium 9.1 Total Bilirubin 0.2 AST 9 L ALT 19 Alkaline Phosphatase 60 Total Protein 5.9 L Albumin 3.1 L POC Urine HCG, Qual RPR Titer Nonreactive labs noted aaox3 ambulating no acute distress Assessment: 10/21/18 13:49 withdrawals Plan: continue detox increase fluids
[2018-10-21] MEDS: METHOCARBAMOL 500 MG TABLET PO PRN (18:34)
[2018-10-21] MEDS: THIAMINE HCL 100 MG TABLET (FP) PO SCH (22:17)
[2018-10-21] MEDS: traZODone HCL 100 MG TABLET (FP) PO SCH (22:17)
[2018-10-21] MEDS: MELATONIN 5 MG TABLETS PO PRN (22:17)
[2018-10-22] MEDS ORDERED: chlordiazePOXIDE HCL 10 MG CAPSULE PO PRN
[2018-10-22] MEDS: GABAPENTIN 300 MG CAPSULE (FP) PO SCH ×3 (06:04→22:28)
[2018-10-22] MEDS: chlordiazePOXIDE HCL 10 MG CAPSULE PO SCH ×3 (06:05→21:27)
[2018-10-22] MEDS: hydrOXYzine PAMOATE 25 MG CAPSULE (FP) PO PRN ×2 (06:06→14:03)
[2018-10-22] MEDS: metFORMIN HCL 500 MG TABLET (FP) PO SCH ×2 (06:08→17:07)
[2018-10-22] MEDS: PRENATAL VITAMINS W/ FOLIC ACID TABLET (FP) PO SCH (10:33)
[2018-10-22] MEDS: METHOCARBAMOL 500 MG TABLET PO PRN (10:34)
--- NOTE | 2018-10-22 13:05 | PN ---
S CIWA - CIWA Score Nausea/Vomitin-No Nausea/No Vomiting Muscle Tremors: 2 Anxiety: 2 Agitation: 0-Normal Activity Paroxysmal Sweats: 2 Orientation: 0-Oriented Tacttile Disturbances: 0-None Auditory Disturbances: 0-None Visual Disturbances: 0-None Headache: 1-Very Mild CIWA-Ar Total Score: 7 S Progress Note (SOAP) Subjective: c/o headache, sweats, shakes, and anxiety. Objective: 10/22/18 13:04 Vital Signs 10/22/18 10/22/18 07:31 09:26 Temperature 97.7 F 97.7 F Pulse Rate 77 85 Respiratory 18 18 Rate Blood Pressure 118/73 117/79 Lab Results WBC 6.8 K/mm3 (4.0-10.0) 10/21/18 08:00 RBC 4.73 M/mm3 (3.60-5.2) 10/21/18 08:00 Hgb 12.7 GM/dL (10.7-15.3) 10/21/18 08:00 Hct 39.0 % (32.4-45.2) 10/21/18 08:00 MCV 82.4 fl (80-96) 10/21/18 08:00 MCHC 32.5 g/dl (32.0-36.0) 10/21/18 08:00 RDW 14.8 % (11.6-15.6) 10/21/18 08:00 Plt Count 162 K/MM3 (134-434) 10/21/18 08:00 Sodium 140 mmol/L (136-145) 10/21/18 08:00 Potassium 4.1 mmol/L (3.5-5.1) 10/21/18 08:00 Chloride 107 mmol/L (98-107) 10/21/18 08:00 Carbon Dioxide 27 mmol/L (21-32) 10/21/18 08:00 Anion Gap 6 MMOL/L (8-16) L 10/21/18 08:00 BUN 14.1 mg/dL (7-18) 10/21/18 08:00 Creatinine 0.8 mg/dL (0.55-1.3) 10/21/18 08:00 Random Glucose 114 mg/dL (74-106) H 10/21/18 08:00 Calcium 9.1 mg/dL (8.5-10.1) 10/21/18 08:00 Labs noted. Assessment: 10/22/18 13:04 AOX3, in no acute respiratory distress. Full ROM, ambulating in the unit. Withdrawal symptoms. Plan: continue detox.
[2018-10-22] MEDS: traZODone HCL 100 MG TABLET (FP) PO SCH (22:27)
[2018-10-22] MEDS: THIAMINE HCL 100 MG TABLET (FP) PO SCH (22:28)
[2018-10-22] MEDS: MELATONIN 5 MG TABLETS PO PRN (22:28)
[2018-10-23] MEDS ORDERED: chlordiazePOXIDE HCL 10 MG CAPSULE PO ONE (05:00)
[2018-10-23] MEDS: GABAPENTIN 300 MG CAPSULE (FP) PO SCH ×2 (05:51→14:07)
[2018-10-23] MEDS: metFORMIN HCL 500 MG TABLET (FP) PO SCH (05:59)
[2018-10-23 09:57] VITALS: BP 117/80; PULSE 102; TEMP 97.5
[2018-10-23] MEDS: PRENATAL VITAMINS W/ FOLIC ACID TABLET (FP) PO SCH (10:16)
[2018-10-23] MEDS: hydrOXYzine PAMOATE 25 MG CAPSULE (FP) PO PRN (10:16)
--- NOTE | 2018-10-23 13:33 | DS ---
[facility] Detox Discharge Summary Admission Date: 10/19/18 Discharge Date: 10/23/18 - History Present History: Alcohol Dependence, Cocaine Dependence - Physical Exam Results Vital Signs: Vital Signs Temperature 97.5 F L 10/23/18 09:57 Pulse Rate 102 H 10/23/18 09:57 Respiratory Rate 18 10/23/18 09:57 Blood Pressure 117/80 10/23/18 09:57 O2 Sat by Pulse Oximetry (%) Pertinent Admission Physical Exam Findings: Patient left prior to provider assessment. - Treatment Hospital Course: Detox Protocol Followed, Detoxed Safely, Responded well, Discharged Condition Good Patient has Accepted a Rehab Referral to: Patient encouraged to follow up with AA/NA - Medication Discharge Medications: Ambulatory Orders Albuterol Sulfate Inhaler - [Ventolin HFA Inhaler -] 2 puff IH Q4H PRN #1 inhaler 08/04/17 hydrOXYzine PAMOATE [Vistaril -] 100 mg PO TID PRN #10 capsule 08/08/18 Gabapentin [Neurontin -] 300 mg PO HS 09/08/18 Methocarbamol [Robaxin -] 500 mg PO Q6H 09/08/18 traZODone HCL [Desyrel -] 200 mg PO HS #60 tablet 09/21/18 Metformin HCl [Glucophage] 500 mg PO BID #60 tablet 09/22/18 - AMA Did Patient Leave Against Medical Advice: No
== END 2018-10-23 15:08 | disposition home or self-care (01) | DRG 774 ==
LOC: YASAS 11:52 → Y6N 16:18
PROVIDERS: ADMIT Surgery; ATTEND Surgery
PROC: HZ2ZZZZ Detoxification Services for Substance Abuse Treatment (ICD-10-PCS; principal; 2018-10-19)
DX: F10.230 Alcohol dependence with withdrawal, uncomplicated (principal); F14.20 Cocaine dependence, uncomplicated; F12.20 Cannabis dependence, uncomplicated; F17.210 Nicotine dependence, cigarettes, uncomplicated; F19.282 Other psychoactive substance dependence with psychoactive substance-induced sleep disorder; F19.24 Other psychoactive substance dependence with psychoactive substance-induced mood disorder; F32.9 Major depressive disorder, single episode, unspecified; F43.10 Post-traumatic stress disorder, unspecified; J45.22 Mild intermittent asthma with status asthmaticus; M17.11 Unilateral primary osteoarthritis, right knee; E11.9 Type 2 diabetes mellitus without complications; Z79.84 Long term (current) use of oral hypoglycemic drugs; Z91.5 Personal history of self-harm
CPT/HCPCS: 36415; 80053; 81025; 82962; 85025; 86593

== ENCOUNTER 2019-01-04 13:19 | Inpatient (IN) | payer OTHER ==
[2019-01-04 14:58] VITALS: BMI 33.6
--- NOTE | 2019-01-04 15:08 | HP ---
CIWA Score Nausea/Vomitin-No Nausea/No Vomiting Muscle Tremors: 4-Moderate,w/Arms Extend Anxiety: 3 Agitation: 4-Moderately Restless Paroxysmal Sweats: 3 Orientation: 0-Oriented Tacttile Disturbances: 1-Very Mild Itch/Numbness Auditory Disturbances: 0-None Visual Disturbances: 0-None Headache: 0-None Present CIWA-Ar Total Score: 15 - Admission Criteria OASAS Guidelines: Admission for Medically Managed Detox: Requires at least one of the followin. CIWA greater than 12 2. Seizures within the past 24 hours 3. Delirium tremens within the past 24 hours 4. Hallucinations within the past 24 hours 5. Acute intervention needed for co occurring medical disorder 6. Acute intervention needed for co occurring psychiatric disorder 7. Severe withdrawal that cannot be handled at a lower level of care (continued vomiting, continued diarrhea, abnormal vital signs) requiring intravenous medication and/or fluids 8. Admitting History and Physical - Admission Chief Complaint: Alcohol detox History of Present Illness: Pt is a 43 yo F with PMHx of DM, Asthma, Insomnia, Anxiety, Depression, PTSD, GERD, arthritis, presenting for detox from alcohol and crack cocaine. Last here for detox and rehab from alcohol in Oct 2018. Started using drugs after she stopped her psych meds depression/anxiety. Has not slept all night, said she had muscle pain R side of chest, now resolved with ibuprofen. Said she cut her toe nails too deep big toes b/l and is in pain. Last use of gabapentin 2 days ago, has not been on her metformin Alcohol Last drink from yesterday to this am Alcohol use began at age 18 Current use 1 pint , vodka+ beer 6 of 16 oz. Drinks alone and with people , drinks in afternoon, stops drinking at night Denies h/o seizures, blackouts or overdose. Has been using consistently since 10/2018 Was taking 3 days break in past now does every other day for the past month Longest length of sobriety 3 months in 2017 with outpt follow up . Cocaine- in urine Uses over 9 crack bags, smokes in glass stem Now with muscle aches and doesnt't want to keep Cocaine use began at age 37. Crack use at 42 Was taking 3 days break in past now does every other day for the past month . THC- urine Uses when she smokes crack, 2 leaves Marijuana use began at age 16. Nicotine Nicotine use began at age 37. 3 -1PPD His kids- 21 and 27, aware she uses drugs, one son is in detention, the other is with the grandmother Lives with 21 year old Pt has red 1st toes b/l deep cutting of her toe nails- will add bacitracin, local application for pt to monitor and let us know if developing pus Will add psych consult History Source: Patient, Medical Record Limitations to Obtaining History: No Limitations - Past Medical History Pulmonary: Yes: Asthma ...LMP: 01/02/19 ...: No ...: 7 ...Para: 4 Psych: Yes: Anxiety, Depression, Other (PTSD) Musculoskeletal: Yes: Osteoarthritis (R knee) - Past Surgical History Additional Past Surgical History: C/section - Smoking History Smoking history: Current every day smoker Have you smoked in the past 12 months: Yes Aproximately how many cigarettes per day: 3 If you are a former smoker, when did you quit?: t-7 - Alcohol/Substance Use Hx Alcohol Use: Yes Admission [facility] Allergies/Adverse Reactions: Allergies Allergy/AdvReac Type Severity Reaction Status Date / Time No Known Allergies Allergy Verified 01/04/19 14:40 Exam Limitations: No Limitations - Ebola screening Have you traveled outside of the country in the last 21 days: No (N) Have you had contact with anyone from an Ebola affected area: No Do you have a fever: No - Review of Systems Constitutional: No Symptoms Reported EENT: reports: No Symptoms Reported Respiratory: reports: Cough (Productive of phlegm - black) Cardiac: reports: No Symptoms Reported GI: reports: No Symptoms Reported : reports: No Symptoms Reported Musculoskeletal: reports: Muscle Pain Integumentary: reports: No Symptoms Reported Neuro: reports: No Symptoms reported Endocrine: reports: No Symptoms Reported Hematology: reports: No Symptoms Reported Psychiatric: reports: Agitated, Anxious Patient History - Patient Medical History Hx Anemia: No Hx Asthma: Yes Hx Chronic Obstructive Pulmonary Disease (COPD): No Hx Cancer: No Hx Cardiac Disorders: No Hx Congestive Heart Failure: No Hx Hypertension: No Hx Hypercholesterolemia: No Hx Pacemaker: No HX Cerebrovascular Accident: No Hx Seizures: No Hx Dementia: No Hx Diabetes: Yes (BGM 114mg/dl) Hx Gastrointestinal Disorders: No Hx Liver Disease: No Hx Genitourinary Disorders: No Hx Sexually Transmitted Disorders: No Hx Renal Disease (ESRD): No Hx Thyroid Disease: No Hx Human Immunodeficiency Virus (HIV): No (02/26 last negative) Hx Hepatitis C: No Hx Depression: Yes Hx Suicide Attempt: No Hx Bipolar Disorder: No Hx Schizophrenia: No Other Medical History: PTSD, - Patient Surgical History Past Surgical History: Yes Hx Neurologic Surgery: No Hx Cataract Extraction: No Hx Cardiac Surgery: No Hx Lung Surgery: No Hx Breast Surgery: No Hx Breast Biopsy: No Hx Abdominal Surgery: No Hx Appendectomy: No Hx Cholecystectomy: No Hx Genitourinary Surgery: No Hx Section: Yes (x 1 8years ago) Hx Orthopedic Surgery: No Anesthesia Reaction: No - PPD History Previous Implant?: Yes Date: 05/10/18 Results: 0mm - Reproductive History Patient is a Female of Child Bearing Age (11 -55 yrs old): Yes Last Menstrual Period: 01/02/19 Patient : No - Smoking Cessation Smoking history: Current every day smoker Have you smoked in the past 12 months: Yes Aproximately how many cigarettes per day: 10 Cigars Per Day: 0 Hx Chewing Tobacco Use: No Initiated information on smoking cessation: Yes 'Breaking Loose' booklet given: 01/04/19 - Substance & Tx. History Hx Alcohol Use: Yes Hx Substance Use: Yes Substance Use Type: Cocaine Hx Substance Use Treatment: Yes - Substances abused Alcohol Substance route: Oral Frequency: 3-6 times per week Amount used: 1 pint vodka/ 1 22oz beer &40oz, Age of first use: 18 Date of last use: 01/03/19 Crack Substance route: Smoking Frequency: 3-6 times per week Amount used: 10 bags Age of first use: 42 Date of last use: 01/03/19 Marijuana/Hashish Substance route: Smoking Frequency: Daily Amount used: 1 joint Age of first use: 16 Date of last use: 08/04/18 Admission Physical Exam BHS - Vital Signs Vital Signs: Vital Signs - 24 hr 01/04/19 01/04/19 14:39 15:03 Temperature 97.6 F 97.6 F Pulse Rate 82 82 Respiratory 16 16 Rate Blood Pressure 129/83 129/83 - Physical General Appearance: Yes: Tremorous, Irritable, Anxious HEENTM: Yes: Within Normal Limits Respiratory: Yes: Chest Non-Tender Neck: Yes: Within Normal Limits Breast: Yes: Breast Exam Deferred Cardiology: Yes: Regular Rhythm, Regular Rate, S1, S2 Abdominal: Yes: Non Tender, Soft Genitourinary: Yes: Within Normal Limits Back: Yes: Within Normal Limits Musculoskeletal: Yes: Within Normal Limits Neurological: Yes: Within Normal Limits - Diagnostic (1) Alcohol dependence with uncomplicated withdrawal Current Visit: No Status: Acute Comment: . (2) Cannabis dependence Current Visit: No Status: Acute Comment: Knees and legs (3) Cocaine dependence Current Visit: No Status: Acute Qualifiers: Substance use status: uncomplicated Qualified Code(s): F14.20 - Cocaine dependence, uncomplicated Comment: . Cleared for Admission S - Detox or Rehab [facility] Level of Care: Medically Supervised Claeared for Rehab Admission: No Screened but not Admitted - Documentation of Visit Screened but not Admitted: No Breathalyzer - Breathalyzer Breathalyzer: 0 Urine Drug Screen - Test Device Lot number: [id number] Expiration date: 09/07/20 - Control Is test valid?: Yes - Results Drug screen NEGATIVE: No Urine drug screen results: THC-Marijuana, SACHIN-Cocaine Inpatient Rehab Admission - Rehab Decision to Admit Inpatient rehab admission?: No
[2019-01-04] MEDS ORDERED: MENTHOL/PHENOL 1 EACH UD MM PRN (15:53)
[2019-01-04] MEDS ORDERED: METHOCARBAMOL 500 MG TABLET PO PRN (15:53)
[2019-01-04] MEDS ORDERED: MAGNESIUM HYDROX 2400MG/30ML ORAL SUSPENSION 30 ML CUP PO PRN (15:53)
[2019-01-04] MEDS ORDERED: chlordiazePOXIDE HCL 10 MG CAPSULE PO PRN (15:53)
[2019-01-04] MEDS ORDERED: hydrOXYzine PAMOATE 25 MG CAPSULE (FP) PO PRN (15:53)
[2019-01-04] MEDS ORDERED: IBUPROFEN 400 MG TABLET (FP) PO PRN (15:53)
[2019-01-04] MEDS ORDERED: MAG HYDROX/AL HYDROX/SIMETH 30 ML UNIT-DOSE CUP PO PRN (15:53)
[2019-01-04] MEDS ORDERED: BISMUTH SUBSALICYLATE 524 MG/30 ML UD PO PRN (15:53)
[2019-01-04] MEDS ORDERED: NICOTINE POLACRILEX 2 MG GUM BUC PRN (15:53)
[2019-01-04] MEDS ORDERED: MAGNESIUM CITRATE 300 ML BOTTLE PO PRN (15:53)
[2019-01-04] MEDS ORDERED: ACETAMINOPHEN 325 MG TABLET (FP) PO PRN ×2 (15:53)
[2019-01-04] MEDS ORDERED: ALBUTEROL SO4 8 GM HFA INHALER IH PRN (16:01)
--- NOTE | 2019-01-04 16:31 | PN ---
Teaching Attending Note Name of Resident: Delfina Martinez ATTENDING PHYSICIAN STATEMENT I saw and evaluated the patient. I reviewed the resident's note and discussed the case with the resident. I agree with the resident's findings and plan as documented. SUBJECTIVE: 43 yo female pt here requesting detox from etoh use , reports 1 pint vodka daily , first age of use 18 , denies seizures, blackouts, rtremors. cocaine : via smoking daily 9 bags . cannabis - dialy tobacco : up to 1 ppd . PMHx DM, Asthma, Insomnia, Anxiety, Depression, PTSD, GERD, arthritis . OBJECTIVE: wnwd , NAD Vital Signs - 24 hr 01/04/19 01/04/19 14:39 15:03 Temperature 97.6 F 97.6 F Pulse Rate 82 82 Respiratory 16 16 Rate Blood Pressure 129/83 129/83 ASSESSMENT AND PLAN: AUD - Librium detox .
[2019-01-04] MEDS: metFORMIN HCL 500 MG TABLET (FP) PO SCH (17:45)
[2019-01-04] MEDS ORDERED: chlordiazePOXIDE HCL 25 MG CAPSULE PO ONE (18:00)
[2019-01-04] MEDS ORDERED: traZODone HCL 50 MG TABLET (FP) PO ONE (22:00)
[2019-01-04] MEDS: THIAMINE HCL 100 MG TABLET (FP) PO SCH (22:17)
[2019-01-04] MEDS: chlordiazePOXIDE HCL 25 MG CAPSULE PO SCH (22:17)
[2019-01-04] MEDS: MELATONIN 5 MG TABLETS PO PRN (22:19)
[2019-01-05] MEDS: chlordiazePOXIDE HCL 25 MG CAPSULE PO SCH ×3 (05:36→21:39)
[2019-01-05] MEDS: metFORMIN HCL 500 MG TABLET (FP) PO SCH ×2 (08:06→16:33)
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
--- NOTE | 2019-01-05 10:35 | PN ---
S CIWA - CIWA Score Nausea/Vomitin-Mild Nausea/No Vomiting Muscle Tremors: 3 Anxiety: 3 Agitation: 2 Paroxysmal Sweats: 2 Orientation: 0-Oriented Tacttile Disturbances: 1-Very Mild Itch/Numbness Auditory Disturbances: 0-None Visual Disturbances: 0-None Headache: 1-Very Mild CIWA-Ar Total Score: 13 BHS Progress Note (SOAP) Subjective: 43 years old female admitted on 01/04/19 for alcohol withdrawal sx management treated with libirum detox regimem feeling better ate breakfast ambulating on hallway social with peers in day room patient has long history of diabetes treated with metformin 500 mg po bidac continue bgm discontinue regular diet begin no concentrated sugar diet Objective: 01/05/19 10:42 Vital Signs Temperature 98.7 F 01/05/19 09:10 Pulse Rate 73 01/05/19 09:10 Respiratory Rate 18 01/05/19 09:10 Blood Pressure 131/89 01/05/19 09:10 O2 Sat by Pulse Oximetry (%) Laboratory Last Values POC Glucometer 76 UNITS (80-120) 01/05/19 05:38 01/05/19 10:43 lab see 10/21/18 report no new lab necessary Assessment: 01/05/19 10:43 alcohol withdrawal sx Plan: continue libirum detox regimen
[2019-01-05] MEDS: PRENATAL VITAMINS W/ FOLIC ACID TABLET (FP) PO SCH (10:37)
[2019-01-05] MEDS: GABAPENTIN 300 MG CAPSULE (FP) PO SCH ×2 (14:05→21:39)
[2019-01-05] MEDS: hydrOXYzine PAMOATE 25 MG CAPSULE (FP) PO PRN (17:35)
[2019-01-05] MEDS: THIAMINE HCL 100 MG TABLET (FP) PO SCH (21:39)
[2019-01-05] MEDS: MELATONIN 5 MG TABLETS PO PRN (21:40)
[2019-01-05] MEDS ORDERED: traZODone HCL 100 MG TABLET (FP) PO SCH (22:00)
[2019-01-06] MEDS: chlordiazePOXIDE 5 MG CAPSULE PO SCH ×2 (05:43→12:54)
[2019-01-06] MEDS: hydrOXYzine PAMOATE 25 MG CAPSULE (FP) PO PRN ×2 (05:44→12:54)
[2019-01-06] MEDS: GABAPENTIN 300 MG CAPSULE (FP) PO SCH ×2 (05:44→13:43)
[2019-01-06] MEDS: metFORMIN HCL 500 MG TABLET (FP) PO SCH ×2 (06:59→18:00)
[2019-01-06] MEDS: PRENATAL VITAMINS W/ FOLIC ACID TABLET (FP) PO SCH (10:05)
--- NOTE | 2019-01-06 13:05 | PN ---
S CIWA - CIWA Score Nausea/Vomitin Muscle Tremors: 1-None Visible, but [place] Anxiety: 1-Mildly Anxious Agitation: 1-Slight > Activity Paroxysmal Sweats: 2 Orientation: 0-Oriented Tacttile Disturbances: 2-Mild Itch/Numbness/Burn Auditory Disturbances: 0-None Visual Disturbances: 0-None Headache: 0-None Present CIWA-Ar Total Score: 10 BHS Progress Note (SOAP) Subjective: interrupted sleep, sweats, diarrhea, rt knee pain , wants sarath mimi with meals . Objective: 01/06/19 13:04 Vital Signs Temperature 99.7 F H 01/06/19 12:53 Pulse Rate 87 01/06/19 12:53 Respiratory Rate 18 01/06/19 12:53 Blood Pressure 128/90 01/06/19 12:53 O2 Sat by Pulse Oximetry (%) Laboratory Tests 01/04/19 01/05/19 01/05/19 16:10 05:38 16:28 POC Glucometer 148 76 148 01/06/19 05:46 POC Glucometer 116 pending labs pt 01/06/19 13:10 pt aox3 in nad lying in bed Assessment: 01/06/19 13:10 withdrawal sx's Plan: cont. detox increase fluids labs u/a motrin prn
[2019-01-06 17:14] VITALS: BP 116/77; PULSE 72; TEMP 98.8
[2019-01-07] MEDS ORDERED: chlordiazePOXIDE HCL 10 MG CAPSULE PO PRN
--- NOTE | 2019-01-07 01:23 | DS ---
[facility] Detox Discharge Summary Admission Date: 01/04/19 Discharge Date: 01/06/19 - History Present History: Alcohol Dependence, Cannabis Dependence, Cocaine Dependence Additional Comments: ADMITTED SEEKING ALCOHOL DETOX Pertinent Past History: Hx of DM, Asthma, Insomnia, Anxiety, Depression, PTSD, GERD, arthritis, - Physical Exam Results Vital Signs: Vital Signs Temperature 98.8 F 01/06/19 17:14 Pulse Rate 72 01/06/19 17:14 Respiratory Rate 16 01/06/19 17:14 Blood Pressure 116/77 01/06/19 17:14 O2 Sat by Pulse Oximetry (%) Pertinent Admission Physical Exam Findings: PATIENT ADMITTED W/ ALCOHOL [id number] SYMPTOMS AND UTOX + SACHIN/THC Laboratory Last Values POC Glucometer 141 UNITS (80-120) 01/06/19 16:21 - Treatment Hospital Course: Detox Protocol Followed (TOLERATED DETOX. DID NOT WAIT TO BEE SEEN BY PROVIDER BEFORE LEAVING) - Medication Discharge Medications: Ambulatory Orders Albuterol Sulfate Inhaler - [Ventolin HFA Inhaler -] 2 puff IH Q4H PRN #1 inhaler 08/04/17 hydrOXYzine PAMOATE [Vistaril -] 100 mg PO TID PRN #10 capsule 08/08/18 Gabapentin [Neurontin -] 300 mg PO TID 09/08/18 Metformin HCl [Glucophage] 500 mg PO BID #60 tablet 09/22/18 traZODone HCL [Desyrel -] 50 mg PO HS 01/04/19 - AMA Did Patient Leave Against Medical Advice: Yes
[2019-01-07] MEDS ORDERED: chlordiazePOXIDE HCL 10 MG CAPSULE PO SCH (05:00)
[2019-01-08] MEDS ORDERED: chlordiazePOXIDE HCL 10 MG CAPSULE PO ONE (05:00)
== END 2019-01-06 18:06 | disposition left against medical advice (07) | DRG 770 ==
LOC: YASAS 13:19 → Y3N 16:15
PROVIDERS: ADMIT Allergy & Immunology; ATTEND Allergy & Immunology
PROC: HZ2ZZZZ Detoxification Services for Substance Abuse Treatment (ICD-10-PCS; principal; 2019-01-04)
DX: F10.230 Alcohol dependence with withdrawal, uncomplicated (principal); F14.20 Cocaine dependence, uncomplicated; F12.20 Cannabis dependence, uncomplicated; F17.210 Nicotine dependence, cigarettes, uncomplicated; F19.280 Other psychoactive substance dependence with psychoactive substance-induced anxiety disorder; F19.282 Other psychoactive substance dependence with psychoactive substance-induced sleep disorder; F19.24 Other psychoactive substance dependence with psychoactive substance-induced mood disorder; F43.10 Post-traumatic stress disorder, unspecified; F32.9 Major depressive disorder, single episode, unspecified; G47.00 Insomnia, unspecified; E11.9 Type 2 diabetes mellitus without complications; Z79.84 Long term (current) use of oral hypoglycemic drugs; K21.9 Gastro-esophageal reflux disease without esophagitis; J45.909 Unspecified asthma, uncomplicated; M17.11 Unilateral primary osteoarthritis, right knee
CPT/HCPCS: 81025; 82962

== ENCOUNTER 2019-04-26 13:06 | Inpatient (IN) | payer OTHER ==
--- NOTE | 2019-04-26 13:44 | BHS.RME ---
Substance Use & Tx History - Substance Use History Alcohol Substance amount: 1 pint vodka Frequency of use: Daily Substance route: Oral Date of Last Use: 04/26/19 (12 noon) Cocaine (Crack) Substance amount: $80-90 Frequency of use: Less than 3 times per week Substance route: Smoking Date of Last Use: 04/25/19 Nicotine Substance amount: 5 ciggs Frequency of use: Daily Substance route: Smoking Date of Last Use: 04/26/19 - Last Treatment Date of last treatment: 02/05/19 Treatment type: Substance Use Disorder ([facility]) Where was last treatment: Detox Physical/Psych/Mental Status - Behavior General Behavior: Increased activity (restlessness, agitation) Eye Contact: Normal - Cooperativeness Cooperativeness: Cooperative - Thinking Thought Processes: Tight, Logical, Goal Directed Thought content: Future oriented - Physical Health Problems Is patient presently having any pain?: No Does patient presently have any injuries (include location): No Does patient currently have a fever: No Is patient : No CIWA Nausea/Vomitin-Mild Nausea/No Vomiting Muscle Tremors: 4-Moderate,w/Arms Extend Anxiety: 3 Agitation: 3 Paroxysmal Sweats: No Perspiration Orientation: 1-Uncertain about Date Tacttile Disturbances: 0-None Auditory Disturbances: 0-None Visual Disturbances: 0-None Headache: 0-None Present (not yet in full withdrawals because drank this afternoon) CIWA-Ar Total Score: 12
--- NOTE | 2019-04-26 14:36 | HP ---
CIWA Score Nausea/Vomitin-Mild Nausea/No Vomiting Muscle Tremors: 4-Moderate,w/Arms Extend Anxiety: 3 Agitation: 3 Paroxysmal Sweats: 1-Minimal Palms Moist Orientation: 1-Uncertain about Date Tacttile Disturbances: 1-Very Mild Itch/Numbness Auditory Disturbances: 0-None Visual Disturbances: 0-None Headache: 0-None Present (not yet in full withdrawals because drank this afternoon) CIWA-Ar Total Score: 14 - Admission Criteria OASAS Guidelines: Admission for Medically Managed Detox: Requires at least one of the followin. CIWA greater than 12 2. Seizures within the past 24 hours 3. Delirium tremens within the past 24 hours 4. Hallucinations within the past 24 hours 5. Acute intervention needed for co occurring medical disorder 6. Acute intervention needed for co occurring psychiatric disorder 7. Severe withdrawal that cannot be handled at a lower level of care (continued vomiting, continued diarrhea, abnormal vital signs) requiring intravenous medication and/or fluids 8. Admitting History and Physical - Admission Chief Complaint: i need help to stop drinking alcohol,cocaine,k2,heroin abused History of Present Illness: this 43 years old female with alcohol,cocaine,k2,dependence heroin abused,withdrawal symptom,need help to stop, multiple admissions in detox,last [facility] 01/05/19 to 01/06/19 nnot complete History Source: Patient Limitations to Obtaining History: No Limitations - Past Medical History Pulmonary: Yes: Asthma ...LMP: 04/26/19 ...: No Psych: Yes: Anxiety, Depression, Other (PTSD) Musculoskeletal: Yes: Osteoarthritis (R knee) - Past Surgical History Additional Past Surgical History: section surgery of right knee in 1997 - Smoking History Smoking history: Current every day smoker Have you smoked in the past 12 months: Yes Aproximately how many cigarettes per day: 10 If you are a former smoker, when did you quit?: t-7 - Alcohol/Substance Use Hx Alcohol Use: Yes History of Substance Use: reports: Cocaine - Social History Usual Living Arrangement: Yes: With Child Occupation: unemployed History of Recent Travel: No Admission ROS S - [facility] Chief Complaint: ii am here to sop drinking alcohol,cocaine,k2,heroinabused Allergies/Adverse Reactions: Allergies Allergy/AdvReac Type Severity Reaction Status Date / Time No Known Allergies Allergy Verified 04/26/19 14:58 History of Present Illness: this 43 years old female with alcohol,cocaine,ke dependence,heroin abued,seeking detox,withdrawal symptom, multiple admissions in detox,last [facility] 04/06/18 to not completed due to family emergency nicotine dependence\ptsd ,anxiety,depression history of section,right knee surgery longest sobriety 5 years plan for rehab after detox borderlined dm Exam Limitations: No Limitations - Ebola screening Have you traveled outside of the country in the last 21 days: No Have you had contact with anyone from an Ebola affected area: No Have you been sick,other than usual withdrawal symptoms: No Do you have a fever: No - Review of Systems Constitutional: Loss of Appetite, Malaise, Night Sweats, Changes in sleep, Weakness EENT: reports: Nose Congestion Respiratory: reports: No Symptoms reported Cardiac: reports: Palpitations GI: reports: Nausea, Poor Appetite, Poor Fluid Intake, Abdominal cramping : reports: No Symptoms Reported Musculoskeletal: reports: Back Pain, Muscle Pain Integumentary: reports: Dryness Neuro: reports: Tremors Endocrine: reports: No Symptoms Reported Hematology: reports: No Symptoms Reported Psychiatric: reports: No Sypmtoms Reported, Judgement Intact, Mood/Affect Appropiate, Orientated x3, Anxious, Depressed, other (ptsd) Patient History - Patient Medical History Hx Anemia: No Hx Asthma: Yes Hx Chronic Obstructive Pulmonary Disease (COPD): No Hx Cancer: No Hx Cardiac Disorders: No Hx Congestive Heart Failure: No Hx Hypertension: No Hx Hypercholesterolemia: No Hx Pacemaker: No HX Cerebrovascular Accident: No Hx Seizures: No Hx Dementia: No Hx Diabetes: Yes (brderlined dm) Hx Gastrointestinal Disorders: No Hx Liver Disease: No Hx Genitourinary Disorders: No Hx Sexually Transmitted Disorders: No Hx Renal Disease (ESRD): No Hx Thyroid Disease: No Hx Human Immunodeficiency Virus (HIV): No (02/26 last negative) Hx Hepatitis C: No Hx Depression: Yes (aniety) Hx Suicide Attempt: No Hx Bipolar Disorder: No Hx Schizophrenia: No Other Medical History: ptsd,no suicidal.nohomicidal - Patient Surgical History Past Surgical History: Yes Hx Neurologic Surgery: No Hx Cataract Extraction: No Hx Cardiac Surgery: No Hx Lung Surgery: No Hx Breast Surgery: No Hx Breast Biopsy: No Hx Abdominal Surgery: No Hx Appendectomy: No Hx Cholecystectomy: No Hx Genitourinary Surgery: No Hx Section: Yes (x 1 8years ago) Hx Orthopedic Surgery: Yes Other Surgical History: right knee surgery in 1997 Anesthesia Reaction: No - PPD History Previous Implant?: Yes Documented Results: Negative w/proof Implanted On Prior [facility] Admission?: Yes Date: 05/10/18 Results: 0mm PPD to be Administered?: No - Reproductive History Patient is a Female of Child Bearing Age (11 -55 yrs old): Yes Last Menstrual Period: 04/26/19 Patient : No - Smoking Cessation Smoking history: Current every day smoker Have you smoked in the past 12 months: Yes Aproximately how many cigarettes per day: 5 Cigars Per Day: 0 Hx Chewing Tobacco Use: No Initiated information on smoking cessation: Yes 'Breaking Loose' booklet given: 04/26/19 - Substance & Tx. History Hx Alcohol Use: Yes Hx Substance Use: Yes Substance Use Type: Alcohol, Cocaine, Heroin Hx Substance Use Treatment: Yes ([facility] 01/04/19 to 01/06/19 not completed) - Substances abused Alcohol Substance route: Oral Frequency: Daily Amount used: 4 pints of vodka/3 of 22 ozs of beer Age of first use: 18 Date of last use: 04/25/19 Crack Substance route: Smoking Frequency: Daily Amount used: 200$ Age of first use: 42 Date of last use: 04/25/19 K2/Spice Substance route: Smoking Frequency: 1-2 times per week Amount used: 2 blunts Age of first use: 43 Date of last use: 04/23/19 Heroin Substance route: Inhalation Frequency: 1-2 times per week Amount used: 1 bag Age of first use: 43 Date of last use: 04/24/19 Admission Physical Exam [facility] - Vital Signs Vital Signs: Vital Signs Temperature 98.3 F 04/26/19 15:07 Pulse Rate 101 H 04/26/19 15:07 Respiratory Rate 18 04/27/19 03:46 Blood Pressure 125/81 04/26/19 15:07 O2 Sat by Pulse Oximetry (%) 98 04/26/19 08:47 - Physical General Appearance: Yes: Moderate Distress, Tremorous, Irritable, Sweating, Anxious HEENTM: Yes: Normal ENT Inspection, KENDALL, Pharynx Normal Respiratory: Yes: Lungs Clear, Normal Breath Sounds, No Respiratory Distress Neck: Yes: Within Normal Limits, Supple, Trachea in good position Breast: Yes: Breast Exam Deferred Cardiology: Yes: Tachycardia Abdominal: Yes: Within Normal Limits, Normal Bowel Sounds, Non Tender, Soft Genitourinary: Yes: Within Normal Limits Back: Yes: Muscle Spasm Extremities: Yes: Tremors Neurological: Yes: hull molder II-XII NML intact, Fully Oriented, Alert, Motor Strength 5/5 Integumentary: Yes: Dry Lymphatic: Yes: Within Normal Limits - Diagnostic (1) Alcohol dependence with uncomplicated withdrawal Current Visit: No Status: Acute Comment: . (2) Cocaine dependence Current Visit: No Status: Acute Qualifiers: Substance use status: uncomplicated Qualified Code(s): F14.20 - Cocaine dependence, uncomplicated Comment: . (3) DM type 2 (diabetes mellitus, type 2) Current Visit: No Status: Chronic Qualifiers: Diabetes mellitus long goods drier insulin use: without long goods drier use Diabetes mellitus complication status: without complication Qualified Code(s): E11.9 - Type 2 diabetes mellitus without complications (4) History of asthma Current Visit: No Status: Chronic (5) Low back pain with sciatica Current Visit: No Status: Chronic Qualifiers: Chronicity: chronic Back pain laterality: unspecified Sciatica laterality: sciatica laterality unspecified Qualified Code(s): M54.40 - Lumbago with sciatica, unspecified side; G89.29 - Other chronic pain (6) PTSD (post-traumatic stress disorder) Current Visit: No Status: Chronic (7) Anxiety and depression Current Visit: Yes Status: Acute (8) Insomnia Current Visit: Yes Status: Acute [facility] Level of Care: Medically Managed Detox Regimen/Protocol: Valium Breathalyzer - Breathalyzer Breathalyzer: 0 Urine Drug Screen - Test Device Lot number: [id number] Expiration date: 10/08/20 - Control Is test valid?: Yes - Results Drug screen NEGATIVE: No Urine drug screen results: THC-Marijuana, SACHIN-Cocaine, FEN-Fentanyl, MOP-Opiates Inpatient Rehab Admission - Rehab Decision to Admit Inpatient rehab admission?: No
[2019-04-26] MEDS ORDERED: MAGNESIUM CITRATE 300 ML BOTTLE PO PRN (14:57)
[2019-04-26] MEDS ORDERED: IBUPROFEN 400 MG TABLET (FP) PO PRN (14:57)
[2019-04-26] MEDS ORDERED: diazePAM 5 MG TABLET PO PRN (14:57)
[2019-04-26] MEDS ORDERED: NICOTINE POLACRILEX 2 MG GUM BUC PRN (14:57)
[2019-04-26] MEDS ORDERED: ACETAMINOPHEN 325 MG TABLET (FP) PO PRN ×2 (14:57)
[2019-04-26] MEDS ORDERED: MAGNESIUM HYDROX 2400MG/30ML ORAL SUSPENSION 30 ML CUP PO PRN (14:57)
[2019-04-26] MEDS ORDERED: ONDANSETRON *ODT* 4 MG TABLET SL ONE (14:57)
[2019-04-26] MEDS ORDERED: MAG HYDROX/AL HYDROX/SIMETH 30 ML UNIT-DOSE CUP PO PRN (14:57)
[2019-04-26] MEDS ORDERED: diazePAM 5 MG TABLET PO ONE (14:57)
[2019-04-26] MEDS ORDERED: MENTHOL/PHENOL 1 EACH UD MM PRN (14:57)
[2019-04-26] MEDS ORDERED: chlordiazePOXIDE HCL 25 MG CAPSULE PO PRN (15:04)
[2019-04-26] MEDS ORDERED: ALBUTEROL SO4 0.083% IH SOL 2.5 MG/3 ML VIAL.NEB. NEB PRN (15:04)
[2019-04-26 15:08] VITALS: BMI 38.6
[2019-04-26] MEDS: METHOCARBAMOL 500 MG TABLET PO PRN (15:45)
[2019-04-26] MEDS: chlordiazePOXIDE HCL 25 MG CAPSULE PO SCH ×2 (17:45→22:24)
[2019-04-26 18:10] LABS: MCH 26.8 pg (25.7-33.7); MCHC 32.5 g/dl (32.0-36.0); MEAN CELL VOLUME 82.4 fl (80-96); MEAN PLT VOLUME 11.6 fl (7.5-11.1); PLATELET COUNT 176 K/MM3 (134-434); RBC 5.21 M/mm3 (3.60-5.2); RDW 14.6 % (11.6-15.6); WHITE BLOOD COUNT 7.8 K/mm3 (4.0-10.0)
[2019-04-26 18:21] LABS: ALBUMIN 3.3 g/dl (3.4-5.0); BILIRUBIN,TOTAL 0.2 mg/dL (0.2-1); BLOOD UREA NITROGEN 12.8 mg/dL (7-18); CALCIUM 8.4 mg/dL (8.5-10.1); CREATININE 0.9 mg/dL (0.55-1.3); POTASSIUM 3.5 mmol/L (3.5-5.1); TOT PROT 6.6 g/dl (6.4-8.2)
[2019-04-26] MEDS: hydrOXYzine PAMOATE 25 MG CAPSULE (FP) PO SCH ×2 (19:09→22:40)
[2019-04-26] MEDS ORDERED: MELATONIN 5 MG TABLETS PO SCH (22:00)
[2019-04-26] MEDS ORDERED: diazePAM 5 MG TABLET PO SCH (22:00)
[2019-04-26] MEDS: cloNIDine HCL 0.1 MG TABLET PO SCH (22:24)
[2019-04-26] MEDS: THIAMINE HCL 100 MG TABLET (FP) PO SCH (22:24)
[2019-04-27] MEDS: hydrOXYzine PAMOATE 25 MG CAPSULE (FP) PO SCH ×5 (06:50→23:21)
[2019-04-27] MEDS: chlordiazePOXIDE HCL 25 MG CAPSULE PO SCH ×4 (06:51→22:15)
[2019-04-27] MEDS: METHOCARBAMOL 500 MG TABLET PO PRN ×2 (06:54→13:56)
--- NOTE | 2019-04-27 08:13 | PN ---
[facility] Progress Note Note: addendum patient would like to be on librium regimen not valium
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
[2019-04-27] MEDS: PRENATAL VITAMINS W/ FOLIC ACID TABLET (FP) PO SCH (10:51)
[2019-04-27] MEDS: NICOTINE 7 MG/24 HOURS TOPICAL PATCH TD SCH (10:52)
[2019-04-27] MEDS: cloNIDine HCL 0.1 MG TABLET PO SCH ×2 (10:52→22:16)
--- NOTE | 2019-04-27 11:18 | PN ---
S CIWA - CIWA Score Nausea/Vomitin-Mild Nausea/No Vomiting Muscle Tremors: 3 Anxiety: 3 Agitation: 3 Paroxysmal Sweats: 3 Orientation: 0-Oriented Tacttile Disturbances: 0-None Auditory Disturbances: 0-None Visual Disturbances: 0-None Headache: 0-None Present CIWA-Ar Total Score: 13 S Progress Note (SOAP) Subjective: sweats body aches headache interrupted sleep shakes irritable anxiety right knee pain from my arthritis Objective: 04/27/19 11:16 Vital Signs Temperature 97.9 F 04/27/19 09:16 Pulse Rate 75 04/27/19 09:16 Respiratory Rate 16 04/27/19 09:16 Blood Pressure 147/76 04/27/19 09:16 O2 Sat by Pulse Oximetry (%) 98 04/27/19 09:16 Laboratory Tests 04/26/19 04/26/19 04/26/19 14:28 15:10 15:10 WBC 7.8 RBC 5.21 H Hgb 14.0 Hct 43.0 MCV 82.4 MCH 26.8 MCHC 32.5 RDW 14.6 Plt Count 176 MPV 11.6 H D Sodium 140 Potassium 3.5 Chloride 106 Carbon Dioxide 26 Anion Gap 7 L BUN 12.8 Creatinine 0.9 Est GFR (CKD-EPI)AfAm 90.76 Est GFR (CKD-EPI)NonAf 78.31 POC Glucometer Random Glucose 150 H Calcium 8.4 L Total Bilirubin 0.2 AST 18 ALT 26 Alkaline Phosphatase 86 Total Protein 6.6 Albumin 3.3 L POC Urine HCG, Qual Negative 04/26/19 16:52 WBC RBC Hgb Hct MCV MCH MCHC RDW Plt Count MPV Sodium Potassium Chloride Carbon Dioxide Anion Gap BUN Creatinine Est GFR (CKD-EPI)AfAm Est GFR (CKD-EPI)NonAf POC Glucometer 159 Random Glucose Calcium Total Bilirubin AST ALT Alkaline Phosphatase Total Protein Albumin POC Urine HCG, Qual labs noted aaox3 ambulating no acute distress Assessment: 04/27/19 11:17 withdrawals Plan: continue detox increase fluids analgesic balm motrin prn tylenol prn
[2019-04-27] MEDS: METHYL SALICYLATE/MENTHOL OINT 30 GM TUBE TP SCH ×2 (13:53→22:19)
[2019-04-27] MEDS: GABAPENTIN 300 MG CAPSULE PO SCH ×2 (13:56→22:17)
[2019-04-27 15:15] LABS: EPI CELLS 35 /uL (0-25.1); HYALINE CASTS 6 /uL (0-3.1); URINE APPEARANCE CLOUDY; URINE BACTERIA 855 /uL (0-1359); URINE BILIRUBIN NEGATIVE (NEGATIVE); URINE COLOR YELLOW; URINE GLUCOSE (UA) NEGATIVE (NEGATIVE); URINE KETONE NEGATIVE (NEGATIVE); URINE LEUK ESTERASE 2+ (NEGATIVE); URINE NITRITE NEGATIVE (NEGATIVE); URINE PROTEIN NEGATIVE (NEGATIVE); URINE UROBILINOGEN 0.2 mg/dL (0.2-1.0); URINE WBC 214 /uL (0-25.8)
[2019-04-27 15:39] LABS: URINE RBC 12.7 /uL (0-23.9)
[2019-04-27] MEDS: metFORMIN HCL 500 MG TABLET (FP) PO SCH (17:07)
[2019-04-27] MEDS ORDERED: traZODone HCL 50 MG TABLET (FP) PO SCH (22:00)
[2019-04-27] MEDS: THIAMINE HCL 100 MG TABLET (FP) PO SCH (22:15)
[2019-04-27] MEDS: traZODone HCL 100 MG TABLET (FP) PO SCH (22:16)
[2019-04-27] MEDS: MELATONIN 5 MG TABLETS PO SCH (22:17)
[2019-04-27] MEDS ORDERED: ALBUTEROL SO4 HFA INHALER IH PRN (23:35)
[2019-04-28] MEDS ORDERED: diazePAM 5 MG TABLET PO SCH (06:00)
[2019-04-28] MEDS: hydrOXYzine PAMOATE 25 MG CAPSULE (FP) PO SCH ×5 (06:01→22:07)
[2019-04-28] MEDS: GABAPENTIN 300 MG CAPSULE PO SCH ×3 (06:01→22:06)
[2019-04-28] MEDS: chlordiazePOXIDE HCL 25 MG CAPSULE PO SCH ×4 (06:02→22:08)
[2019-04-28] MEDS: metFORMIN HCL 500 MG TABLET (FP) PO SCH ×2 (06:02→17:03)
[2019-04-28] MEDS: PRENATAL VITAMINS W/ FOLIC ACID TABLET (FP) PO SCH (10:35)
[2019-04-28] MEDS: cloNIDine HCL 0.1 MG TABLET PO SCH ×2 (10:36→22:07)
[2019-04-28] MEDS: NICOTINE 7 MG/24 HOURS TOPICAL PATCH TD SCH (10:45)
[2019-04-28] MEDS: METHYL SALICYLATE/MENTHOL OINT 30 GM TUBE TP SCH ×2 (13:11→22:07)
--- NOTE | 2019-04-28 15:33 | PN ---
S CIWA - CIWA Score Nausea/Vomitin-Mild Nausea/No Vomiting Muscle Tremors: 1-None Visible, but [place] Anxiety: 1-Mildly Anxious Agitation: 1-Slight > Activity Paroxysmal Sweats: No Perspiration Orientation: 0-Oriented Tacttile Disturbances: 1-Very Mild Itch/Numbness Auditory Disturbances: 0-None Visual Disturbances: 0-None Headache: 1-Very Mild CIWA-Ar Total Score: 6 [facility] Progress Note (SOAP) Subjective: alert,irritable,anxious,interrupted sleep,pain in the body Objective: 04/28/19 15:32 Vital Signs Temperature 98.2 F 04/28/19 15:08 Pulse Rate 79 04/28/19 15:08 Respiratory Rate 19 04/28/19 15:08 Blood Pressure 126/68 04/28/19 15:08 O2 Sat by Pulse Oximetry (%) 99 04/28/19 15:08 04/28/19 15:32 Laboratory Last Values WBC 7.8 K/mm3 (4.0-10.0) 04/26/19 15:10 RBC 5.21 M/mm3 (3.60-5.2) H 04/26/19 15:10 Hgb 14.0 GM/dL (10.7-15.3) 04/26/19 15:10 Hct 43.0 % (32.4-45.2) 04/26/19 15:10 MCV 82.4 fl (80-96) 04/26/19 15:10 MCH 26.8 pg (25.7-33.7) 04/26/19 15:10 MCHC 32.5 g/dl (32.0-36.0) 04/26/19 15:10 RDW 14.6 % (11.6-15.6) 04/26/19 15:10 Plt Count 176 K/MM3 (134-434) 04/26/19 15:10 MPV 11.6 fl (7.5-11.1) H D 04/26/19 15:10 Sodium 140 mmol/L (136-145) 04/26/19 15:10 Potassium 3.5 mmol/L (3.5-5.1) 04/26/19 15:10 Chloride 106 mmol/L (98-107) 04/26/19 15:10 Carbon Dioxide 26 mmol/L (21-32) 04/26/19 15:10 Anion Gap 7 MMOL/L (8-16) L 04/26/19 15:10 BUN 12.8 mg/dL (7-18) 04/26/19 15:10 Creatinine 0.9 mg/dL (0.55-1.3) 04/26/19 15:10 Est GFR (CKD-EPI)AfAm 90.76 04/26/19 15:10 Est GFR (CKD-EPI)NonAf 78.31 04/26/19 15:10 POC Glucometer 112 UNITS (80-120) 04/28/19 05:33 Random Glucose 150 mg/dL (74-106) H 04/26/19 15:10 Calcium 8.4 mg/dL (8.5-10.1) L 04/26/19 15:10 Total Bilirubin 0.2 mg/dL (0.2-1) 04/26/19 15:10 AST 18 U/L (15-37) 04/26/19 15:10 ALT 26 U/L (13-61) 04/26/19 15:10 Alkaline Phosphatase 86 U/L (45-117) 04/26/19 15:10 Total Protein 6.6 g/dl (6.4-8.2) 04/26/19 15:10 Albumin 3.3 g/dl (3.4-5.0) L 04/26/19 15:10 Urine Color Yellow 04/27/19 11:30 Urine Appearance Cloudy 04/27/19 11:30 Urine pH 5.0 (5.0-8.0) 04/27/19 11:30 Ur Specific [place] 1.022 (1.010-1.035) 04/27/19 11:30 Urine Protein Negative (NEGATIVE) 04/27/19 11:30 Urine Glucose (UA) Negative (NEGATIVE) 04/27/19 11:30 Urine Ketones Negative (NEGATIVE) 04/27/19 11:30 Urine Blood 3+ (NEGATIVE) H 04/27/19 11:30 Urine Nitrite Negative (NEGATIVE) 04/27/19 11:30 Urine Bilirubin Negative (NEGATIVE) 04/27/19 11:30 Urine Urobilinogen 0.2 mg/dL (0.2-1.0) 04/27/19 11:30 Ur Leukocyte Esterase 2+ (NEGATIVE) H 04/27/19 11:30 Urine WBC (Auto) 214 /uL (0-25.8) 04/27/19 11:30 Urine RBC (Auto) 12.7 /uL (0-23.9) 04/27/19 11:30 Urine Casts (Auto) 6 /uL (0-3.1) 04/27/19 11:30 U Epithel Cells (Auto) 35 /uL (0-25.1) 04/27/19 11:30 Urine Bacteria (Auto) 855 /uL (0-1359) 04/27/19 11:30 POC Urine HCG, Qual Negative 04/26/19 14:28 RPR Titer Nonreactive (NONREACTIVE) 04/26/19 15:10 patinet is mentruating Assessment: 04/28/19 15:32 withdrawal symptom Plan: continue detox librium regimen
[2019-04-28] MEDS: traZODone HCL 100 MG TABLET (FP) PO SCH (22:06)
[2019-04-28] MEDS: THIAMINE HCL 100 MG TABLET (FP) PO SCH (22:06)
[2019-04-28] MEDS: MELATONIN 5 MG TABLETS PO SCH (22:09)
[2019-04-28] MEDS ORDERED: hydrOXYzine PAMOATE 25 MG CAPSULE (FP) PO ONE (23:22)
[2019-04-29] MEDS ORDERED: chlordiazePOXIDE HCL 10 MG CAPSULE PO PRN
[2019-04-29] MEDS: METHOCARBAMOL 500 MG TABLET PO PRN ×3 (05:04→19:33)
[2019-04-29] MEDS ORDERED: diazePAM 5 MG TABLET PO ONE (06:00)
[2019-04-29] MEDS: GABAPENTIN 300 MG CAPSULE PO SCH ×3 (06:01→22:15)
[2019-04-29] MEDS: hydrOXYzine PAMOATE 25 MG CAPSULE (FP) PO SCH ×5 (06:01→22:15)
[2019-04-29] MEDS: chlordiazePOXIDE HCL 10 MG CAPSULE PO SCH ×4 (06:01→22:15)
[2019-04-29] MEDS: metFORMIN HCL 500 MG TABLET (FP) PO SCH ×2 (07:33→17:50)
[2019-04-29] MEDS: PRENATAL VITAMINS W/ FOLIC ACID TABLET (FP) PO SCH (10:21)
[2019-04-29] MEDS: cloNIDine HCL 0.1 MG TABLET PO SCH ×2 (10:21→22:17)
[2019-04-29] MEDS: METHYL SALICYLATE/MENTHOL OINT 30 GM TUBE TP SCH ×2 (10:22→22:16)
[2019-04-29] MEDS: NICOTINE 7 MG/24 HOURS TOPICAL PATCH TD SCH (10:22)
[2019-04-29] MEDS: LIDOCAINE 5% TOPICAL PATCH TP SCH (12:31)
--- NOTE | 2019-04-29 17:01 | PN ---
S CIWA - CIWA Score Nausea/Vomitin-No Nausea/No Vomiting Muscle Tremors: None Anxiety: 4-Mod. Anxious/Guarded Agitation: 4-Moderately Restless Paroxysmal Sweats: 2 Orientation: 2-Disoriented Date<2 days Tacttile Disturbances: 0-None Auditory Disturbances: 0-None Visual Disturbances: 0-None Headache: 0-None Present CIWA-Ar Total Score: 12 [facility] Progress Note (SOAP) Subjective: Anxious, Restless, Sweating, Body Aches. Objective: PATIENT A & O X 2 (UNCERTAIN ABOUT CURRENT DAY/ DATE). PATIENT OBSERVED AMBULATING ON DETOX UNIT UNASSISTED. IN NO ACUTE DISTRESS. 04/29/19 16:58 Vital Signs Temperature 97.9 F 04/29/19 13:03 Pulse Rate 86 04/29/19 13:03 Respiratory Rate 18 04/29/19 13:03 Blood Pressure 130/73 04/29/19 13:03 O2 Sat by Pulse Oximetry (%) 100 04/29/19 13:03 Laboratory Tests 04/26/19 04/26/19 04/26/19 14:28 15:10 15:10 WBC 7.8 RBC 5.21 H Hgb 14.0 Hct 43.0 MCV 82.4 MCH 26.8 MCHC 32.5 RDW 14.6 Plt Count 176 MPV 11.6 H D Sodium 140 Potassium 3.5 Chloride 106 Carbon Dioxide 26 Anion Gap 7 L BUN 12.8 Creatinine 0.9 Est GFR (CKD-EPI)AfAm 90.76 Est GFR (CKD-EPI)NonAf 78.31 POC Glucometer Random Glucose 150 H Calcium 8.4 L Total Bilirubin 0.2 AST 18 ALT 26 Alkaline Phosphatase 86 Total Protein 6.6 Albumin 3.3 L Urine Color Urine Appearance Urine pH Ur Specific [place] Urine Protein Urine Glucose (UA) Urine Ketones Urine Blood Urine Nitrite Urine Bilirubin Urine Urobilinogen Ur Leukocyte Esterase Urine WBC (Auto) Urine RBC (Auto) Urine Casts (Auto) U Epithel Cells (Auto) Urine Bacteria (Auto) POC Urine HCG, Qual Negative RPR Titer 04/26/19 04/26/19 04/27/19 15:10 16:52 11:30 WBC RBC Hgb Hct MCV MCH MCHC RDW Plt Count MPV Sodium Potassium Chloride Carbon Dioxide Anion Gap BUN Creatinine Est GFR (CKD-EPI)AfAm Est GFR (CKD-EPI)NonAf POC Glucometer 159 Random Glucose Calcium Total Bilirubin AST ALT Alkaline Phosphatase Total Protein Albumin Urine Color Yellow Urine Appearance Cloudy Urine pH 5.0 Ur Specific [place] 1.022 Urine Protein Negative Urine Glucose (UA) Negative Urine Ketones Negative Urine Blood 3+ H Urine Nitrite Negative Urine Bilirubin Negative Urine Urobilinogen 0.2 Ur Leukocyte Esterase 2+ H Urine WBC (Auto) 214 Urine RBC (Auto) 12.7 Urine Casts (Auto) 6 U Epithel Cells (Auto) 35 Urine Bacteria (Auto) 855 POC Urine HCG, Qual RPR Titer Nonreactive 04/27/19 04/28/19 04/28/19 16:59 05:33 16:54 WBC RBC Hgb Hct MCV MCH MCHC RDW Plt Count MPV Sodium Potassium Chloride Carbon Dioxide Anion Gap BUN Creatinine Est GFR (CKD-EPI)AfAm Est GFR (CKD-EPI)NonAf POC Glucometer 134 112 120 Random Glucose Calcium Total Bilirubin AST ALT Alkaline Phosphatase Total Protein Albumin Urine Color Urine Appearance Urine pH Ur Specific [place] Urine Protein Urine Glucose (UA) Urine Ketones Urine Blood Urine Nitrite Urine Bilirubin Urine Urobilinogen Ur Leukocyte Esterase Urine WBC (Auto) Urine RBC (Auto) Urine Casts (Auto) U Epithel Cells (Auto) Urine Bacteria (Auto) POC Urine HCG, Qual RPR Titer 04/29/19 04/29/19 06:03 16:42 WBC RBC Hgb Hct MCV MCH MCHC RDW Plt Count MPV Sodium Potassium Chloride Carbon Dioxide Anion Gap BUN Creatinine Est GFR (CKD-EPI)AfAm Est GFR (CKD-EPI)NonAf POC Glucometer 100 153 Random Glucose Calcium Total Bilirubin AST ALT Alkaline Phosphatase Total Protein Albumin Urine Color Urine Appearance Urine pH Ur Specific [place] Urine Protein Urine Glucose (UA) Urine Ketones Urine Blood Urine Nitrite Urine Bilirubin Urine Urobilinogen Ur Leukocyte Esterase Urine WBC (Auto) Urine RBC (Auto) Urine Casts (Auto) U Epithel Cells (Auto) Urine Bacteria (Auto) POC Urine HCG, Qual RPR Titer LABS NOTED. PATIENT DENIES ANY UNUSUAL URINARY COMPLAINTS (BURNING, PAIN, FREQUENCY, URGENCY, HESITANCY, VISUALIZATION OF BLOOD IN URINE). 04/29/19 16:59 Assessment: 04/29/19 16:58 WITHDRAWAL SYMPTOMS. HEMATURIA. Plan: CONTINUE DETOX. INCREASE DAILY ORAL WATER INTAKE. REPEAT UA ORDERED FOR RE-EVAL. OF URINALYSIS ABNORMALITIES NOTED ON DETOX ADMISSION LABORATORY ASSESSMENT.
[2019-04-29] MEDS: THIAMINE HCL 100 MG TABLET (FP) PO SCH (22:15)
[2019-04-29] MEDS: traZODone HCL 100 MG TABLET (FP) PO SCH (22:15)
[2019-04-29] MEDS: MELATONIN 5 MG TABLETS PO SCH (22:16)
[2019-04-29] MEDS: BISMUTH SUBSALICYLATE 262 MG/15 ML BTL PO PRN (22:19)
[2019-04-29] MEDS: LIDOCAINE PATCH REMOVAL MC SCH (23:57)
[2019-04-30] MEDS: GABAPENTIN 300 MG CAPSULE PO SCH ×3 (05:22→22:39)
[2019-04-30] MEDS: hydrOXYzine PAMOATE 25 MG CAPSULE (FP) PO SCH ×5 (05:22→22:40)
[2019-04-30] MEDS: chlordiazePOXIDE HCL 10 MG CAPSULE PO SCH ×2 (05:22→17:52)
[2019-04-30] MEDS: metFORMIN HCL 500 MG TABLET (FP) PO SCH ×2 (07:10→17:51)
[2019-04-30] MEDS: LIDOCAINE 5% TOPICAL PATCH TP SCH (09:15)
[2019-04-30] MEDS: NICOTINE 7 MG/24 HOURS TOPICAL PATCH TD SCH (09:15)
[2019-04-30 10:10] LABS: EPI CELLS >36 /uL (0-25.1); HYALINE CASTS 3 /uL (0-3.1); URINE APPEARANCE CLOUDY; URINE BACTERIA 2678 /uL (0-1359); URINE BILIRUBIN NEGATIVE (NEGATIVE); URINE COLOR YELLOW; URINE GLUCOSE (UA) NEGATIVE (NEGATIVE); URINE KETONE NEGATIVE (NEGATIVE); URINE LEUK ESTERASE 2+ (NEGATIVE); URINE NITRITE NEGATIVE (NEGATIVE); URINE PROTEIN NEGATIVE (NEGATIVE); URINE RBC 6 /uL (0-23.9); URINE UROBILINOGEN 0.2 mg/dL (0.2-1.0); URINE WBC 250 /uL (0-25.8)
[2019-04-30] MEDS: METHYL SALICYLATE/MENTHOL OINT 30 GM TUBE TP SCH ×2 (10:25→22:41)
[2019-04-30] MEDS: PRENATAL VITAMINS W/ FOLIC ACID TABLET (FP) PO SCH (10:25)
[2019-04-30] MEDS: cloNIDine HCL 0.1 MG TABLET PO SCH ×2 (10:25→22:39)
--- NOTE | 2019-04-30 12:21 | PN ---
[facility] CIWA - CIWA Score Nausea/Vomitin-No Nausea/No Vomiting Muscle Tremors: None Anxiety: 2 Agitation: 0-Normal Activity Paroxysmal Sweats: 2 Orientation: 0-Oriented Tacttile Disturbances: 0-None Auditory Disturbances: 0-None Visual Disturbances: 0-None Headache: 0-None Present CIWA-Ar Total Score: 4 BHS Progress Note (SOAP) Subjective: c/o mild withdrawal symptoms. Objective: 04/30/19 12:20 Vital Signs 04/30/19 04/30/19 05:16 09:19 Temperature 97.7 F 97.9 F Pulse Rate 71 100 H Respiratory 20 20 Rate Blood Pressure 117/69 115/77 O2 Sat by Pulse 100 Oximetry (%) Laboratory Last Values WBC 7.8 K/mm3 (4.0-10.0) 04/26/19 15:10 RBC 5.21 M/mm3 (3.60-5.2) H 04/26/19 15:10 Hgb 14.0 GM/dL (10.7-15.3) 04/26/19 15:10 Hct 43.0 % (32.4-45.2) 04/26/19 15:10 MCV 82.4 fl (80-96) 04/26/19 15:10 MCH 26.8 pg (25.7-33.7) 04/26/19 15:10 MCHC 32.5 g/dl (32.0-36.0) 04/26/19 15:10 RDW 14.6 % (11.6-15.6) 04/26/19 15:10 Plt Count 176 K/MM3 (134-434) 04/26/19 15:10 MPV 11.6 fl (7.5-11.1) H D 04/26/19 15:10 Sodium 140 mmol/L (136-145) 04/26/19 15:10 Potassium 3.5 mmol/L (3.5-5.1) 04/26/19 15:10 Chloride 106 mmol/L (98-107) 04/26/19 15:10 Carbon Dioxide 26 mmol/L (21-32) 04/26/19 15:10 Anion Gap 7 MMOL/L (8-16) L 04/26/19 15:10 BUN 12.8 mg/dL (7-18) 04/26/19 15:10 Creatinine 0.9 mg/dL (0.55-1.3) 04/26/19 15:10 Est GFR (CKD-EPI)AfAm 90.76 04/26/19 15:10 Est GFR (CKD-EPI)NonAf 78.31 04/26/19 15:10 POC Glucometer 122 UNITS (80-120) 04/30/19 05:21 Random Glucose 150 mg/dL (74-106) H 04/26/19 15:10 Calcium 8.4 mg/dL (8.5-10.1) L 04/26/19 15:10 Total Bilirubin 0.2 mg/dL (0.2-1) 04/26/19 15:10 AST 18 U/L (15-37) 04/26/19 15:10 ALT 26 U/L (13-61) 04/26/19 15:10 Alkaline Phosphatase 86 U/L (45-117) 04/26/19 15:10 Total Protein 6.6 g/dl (6.4-8.2) 04/26/19 15:10 Albumin 3.3 g/dl (3.4-5.0) L 04/26/19 15:10 Urine Color Yellow 04/29/19 09:00 Urine Appearance Cloudy 04/29/19 09:00 Urine pH 7.0 (5.0-8.0) D 04/29/19 09:00 Ur Specific [place] 1.012 (1.010-1.035) 04/29/19 09:00 Urine Protein Negative (NEGATIVE) 04/29/19 09:00 Urine Glucose (UA) Negative (NEGATIVE) 04/29/19 09:00 Urine Ketones Negative (NEGATIVE) 04/29/19 09:00 Urine Blood Negative (NEGATIVE) 04/29/19 09:00 Urine Nitrite Negative (NEGATIVE) 04/29/19 09:00 Urine Bilirubin Negative (NEGATIVE) 04/29/19 09:00 Urine Urobilinogen 0.2 mg/dL (0.2-1.0) 04/29/19 09:00 Ur Leukocyte Esterase 2+ (NEGATIVE) H 04/29/19 09:00 Urine WBC (Auto) 250 /uL (0-25.8) 04/29/19 09:00 Urine RBC (Auto) 6 /uL (0-23.9) 04/29/19 09:00 Urine Casts (Auto) 3 /uL (0-3.1) 04/29/19 09:00 U Epithel Cells (Auto) >36 /uL (0-25.1) 04/29/19 09:00 Urine Bacteria (Auto) 2678 /uL (0-1359) 04/29/19 09:00 POC Urine HCG, Qual Negative 04/26/19 14:28 RPR Titer Nonreactive (NONREACTIVE) 04/26/19 15:10 Labs noted. Assessment: 04/30/19 12:20 AOX3, in no acute respiratory distress. Full ROM, ambulating in the unit. Mild Withdrawal symptoms. For d/c tomorrow. Plan: continue detox. D/C in AM.
[2019-04-30] MEDS: BISMUTH SUBSALICYLATE 262 MG/15 ML BTL PO PRN (17:55)
[2019-04-30] MEDS: THIAMINE HCL 100 MG TABLET (FP) PO SCH (22:39)
[2019-04-30] MEDS: traZODone HCL 100 MG TABLET (FP) PO SCH (22:39)
[2019-04-30] MEDS: MELATONIN 5 MG TABLETS PO SCH (22:40)
[2019-04-30] MEDS: LIDOCAINE PATCH REMOVAL MC SCH (22:41)
[2019-05-01] MEDS ORDERED: chlordiazePOXIDE HCL 10 MG CAPSULE PO ONE (05:00)
[2019-05-01] MEDS: hydrOXYzine PAMOATE 25 MG CAPSULE (FP) PO SCH ×2 (05:30→09:40)
[2019-05-01] MEDS: GABAPENTIN 300 MG CAPSULE PO SCH (05:30)
[2019-05-01] MEDS: METHOCARBAMOL 500 MG TABLET PO PRN (06:04)
[2019-05-01] MEDS: metFORMIN HCL 500 MG TABLET (FP) PO SCH (06:05)
[2019-05-01 06:13] VITALS: BP 115/69; PULSE 92; TEMP 97.7
--- NOTE | 2019-05-01 08:58 | DS ---
[facility] Detox Discharge Summary Admission Date: 04/26/19 Discharge Date: 05/01/19 - History Present History: Alcohol Dependence, Cannabis Dependence, Cocaine Dependence - Physical Exam Results Vital Signs: Vital Signs Temperature 97.7 F 05/01/19 06:12 Pulse Rate 92 H 05/01/19 06:12 Respiratory Rate 18 05/01/19 06:12 Blood Pressure 115/69 05/01/19 06:12 O2 Sat by Pulse Oximetry (%) 99 05/01/19 06:12 Pertinent Admission Physical Exam Findings: Vital Signs Temperature 97.7 F 05/01/19 06:12 Pulse Rate 92 H 05/01/19 06:12 Respiratory Rate 18 05/01/19 06:12 Blood Pressure 115/69 05/01/19 06:12 O2 Sat by Pulse Oximetry (%) 99 05/01/19 06:12 Laboratory Tests 04/26/19 04/26/19 04/26/19 14:28 15:10 15:10 WBC 7.8 RBC 5.21 H Hgb 14.0 Hct 43.0 MCV 82.4 MCH 26.8 MCHC 32.5 RDW 14.6 Plt Count 176 MPV 11.6 H D Sodium 140 Potassium 3.5 Chloride 106 Carbon Dioxide 26 Anion Gap 7 L BUN 12.8 Creatinine 0.9 Est GFR (CKD-EPI)AfAm 90.76 Est GFR (CKD-EPI)NonAf 78.31 POC Glucometer Random Glucose 150 H Calcium 8.4 L Total Bilirubin 0.2 AST 18 ALT 26 Alkaline Phosphatase 86 Total Protein 6.6 Albumin 3.3 L Urine Color Urine Appearance Urine pH Ur Specific [place] Urine Protein Urine Glucose (UA) Urine Ketones Urine Blood Urine Nitrite Urine Bilirubin Urine Urobilinogen Ur Leukocyte Esterase Urine WBC (Auto) Urine RBC (Auto) Urine Casts (Auto) U Epithel Cells (Auto) Urine Bacteria (Auto) POC Urine HCG, Qual Negative RPR Titer 04/26/19 04/26/19 04/27/19 15:10 16:52 11:30 WBC RBC Hgb Hct MCV MCH MCHC RDW Plt Count MPV Sodium Potassium Chloride Carbon Dioxide Anion Gap BUN Creatinine Est GFR (CKD-EPI)AfAm Est GFR (CKD-EPI)NonAf POC Glucometer 159 Random Glucose Calcium Total Bilirubin AST ALT Alkaline Phosphatase Total Protein Albumin Urine Color Yellow Urine Appearance Cloudy Urine pH 5.0 Ur Specific [place] 1.022 Urine Protein Negative Urine Glucose (UA) Negative Urine Ketones Negative Urine Blood 3+ H Urine Nitrite Negative Urine Bilirubin Negative Urine Urobilinogen 0.2 Ur Leukocyte Esterase 2+ H Urine WBC (Auto) 214 Urine RBC (Auto) 12.7 Urine Casts (Auto) 6 U Epithel Cells (Auto) 35 Urine Bacteria (Auto) 855 POC Urine HCG, Qual RPR Titer Nonreactive 04/27/19 04/28/19 04/28/19 16:59 05:33 16:54 WBC RBC Hgb Hct MCV MCH MCHC RDW Plt Count MPV Sodium Potassium Chloride Carbon Dioxide Anion Gap BUN Creatinine Est GFR (CKD-EPI)AfAm Est GFR (CKD-EPI)NonAf POC Glucometer 134 112 120 Random Glucose Calcium Total Bilirubin AST ALT Alkaline Phosphatase Total Protein Albumin Urine Color Urine Appearance Urine pH Ur Specific [place] Urine Protein Urine Glucose (UA) Urine Ketones Urine Blood Urine Nitrite Urine Bilirubin Urine Urobilinogen Ur Leukocyte Esterase Urine WBC (Auto) Urine RBC (Auto) Urine Casts (Auto) U Epithel Cells (Auto) Urine Bacteria (Auto) POC Urine HCG, Qual RPR Titer 04/29/19 04/29/19 04/29/19 06:03 09:00 16:42 WBC RBC Hgb Hct MCV MCH MCHC RDW Plt Count MPV Sodium Potassium Chloride Carbon Dioxide Anion Gap BUN Creatinine Est GFR (CKD-EPI)AfAm Est GFR (CKD-EPI)NonAf POC Glucometer 100 153 Random Glucose Calcium Total Bilirubin AST ALT Alkaline Phosphatase Total Protein Albumin Urine Color Yellow Urine Appearance Cloudy Urine pH 7.0 D Ur Specific [place] 1.012 Urine Protein Negative Urine Glucose (UA) Negative Urine Ketones Negative Urine Blood Negative Urine Nitrite Negative Urine Bilirubin Negative Urine Urobilinogen 0.2 Ur Leukocyte Esterase 2+ H Urine WBC (Auto) 250 Urine RBC (Auto) 6 Urine Casts (Auto) 3 U Epithel Cells (Auto) >36 Urine Bacteria (Auto) 2678 POC Urine HCG, Qual RPR Titer 04/30/19 04/30/19 05/01/19 05:21 16:42 05:28 WBC RBC Hgb Hct MCV MCH MCHC RDW Plt Count MPV Sodium Potassium Chloride Carbon Dioxide Anion Gap BUN Creatinine Est GFR (CKD-EPI)AfAm Est GFR (CKD-EPI)NonAf POC Glucometer 122 117 115 Random Glucose Calcium Total Bilirubin AST ALT Alkaline Phosphatase Total Protein Albumin Urine Color Urine Appearance Urine pH Ur Specific [place] Urine Protein Urine Glucose (UA) Urine Ketones Urine Blood Urine Nitrite Urine Bilirubin Urine Urobilinogen Ur Leukocyte Esterase Urine WBC (Auto) Urine RBC (Auto) Urine Casts (Auto) U Epithel Cells (Auto) Urine Bacteria (Auto) POC Urine HCG, Qual RPR Titer aaox3 ambulating no acute distress lungs CTA - Treatment Hospital Course: Detox Protocol Followed, Detoxed Safely, Responded well, Discharged Condition Good, Rehab Referral Accepted - Medication Discharge Medications: Ambulatory Orders Albuterol Sulfate Inhaler - [Ventolin HFA Inhaler -] 2 puff IH Q4H PRN #1 inhaler 08/04/17 hydrOXYzine PAMOATE [Vistaril -] 100 mg PO TID PRN #10 capsule 08/08/18 Gabapentin [Neurontin -] 300 mg PO TID 09/08/18 traZODone HCL [Desyrel -] 50 mg PO HS 01/04/19 cloNIDine HCL [Catapres -] 0.1 mg PO BID #14 tablet 04/28/19 metFORMIN HCL [Glucophage -] 500 mg PO BIDAC #60 tablet 04/28/19 - Diagnosis (1) Alcohol dependence with uncomplicated withdrawal Current Visit: Yes Status: Chronic (2) Anxiety and depression Current Visit: Yes Status: Acute (3) Insomnia Current Visit: Yes Status: Acute (4) Substance-induced anxiety disorder Current Visit: Yes Status: Acute (5) Substance-induced sleep disorder Current Visit: Yes Status: Acute (6) Cannabis dependence Current Visit: Yes Status: Chronic (7) Cocaine dependence Current Visit: Yes Status: Chronic Qualifiers: Substance use status: uncomplicated Qualified Code(s): F14.20 - Cocaine dependence, uncomplicated (8) Depressive disorder Current Visit: Yes Status: Chronic (9) Substance induced mood disorder Current Visit: Yes Status: Chronic (10) Substance-induced sleep disorder Current Visit: No Status: Acute (11) Anxiety Current Visit: No Status: Chronic (12) Asthma Current Visit: Yes Status: Chronic Qualifiers: Asthma severity: mild Asthma persistence: intermittent Asthma complication type: with status asthmaticus Qualified Code(s): J45.22 - Mild intermittent asthma with status asthmaticus (13) Cannabis dependence Current Visit: Yes Status: Chronic (14) Cocaine dependence, uncomplicated Current Visit: No Status: Chronic (15) DM type 2 (diabetes mellitus, type 2) Current Visit: No Status: Chronic Qualifiers: Diabetes mellitus manager intermediate insulin use: without manager intermediate use Diabetes mellitus complication status: without complication Qualified Code(s): E11.9 - Type 2 diabetes mellitus without complications (16) GERD (gastroesophageal reflux disease) Current Visit: No Status: Chronic Qualifiers: Esophagitis presence: without esophagitis Qualified Code(s): K21.9 - Gastro-esophageal reflux disease without esophagitis (17) History of asthma Current Visit: No Status: Chronic (18) Insomnia Current Visit: No Status: Chronic Qualifiers: Insomnia type: unspecified Qualified Code(s): G47.00 - Insomnia, unspecified (19) Low back pain with sciatica Current Visit: No Status: Chronic Qualifiers: Chronicity: chronic Back pain laterality: unspecified Sciatica lateral ity: sciatica laterality unspecified Qualified Code(s): M54.40 - Lumbago with sciatica, unspecified side; G89.29 - Other chronic pain (20) MDD (major depressive disorder) Current Visit: No Status: Chronic (21) MDD (major depressive disorder) Current Visit: No Status: Chronic (22) Nicotine dependence Current Visit: No Status: Chronic Qualifiers: Nicotine product type: cigarettes Substance use status: uncomplicated Qualified Code(s): F17.210 - Nicotine dependence, cigarettes, uncomplicated (23) Nicotine dependence Current Visit: Yes Status: Chronic Qualifiers: Nicotine product type: cigarettes Substance use status: uncomplicated Qualified Code(s): F17.210 - Nicotine dependence, cigarettes, uncomplicated (24) PTSD (post-traumatic stress disorder) Current Visit: No Status: Chronic (25) PTSD (post-traumatic stress disorder) Current Visit: No Status: Chronic (26) Substance-induced sleep disorder Current Visit: No Status: Chronic (27) Schizophrenia Current Visit: No Status: Suspected Qualifiers: Schizophrenia type: unspecified Qualified Code(s): F20.9 - Schizophrenia, unspecified (28) Substance-induced anxiety disorder Current Visit: No Status: Suspected - AMA Did Patient Leave Against Medical Advice: No
[2019-05-01] MEDS: PRENATAL VITAMINS W/ FOLIC ACID TABLET (FP) PO SCH (09:39)
[2019-05-01] MEDS: METHYL SALICYLATE/MENTHOL OINT 30 GM TUBE TP SCH (09:40)
[2019-05-01] MEDS: LIDOCAINE 5% TOPICAL PATCH TP SCH (09:40)
[2019-05-01] MEDS: cloNIDine HCL 0.1 MG TABLET PO SCH (09:40)
[2019-05-01] MEDS: NICOTINE 7 MG/24 HOURS TOPICAL PATCH TD SCH (09:40)
--- NOTE | 2019-05-01 09:51 | PN ---
[facility] Progress Note Note: Patient is discharged today. Scripts for 30 days supply of medications(Gabapetin 300 mg/tid, Trazadone 100 mg/hs) are elctronically transmitted to [facility], [facility] [place] [address]
== END 2019-05-01 09:54 | disposition home or self-care (01) | DRG 774 ==
LOC: YASAS 13:06 → Y6N 14:45
PROVIDERS: ADMIT Allergy & Immunology; ATTEND Allergy & Immunology
PROC: HZ2ZZZZ Detoxification Services for Substance Abuse Treatment (ICD-10-PCS; principal; 2019-04-26)
DX: F10.230 Alcohol dependence with withdrawal, uncomplicated (principal); F14.20 Cocaine dependence, uncomplicated; F12.20 Cannabis dependence, uncomplicated; F17.210 Nicotine dependence, cigarettes, uncomplicated; F19.24 Other psychoactive substance dependence with psychoactive substance-induced mood disorder; F19.280 Other psychoactive substance dependence with psychoactive substance-induced anxiety disorder; F19.282 Other psychoactive substance dependence with psychoactive substance-induced sleep disorder; F20.9 Schizophrenia, unspecified; F43.10 Post-traumatic stress disorder, unspecified; F41.8 Other specified anxiety disorders; F32.9 Major depressive disorder, single episode, unspecified; G47.00 Insomnia, unspecified; J45.22 Mild intermittent asthma with status asthmaticus; K21.9 Gastro-esophageal reflux disease without esophagitis; E11.9 Type 2 diabetes mellitus without complications; Z79.84 Long term (current) use of oral hypoglycemic drugs; M54.5 Low back pain; G89.29 Other chronic pain
CPT/HCPCS: 36415; 80053; 81003; 81025; 82962; 85027; 86593; J0735; Q0162

== ENCOUNTER 2019-11-14 12:21 | Inpatient (IN) | payer OTHER ==
--- NOTE | 2019-11-14 12:32 | BHS.RME ---
Substance Use & Tx History - Substance Use History Alcohol Substance amount: 1 pint vodka Frequency of use: Daily Substance route: Oral Date of Last Use: 11/13/19 (started age 37) Cocaine-Crack Substance amount: $80 Frequency of use: Daily Substance route: Smoking Date of Last Use: 11/13/19 (started age 37) Nicotine Substance amount: 5 ciggs Frequency of use: Daily Substance route: Smoking Date of Last Use: 11/14/19 (started age 37) Synthetic Cannabinoid Substance amount: k2 Frequency of use: Daily Substance route: Smoking Date of Last Use: 11/13/19 (just started using) - Last Treatment Date of last treatment: 04/25-05/01/19 Treatment type: Substance Use Disorder ([facility]) Where was last treatment: Detox Physical/Psych/Mental Status - Behavior General Behavior: Increased activity (restlessness, agitation) Eye Contact: Normal - Cooperativeness Cooperativeness: Cooperative - Thinking Thought Processes: Tight, Logical, Goal Directed - Physical Health Problems Is patient presently having any pain?: No Does patient presently have any injuries (include location): No Does patient currently have a fever: No Is patient : No CIWA Nausea/Vomitin-Int. Nausea w/Dry Heave Muscle Tremors: 4-Moderate,w/Arms Extend Anxiety: 3 Agitation: 3 Paroxysmal Sweats: 4-Forehead w/Sweat Beads Orientation: 1-Uncertain about Date Tacttile Disturbances: 1-Very Mild Itch/Numbness Auditory Disturbances: 3-Moderate Harsh/Frighten Visual Disturbances: 0-None Headache: 1-Very Mild CIWA-Ar Total Score: 24
--- OUTSIDE RECORDS SUMMARY | 2019-11-14 12:36 | XMS ---
:1975 Author Organization [facility] Support Name Relationship Address Phone UE Unavailable Unavailable Unavailable SABRINA FISHMAN FAMILY/OTHER [address] 3 [phone] [place] [address] MELITA URIBE SISTER [address] [place] [address] [place], [place] Re-disclosure Warning The records that you are about to access may contain information from federally- assisted alcohol or drug abuse programs. If such information is present, then the following federally mandated warning applies: This information has been disclosed to you from records protected by federal confidentiality rules (42 CFR part 2). The federal rules prohibit you from making any further disclosure of this information unless further disclosure is expressly permitted by the written consent of the person to whom it pertains or as otherwise permitted by 42 CFR part 2. A general authorization for the release of medical or other information is NOT sufficient for this purpose. The Federal rules restrict any use of the information to criminally investigate or prosecute any alcohol or drug abuse patient.The records that you are about to access may contain highly sensitive health information, the redisclosure of which is protected by Article 27-F of the [facility] Public Health law. If you continue you may haveaccess to information: Regarding HIV / AIDS; Provided by facilities licensed or operated by the [facility] Office of Mental Health; or Provided by the [facility] Office for People With Developmental Disabilities. If such information is present, then the following [facility] mandated warning applies: This information has been disclosed to you from confidential records which are protected by state law. State law prohibits you from making any further disclosure of this information without the specific written consent of the person to whom it pertains, or as otherwise permitted by law. Any unauthorized further disclosure in violation of state law may result in a fine or custodial sentence or both. A general authorization for the release of medical or other information is NOT sufficient authorization for further disclosure. Insurance Providers Payer name Policy type Policy ID Covered Covered alliance party's Policy P srinivas / Coverage alliance party ID relationship to [place] [facility] type [place] SAW [id number] 200 HEALTH NON CAP MEDICAID [id number] SAW [id number] 200 HEALTH NON CAP
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
[2019-11-14 13:52] VITALS: BMI 30.2
[2019-11-14] MEDS ORDERED: MAG HYDROX/AL HYDROX/SIMETH 30 ML UNIT-DOSE CUP PO PRN (13:53)
[2019-11-14] MEDS ORDERED: BISMUTH SUBSALICYLATE 262 MG/15 ML BTL PO PRN (13:53)
[2019-11-14] MEDS ORDERED: ACETAMINOPHEN 325 MG TABLET (FP) PO PRN ×2 (13:53)
[2019-11-14] MEDS ORDERED: MAGNESIUM HYDROX 2400MG/30ML ORAL SUSPENSION 30 ML CUP PO PRN (13:53)
[2019-11-14] MEDS ORDERED: chlordiazePOXIDE HCL 25 MG CAPSULE PO PRN (13:53)
[2019-11-14] MEDS ORDERED: NICOTINE POLACRILEX 2 MG GUM BUC PRN (13:53)
[2019-11-14] MEDS ORDERED: IBUPROFEN 400 MG TABLET (FP) PO PRN (13:53)
[2019-11-14] MEDS ORDERED: MENTHOL/PHENOL 1 EACH UD MM PRN (13:53)
[2019-11-14] MEDS ORDERED: MAGNESIUM CITRATE 300 ML BOTTLE PO PRN (13:53)
[2019-11-14] MEDS ORDERED: chlordiazePOXIDE HCL 25 MG CAPSULE ONE (15:30)
[2019-11-14] MEDS: PRENATAL VITAMINS W/ FOLIC ACID TABLET (FP) PO SCH (15:35)
[2019-11-14] MEDS: chlordiazePOXIDE HCL 25 MG CAPSULE PO SCH ×3 (15:36→22:17)
[2019-11-14] MEDS: NICOTINE 7 MG/24 HOURS TOPICAL PATCH TD SCH (15:36)
[2019-11-14] MEDS: hydrOXYzine PAMOATE 25 MG CAPSULE (FP) PO SCH ×3 (15:36→22:17)
[2019-11-14 16:56] LABS: HEMATOCRIT 40.4 % (32.4-45.2); HEMOGLOBIN 13.3 GM/dL (10.7-15.3); MCH 27.4 pg (25.7-33.7); MCHC 32.9 g/dl (32.0-36.0); MEAN CELL VOLUME 83.5 fl (80-96); MEAN PLT VOLUME 12.1 fl (7.5-11.1); PLATELET COUNT 150 K/MM3 (134-434); RBC 4.85 M/mm3 (3.60-5.2); RDW 13.6 % (11.6-15.6); WHITE BLOOD COUNT 9.2 K/mm3 (4.0-10.0)
[2019-11-14 17:09] LABS: ALBUMIN 3.6 g/dl (3.4-5.0); BILIRUBIN,TOTAL 0.3 mg/dL (0.2-1); BLOOD UREA NITROGEN 12.4 mg/dL (7-18); CALCIUM 8.5 mg/dL (8.5-10.1); CREATININE 0.7 mg/dL (0.55-1.3); POTASSIUM 3.4 mmol/L (3.5-5.1); TOT PROT 6.9 g/dl (6.4-8.2)
[2019-11-14] MEDS: metFORMIN HCL 500 MG TABLET (FP) PO SCH (17:41)
[2019-11-14] MEDS: guaiFENesin 600 MG TABLET.ER (FP) PO SCH ×2 (22:16→22:44)
[2019-11-14] MEDS: cloNIDine HCL 0.1 MG TABLET PO SCH (22:16)
[2019-11-14] MEDS: MELATONIN 5 MG TABLETS PO SCH (22:16)
[2019-11-14] MEDS: THIAMINE HCL 100 MG TABLET (FP) PO SCH (22:17)
[2019-11-14] MEDS: METHOCARBAMOL 500 MG TABLET PO PRN (22:19)
[2019-11-15] MEDS: chlordiazePOXIDE HCL 25 MG CAPSULE PO SCH ×4 (05:57→22:10)
[2019-11-15] MEDS: hydrOXYzine PAMOATE 25 MG CAPSULE (FP) PO SCH ×5 (05:58→22:09)
[2019-11-15] MEDS: metFORMIN HCL 500 MG TABLET (FP) PO SCH ×2 (06:00→17:44)
[2019-11-15] MEDS: PRENATAL VITAMINS W/ FOLIC ACID TABLET (FP) PO SCH (10:21)
[2019-11-15] MEDS: cloNIDine HCL 0.1 MG TABLET PO SCH ×2 (10:22→22:09)
[2019-11-15] MEDS: guaiFENesin 600 MG TABLET.ER (FP) PO SCH ×2 (10:23→22:09)
[2019-11-15] MEDS: NICOTINE 7 MG/24 HOURS TOPICAL PATCH TD SCH (10:24)
--- NOTE | 2019-11-15 11:02 | PN ---
S CIWA - CIWA Score Nausea/Vomitin-Mild Nausea/No Vomiting Muscle Tremors: 3 Anxiety: 3 Agitation: 2 Paroxysmal Sweats: 1-Minimal Palms Moist Orientation: 0-Oriented Tacttile Disturbances: 1-Very Mild Itch/Numbness Auditory Disturbances: 0-None Visual Disturbances: 0-None Headache: 2-Mild CIWA-Ar Total Score: 13 S Progress Note (SOAP) Subjective: alert,irritable,anxious,interrupted sleep,tremor,aching pain,poor appetite Objective: 11/15/19 17:22 Vital Signs Temperature 97.5 F L 11/15/19 12:37 Pulse Rate 82 11/15/19 12:37 Respiratory Rate 18 11/15/19 12:37 Blood Pressure 121/80 11/15/19 12:37 O2 Sat by Pulse Oximetry (%) 100 11/15/19 12:37 Laboratory Last Values WBC 9.2 K/mm3 (4.0-10.0) 11/14/19 14:00 RBC 4.85 M/mm3 (3.60-5.2) 11/14/19 14:00 Hgb 13.3 GM/dL (10.7-15.3) 11/14/19 14:00 Hct 40.4 % (32.4-45.2) 11/14/19 14:00 MCV 83.5 fl (80-96) 11/14/19 14:00 MCH 27.4 pg (25.7-33.7) 11/14/19 14:00 MCHC 32.9 g/dl (32.0-36.0) 11/14/19 14:00 RDW 13.6 % (11.6-15.6) 11/14/19 14:00 Plt Count 150 K/MM3 (134-434) 11/14/19 14:00 MPV 12.1 fl (7.5-11.1) H 11/14/19 14:00 Sodium 140 mmol/L (136-145) 11/14/19 14:00 Potassium 3.4 mmol/L (3.5-5.1) L 11/14/19 14:00 Chloride 108 mmol/L (98-107) H 11/14/19 14:00 Carbon Dioxide 26 mmol/L (21-32) 11/14/19 14:00 Anion Gap 6 MMOL/L (8-16) L 11/14/19 14:00 BUN 12.4 mg/dL (7-18) 11/14/19 14:00 Creatinine 0.7 mg/dL (0.55-1.3) 11/14/19 14:00 Est GFR (CKD-EPI)AfAm 122.13 11/14/19 14:00 Est GFR (CKD-EPI)NonAf 105.37 11/14/19 14:00 POC Glucometer 111 UNITS (80-120) 11/15/19 16:43 Random Glucose 133 mg/dL (74-106) H 11/14/19 14:00 Calcium 8.5 mg/dL (8.5-10.1) 11/14/19 14:00 Total Bilirubin 0.3 mg/dL (0.2-1) 11/14/19 14:00 AST 23 U/L (15-37) 11/14/19 14:00 ALT 35 U/L (13-61) 11/14/19 14:00 Alkaline Phosphatase 72 U/L (45-117) 11/14/19 14:00 Total Protein 6.9 g/dl (6.4-8.2) 11/14/19 14:00 Albumin 3.6 g/dl (3.4-5.0) 11/14/19 14:00 Syphilis Serology Non-reactive (NONREACTIVE) 11/14/19 14:00 HIV Ag/Ab Combo Qual Negative (NEGATIVE) 11/14/19 07:00 Assessment: 11/15/19 17:23 withdrawal symptom Plan: continue detox librium regimen,k is 3.3 hypokalemia,k dur 20 meq po now the daily for 3 days,repeat k in am
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
[2019-11-15] MEDS: METHOCARBAMOL 500 MG TABLET PO PRN (13:42)
[2019-11-15] MEDS ORDERED: POTASSIUM CHLORIDE TABS 20 MEQ TABLET.ER (FP) PO ONE (17:24)
[2019-11-15] MEDS: QUEtiapine FUMARATE 100 MG TABLET (FP) PO SCH (22:09)
[2019-11-15] MEDS: THIAMINE HCL 100 MG TABLET (FP) PO SCH (22:09)
[2019-11-15] MEDS: traZODone HCL 50 MG TABLET (FP) PO SCH (22:10)
[2019-11-15] MEDS: MELATONIN 5 MG TABLETS PO SCH (22:10)
[2019-11-15] MEDS: GABAPENTIN 100 MG CAPSULE PO SCH (22:10)
[2019-11-16] MEDS: chlordiazePOXIDE HCL 25 MG CAPSULE PO SCH ×4 (05:25→22:16)
[2019-11-16] MEDS: GABAPENTIN 100 MG CAPSULE PO SCH ×3 (05:26→22:17)
[2019-11-16] MEDS: hydrOXYzine PAMOATE 25 MG CAPSULE (FP) PO SCH ×5 (05:26→22:17)
[2019-11-16] MEDS: metFORMIN HCL 500 MG TABLET (FP) PO SCH ×2 (07:26→17:40)
[2019-11-16] MEDS: POTASSIUM CHLORIDE TABS 20 MEQ TABLET.ER (FP) PO SCH (10:20)
[2019-11-16] MEDS: PRENATAL VITAMINS W/ FOLIC ACID TABLET (FP) PO SCH (10:20)
[2019-11-16] MEDS: NICOTINE 7 MG/24 HOURS TOPICAL PATCH TD SCH (10:20)
[2019-11-16] MEDS: IBUPROFEN 600 MG TABLET (FP) PO PRN (10:21)
[2019-11-16] MEDS: guaiFENesin 600 MG TABLET.ER (FP) PO SCH ×2 (10:21→22:17)
[2019-11-16] MEDS: ALBUTEROL SO4 HFA INHALER IH PRN ×2 (10:23→17:42)
[2019-11-16] MEDS: cloNIDine HCL 0.1 MG TABLET PO SCH ×2 (11:05→22:17)
--- NOTE | 2019-11-16 13:58 | PN ---
[facility] CIWA - CIWA Score Nausea/Vomitin-Mild Nausea/No Vomiting Muscle Tremors: 2 Anxiety: 2 Agitation: 2 Paroxysmal Sweats: No Perspiration Orientation: 0-Oriented Tacttile Disturbances: 1-Very Mild Itch/Numbness Auditory Disturbances: 0-None Visual Disturbances: 0-None Headache: 1-Very Mild CIWA-Ar Total Score: 9 S Progress Note (SOAP) Subjective: alert,irritable,anxious,interrupted sleep,poor appetite,nausea,pain in the right knee arthritis Objective: 11/16/19 17:55 Laboratory Last Values WBC 9.2 K/mm3 (4.0-10.0) 11/14/19 14:00 RBC 4.85 M/mm3 (3.60-5.2) 11/14/19 14:00 Hgb 13.3 GM/dL (10.7-15.3) 11/14/19 14:00 Hct 40.4 % (32.4-45.2) 11/14/19 14:00 MCV 83.5 fl (80-96) 11/14/19 14:00 MCH 27.4 pg (25.7-33.7) 11/14/19 14:00 MCHC 32.9 g/dl (32.0-36.0) 11/14/19 14:00 RDW 13.6 % (11.6-15.6) 11/14/19 14:00 Plt Count 150 K/MM3 (134-434) 11/14/19 14:00 MPV 12.1 fl (7.5-11.1) H 11/14/19 14:00 Sodium 140 mmol/L (136-145) 11/14/19 14:00 Potassium 3.8 mmol/L (3.5-5.1) 11/16/19 07:00 Chloride 108 mmol/L (98-107) H 11/14/19 14:00 Carbon Dioxide 26 mmol/L (21-32) 11/14/19 14:00 Anion Gap 6 MMOL/L (8-16) L 11/14/19 14:00 BUN 12.4 mg/dL (7-18) 11/14/19 14:00 Creatinine 0.7 mg/dL (0.55-1.3) 11/14/19 14:00 Est GFR (CKD-EPI)AfAm 122.13 11/14/19 14:00 Est GFR (CKD-EPI)NonAf 105.37 11/14/19 14:00 POC Glucometer 94 UNITS (80-120) 11/16/19 16:41 Random Glucose 133 mg/dL (74-106) H 11/14/19 14:00 Calcium 8.5 mg/dL (8.5-10.1) 11/14/19 14:00 Total Bilirubin 0.3 mg/dL (0.2-1) 11/14/19 14:00 AST 23 U/L (15-37) 11/14/19 14:00 ALT 35 U/L (13-61) 11/14/19 14:00 Alkaline Phosphatase 72 U/L (45-117) 11/14/19 14:00 Total Protein 6.9 g/dl (6.4-8.2) 11/14/19 14:00 Albumin 3.6 g/dl (3.4-5.0) 11/14/19 14:00 Syphilis Serology Non-reactive (NONREACTIVE) 11/14/19 14:00 COVID-19 (LUBA) Not detected (Not Detected) 11/14/19 15:20 HIV Ag/Ab Combo Qual Negative (NEGATIVE) 11/14/19 07:00 Assessment: 11/16/19 17:56 withdrawal symptom Plan: continue detox librium regimen,bgm monitoring,glucerna 1 can po bid,increase m otrin to 600 mgs po q 6 hrs prn for pain in the right knee
[2019-11-16] MEDS: traZODone HCL 50 MG TABLET (FP) PO SCH (22:17)
[2019-11-16] MEDS: QUEtiapine FUMARATE 100 MG TABLET (FP) PO SCH (22:17)
[2019-11-16] MEDS: MELATONIN 5 MG TABLETS PO SCH (22:17)
[2019-11-16] MEDS: THIAMINE HCL 100 MG TABLET (FP) PO SCH (22:17)
[2019-11-17] MEDS: GABAPENTIN 100 MG CAPSULE PO SCH ×3 (05:55→22:09)
[2019-11-17] MEDS: hydrOXYzine PAMOATE 25 MG CAPSULE (FP) PO SCH ×5 (05:55→22:09)
[2019-11-17] MEDS: chlordiazePOXIDE HCL 10 MG CAPSULE PO SCH ×4 (05:55→22:10)
[2019-11-17] MEDS: IBUPROFEN 600 MG TABLET (FP) PO PRN (06:00)
[2019-11-17] MEDS: metFORMIN HCL 500 MG TABLET (FP) PO SCH ×2 (07:33→17:34)
[2019-11-17] MEDS: ONDANSETRON *ODT* 4 MG TABLET SL PRN (08:22)
[2019-11-17] MEDS: chlordiazePOXIDE HCL 10 MG CAPSULE PO PRN ×2 (08:24→19:16)
[2019-11-17] MEDS: guaiFENesin 600 MG TABLET.ER (FP) PO SCH ×2 (10:14→22:09)
[2019-11-17] MEDS: cloNIDine HCL 0.1 MG TABLET PO SCH ×2 (10:15→22:10)
[2019-11-17] MEDS: PRENATAL VITAMINS W/ FOLIC ACID TABLET (FP) PO SCH (10:15)
[2019-11-17] MEDS: METHOCARBAMOL 500 MG TABLET PO PRN (10:17)
[2019-11-17] MEDS: POTASSIUM CHLORIDE TABS 20 MEQ TABLET.ER (FP) PO SCH (10:20)
[2019-11-17] MEDS: NICOTINE 7 MG/24 HOURS TOPICAL PATCH TD SCH (10:20)
--- NOTE | 2019-11-17 10:32 | PN ---
S CIWA - CIWA Score Nausea/Vomitin-Mild Nausea/No Vomiting Muscle Tremors: 2 Anxiety: 2 Agitation: 2 Paroxysmal Sweats: No Perspiration Orientation: 0-Oriented Tacttile Disturbances: 0-None Auditory Disturbances: 0-None Visual Disturbances: 0-None Headache: 0-None Present CIWA-Ar Total Score: 7 S Progress Note (SOAP) Subjective: Pt seen at bedside this morning. Pt complaining mild nausea, tremors, anxiety, irritability/restlessnes; feel that her symptoms have otherwise improved. Reports improvement in R knee pain with increased motrin dose. Pt complaining of increased bloating; denies abdominal pain. Objective: Last Vital Signs Temp Pulse Resp BP Pulse Ox 97.1 F L 98 H 18 109/70 99 11/17/19 08:42 11/17/19 08:42 11/17/19 08:42 11/17/19 08:42 11/17/19 06:52 PE Gen - NAD, well dev/well nourished, AOx3 CV - RRR, normal s1, s2 Pulm - CTAB, good air entry Mental Status - anxious MSK/Ext - gait steady, normal inspection, mild tremor with outstretched hands Skin - dry, normal color CBC,CMP WBC 9.2 K/mm3 (4.0-10.0) 11/14/19 14:00 RBC 4.85 M/mm3 (3.60-5.2) 11/14/19 14:00 Hgb 13.3 GM/dL (10.7-15.3) 11/14/19 14:00 Hct 40.4 % (32.4-45.2) 11/14/19 14:00 MCV 83.5 fl (80-96) 11/14/19 14:00 MCH 27.4 pg (25.7-33.7) 11/14/19 14:00 MCHC 32.9 g/dl (32.0-36.0) 11/14/19 14:00 RDW 13.6 % (11.6-15.6) 11/14/19 14:00 Plt Count 150 K/MM3 (134-434) 11/14/19 14:00 MPV 12.1 fl (7.5-11.1) H 11/14/19 14:00 Sodium 140 mmol/L (136-145) 11/14/19 14:00 Potassium 3.8 mmol/L (3.5-5.1) 11/16/19 07:00 Chloride 108 mmol/L (98-107) H 11/14/19 14:00 Carbon Dioxide 26 mmol/L (21-32) 11/14/19 14:00 Anion Gap 6 MMOL/L (8-16) L 11/14/19 14:00 BUN 12.4 mg/dL (7-18) 11/14/19 14:00 Creatinine 0.7 mg/dL (0.55-1.3) 11/14/19 14:00 Est GFR (CKD-EPI)AfAm 122.13 11/14/19 14:00 Est GFR (CKD-EPI)NonAf 105.37 11/14/19 14:00 POC Glucometer 99 UNITS (80-120) 11/17/19 05:54 Random Glucose 133 mg/dL (74-106) H 11/14/19 14:00 Calcium 8.5 mg/dL (8.5-10.1) 11/14/19 14:00 Total Bilirubin 0.3 mg/dL (0.2-1) 11/14/19 14:00 AST 23 U/L (15-37) 11/14/19 14:00 ALT 35 U/L (13-61) 11/14/19 14:00 Alkaline Phosphatase 72 U/L (45-117) 11/14/19 14:00 Total Protein 6.9 g/dl (6.4-8.2) 11/14/19 14:00 Albumin 3.6 g/dl (3.4-5.0) 11/14/19 14:00 11/17/19 10:30 Assessment: Pt with improving alcohol withdrawal symptoms. 11/17/19 10:32 Plan: - continue detox librium regimen,bgm monitoring, continue with motrin to 600 mgs po q 6 hrs prn for pain in the right knee - trazodone 100 mg po hs + seroquel 100 mg po hs + gabapentin 100 mg po tid, as per Psychiatry - pt informed she can ask for her prn mylanta for increased gas/bloating Current Medications Generic Name Dose Route Start Last Admin Trade Name Freq PRN Reason Stop Dose Admin Acetaminophen 650 mg 11/14/19 13:53 Tylenol - PO Q6H PRN PAIN LEVEL 4 - 6 Acetaminophen 650 mg 11/14/19 13:53 Tylenol - PO Q6H PRN FEVER Al Hydroxide/Mg Hydroxide 30 ml 11/14/19 13:53 Mylanta Oral Suspension - PO Q6H PRN DYSPEPSIA Albuterol Sulfate 2 puff 11/14/19 13:54 11/16/19 17:42 Ventolin Hfa Inhaler - IH 2 puff Q8H PRN Administration SHORT OF BREATH/WHEEZING Bismuth Subsalicylate 30 ml 11/14/19 13:53 Pepto-Bismol Liquid - PO Q1H PRN DIARRHEA Chlordiazepoxide HCl 10 mg 11/17/19 05:00 11/17/19 10:15 Librium - PO 11/17/19 23:01 10 mg [id number] LA NENA Administration Chlordiazepoxide HCl 10 mg 11/18/19 05:00 Librium - PO 11/18/19 17:01 Q12H LA NENA Chlordiazepoxide HCl 10 mg 11/17/19 00:00 11/17/19 08:24 Librium - PO 11/18/19 00:00 10 mg Q4H PRN Administration WITHDRAWAL(CONT SUBST) Chlordiazepoxide HCl 10 mg 11/19/19 05:00 Librium - PO 11/19/19 05:01 ONCE@0500 ONE Clonidine 0.1 mg 11/14/19 22:00 11/17/19 10:15 Catapres - PO 0.1 mg BID LA NENA Administration Eucalyptus/Menthol/Phenol/Sorbitol 1 each 11/14/19 13:53 Cepastat Lozenge - MM 11/20/19 13:53 Q4H PRN SORE THROAT Gabapentin 100 mg 11/15/19 22:00 11/17/19 05:55 Neurontin - PO 100 mg TID LA NENA Administration Guaifenesin 600 mg 11/14/19 15:58 11/17/19 10:14 Mucinex - PO 600 mg BID LA NENA Administration Hydroxyzine Pamoate 25 mg 11/14/19 14:00 11/17/19 10:15 Vistaril - PO 11/20/19 13:53 25 mg Q4HWA LA NENA Administration Ibuprofen 600 mg 11/16/19 09:42 11/17/19 06:00 Motrin - PO 600 mg Q6H PRN Administration PAIN LEVEL 4 - 6 Magnesium Citrate 300 ml 11/14/19 13:53 Citroma - PO Q48H PRN CONSTIPATION Magnesium Hydroxide 30 ml 11/14/19 13:53 Milk Of Magnesia - PO PRN PRN CONSTIPATION Melatonin 5 mg 11/14/19 22:00 11/16/19 22:17 Melatonin PO 5 mg HS LA NENA Administration Metformin HCl 500 mg 11/14/19 16:30 11/17/19 07:33 Glucophage - PO 500 mg BIDAC LA NENA Administration Methocarbamol 500 mg 11/14/19 13:53 11/17/19 10:17 Robaxin - PO 11/20/19 13:53 500 mg Q6H PRN Administration MUSCLE SPASMS Nicotine 7 mg 11/14/19 14:00 11/17/19 10:20 Nicoderm Patch - TD Not Given DAILY LA NENA Nicotine Polacrilex 2 mg 11/14/19 13:53 Nicorette Gum - BUC Q2H PRN NICOTINE REPLACEMENT RX Ondansetron HCl 4 mg 11/14/19 13:53 11/17/19 08:22 Zofran Odt - SL 4 mg Q8H PRN Administration Nausea/Vomiting Potassium Chloride 20 meq 11/16/19 10:00 11/17/19 10:20 K-Dur - PO 11/17/19 23:59 20 meq DAILY LA NENA Administration Multivit/Folic Acid/Iron 1 tab 11/14/19 14:00 11/17/19 10:15 Vitamins (Sjr) - PO 1 tab DAILY LA NENA Administration Quetiapine Fumarate 100 mg 11/15/19 22:00 11/16/19 22:17 Seroquel - PO 100 mg HS LA NENA Administration Thiamine HCl 100 mg 11/14/19 22:00 11/16/19 22:17 Vitamin B1 - PO 100 mg HS LA NENA Administration Trazodone HCl 50 mg 11/15/19 22:00 11/16/19 22:17 Desyrel - PO 50 mg HS LA NENA Administration Discontinued Medications Generic Name Dose Route Start Last Admin Trade Name Freq PRN Reason Stop Dose Admin Chlordiazepoxide HCl 50 mg 11/14/19 11:00 11/15/19 22:10 Librium - PO 11/15/19 23:01 50 mg [id number] LA NENA Administration Chlordiazepoxide HCl 25 mg 10/08/20 05:00 11/16/19 22:16 Librium - PO 11/16/19 23:01 25 mg [id number] LA NENA Administration Chlordiazepoxide HCl 25 mg 11/14/19 13:53 11/15/19 19:56 Librium - PO 11/16/19 23:59 25 mg Q4H PRN Administration WITHDRAWAL(CONT SUBST) Ibuprofen 400 mg 11/14/19 13:53 Motrin - PO Q6H PRN PAIN LEVEL 1 - 3 Potassium Chloride 20 meq 11/15/19 17:24 11/15/19 17:44 K-Dur - PO 11/15/19 17:25 20 meq ONCE ONE Administration Tuberculin PPD 5 units 11/14/19 13:53 11/14/19 15:37 Tubersol ([facility] Only) 5ml Vial ID 11/14/19 13:54 5 tu ONCE ONE Administration
[2019-11-17] MEDS: MELATONIN 5 MG TABLETS PO SCH (22:09)
[2019-11-17] MEDS: traZODone HCL 50 MG TABLET (FP) PO SCH (22:09)
[2019-11-17] MEDS: THIAMINE HCL 100 MG TABLET (FP) PO SCH (22:09)
[2019-11-17] MEDS: QUEtiapine FUMARATE 100 MG TABLET (FP) PO SCH (22:10)
[2019-11-18] MEDS: metFORMIN HCL 500 MG TABLET (FP) PO SCH ×2 (06:04→17:33)
[2019-11-18] MEDS: GABAPENTIN 100 MG CAPSULE PO SCH ×3 (06:04→22:25)
[2019-11-18] MEDS: chlordiazePOXIDE HCL 10 MG CAPSULE PO SCH ×2 (06:04→17:33)
[2019-11-18] MEDS: hydrOXYzine PAMOATE 25 MG CAPSULE (FP) PO SCH ×5 (06:04→22:25)
[2019-11-18] MEDS: IBUPROFEN 600 MG TABLET (FP) PO PRN (06:09)
[2019-11-18] MEDS: ALBUTEROL SO4 HFA INHALER IH PRN (09:13)
[2019-11-18] MEDS: guaiFENesin 600 MG TABLET.ER (FP) PO SCH ×2 (09:42→22:25)
[2019-11-18] MEDS: NICOTINE 7 MG/24 HOURS TOPICAL PATCH TD SCH (09:42)
[2019-11-18] MEDS: PRENATAL VITAMINS W/ FOLIC ACID TABLET (FP) PO SCH (09:42)
[2019-11-18] MEDS: cloNIDine HCL 0.1 MG TABLET PO SCH ×2 (09:43→22:25)
[2019-11-18] MEDS: ONDANSETRON *ODT* 4 MG TABLET SL PRN (09:44)
--- NOTE | 2019-11-18 13:51 | PN ---
[facility] CIWA - CIWA Score Nausea/Vomitin-No Nausea/No Vomiting Muscle Tremors: None Anxiety: 3 Agitation: 0-Normal Activity Paroxysmal Sweats: 2 Orientation: 0-Oriented Tacttile Disturbances: 0-None Auditory Disturbances: 0-None Visual Disturbances: 0-None Headache: 0-None Present CIWA-Ar Total Score: 5 S Progress Note (SOAP) Subjective: c/o mild withdrawal symptoms. Objective: 11/18/19 13:45 Vital Signs 11/18/19 11/18/19 05:50 08:42 Temperature 98 F 97.7 F Pulse Rate 82 95 H Respiratory 18 18 Rate Blood Pressure 117/82 104/71 O2 Sat by Pulse 99 Oximetry (%) Laboratory Last Values WBC 9.2 K/mm3 (4.0-10.0) 11/14/19 14:00 RBC 4.85 M/mm3 (3.60-5.2) 11/14/19 14:00 Hgb 13.3 GM/dL (10.7-15.3) 11/14/19 14:00 Hct 40.4 % (32.4-45.2) 11/14/19 14:00 MCV 83.5 fl (80-96) 11/14/19 14:00 MCH 27.4 pg (25.7-33.7) 11/14/19 14:00 MCHC 32.9 g/dl (32.0-36.0) 11/14/19 14:00 RDW 13.6 % (11.6-15.6) 11/14/19 14:00 Plt Count 150 K/MM3 (134-434) 11/14/19 14:00 MPV 12.1 fl (7.5-11.1) H 11/14/19 14:00 Sodium 140 mmol/L (136-145) 11/14/19 14:00 Potassium 3.8 mmol/L (3.5-5.1) 11/16/19 07:00 Chloride 108 mmol/L (98-107) H 11/14/19 14:00 Carbon Dioxide 26 mmol/L (21-32) 11/14/19 14:00 Anion Gap 6 MMOL/L (8-16) L 11/14/19 14:00 BUN 12.4 mg/dL (7-18) 11/14/19 14:00 Creatinine 0.7 mg/dL (0.55-1.3) 11/14/19 14:00 Est GFR (CKD-EPI)AfAm 122.13 11/14/19 14:00 Est GFR (CKD-EPI)NonAf 105.37 11/14/19 14:00 POC Glucometer 106 UNITS (80-120) 11/18/19 06:07 Random Glucose 133 mg/dL (74-106) H 11/14/19 14:00 Calcium 8.5 mg/dL (8.5-10.1) 11/14/19 14:00 Total Bilirubin 0.3 mg/dL (0.2-1) 11/14/19 14:00 AST 23 U/L (15-37) 11/14/19 14:00 ALT 35 U/L (13-61) 11/14/19 14:00 Alkaline Phosphatase 72 U/L (45-117) 11/14/19 14:00 Total Protein 6.9 g/dl (6.4-8.2) 11/14/19 14:00 Albumin 3.6 g/dl (3.4-5.0) 11/14/19 14:00 Syphilis Serology Non-reactive (NONREACTIVE) 11/14/19 14:00 COVID-19 ([facility]) Not detected (Not Detected) 11/14/19 15:20 HIV Ag/Ab Combo Qual Negative (NEGATIVE) 11/14/19 07:00 Labs noted. Assessment: AOX3, in no acute respiratory distress. Full ROM, ambulating in the unit. Mild Withdrawal symptoms. I was called by the temporary staff accountant that pt fell. Pt was seen and states, "I just slipped because of the gown, i didn't hit my body on the floor". Pt denies hitting his head, hip, shoulder, or buttocks. No bruises, swelling, or abrasions noted at this time. Pt states, "all i need is my anxiety pill". Fall precaution protocol put in place. For d/c tomorrow. Plan: continue detox. D/C in AM.
[2019-11-18] MEDS: METHOCARBAMOL 500 MG TABLET PO PRN (17:36)
[2019-11-18] MEDS: traZODone HCL 50 MG TABLET (FP) PO SCH (22:25)
[2019-11-18] MEDS: THIAMINE HCL 100 MG TABLET (FP) PO SCH (22:25)
[2019-11-18] MEDS: QUEtiapine FUMARATE 100 MG TABLET (FP) PO SCH (22:25)
[2019-11-18] MEDS: MELATONIN 5 MG TABLETS PO SCH (22:26)
[2019-11-19] MEDS ORDERED: chlordiazePOXIDE HCL 10 MG CAPSULE PO ONE (05:00)
[2019-11-19] MEDS: metFORMIN HCL 500 MG TABLET (FP) PO SCH (06:51)
[2019-11-19] MEDS: GABAPENTIN 100 MG CAPSULE PO SCH (06:51)
[2019-11-19] MEDS: IBUPROFEN 600 MG TABLET (FP) PO PRN (06:52)
[2019-11-19] MEDS: hydrOXYzine PAMOATE 25 MG CAPSULE (FP) PO SCH ×2 (06:52→09:20)
[2019-11-19] MEDS: NICOTINE 7 MG/24 HOURS TOPICAL PATCH TD SCH (09:19)
[2019-11-19] MEDS: PRENATAL VITAMINS W/ FOLIC ACID TABLET (FP) PO SCH (09:19)
[2019-11-19] MEDS: guaiFENesin 600 MG TABLET.ER (FP) PO SCH (09:19)
[2019-11-19] MEDS: cloNIDine HCL 0.1 MG TABLET PO SCH (09:19)
--- NOTE | 2019-11-19 09:21 | DS ---
[facility] Detox Discharge Summary Admission Date: 11/14/19 Discharge Date: 11/19/19 - History Present History: Alcohol Dependence Additional Comments: 44 years old female was admitted on 11/14/19 for alcohol withdrawal sx management treated with librium detox regiment seen by psychiatrist resume gabapentin seroquel and trazodone ms ruiz has completed the librium regiment and is tolerated well General Appearance: Yes: no Distress, mild Tremorous, not Irritable, no Sweating, mild Anxious HEENTM: Yes: EOMI, Hearing grossly Normal, Normal ENT Inspection, Normocephalic, Normal Voice, KENDALL, Pharynx Normal, Tm's normal Respiratory: Yes: Chest Non-Tender, Lungs Clear, Normal Breath Sounds, No Respiratory Distress, No Accessory Muscle Use Neck: Yes: No masses,lesions,Nodules Breast: Yes: Breast Exam Deferred Cardiology: Yes: Regular Rhythm, Regular Rate, S1, S2 Abdominal: Yes: Normal Bowel Sounds, Non Tender, Soft, Protuberent, Surgical Scar Genitourinary: Yes: Within Normal Limits Back: Yes: Normal Inspection Musculoskeletal: Yes: full range of Motion, Gait Steady, Pelvis Stable Extremities: Yes: Normal Capillary Refill, Normal Inspection, Normal Range of Motion, Non-Tender Neurological: Yes: labor relations consultant II-XII NML intact, Fully Oriented, Alert, Motor Strength 5/5, Normal Mood/Affect, Normal Response Integumentary: Yes: Normal Color, Warm Lymphatic: Yes: Within Normal Limits - Diagnostic Pertinent Past History: time for discharge 43 minutes transferred order set from detox to rehab - Physical Exam Results Vital Signs: Vital Signs Temperature 97.3 F L 11/19/19 09:02 Pulse Rate 87 11/19/19 09:02 Respiratory Rate 18 11/19/19 09:02 Blood Pressure 123/78 11/19/19 09:02 O2 Sat by Pulse Oximetry (%) 100 11/19/19 05:02 Pertinent Admission Physical Exam Findings: alcohol withdrawal Vital Signs - 24 hr 11/18/19 11/18/19 11/18/19 15:02 17:02 19:02 Temperature 97.1 F L 97.5 F L 97.3 F L Pulse Rate 83 91 H 94 H Respiratory 18 16 16 Rate Blood Pressure 112/84 130/84 117/78 O2 Sat by Pulse Oximetry (%) 10/11/2711/18/19 11/18/19 21:02 21:14 23:00 Temperature 97.3 F L 97.3 F L 97.5 F L Pulse Rate 16 L 94 H 90 Respiratory 88 H 16 18 Rate Blood Pressure 106/65 117/78 101/68 O2 Sat by Pulse 100 Oximetry (%) 11/19/19 11/19/19 11/19/19 01:02 05:02 09:02 Temperature 97 F L 97.3 F L 97.1 F L Pulse Rate 92 H 98 H 94 H Respiratory 18 18 18 Rate Blood Pressure 102/74 107/73 112/78 O2 Sat by Pulse 99 100 Oximetry (%) 11/19/19 09:36 Temperature 97.4 F L Pulse Rate 106 H Respiratory 18 Rate Blood Pressure 115/80 O2 Sat by Pulse Oximetry (%) Laboratory Tests 11/14/19 11/14/19 11/14/19 07:00 14:00 14:00 WBC 9.2 RBC 4.85 Hgb 13.3 Hct 40.4 MCV 83.5 MCH 27.4 MCHC 32.9 RDW 13.6 Plt Count 150 MPV 12.1 H Sodium 140 Potassium 3.4 L Chloride 108 H Carbon Dioxide 26 Anion Gap 6 L BUN 12.4 Creatinine 0.7 Est GFR (CKD-EPI)AfAm 122.13 Est GFR (CKD-EPI)NonAf 105.37 POC Glucometer Random Glucose 133 H Calcium 8.5 Total Bilirubin 0.3 AST 23 ALT 35 Alkaline Phosphatase 72 Total Protein 6.9 Albumin 3.6 Syphilis Serology COVID-19 ([facility]) HIV Ag/Ab Combo Qual Negative 11/14/19 11/14/19 11/14/19 14:00 15:20 15:37 WBC RBC Hgb Hct MCV MCH MCHC RDW Plt Count MPV Sodium Potassium Chloride Carbon Dioxide Anion Gap BUN Creatinine Est GFR (CKD-EPI)AfAm Est GFR (CKD-EPI)NonAf POC Glucometer 95 Random Glucose Calcium Total Bilirubin AST ALT Alkaline Phosphatase Total Protein Albumin Syphilis Serology Non-reactive COVID-19 ([facility]) Not detected HIV Ag/Ab Combo Qual 11/14/19 11/15/19 11/15/19 16:40 05:56 16:43 WBC RBC Hgb Hct MCV MCH MCHC RDW Plt Count MPV Sodium Potassium Chloride Carbon Dioxide Anion Gap BUN Creatinine Est GFR (CKD-EPI)AfAm Est GFR (CKD-EPI)NonAf POC Glucometer 181 116 111 Random Glucose Calcium Total Bilirubin AST ALT Alkaline Phosphatase Total Protein Albumin Syphilis Serology COVID-19 ([facility]) HIV Ag/Ab Combo Qual 11/16/19 11/16/19 11/16/19 06:03 07:00 16:41 WBC RBC Hgb Hct MCV MCH MCHC RDW Plt Count MPV Sodium Potassium 3.8 Chloride Carbon Dioxide Anion Gap BUN Creatinine Est GFR (CKD-EPI)AfAm Est GFR (CKD-EPI)NonAf POC Glucometer 97 94 Random Glucose Calcium Total Bilirubin AST ALT Alkaline Phosphatase Total Protein Albumin Syphilis Serology COVID-19 ([facility]) HIV Ag/Ab Combo Qual 11/17/19 11/17/19 11/18/19 05:54 16:50 06:07 WBC RBC Hgb Hct MCV MCH MCHC RDW Plt Count MPV Sodium Potassium Chloride Carbon Dioxide Anion Gap BUN Creatinine Est GFR (CKD-EPI)AfAm Est GFR (CKD-EPI)NonAf POC Glucometer 99 114 106 Random Glucose Calcium Total Bilirubin AST ALT Alkaline Phosphatase Total Protein Albumin Syphilis Serology COVID-19 ([facility]) HIV Ag/Ab Combo Qual 11/18/19 11/19/19 16:41 06:53 WBC RBC Hgb Hct MCV MCH MCHC RDW Plt Count MPV Sodium Potassium Chloride Carbon Dioxide Anion Gap BUN Creatinine Est GFR (CKD-EPI)AfAm Est GFR (CKD-EPI)NonAf POC Glucometer 139 139 Random Glucose Calcium Total Bilirubin AST ALT Alkaline Phosphatase Total Protein Albumin Syphilis Serology COVID-19 ([facility]) HIV Ag/Ab Combo Qual low K+ corrected by K+ supplement long history of diabetes treated with metformin 500mg po bid ac - Treatment Hospital Course: Detox Protocol Followed, Detoxed Safely, Responded well, Discharged Condition Good, Rehab Referral Accepted Patient has Accepted a [facility] Referral [facility]: [facility] - Medication Discharge Medications: Ambulatory Orders Albuterol Sulfate Inhaler - [Ventolin HFA Inhaler -] 2 puff IH Q4H PRN #1 inh aler 08/04/17 traZODone HCL [Desyrel -] 50 mg PO HS 01/04/19 metFORMIN HCL [Glucophage -] 500 mg PO BIDAC #60 tablet 04/28/19 Cyclobenzaprine HCl [Flexeril -] 10 mg PO TID 11/14/19 Gabapentin [Neurontin] 600 mg PO TID 11/14/19 - Diagnosis (1) Alcohol dependence with uncomplicated withdrawal Status: Acute (2) Asthma Status: Chronic Qualifiers: Asthma severity: mild Asthma persistence: intermittent Asthma complication type: with status asthmaticus Qualified Code(s): J45.22 - Mild intermittent asthma with status asthmaticus (3) Nicotine dependence Status: Acute Qualifiers: Nicotine product type: cigarettes Substance use status: in withdrawal Qualified Code(s): F17.213 - Nicotine dependence, cigarettes, with withdrawal (4) Substance induced mood disorder Status: Suspected (5) Non-insulin dependent diabetes mellitus Status: Chronic - AMA Did Patient Leave Against Medical Advice: No CIWA Score - CIWA Score Nausea/Vomitin-No Nausea/No Vomiting Muscle Tremors: None Anxiety: 1-Mildly Anxious Agitation: 0-Normal Activity Paroxysmal Sweats: 1-Minimal Palms Moist Orientation: 0-Oriented Tacttile Disturbances: 0-None Auditory Disturbances: 0-None Visual Disturbances: 0-None Headache: 0-None Present CIWA-Ar Total Score: 2
[2019-11-19 09:37] VITALS: BP 115/80; PULSE 106; TEMP 97.4
== END 2019-11-19 10:45 | disposition other institution (70) | DRG 774 ==
LOC: YASAS 12:21 → Y3N 14:34
PROVIDERS: ADMIT Allergy & Immunology; ATTEND Allergy & Immunology
PROC: HZ2ZZZZ Detoxification Services for Substance Abuse Treatment (ICD-10-PCS; principal; 2019-11-14)
DX: F10.230 Alcohol dependence with withdrawal, uncomplicated (principal); F14.20 Cocaine dependence, uncomplicated; F12.20 Cannabis dependence, uncomplicated; F19.20 Other psychoactive substance dependence, uncomplicated; F17.210 Nicotine dependence, cigarettes, uncomplicated; F19.282 Other psychoactive substance dependence with psychoactive substance-induced sleep disorder; F19.280 Other psychoactive substance dependence with psychoactive substance-induced anxiety disorder; F19.24 Other psychoactive substance dependence with psychoactive substance-induced mood disorder; F41.9 Anxiety disorder, unspecified; F32.9 Major depressive disorder, single episode, unspecified; E87.6 Hypokalemia; E11.9 Type 2 diabetes mellitus without complications; Z79.84 Long term (current) use of oral hypoglycemic drugs; G47.00 Insomnia, unspecified; J45.20 Mild intermittent asthma, uncomplicated; K21.9 Gastro-esophageal reflux disease without esophagitis; M17.11 Unilateral primary osteoarthritis, right knee; E66.9 Obesity, unspecified; Z68.30 Body mass index [BMI] 30.0-30.9, adult; Z56.0 Unemployment, unspecified; Z98.890 Other specified postprocedural states
CPT/HCPCS: 36415; 80053; 82962; 84132; 85027; 86780; 87389; C9803; J0735; Q0162; U0003

== ENCOUNTER 2019-11-19 10:35 | Inpatient (IN) | payer OTHER ==
--- NOTE | 2019-11-19 09:23 | HP ---
[facility] Rehab Assess/Revision - Admission History Admitted to Rehab from: [facility] Date of Admission to Rehab: 11/19/19 - Findings Detox History & Physical reviewed: Yes Concur with findings: Yes Comments/Additional Findings: transferred from detox to rehab admission as per protocol Inpatient Rehab Admission - Rehab Decision to Admit Inpatient rehab admission?: Yes - Initial Determination Are CD services needed?: Yes Free of communicable disease: Yes Not in need of hospitalization: Yes - Rehab Admission Criteria Previous failed treatment: Yes Poor recovery environment: Yes Comorbidities: Yes Lacks judgement: Yes Patient is meeting Inpatient Rehab admission criteria:: Yes
[~2019-11-19 10:35] MED LIST: ALBUTEROL SO4 HFA INHALER IH PRN; IBUPROFEN 400 MG TABLET (FP) PO PRN; LOPERAMIDE HCL 2 MG CAPSULE PO PRN; MAGNESIUM CITRATE 300 ML BOTTLE PO PRN; MAGNESIUM HYDROX 2400MG/30ML ORAL SUSPENSION 30 ML CUP PO PRN; NICOTINE POLACRILEX 2 MG GUM BC PRN; P-EPHED 60MG/TRIPROLIDI 2.5MG TABLET PO PRN; guaiFENesin 200 MG/10 ML 10 ML UNIT-DOSE CUPS PO PRN
--- OUTSIDE RECORDS SUMMARY | 2019-11-19 10:37 | XMS ---
:1975 Author [facility] Support Name Relationship Address Phone UE, UNEMPLOYED Unavailable Unavailable Unavailable SARAH DONALDSON FAMILY/OTHER [address] [phone] [place] [address] UE Unavailable Unavailable Unavailable SABRINA FISHMAN FAMILY/OTHER [address] [place] [address] MELITA URIBE SISTER [address] [place] [address] [phone] [place], [place] Re-disclosure Warning The records that [...] is protected by Article 27-F of the [facility] Public Health law. If you continue you may haveaccess to information: Regarding HIV / AIDS; Provided by facilities licensed or operated by the [facility] Office of Mental Health; or Provided by the [facility] Office for People With Developmental Disabilities. If such information is present, then the following [facility] mandated warning applies: This information has been [...] law may result in a fine or detention sentence or both. A general authorization for the release of medical or other information is NOT sufficient authorization for further disclosure. Insurance Providers Payer name Policy type Policy ID Covered Covered republican's Policy P srinivas / Coverage republican ID relationship to [place] Inf ormation type [place] SAW [id number] 200 HEALTH NON CAP MEDICAID [id number] [facility] [id number] 200 HEALTH NON CAP Results ID Date Data Source [id number] 11/14/2019 03:20:00 PM EDT [facility] Name Value Range Interpretation Description Data Sup porting Code Source(s) Document(s ) SARS [facility] coronavirus 2 RNA This lab was ordered by [facility] [address] and reported by [facility]. Procedure
--- OUTSIDE RECORDS SUMMARY | 2019-11-19 10:38 | XMS ---
:1975 Author Organization [facility] Support Name Relationship Address Phone UE, UNEMPLOYED Unavailable Unavailable Unavailable SARAH DONALDSON FAMILY/OTHER [address] [place] [address] UE Unavailable Unavailable Unavailable SABRINA FISHMAN FAMILY/OTHER [address] [place] [address] MELITA URIBE SISTER [address] [place] [address] [place], [place] Re-disclosure Warning The records that [...] is protected by Article 27-F of the [facility] Public Health law. If you continue you may haveaccess to information: Regarding HIV / AIDS; Provided by facilities licensed or operated by the [facility] Office of Mental Health; or Provided by the [facility] Office for People With Developmental Disabilities. If such information is present, then the following [facility] mandated warning applies: This information has [...] law may result in a fine or fpc sentence or both. A general authorization for the release of medical or other information is NOT sufficient authorization for further disclosure. Insurance Providers Payer name Policy type Policy ID Covered Covered libertarian's Policy P srinivas / Coverage libertarian ID relationship to [place] Inf ormation type [place] SAW [id number] 200 HEALTH NON CAP MEDICAID [id number] [facility] [id number] 200 HEALTH NON CAP Results ID Date Data Source [id number] 11/14/2019 03:20:00 PM EDT [facility] Name Value Range Interpretation Description Data Sup porting Code Source(s) Document(s ) SARS [facility] coronavirus 2 RNA This lab was ordered by [facility] [address] [facility] and reported by [facility]. Procedure
[2019-11-19] MEDS: MAG HYDROX/AL HYDROX/SIMETH 30 ML UNIT-DOSE CUP PO PRN (11:55)
[2019-11-19] MEDS: PRENATAL VITAMINS W/ FOLIC ACID TABLET (FP) PO SCH (13:32)
[2019-11-19] MEDS: NICOTINE 7 MG/24 HOURS TOPICAL PATCH TD SCH (13:33)
[2019-11-19] MEDS ORDERED: GABAPENTIN 100 MG CAPSULE PO SCH (14:00)
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
[2019-11-19] MEDS ORDERED: GABAPENTIN 100 MG CAPSULE PO ONE (15:00)
[2019-11-19] MEDS: metFORMIN HCL 500 MG TABLET (FP) PO SCH (17:03)
[2019-11-19] MEDS ORDERED: PT OWN MED DRAWER 7, Y5N ONE ×2 (19:35→22:00)
[2019-11-19] MEDS: QUEtiapine FUMARATE 100 MG TABLET (FP) PO SCH (21:16)
[2019-11-19] MEDS: THIAMINE HCL 100 MG TABLET (FP) PO SCH (21:16)
[2019-11-19] MEDS: GABAPENTIN 300 MG CAPSULE PO SCH (21:16)
[2019-11-19] MEDS: traZODone HCL 100 MG TABLET (FP) PO SCH (21:17)
[2019-11-19] MEDS: guaiFENesin 600 MG TABLET.ER (FP) PO SCH (21:17)
[2019-11-19] MEDS: MELATONIN 5 MG TABLETS PO SCH (21:17)
[2019-11-19] MEDS: cloNIDine HCL 0.1 MG TABLET PO SCH (21:17)
[2019-11-19] MEDS ORDERED: traZODone HCL 50 MG TABLET (FP) PO SCH (22:00)
[2019-11-19] MEDS ORDERED: INSULIN (NOVOLOG) ASPART 100 UNITS/ML 10ML VIAL ONE (22:01)
[2019-11-20] MEDS: GABAPENTIN 300 MG CAPSULE PO SCH ×3 (06:49→21:29)
[2019-11-20] MEDS: metFORMIN HCL 500 MG TABLET (FP) PO SCH ×2 (06:49→16:59)
[2019-11-20] MEDS ORDERED: PT OWN MED DRAWER 7, Y5N ONE ×2 (08:14→22:20)
[2019-11-20] MEDS: guaiFENesin 600 MG TABLET.ER (FP) PO SCH ×2 (10:40→21:31)
[2019-11-20] MEDS: NICOTINE 7 MG/24 HOURS TOPICAL PATCH TD SCH (10:40)
[2019-11-20] MEDS: PRENATAL VITAMINS W/ FOLIC ACID TABLET (FP) PO SCH (10:41)
[2019-11-20] MEDS: cloNIDine HCL 0.1 MG TABLET PO SCH ×2 (11:00→21:30)
[2019-11-20] MEDS: THIAMINE HCL 100 MG TABLET (FP) PO SCH (21:29)
[2019-11-20] MEDS: MELATONIN 5 MG TABLETS PO SCH (21:30)
[2019-11-20] MEDS: traZODone HCL 100 MG TABLET (FP) PO SCH (21:30)
[2019-11-20] MEDS: QUEtiapine FUMARATE 100 MG TABLET (FP) PO SCH (21:30)
[2019-11-21] MEDS: GABAPENTIN 300 MG CAPSULE PO SCH ×3 (06:41→21:41)
[2019-11-21] MEDS: metFORMIN HCL 500 MG TABLET (FP) PO SCH ×2 (06:41→17:49)
[2019-11-21] MEDS ORDERED: PT OWN MED DRAWER 7, Y5N ONE ×2 (08:11→20:28)
[2019-11-21] MEDS: cloNIDine HCL 0.1 MG TABLET PO SCH ×2 (09:47→21:41)
[2019-11-21] MEDS: MAG HYDROX/AL HYDROX/SIMETH 30 ML UNIT-DOSE CUP PO PRN (09:47)
[2019-11-21] MEDS: PRENATAL VITAMINS W/ FOLIC ACID TABLET (FP) PO SCH (09:47)
[2019-11-21] MEDS: NICOTINE 7 MG/24 HOURS TOPICAL PATCH TD SCH (09:50)
[2019-11-21] MEDS: guaiFENesin 600 MG TABLET.ER (FP) PO SCH ×2 (10:15→21:42)
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
[2019-11-21] MEDS: QUEtiapine FUMARATE 100 MG TABLET (FP) PO SCH (21:41)
[2019-11-21] MEDS: traZODone HCL 100 MG TABLET (FP) PO SCH (21:41)
[2019-11-21] MEDS: MELATONIN 5 MG TABLETS PO SCH (21:42)
[2019-11-21] MEDS: THIAMINE HCL 100 MG TABLET (FP) PO SCH (21:43)
[2019-11-22] MEDS: GABAPENTIN 300 MG CAPSULE PO SCH ×3 (06:34→23:54)
[2019-11-22] MEDS: ACETAMINOPHEN 325 MG TABLET (FP) PO PRN ×2 (06:34→13:03)
[2019-11-22] MEDS: metFORMIN HCL 500 MG TABLET (FP) PO SCH ×2 (06:34→16:51)
[2019-11-22] MEDS: cloNIDine HCL 0.1 MG TABLET PO SCH ×2 (09:20→23:54)
[2019-11-22] MEDS: PRENATAL VITAMINS W/ FOLIC ACID TABLET (FP) PO SCH (09:21)
[2019-11-22] MEDS: guaiFENesin 600 MG TABLET.ER (FP) PO SCH ×2 (09:21→23:54)
[2019-11-22] MEDS: NICOTINE 7 MG/24 HOURS TOPICAL PATCH TD SCH (09:21)
[2019-11-22] MEDS ORDERED: cloNIDine HCL 0.1 MG TABLET PO ONE ×2 (15:53)
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
[2019-11-22] MEDS ORDERED: PT OWN MED DRAWER 7, Y5N ONE (18:45)
[2019-11-22] MEDS ORDERED: LORazepam 2 MG/ML SDV VIAL ONE (19:53)
[2019-11-22] MEDS ORDERED: LORazepam 2 MG/ML SDV VIAL IM ONE (20:18)
[2019-11-22 20:20] VITALS: BP 131/87; PULSE 92; TEMP 98
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
[2019-11-22] MEDS: traZODone HCL 100 MG TABLET (FP) PO SCH (23:54)
[2019-11-22] MEDS: MELATONIN 5 MG TABLETS PO SCH (23:54)
[2019-11-22] MEDS: THIAMINE HCL 100 MG TABLET (FP) PO SCH (23:55)
[2019-11-22] MEDS: QUEtiapine FUMARATE 100 MG TABLET (FP) PO SCH (23:55)
== END 2019-11-22 20:30 | disposition short-term general hospital (02) | DRG 772 ==
LOC: YASAS 10:35 → Y3E 10:36
PROVIDERS: ADMIT Allergy & Immunology; ATTEND Allergy & Immunology
PROC: HZ42ZZZ Group Counseling for Substance Abuse Treatment, Cognitive-Behavioral (ICD-10-PCS; principal; 2019-11-19)
DX: F10.20 Alcohol dependence, uncomplicated (principal); F14.20 Cocaine dependence, uncomplicated; F17.210 Nicotine dependence, cigarettes, uncomplicated; F19.20 Other psychoactive substance dependence, uncomplicated; F19.280 Other psychoactive substance dependence with psychoactive substance-induced anxiety disorder; F19.282 Other psychoactive substance dependence with psychoactive substance-induced sleep disorder; E11.9 Type 2 diabetes mellitus without complications; Z79.84 Long term (current) use of oral hypoglycemic drugs; J45.909 Unspecified asthma, uncomplicated; K21.9 Gastro-esophageal reflux disease without esophagitis; M19.90 Unspecified osteoarthritis, unspecified site; R51.9 Headache, unspecified; S09.8XXD Other specified injuries of head, subsequent encounter; Y00.XXXD Assault by blunt object, subsequent encounter; Z91.410 Personal history of adult physical and sexual abuse
CPT/HCPCS: 36415; 70260-TC-FY; 82962; 86803; J0735

== ENCOUNTER 2019-11-22 20:51 | Inpatient (IN) | payer OTHER ==
--- OUTSIDE RECORDS SUMMARY | 2019-11-22 21:13 | XMS ---
:1975 Author [facility] Support Name Relationship Address Phone UE, UNEMPLOYED Unavailable Unavailable Unavailable ANIKA SARAH FAMILY/OTHER [address] [phone] [place] [address] UE Unavailable Unavailable Unavailable SABRINA FISHMAN FAMILY/OTHER [address] [place] [address] MELITA URIBE SISTER [address] [place] [address] [place], [place] KIA DONALDSONSHUA Other [address] [phone] [place] [address] Re-disclosure Warning The records that you are [...] is protected by Article 27-F of the [facility] Public Health law. If you continue you may haveaccess to information: Regarding HIV / AIDS; Provided by facilities licensed or operated by the [facility] Office of Mental Health; or Provided by the [facility] Office for People With Developmental Disabilities. If such information is present, then the following [facility] mandated warning applies: This information has [...] law may result in a fine or penitentiary sentence or both. A general authorization for the release of medical or other information is NOT sufficient authorization for further disclosure. Insurance Providers Payer name Policy type Policy ID Covered Covered constitution party's Policy P srinivas / Coverage constitution party ID relationship to [place] Inf ormation type [place] SAW [id number] SP [id number] 200 HEALTH NON CAP SAW [id number] SP [id number] 200 HEALTH NON CAP MEDICAID [id number] SP [id number] SAW [id number] SP [id number] 200 HEALTH NON CAP Results ID Date Data Source [id number] 11/14/2019 03:20:00 PM EDT [facility] Name Value Range Interpretation Description Data Sup porting Code Source(s) Document(s ) SARS [facility] coronavirus 2 RNA This lab was ordered by [facility] Miguel Barnes and reported by [facility]. Procedure
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
[2019-11-22 21:51] VITALS: BMI 26.5
[2019-11-22 22:20] LABS: BASO % 0.8 % (0-2.0); EOS % 3.6 % (0-4.5); HEMATOCRIT 44.1 % (32.4-45.2); HEMOGLOBIN 14.6 GM/dL (10.7-15.3); LYMPH % 36.4 % (8-40); MCH 27.4 pg (25.7-33.7); MCHC 33.2 g/dl (32.0-36.0); MEAN CELL VOLUME 82.6 fl (80-96); MEAN PLT VOLUME 10.8 fl (7.5-11.1); MONO % 7.6 % (3.8-10.2); NEUT % 51.6 % (42.8-82.8); PLATELET COUNT 142 K/MM3 (134-434); RBC 5.33 M/mm3 (3.60-5.2); RDW 13.1 % (11.6-15.6); WHITE BLOOD COUNT 8.8 K/mm3 (4.0-10.0)
[2019-11-22 22:27] LABS: EPI CELLS >36 /uL (0-25.1); HYALINE CASTS 1 /uL (0-3.1); PH,URINE 5.5 (5.0-8.0); URINE APPEARANCE CLEAR; URINE BACTERIA 86 /uL (0-1359); URINE BILIRUBIN NEGATIVE (NEGATIVE); URINE COLOR YELLOW; URINE GLUCOSE (UA) NEGATIVE (NEGATIVE); URINE KETONE NEGATIVE (NEGATIVE); URINE LEUK ESTERASE 2+ (NEGATIVE); URINE NITRITE NEGATIVE (NEGATIVE); URINE PROTEIN NEGATIVE (NEGATIVE); URINE RBC 5 /uL (0-23.9); URINE UROBILINOGEN 0.2 mg/dL (0.2-1.0); URINE WBC 159 /uL (0-25.8)
[2019-11-22 22:34] LABS: INR 1.08 (0.83-1.09); PROTHROMBIN TIME (PATIENT) 13.2 SEC (9.7-13.0)
[2019-11-22 22:51] LABS: ALBUMIN 3.9 g/dl (3.4-5.0); ALK PHOS 77 U/L (45-117); ANION GAP 6 MMOL/L (8-16); BILIRUBIN,TOTAL 0.2 mg/dL (0.2-1); CALCIUM 9.3 mg/dL (8.5-10.1); CHLORIDE 102 mmol/L (98-107); CO2 28 mmol/L (21-32); GLUCOSE,RANDOM 95 mg/dL (74-106); POTASSIUM 4.2 mmol/L (3.5-5.1); SGOT/AST 21 U/L (15-37); SGPT/ALT 48 U/L (13-61); SODIUM 136 mmol/L (136-145); TOT PROT 7.2 g/dl (6.4-8.2)
[2019-11-22] MEDS ORDERED: IBUPROFEN 600 MG TABLET (FP) PO ONE (22:58)
[2019-11-22] MEDS ORDERED: CEPHALEXIN MONOHYDRATE 500 MG CAPSULE (UD) PO ONE (23:19)
[2019-11-22] MEDS ORDERED: QUEtiapine FUMARATE 100 MG TABLET (FP) PO ONE (23:38)
[2019-11-22] MEDS ORDERED: traZODone HCL 100 MG TABLET (FP) PO ONE (23:38)
[2019-11-22] MEDS ORDERED: GABAPENTIN 300 MG CAPSULE PO ONE (23:38)
[2019-11-22] MEDS ORDERED: cloNIDine HCL 0.1 MG TABLET PO ONE (23:38)
[2019-11-22] MEDS ORDERED: GABAPENTIN 100 MG CAPSULE ONE (23:43)
[2019-11-22] MEDS ORDERED: QUEtiapine FUMARATE 100 MG TABLET (FP) ONE (23:43)
[2019-11-22] MEDS ORDERED: cloNIDine HCL 0.1 MG TABLET ONE (23:43)
[2019-11-22] MEDS ORDERED: CEPHALEXIN MONOHYDRATE 500 MG CAPSULE (UD) ONE (23:43)
[2019-11-23] MEDS ORDERED: DEXTROSE 5%-0.45% SALINE 1,000 ML IV SCH (02:45)
--- NOTE | 2019-11-23 02:48 | HP ---
CHIEF COMPLAINT: Near Syncope PCP: HISTORY OF PRESENT ILLNESS: This is a 44 y/o female [facility] with a significant medical history of Polysubstance Abuse (Cocaine, Alcohol, K2, Tobacco), MDD, Anxiety, DM, Asthma. Who presents to the ED via ambulance for evaluation of near syncope, panic attack x tonight. Patient was not very cooperative during the interview, she adamantly declined any further discussion. Per ED records: patient presents with a witnessed episode of shaking and near syncope Patient states she was having an anxiety attack due to an argument with her family over the phone. Denies fall or head trauma, LOC, tongue biting, bowel or bladder incontinence, numbness, tingling, weakness. ER course was notable for: (1) Cervical Spine CT- no fx, severe C4-C5 and C5-C6 central stenosis is noted with corresponding spinal cord impingement (2) Head CT- no CT evidence of acute intracranial pathology (3) EKG- NSR (4) Troponin I- < 0.02 Recent Travel: None PAST MEDICAL HISTORY: See HPI PAST SURGICAL HISTORY: Childbirth Tubal Ligation Social History: Smoking: Tobacco Alcohol: Alcohol Abuse Drugs: Cocaine Abuse, K2 Abuse Allergies No Known Allergies Allergy (Verified 11/22/19 21:26) HOME MEDICATIONS: Home Medications Medication Instructions Recorded Albuterol Sulfate Inhaler - 2 puff IH Q4H PRN #1 inhaler 08/04/17 [Ventolin HFA Inhaler -] traZODone HCL [Desyrel -] 50 mg PO HS 01/04/19 metFORMIN HCL [Glucophage -] 500 mg PO BIDAC #60 tablet 04/28/19 Gabapentin [Neurontin] 300 mg PO TID 11/14/19 Clonidine HCl [Catapres] 0.1 mg PO BID 11/19/19 Quetiapine Fumarate [Seroquel -] 100 mg PO HS 11/19/19 Cephalexin Monohydrate [Keflex -] 500 mg PO BID #14 capsule 11/22/19 REVIEW OF SYSTEMS CONSTITUTIONAL: Absent: fever, chills, diaphoresis, generalized weakness, malaise, loss of appetite, weight change HEENT: Absent: rhinorrhea, nasal congestion, throat pain, throat swelling, difficulty swallowing, mouth swelling, ear pain, eye pain, visual changes CARDIOVASCULAR: near syncope Absent: chest pain, palpitations, irregular heart rate, lightheadedness, peripheral edema RESPIRATORY: Absent: cough, shortness of breath, dyspnea with exertion, orthopnea, wheezing, stridor, hemoptysis GASTROINTESTINAL: Absent: abdominal pain, abdominal distension, nausea, vomiting, diarrhea, constipation, melena, hematochezia GENITOURINARY: Absent: dysuria, frequency, urgency, hesitancy, hematuria, flank pain, genital pain MUSCULOSKELETAL: Absent: myalgia, arthralgia, joint swelling, back pain, neck pain SKIN: Absent: rash, itching, pallor HEMATOLOGIC/IMMUNOLOGIC: Absent: easy bleeding, easy bruising, lymphadenopathy, frequent infections ENDOCRINE: Absent: unexplained weight gain, unexplained weight loss, heat intolerance, cold intolerance NEUROLOGIC: Absent: headache, focal weakness or paresthesias, dizziness, unsteady gait, seizure, mental status changes, bladder or bowel incontinence PSYCHIATRIC: anxiety Absent: depression, suicidal or homicidal ideation, hallucinations. PHYSICAL EXAMINATION Vital Signs - 24 hr 11/22/19 11/23/19 11/23/19 21:22 01:09 02:26 Temperature 97.7 F 97.3 F L Pulse Rate 98 H Pulse Rate [ 90 83 Left Radial] Respiratory 20 18 20 Rate Blood Pressure 127/89 Blood Pressure 98/62 103/59 L [Left Arm] O2 Sat by Pulse 98 99 95 Oximetry (%) GENERAL: Agitated. alert, and fully oriented HEAD: Normal with no signs of trauma. EYES: Pupils equal, round and reactive to light, extraocular movements intact, sclera anicteric, conjunctiva clear. No lid lag. EARS, NOSE, THROAT: Dry mucous membranes. Ears normal, nares patent, oropharynx clear without exudates. NECK: Normal range of motion, supple without lymphadenopathy, JVD, or masses. LUNGS: Breath sounds equal, clear to auscultation bilaterally. No wheezes, and no crackles. No accessory muscle use. HEART: Regular rate and rhythm, normal S1 and S2 without murmur, rub or gallop. ABDOMEN: Soft, nontender, not distended, normoactive bowel sounds, no guarding, no rebound, no masses. No hepatomegaly or splenomegaly. MUSCULOSKELETAL: Normal range of motion at all joints. No bony deformities or tenderness. No CVA tenderness. UPPER EXTREMITIES: 2+ pulses, warm, well-perfused. No cyanosis. No clubbing. No peripheral edema. LOWER EXTREMITIES: 2+ pulses, warm, well-perfused. No calf tenderness. No peripheral edema. NEUROLOGICAL: Cranial nerves II-XII intact. Normal speech. Normal gait. PSYCHIATRIC:Uncooperative. Agitated mood, flat affect. Good eye contact. SKIN: Warm, dry, normal turgor, no rashes or lesions noted, normal capillary refill. Laboratory Results - last 24 hr 11/22/19 11/22/19 11/22/19 22:00 22:00 22:00 WBC 8.8 RBC 5.33 H Hgb 14.6 Hct 44.1 MCV 82.6 MCH 27.4 MCHC 33.2 RDW 13.1 Plt Count 142 MPV 10.8 D Absolute Neuts (auto) 4.5 Neutrophils % 51.6 Lymphocytes % 36.4 Monocytes % 7.6 Eosinophils % 3.6 Basophils % 0.8 Nucleated RBC % 0 PT with INR 13.20 H INR 1.08 PTT (Actin FS) 30.0 Sodium Potassium Chloride Carbon Dioxide Anion Gap BUN Creatinine Est GFR (CKD-EPI)AfAm Est GFR (CKD-EPI)NonAf Random Glucose Calcium Total Bilirubin AST ALT Alkaline Phosphatase Troponin I Total Protein Albumin Serum , Qual Negative Urine Color Urine Appearance Urine pH Ur Specific [place] Urine Protein Urine Glucose (UA) Urine Ketones Urine Blood Urine Nitrite Urine Bilirubin Urine Urobilinogen Ur Leukocyte Esterase Urine WBC (Auto) Urine RBC (Auto) Urine Casts (Auto) U Epithel Cells (Auto) Urine Bacteria (Auto) 11/22/19 11/22/19 22:00 22:07 WBC RBC Hgb Hct MCV MCH MCHC RDW Plt Count MPV Absolute Neuts (auto) Neutrophils % Lymphocytes % Monocytes % Eosinophils % Basophils % Nucleated RBC % PT with INR INR PTT (Actin FS) Sodium 136 Potassium 4.2 Chloride 102 Carbon Dioxide 28 Anion Gap 6 L BUN 29.0 H Creatinine 1.0 Est GFR (CKD-EPI)AfAm 79.35 Est GFR (CKD-EPI)NonAf 68.46 Random Glucose 95 Calcium 9.3 Total Bilirubin 0.2 AST 21 ALT 48 Alkaline Phosphatase 77 Troponin I < 0.02 Total Protein 7.2 Albumin 3.9 Serum , Qual Urine Color Yellow Urine Appearance Clear Urine pH 5.5 D Ur Specific [place] 1.023 Urine Protein Negative Urine Glucose (UA) Negative Urine Ketones Negative Urine Blood Negative Urine Nitrite Negative Urine Bilirubin Negative Urine Urobilinogen 0.2 Ur Leukocyte Esterase 2+ H Urine WBC (Auto) 159 Urine RBC (Auto) 5 Urine Casts (Auto) 1 U Epithel Cells (Auto) >36 Urine Bacteria (Auto) 86 ASSESSMENT/PLAN: This is a 44 y/o female from [facility] rehab with a significant PMHx of Polysubstance Abuse (Cocaine, K2, Alcohol, Tobacco), MDD, Anxiety, DM, Asthma. Admitted to Telemetry for Near Syncope, Cervical Spinal Stenosis for further evaluation of their emergent condition. Plan: See Problem List FEN D50.45%NS@83ml/hr Replete lytes prn NPO DVT ppx OOB SCDs Hold AC for now- probable surgery Code Status: Full Code Dispo: Requires Inpatient Care Family Medical History Family History: Unable to Obtain Problem List - Problem (1) Near syncope Assessment/Plan: Likely secondary to Panic Attack vs Vasovagal Response Less likely Arrhythmia Cardiac monitoring Serial enzymes Consider Cardiology consult Will defer Carotid US until patient eval by neurosurgeon Monitor CBC, CMP Code(s): R55 - SYNCOPE AND COLLAPSE (2) Cervical stenosis of spinal canal Assessment/Plan: C-Spine CT image and report reviewed Neurosurgeon consulted and aware, per ED resident- will see patient in am C-Spine MRI- pending Neurovascular checks Monitor vitals Fall Precautions Code(s): M48.02 - SPINAL STENOSIS, CERVICAL REGION (3) Polysubstance abuse Assessment/Plan: Continue Rehab when d/c Code(s): F19.10 - OTHER PSYCHOACTIVE SUBSTANCE ABUSE, UNCOMPLICATED (4) Anxiety Assessment/Plan: Continue home med Code(s): F41.9 - ANXIETY DISORDER, UNSPECIFIED (5) MDD (major depressive disorder) Assessment/Plan: Continue home med Code(s): F32.9 - MAJOR DEPRESSIVE DISORDER, SINGLE EPISODE, UNSPECIFIED (6) DM type 2 (diabetes mellitus, type 2) Assessment/Plan: stable BGMs Hold ISS, until diet resumed Monitor CMP Code(s): E11.9 - TYPE 2 DIABETES MELLITUS WITHOUT COMPLICATIONS Qualifiers: Diabetes mellitus alf insulin use: without rat exterminator use Diabetes mellitus complication status: without complication Qualified Code(s): E11.9 - Type 2 diabetes mellitus without complications (7) GERD (gastroesophageal reflux disease) Assessment/Plan: stable Continue PPI IV Code(s): K21.9 - GASTRO-ESOPHAGEAL REFLUX DISEASE WITHOUT ESOPHAGITIS Qualifiers: Esophagitis presence: without esophagitis Qualified Code(s): K21.9 - Gastro-esophageal reflux disease without esophagitis (8) Encounter for screening laboratory testing for COVID-19 virus Assessment/Plan: SMART-ACCOUNT CLERK 0, low risk COVID-19 PCR- pending Maintain Strict Isolation Precautions Code(s): Z20.828 - CONTACT W AND EXPOSURE TO OTH VIRAL COMMUNICABLE DISEASES Visit type - Emergency Visit Emergency Visit: Yes ED Registration Date: 11/22/19 Care time: The patient presented to the Emergency Department on the above date and was hospitalized for further evaluation of their emergent condition. - New Patient This patient is new to me today: Yes Date on this admission: 11/23/19 - Critical Care Critical Care patient: No
--- OUTSIDE RECORDS SUMMARY | 2019-11-23 02:48 | XMS ---
:[address] [facility] Support Name Relationship Address Phone UE, UNEMPLOYED Unavailable Unavailable Unavailable ANIKA SARAH FAMILY/OTHER [address] [place] [address] UE Unavailable Unavailable Unavailable SABRINA FISHMAN FAMILY/OTHER [address] [phone] [place] [address] MELITA URIBE SISTER [address] [place] [address] [phone] [place], [place] XXXXX KIA DONALDSONSHUA Other [address] [phone] [place] [address] Re-disclosure Warning The records that you are [...] is protected by Article 27-F of the [facility] Public Health law. If you continue you may haveaccess to information: Regarding HIV / AIDS; Provided by facilities licensed or operated by the [facility] Office of Mental Health; or Provided by the [facility] Office for People With Developmental Disabilities. If such information is present, then the following [facility] mandated warning applies: This information has [...] law may result in a fine or retirement sentence or both. A general authorization for the release of medical or other information is NOT sufficient authorization for further disclosure. Insurance Providers Payer name Policy type Policy ID Covered Covered republican's Policy P srinivas / Coverage republican ID relationship to [place] type [place] SAW [id number] SP [id number] 200 HEALTH NON CAP SAW [id number] SP [id number] 200 HEALTH NON CAP MEDICAID [id number] SP [id number] SAW [id number] SP [id number] 200 HEALTH NON CAP Results ID Date Data Source [id number] 11/14/2019 03:20:00 PM EDT [facility] Name Value Range Interpretation Description Data Sup porting Code Source(s) Document(s ) SARS [facility] coronavirus 2 RNA This lab was ordered by [facility] Miguel Barnes and reported by [facility]. Procedure
[2019-11-23] MEDS ORDERED: ALBUTEROL SO4 HFA INHALER IH PRN (03:13)
[2019-11-23 07:27] LABS: BASO % 0.7 % (0-2.0); EOS % 3.8 % (0-4.5); HEMATOCRIT 40.6 % (32.4-45.2); HEMOGLOBIN 13.5 GM/dL (10.7-15.3); LYMPH % 46.6 % (8-40); MCH 26.9 pg (25.7-33.7); MCHC 33.2 g/dl (32.0-36.0); MEAN CELL VOLUME 80.9 fl (80-96); MEAN PLT VOLUME 10.9 fl (7.5-11.1); MONO % 8.7 % (3.8-10.2); NEUT % 40.2 % (42.8-82.8); PLATELET COUNT 121 K/MM3 (134-434); RBC 5.02 M/mm3 (3.60-5.2); RDW 13.1 % (11.6-15.6); WHITE BLOOD COUNT 7.8 K/mm3 (4.0-10.0)
[2019-11-23 07:38] LABS: INR 1.08 (0.83-1.09); PROTHROMBIN TIME (PATIENT) 13.3 SEC (9.7-13.0)
[2019-11-23 07:55] LABS: ALBUMIN 3.5 g/dl (3.4-5.0); BILIRUBIN,TOTAL 0.2 mg/dL (0.2-1); CALCIUM 8.4 mg/dL (8.5-10.1); CREATININE 0.8 mg/dL (0.55-1.3); POTASSIUM 4.1 mmol/L (3.5-5.1); TOT PROT 6.4 g/dl (6.4-8.2)
[2019-11-23] MEDS ORDERED: FAMOTIDINE 20 MG/50 ML IVPB 20 MG/50 ML MG IVPB SCH (11:45)
[2019-11-23] MEDS ORDERED: FAMOTIDINE 20 MG/50 ML IVPB 20 MG/50 ML MG IVPB ONE (11:49)
--- NOTE | 2019-11-23 13:35 | EKG ---
Test Reason : Blood Pressure : / mmHG Vent. Rate : 086 BPM Atrial Rate : 086 BPM P-R Int : 140 ms QRS Dur : 076 ms QT Int : 384 ms P-R-T Axes : 010 038 021 degrees QTc Int : 459 ms NORMAL SINUS RHYTHM NORMAL ECG WHEN COMPARED WITH ECG OF 30-NOV-2017 11:37, NO SIGNIFICANT CHANGE WAS FOUND Confirmed by FREDDY WILHELM MD ([id number]) on 11/23/2019 1:35:38 PM Referred By: Confirmed By:FREDDY WILHELM MD
[2019-11-23] MEDS ORDERED: GABAPENTIN 300 MG CAPSULE PO SCH (14:00)
--- NOTE | 2019-11-23 15:13 | PN ---
Teaching Attending Note Name of Resident: Bobby Douglas UPDATE: MRI performed and neurosurgery consulted. Patient does not wish to have surgery and opted for conservative management with pain management and neurosurgical outpatient monitoring. Patient was educated by surgical team about possibility of surgery in the future. Patient can be discharged back to [facility] rehabilitation in lieu of this. ATTENDING PHYSICIAN STATEMENT I saw and evaluated the patient. I reviewed the resident's note and discussed the case with the resident. I agree with the resident's findings and plan as documented. SUBJECTIVE: Pt comes from inpatient rehab in [facility] due to event noted to have shaking and catatonia. Patient had been transported to ER for further workup. She finished detox for polysubstance abuse at [facility] and was continued into inpatient rehabilitation due to a high propensity for relapse with underlying psychological trauma. Endorses recollection of events without any incontinence or symptoms indicative of seizure. Denies post-ictal confusion, denies lightheadedness. Patient is hungry and concerned about her home medications she was receiving. Pt endorses slight R-sided weakness with some worsening cervical neck pain. OBJECTIVE: Vital Signs Temperature 97.9 F 11/23/19 10:00 Pulse Rate 79 11/23/19 10:00 Respiratory Rate 18 11/23/19 10:00 Blood Pressure 109/59 L 11/23/19 10:00 O2 Sat by Pulse Oximetry (%) 99 11/23/19 10:00 PE: Gen: NAD, awake, alert HEENT: NC/AT, EOMI, MARIPOSA LUNG: CTA b/l CARD: RRR no murmurs appreciated ABD: Soft, NT/Nd, + BS Neuro: Strength 4+/5 RUE in all aspects with LUE 5/5, dull sensation intact b/l. Triceps reflex intact b/l EXT: No edema CBC, BMP 11/23/19 05:50 11/23/19 05:50 Active Medications Albuterol Sulfate (Ventolin Hfa Inhaler -) 2 puff IH Q4H PRN PRN Reason: SHORT OF BREATH/WHEEZING Gabapentin (Neurontin -) 300 mg PO TID LA NENA Last Admin: 11/23/19 15:48 Dose: 300 mg Documented by: Dextrose/Sodium Chloride (D5-1/2ns -) 1,000 mls @ 83 mls/hr IV ASDIR [facility] Last Admin: 11/23/19 02:49 Dose: 83 mls/hr Documented by: Famotidine/Sodium Chloride (Pepcid 20 Mg Premixed Ivpb -) 20 mg in 50 mls @ 100 mls/hr IVPB BID [facility] Last Admin: 11/23/19 11:55 Dose: 100 mls/hr Documented by: Quetiapine Fumarate (Seroquel -) 100 mg PO HS LA NENA Trazodone HCl (Desyrel -) 100 mg PO HS [facility] ASSESSMENT AND PLAN: Cervical spine impingement; r/o compression Polysubstance Abuse Psychological Trauma Diabetes Mellitus History --Event at [facility] likely panic attack with catatonia --Doubt seizure due to lack of supporting symptoms --Doubt syncope and thus can defer echo, carotid stenosis at this time --Patient awaiting MRI to be performed --Neurosurgery was consulted and awaiting MRI imaging before proceeding with plan --Due to less severe deficits will hold off on steroid administration for now --Continue patient's rehab medications: Gabapentin 300mg TID (increased in rehab) Seroqel 100mg HS Trazodone 100mg HS (increased in rehab) --Rest of medications need reconciliation --Discontinue fluids and advance diet while awaiting MRI to be performed Dispo: Neurosurgery consultation DO Aziza Crawford
[2019-11-23] MEDS ORDERED: GABAPENTIN 100 MG CAPSULE ONE (15:34)
--- NOTE | 2019-11-23 16:35 | CONSULT ---
- Consultation REQUESTING PROVIDER: CONSULT REQUEST: We have been asked to surgically evaluate this patient for cervical cord compression Hospitalist:Hans Nance MD HISTORY OF PRESENT ILLNESS: 44yo F was consulted to Neurosurgery to evaluate cervical cord compression. This is a 44 y/o female from [facility] with a significant medical history of Polysubstance Abuse (Cocaine, Alcohol, K2, Tobacco), MDD, Anxiety, DM, Asthma. Who presents to the ED via ambulance for evaluation of near syncope, panic attack. Pt had CT head and c-spine which showed no fx, severe C4-C5 and C5-C6 central stenosis is noted with corresponding spinal cord impingement. Pt states she has some intermittant cervical pain, but does not describe it as ever severe. Pt denies any weakness or numbness in her arms and states she currently has no pain in her neck. Pt states she has full ROM in her neck. Denies previous h/o cervical spine. Home Medications Medication Instructions Recorded Albuterol Sulfate Inhaler - 2 puff IH Q4H PRN #1 inhaler 08/04/17 [Ventolin HFA Inhaler -] traZODone HCL [Desyrel -] 50 mg PO HS 01/04/19 metFORMIN HCL [Glucophage -] 500 mg PO BIDAC #60 tablet 04/28/19 Gabapentin [Neurontin] 300 mg PO TID 11/14/19 Clonidine HCl [Catapres] 0.1 mg PO BID 11/19/19 Quetiapine Fumarate [Seroquel -] 100 mg PO HS 11/19/19 Cephalexin Monohydrate [Keflex -] 500 mg PO BID #14 capsule 11/22/19 Allergies Allergy/AdvReac Type Severity Reaction Status Date / Time No Known Allergies Allergy Verified 11/22/19 21:26 REVIEW OF SYSTEMS: CONSTITUTIONAL: Absent: fever, chills, diaphoresis, generalized weakness, malaise, loss of appetite, weight change CARDIOVASCULAR: Absent: chest pain, syncope, palpitations, irregular heart rate, lightheadednes s, peripheral edema RESPIRATORY: Absent: cough, shortness of breath, dyspnea with exertion, wheezing, stridor, hemoptysis NEUROLOGIC: Absent: headache, focal weakness, paresthesias, dizziness, unsteady gait, seizure, mental status changes, bladder or bowel incontinence PHYSICAL EXAM: GENERAL: Awake, alert, and fully oriented, in no acute distress. HEAD: Normal with no signs of trauma. EYES: PERRL, sclera anicteric, conjunctiva clear. NECK: Normal ROM, supple without lymphadenopathy, JVD, or masses. LUNGS: Breathing comfortably, No accessory muscle use. MUSCULOSKELETAL: Normal ROM at all joints. No bony deformities or tenderness. No CVA tenderness. UPPER EXTREMITIES: warm, well-perfused. No cyanosis. No peripheral edema. No weakness or numbness. LOWER EXTREMITIES: warm, well-perfused. No calf tenderness. No peripheral edema. NEUROLOGICAL: Normal speech, gait not observed. PSYCH: Cooperative. Good eye contact. Appropriate mood and affect. SKIN: Warm, dry, normal turgor, no rashes or lesions noted. Vital Signs Temperature 97.9 F 11/23/19 10:00 Pulse Rate 79 11/23/19 10:00 Respiratory Rate 18 11/23/19 10:00 Blood Pressure 109/59 L 11/23/19 10:00 O2 Sat by Pulse Oximetry (%) 99 11/23/19 10:00 Lab Results WBC 7.8 K/mm3 (4.0-10.0) 11/23/19 05:50 RBC 5.02 M/mm3 (3.60-5.2) 11/23/19 05:50 Hgb 13.5 GM/dL (10.7-15.3) 11/23/19 05:50 Hct 40.6 % (32.4-45.2) 11/23/19 05:50 MCV 80.9 fl (80-96) 11/23/19 05:50 MCHC 33.2 g/dl (32.0-36.0) 11/23/19 05:50 RDW 13.1 % (11.6-15.6) 11/23/19 05:50 Plt Count 121 K/MM3 (134-434) L 11/23/19 05:50 INR 1.08 (0.83-1.09) 11/23/19 05:50 Sodium 137 mmol/L (136-145) 11/23/19 05:50 Potassium 4.1 mmol/L (3.5-5.1) 11/23/19 05:50 Chloride 106 mmol/L (98-107) 11/23/19 05:50 Carbon Dioxide 25 mmol/L (21-32) 11/23/19 05:50 Anion Gap 6 MMOL/L (8-16) L 11/23/19 05:50 BUN 22.0 mg/dL (7-18) H 11/23/19 05:50 Creatinine 0.8 mg/dL (0.55-1.3) 11/23/19 05:50 Random Glucose 82 mg/dL (74-106) 11/23/19 05:50 Calcium 8.4 mg/dL (8.5-10.1) L 11/23/19 05:50 Blood Type A POSITIVE 11/23/19 05:50 Antibody Screen Negative 11/23/19 05:50 CT C-spine: no fx, severe C4-C5 and C5-C6 central stenosis is noted with corresponding spinal cord impingement Problem List - Problems (1) Cervical stenosis of spinal canal Assessment/Plan: Plan -spoke at length with pt about her cervical stenosis and possible surgery. Pt stated she was not interested in surgery at this time and would prefer conservative treatments, which I agree is appropriate, but did educate pt that surgery may be necessary in the future. -recommend pain management and Physical therapy -pt should follow up with Dr. Dave's office as outpatient Pt discussed with Dr. Dave, who agrees with plan. Please reconsult if any acute changes. Code(s): M48.02 - SPINAL STENOSIS, CERVICAL REGION
--- NOTE | 2019-11-23 17:57 | DS ---
Physical Exam: SUBJECTIVE: Patient seen and examined OBJECTIVE: Vital Signs Period Temp Pulse Resp BP Sys/Rice Pulse Ox Last 24 Hr 97.3 F-98.1 F 79-98 18-20 98-127/59-89 95-100 PHYSICAL EXAM GENERAL: The patient is awake, alert, and fully oriented, in no acute distress. HEAD: Normal with no signs of trauma. EYES: PERRL, extraocular movements intact, sclera anicteric, conjunctiva clear. ENT: Ears normal, nares patent, oropharynx clear without exudates, moist mucous membranes. NECK: Trachea midline, full range of motion, supple. LUNGS: Breath sounds equal, clear to auscultation bilaterally, no wheezes, no crackles, no accessory muscle use. HEART: Regular rate and rhythm, S1, S2 without murmur, rub or gallop. ABDOMEN: Soft, nontender, nondistended, normoactive bowel sounds, no guarding, no rebound, no hepatosplenomegaly, no masses. EXTREMITIES: 2+ pulses, warm, well-perfused, no edema. NEUROLOGICAL: Cranial nerves II through XII grossly intact. Normal speech, gait not observed. PSYCH: Normal mood, normal affect. SKIN: Warm, dry, normal turgor, no rashes or lesions noted. LABS Laboratory Results - last 24 hr 11/22/19 11/22/19 11/22/19 22:00 22:00 22:00 WBC 8.8 RBC 5.33 H Hgb 14.6 Hct 44.1 MCV 82.6 MCH 27.4 MCHC 33.2 RDW 13.1 Plt Count 142 MPV 10.8 D Absolute Neuts (auto) 4.5 Neutrophils % 51.6 Lymphocytes % 36.4 Monocytes % 7.6 Eosinophils % 3.6 Basophils % 0.8 Nucleated RBC % 0 PT with INR 13.20 H INR 1.08 PTT (Actin FS) 30.0 Sodium Potassium Chloride Carbon Dioxide Anion Gap BUN Creatinine Est GFR (CKD-EPI)AfAm Est GFR (CKD-EPI)NonAf Random Glucose Calcium Total Bilirubin AST ALT Alkaline Phosphatase Troponin I Total Protein Albumin Serum , Qual Negative Urine Color Urine Appearance Urine pH Ur Specific Kirby Urine Protein Urine Glucose (UA) Urine Ketones Urine Blood Urine Nitrite Urine Bilirubin Urine Urobilinogen Ur Leukocyte Esterase Urine WBC (Auto) Urine RBC (Auto) Urine Casts (Auto) U Epithel Cells (Auto) Urine Bacteria (Auto) Blood Type Antibody Screen 11/22/19 11/22/19 11/23/19 22:00 22:07 05:50 WBC 7.8 RBC 5.02 Hgb 13.5 Hct 40.6 MCV 80.9 MCH 26.9 MCHC 33.2 RDW 13.1 Plt Count 121 L MPV 10.9 Absolute Neuts (auto) 3.1 Neutrophils % 40.2 L D Lymphocytes % 46.6 H D Monocytes % 8.7 Eosinophils % 3.8 Basophils % 0.7 Nucleated RBC % 0 PT with INR INR PTT (Actin FS) Sodium 136 Potassium 4.2 Chloride 102 Carbon Dioxide 28 Anion Gap 6 L BUN 29.0 H Creatinine 1.0 Est GFR (CKD-EPI)AfAm 79.35 Est GFR (CKD-EPI)NonAf 68.46 Random Glucose 95 Calcium 9.3 Total Bilirubin 0.2 AST 21 ALT 48 Alkaline Phosphatase 77 Troponin I < 0.02 Total Protein 7.2 Albumin 3.9 Serum , Qual Urine Color Yellow Urine Appearance Clear Urine pH 5.5 D Ur Specific Kirby 1.023 Urine Protein Negative Urine Glucose (UA) Negative Urine Ketones Negative Urine Blood Negative Urine Nitrite Negative Urine Bilirubin Negative Urine Urobilinogen 0.2 Ur Leukocyte Esterase 2+ H Urine WBC (Auto) 159 Urine RBC (Auto) 5 Urine Casts (Auto) 1 U Epithel Cells (Auto) >36 Urine Bacteria (Auto) 86 Blood Type Antibody Screen 11/23/19 11/23/19 11/23/19 05:50 05:50 05:50 WBC RBC Hgb Hct MCV MCH MCHC RDW Plt Count MPV Absolute Neuts (auto) Neutrophils % Lymphocytes % Monocytes % Eosinophils % Basophils % Nucleated RBC % PT with INR 13.30 H INR 1.08 PTT (Actin FS) Sodium 137 Potassium 4.1 Chloride 106 Carbon Dioxide 25 Anion Gap 6 L BUN 22.0 H Creatinine 0.8 Est GFR (CKD-EPI)AfAm 103.92 Est GFR (CKD-EPI)NonAf 89.66 Random Glucose 82 Calcium 8.4 L Total Bilirubin 0.2 AST 15 ALT 39 Alkaline Phosphatase 67 Troponin I Total Protein 6.4 Albumin 3.5 Serum , Qual Urine Color Urine Appearance Urine pH Ur Specific Kirby Urine Protein Urine Glucose (UA) Urine Ketones Urine Blood Urine Nitrite Urine Bilirubin Urine Urobilinogen Ur Leukocyte Esterase Urine WBC (Auto) Urine RBC (Auto) Urine Casts (Auto) U Epithel Cells (Auto) Urine Bacteria (Auto) Blood Type A POSITIVE Antibody Screen Negative HOSPITAL COURSE: Date of Admission:11/23/19 Date of Discharge: 11/23/19 Discharge Summary Problems reviewed: Yes Reason For Visit: CERVICAL NERVE ROOT COMPRESSION,POLYSUBSTANCE Current Active Problems Cervical stenosis of spinal canal (Acute) Encounter for screening laboratory testing for COVID-19 virus (Acute) Near syncope (Acute) Polysubstance abuse (Acute) Vasovagal episode (Acute) Condition: Improved - Instructions Diet, Activity, Other Instructions: You presented to the hospital from [facility] due to a possible seizure or fainting episode. You underwent imaging of your head and neck. there were no abnormalities seen on imaging of your brain. However, you were found to have spinal stenosis. It is recommended that you follow up with the Neurosurgeon, Dr Dave, as you may need surgery in the future. It is also recommended that you follow up with a electrostatic paint operator and physical therapist. Referrals have been proved for you in your discharge papers. Please follow up with your primary care doctor in 1 week. We have also provided you with a referral to our hospital primary care clinic if you do not have a primary care physician. You will be transferred back to [facility] to complete your rehab. Please return to the emergency department immediately if you begin to experience seizures, lightheadedness, chest pain, shortness of breath, numbness/weakness, fever, or any other abnormal symptoms. Referrals: [facility] [place] [facility] [place] [Provider Group] - 1 Week Juno Dave MD, FAANS [Staff Physician] - 1 Week Kit Mclaughlin DO [Staff Physician] - ON STAFF,NOT [Primary Care Provider] - Disposition: TRANSFER ACUTE CARE/OTHER HOSP - Home Medications Comprehensive Discharge Medication List: Ambulatory Orders Albuterol Sulfate Inhaler - [Ventolin HFA Inhaler -] 2 puff IH Q4H PRN #1 inhaler 08/04/17 traZODone HCL [Desyrel -] 50 mg PO HS 01/04/19 metFORMIN HCL [Glucophage -] 500 mg PO BIDAC #60 tablet 04/28/19 Gabapentin [Neurontin] 300 mg PO TID 11/14/19 Clonidine HCl [Catapres] 0.1 mg PO BID 11/19/19 Quetiapine Fumarate [Seroquel -] 100 mg PO HS 11/19/19 ATTENDING PHYSICIAN STATEMENT I saw and evaluated the patient. I reviewed the resident's note and discussed the case with the resident. I agree with the resident's findings and plan as documented. SUBJECTIVE: OBJECTIVE: ASSESSMENT AND PLAN:
[2019-11-23 18:59] VITALS: BP 105/72; PULSE 67; TEMP 97.2
[2019-11-23] MEDS ORDERED: QUEtiapine FUMARATE 100 MG TABLET (FP) PO SCH (22:00)
[2019-11-23] MEDS ORDERED: traZODone HCL 100 MG TABLET (FP) PO SCH (22:00)
== END 2019-11-23 20:39 | disposition short-term general hospital (02) | DRG 756 ==
LOC: JER 20:51 → JERBED 11-23 02:37
PROVIDERS: ADMIT Internal Medicine; ATTEND Internal Medicine
DX: F41.0 Panic disorder [episodic paroxysmal anxiety] (principal); J45.909 Unspecified asthma, uncomplicated; F10.10 Alcohol abuse, uncomplicated; F41.8 Other specified anxiety disorders; K21.9 Gastro-esophageal reflux disease without esophagitis; F20.2 Catatonic schizophrenia; F17.210 Nicotine dependence, cigarettes, uncomplicated; M94.0 Chondrocostal junction syndrome [Tietze]; F14.10 Cocaine abuse, uncomplicated; F19.10 Other psychoactive substance abuse, uncomplicated; E11.9 Type 2 diabetes mellitus without complications; R55 Syncope and collapse; F43.10 Post-traumatic stress disorder, unspecified; M48.02 Spinal stenosis, cervical region; Z20.828 Contact with and (suspected) exposure to other viral communicable diseases
CPT/HCPCS: 36415; 70450-TC; 71045-TC-FY; 72125-TC; 72156-TC; 80053; 81003; 84484; 84703; 85025; 85610; 85730; 86850; 86900; 86901; 87086; 93005; 93010; 99285-25; C9803; J0735; U0003

== ENCOUNTER 2020-07-18 15:17 | Inpatient (IN) | payer OTHER ==
[2020-07-18] MEDS ORDERED: LORazepam 1 MG TABLET PO PRN (16:15)
[2020-07-18] MEDS ORDERED: MAG HYDROX/AL HYDROX/SIMETH 30 ML UNIT-DOSE CUP PO PRN (16:15)
[2020-07-18] MEDS ORDERED: NICOTINE POLACRILEX 2 MG GUM BUC PRN (16:15)
[2020-07-18] MEDS ORDERED: ACETAMINOPHEN 325 MG TABLET (FP) PO PRN ×2 (16:15)
[2020-07-18] MEDS ORDERED: MAGNESIUM CITRATE 300 ML BOTTLE PO PRN (16:15)
[2020-07-18] MEDS ORDERED: BISMUTH SUBSALICYLATE 524 MG/30 ML PO PRN (16:15)
[2020-07-18] MEDS ORDERED: MAGNESIUM HYDROX 2400MG/30ML ORAL SUSPENSION 30 ML CUP PO PRN (16:15)
[2020-07-18 16:19] VITALS: BMI 29.0
[2020-07-18] MEDS: LORazepam 2 MG TABLET PO SCH ×2 (19:21→22:28)
[2020-07-18] MEDS: hydrOXYzine PAMOATE 25 MG CAPSULE (FP) PO SCH ×2 (19:22→22:27)
[2020-07-18] MEDS: NICOTINE 14 MG/24 HOURS TOPICAL PATCH TD SCH (19:24)
[2020-07-18] MEDS: METHOCARBAMOL 500 MG TABLET PO PRN (22:27)
[2020-07-18] MEDS: THIAMINE HCL 100 MG TABLET (FP) PO SCH (22:27)
[2020-07-18] MEDS: KETOCONAZOLE 2% TOPICAL CREAM 15 GM TUBE TP SCH (22:28)
[2020-07-18] MEDS: MELATONIN 5 MG TABLETS PO SCH (22:28)
[2020-07-18] MEDS: INSULIN SLIDING SCALE (NOVOLOG) 1 VIAL SQ SCH (22:29)
[2020-07-19] MEDS: LORazepam 2 MG TABLET PO SCH ×4 (05:28→22:42)
[2020-07-19] MEDS: hydrOXYzine PAMOATE 25 MG CAPSULE (FP) PO SCH ×5 (05:28→22:39)
[2020-07-19] MEDS: METHOCARBAMOL 500 MG TABLET PO PRN (05:42)
[2020-07-19] MEDS: ALBUTEROL SO4 HFA INHALER IH PRN (06:10)
[2020-07-19] MEDS: INSULIN SLIDING SCALE (NOVOLOG) 1 VIAL SQ SCH ×3 (07:52→17:33)
[2020-07-19] MEDS: MENTHOL/PHENOL 1 EACH UD MM PRN (07:53)
[2020-07-19] MEDS: IBUPROFEN 400 MG TABLET (FP) PO PRN (09:38)
[2020-07-19 10:25] LABS: HEMATOCRIT 45.1 % (32.4-45.2); HEMOGLOBIN 14.7 GM/dL (10.7-15.3); MCH 27.3 pg (25.7-33.7); MCHC 32.6 g/dl (32.0-36.0); MEAN CELL VOLUME 83.5 fl (80-96); MEAN PLT VOLUME 11.3 fl (7.5-11.1); PLATELET COUNT 138 K/MM3 (134-434); RDW 13.9 % (11.6-15.6); WHITE BLOOD COUNT 7.7 K/mm3 (4.0-10.0)
[2020-07-19] MEDS: FLUoxetine HCL 20 MG CAPSULE PO SCH (10:25)
[2020-07-19] MEDS: NICOTINE 14 MG/24 HOURS TOPICAL PATCH TD SCH (10:25)
[2020-07-19] MEDS: PRENATAL VITAMINS W/ FOLIC ACID TABLET (FP) PO SCH (10:26)
[2020-07-19] MEDS: QUEtiapine FUMARATE 100 MG TABLET (FP) PO SCH ×3 (10:27→22:39)
[2020-07-19 10:30] LABS: CALCIUM 9.1 mg/dL (8.5-10.1)
[2020-07-19] MEDS: KETOCONAZOLE 2% TOPICAL CREAM 15 GM TUBE TP SCH ×2 (10:30→22:43)
[2020-07-19 10:31] LABS: ALBUMIN 4.1 g/dl (3.4-5.0); BLOOD UREA NITROGEN 10.2 mg/dL (7-18)
[2020-07-19 10:34] LABS: CREATININE 0.8 mg/dL (0.55-1.3)
[2020-07-19 10:35] LABS: BILIRUBIN,TOTAL 0.6 mg/dL (0.2-1); TOT PROT 7.4 g/dl (6.4-8.2)
[2020-07-19] MEDS: GABAPENTIN 100 MG CAPSULE PO SCH ×2 (13:53→22:40)
[2020-07-19] MEDS ORDERED: QUEtiapine FUMARATE 100 MG TABLET (FP) PO SCH ×2 (14:00)
[2020-07-19] MEDS: ONDANSETRON *ODT* 4 MG TABLET SL PRN (17:01)
[2020-07-19] MEDS: traZODone HCL 100 MG TABLET (FP) PO SCH (22:39)
[2020-07-19] MEDS: THIAMINE HCL 100 MG TABLET (FP) PO SCH (22:39)
[2020-07-19] MEDS: PRAZOSIN HCL 1 MG CAPSULE PO SCH (22:40)
[2020-07-19] MEDS: MELATONIN 5 MG TABLETS PO SCH (22:45)
[2020-07-20] MEDS: INSULIN SLIDING SCALE (NOVOLOG) 1 VIAL SQ SCH ×4 (00:15→23:56)
[2020-07-20] MEDS: QUEtiapine FUMARATE 100 MG TABLET (FP) PO SCH ×3 (06:09→22:22)
[2020-07-20] MEDS: GABAPENTIN 100 MG CAPSULE PO SCH ×3 (06:09→22:21)
[2020-07-20] MEDS: LORazepam 1 MG TABLET PO SCH ×4 (06:09→22:26)
[2020-07-20] MEDS: hydrOXYzine PAMOATE 25 MG CAPSULE (FP) PO SCH ×5 (06:09→22:21)
[2020-07-20] MEDS: METHOCARBAMOL 500 MG TABLET PO PRN (06:30)
[2020-07-20] MEDS: IBUPROFEN 400 MG TABLET (FP) PO PRN (06:30)
[2020-07-20] MEDS: KETOCONAZOLE 2% TOPICAL CREAM 15 GM TUBE TP SCH ×2 (10:18→22:26)
[2020-07-20] MEDS: NICOTINE 14 MG/24 HOURS TOPICAL PATCH TD SCH (10:19)
[2020-07-20] MEDS: FLUoxetine HCL 20 MG CAPSULE PO SCH (10:20)
[2020-07-20] MEDS: PRENATAL VITAMINS W/ FOLIC ACID TABLET (FP) PO SCH (10:20)
[2020-07-20] MEDS: ONDANSETRON *ODT* 4 MG TABLET SL PRN (12:21)
[2020-07-20] MEDS ORDERED: QUEtiapine FUMARATE 50 MG TABLET ONE (13:29)
[2020-07-20] MEDS: ALBUTEROL SO4 HFA INHALER IH PRN (20:04)
[2020-07-20] MEDS: MENTHOL/PHENOL 1 EACH UD MM PRN (20:06)
[2020-07-20] MEDS: THIAMINE HCL 100 MG TABLET (FP) PO SCH (22:21)
[2020-07-20] MEDS: traZODone HCL 100 MG TABLET (FP) PO SCH (22:21)
[2020-07-20] MEDS: PRAZOSIN HCL 1 MG CAPSULE PO SCH (22:22)
[2020-07-20] MEDS: MELATONIN 5 MG TABLETS PO SCH (22:25)
[2020-07-21] MEDS ORDERED: LORazepam 0.5 MG TABLET PO PRN
[2020-07-21] MEDS: hydrOXYzine PAMOATE 25 MG CAPSULE (FP) PO SCH ×5 (05:12→22:34)
[2020-07-21] MEDS: QUEtiapine FUMARATE 100 MG TABLET (FP) PO SCH ×3 (05:12→22:29)
[2020-07-21] MEDS: LORazepam 0.5 MG TABLET PO SCH ×4 (05:12→22:30)
[2020-07-21] MEDS: GABAPENTIN 100 MG CAPSULE PO SCH ×3 (05:12→22:29)
[2020-07-21] MEDS: INSULIN SLIDING SCALE (NOVOLOG) 1 VIAL SQ SCH ×4 (06:18→22:34)
[2020-07-21] MEDS: FLUoxetine HCL 20 MG CAPSULE PO SCH (10:19)
[2020-07-21] MEDS: PRENATAL VITAMINS W/ FOLIC ACID TABLET (FP) PO SCH (10:19)
[2020-07-21] MEDS: KETOCONAZOLE 2% TOPICAL CREAM 15 GM TUBE TP SCH ×2 (10:21→22:31)
[2020-07-21] MEDS: NICOTINE 14 MG/24 HOURS TOPICAL PATCH TD SCH (10:21)
[2020-07-21] MEDS: METHOCARBAMOL 500 MG TABLET PO PRN (17:51)
[2020-07-21] MEDS: IBUPROFEN 400 MG TABLET (FP) PO PRN (19:20)
[2020-07-21] MEDS ORDERED: traZODone HCL 50 MG TABLET (FP) ONE (21:35)
[2020-07-21] MEDS: traZODone HCL 100 MG TABLET (FP) PO SCH (22:29)
[2020-07-21] MEDS: MELATONIN 5 MG TABLETS PO SCH (22:29)
[2020-07-21] MEDS: THIAMINE HCL 100 MG TABLET (FP) PO SCH (22:29)
[2020-07-21] MEDS: PRAZOSIN HCL 1 MG CAPSULE PO SCH (22:29)
[2020-07-22] MEDS ORDERED: LORazepam 0.5 MG TABLET PO ONE (05:00)
[2020-07-22] MEDS: GABAPENTIN 100 MG CAPSULE PO SCH ×2 (06:16→14:24)
[2020-07-22] MEDS: hydrOXYzine PAMOATE 25 MG CAPSULE (FP) PO SCH ×2 (06:16→10:42)
[2020-07-22] MEDS: QUEtiapine FUMARATE 100 MG TABLET (FP) PO SCH ×2 (06:16→14:24)
[2020-07-22] MEDS: MENTHOL/PHENOL 1 EACH UD MM PRN (06:22)
[2020-07-22] MEDS: INSULIN SLIDING SCALE (NOVOLOG) 1 VIAL SQ SCH ×2 (06:23→10:24)
[2020-07-22] MEDS ORDERED: hydrOXYzine PAMOATE 50 MG CAPSULE (FP) PO PRN (10:15)
[2020-07-22] MEDS: NICOTINE 14 MG/24 HOURS TOPICAL PATCH TD SCH (10:18)
[2020-07-22] MEDS: KETOCONAZOLE 2% TOPICAL CREAM 15 GM TUBE TP SCH (10:18)
[2020-07-22] MEDS: PRENATAL VITAMINS W/ FOLIC ACID TABLET (FP) PO SCH (10:19)
[2020-07-22] MEDS: FLUoxetine HCL 20 MG CAPSULE PO SCH (10:19)
[2020-07-22] MEDS: METHOCARBAMOL 500 MG TABLET PO PRN (10:42)
[2020-07-22 13:22] VITALS: BP 124/76; PULSE 99; TEMP 98.6
== END 2020-07-22 16:07 | disposition other institution (70) | DRG 774 ==
LOC: YASAS 15:17 → Y6N 17:49
PROVIDERS: ADMIT Allergy & Immunology; ATTEND Allergy & Immunology
PROC: HZ2ZZZZ Detoxification Services for Substance Abuse Treatment (ICD-10-PCS; principal; 2020-07-18)
DX: F10.230 Alcohol dependence with withdrawal, uncomplicated (principal); F14.20 Cocaine dependence, uncomplicated; F12.20 Cannabis dependence, uncomplicated; F17.213 Nicotine dependence, cigarettes, with withdrawal; F19.282 Other psychoactive substance dependence with psychoactive substance-induced sleep disorder; F19.280 Other psychoactive substance dependence with psychoactive substance-induced anxiety disorder; F19.24 Other psychoactive substance dependence with psychoactive substance-induced mood disorder; F43.10 Post-traumatic stress disorder, unspecified; F32.9 Major depressive disorder, single episode, unspecified; E11.9 Type 2 diabetes mellitus without complications; Z79.84 Long term (current) use of oral hypoglycemic drugs; J45.20 Mild intermittent asthma, uncomplicated; B36.0 Pityriasis versicolor; M17.11 Unilateral primary osteoarthritis, right knee; M54.5 Low back pain; G89.29 Other chronic pain
CPT/HCPCS: 36415; 80053; 82962; 85027; 86780; C9803; Q0162; U0003; U0005

== ENCOUNTER 2021-08-26 16:07 | Inpatient (IN) | payer OTHER ==
[2021-08-26 17:13] VITALS: BMI 25.1
[2021-08-26] MEDS ORDERED: BENZOCAINE/MENTHOL (CHLORASEPTIC ) LOZENGE MM PRN (18:31)
[2021-08-26] MEDS ORDERED: MAGNESIUM CITRATE 300 ML BOTTLE PO PRN (18:31)
[2021-08-26] MEDS ORDERED: ACETAMINOPHEN 325 MG TABLET (FP) PO PRN (18:31)
[2021-08-26] MEDS ORDERED: DICYCLOMINE HCL 10 MG CAPSULE PO PRN (18:31)
[2021-08-26] MEDS ORDERED: ONDANSETRON *ODT* 4 MG TABLET SL PRN (18:31)
[2021-08-26] MEDS ORDERED: LOPERAMIDE HCL 2 MG CAPSULE PO PRN (18:31)
[2021-08-26] MEDS ORDERED: IBUPROFEN 400 MG TABLET (FP) PO PRN (18:31)
[2021-08-26] MEDS ORDERED: MAGNESIUM HYDROX 2400MG/30ML ORAL SUSPENSION 30 ML CUP PO PRN (18:31)
[2021-08-26] MEDS ORDERED: chlordiazePOXIDE HCL 25 MG CAPSULE PO PRN (18:31)
[2021-08-26] MEDS ORDERED: BISMUTH SUBSALICYLATE 524 MG/30 ML PO PRN (18:31)
[2021-08-26] MEDS ORDERED: MELATONIN 5 MG TABLETS PO SCH (22:00)
[2021-08-26] MEDS ORDERED: QUEtiapine FUMARATE 50 MG TABLET PO ONE (22:00)
[2021-08-26] MEDS: chlordiazePOXIDE HCL 25 MG CAPSULE PO SCH (22:34)
[2021-08-26] MEDS: hydrOXYzine PAMOATE 25 MG CAPSULE (FP) PO SCH (22:34)
[2021-08-26] MEDS: THIAMINE HCL 100 MG TABLET (FP) PO SCH (22:34)
[2021-08-26] MEDS: MAG HYDROX/AL HYDROX/SIMETH 30 ML UNIT-DOSE CUP PO PRN (22:36)
[2021-08-27] MEDS: chlordiazePOXIDE HCL 25 MG CAPSULE PO SCH ×4 (05:01→22:56)
[2021-08-27] MEDS: hydrOXYzine PAMOATE 25 MG CAPSULE (FP) PO SCH ×2 (05:01→10:59)
[2021-08-27] MEDS: IBUPROFEN 600 MG TABLET (FP) PO PRN (05:03)
[2021-08-27] MEDS: PRENATAL VITAMINS W/ FOLIC ACID TABLET (FP) PO SCH (10:59)
[2021-08-27] MEDS: NICOTINE 7 MG/24 HOURS TOPICAL PATCH TD SCH (11:01)
[2021-08-27] MEDS: ALBUTEROL SO4 HFA INHALER IH PRN ×2 (11:48→22:55)
[2021-08-27 11:55] LABS: HEMATOCRIT 41.5 % (32.4-45.2); HEMOGLOBIN 13.6 GM/dL (10.7-15.3); MCH 26.3 pg (25.7-33.7); MCHC 32.9 g/dl (32.0-36.0); MEAN CELL VOLUME 80.1 fl (80-96); MEAN PLT VOLUME 10.6 fl (7.5-11.1); PLATELET COUNT 147 10^3/uL (134-434); RBC 5.17 M/mm3 (3.60-5.2); RDW 14.6 % (11.6-15.6); WHITE BLOOD COUNT 5.4 K/mm3 (4.0-10.0)
[2021-08-27 13:03] LABS: CALCIUM 8.5 mg/dL (8.5-10.1)
[2021-08-27 13:04] LABS: ALBUMIN 3.3 g/dl (3.4-5.0); BLOOD UREA NITROGEN 15.1 mg/dL (7-18)
[2021-08-27 13:05] LABS: CREATININE 0.8 mg/dL (0.55-1.3)
[2021-08-27 13:07] LABS: BILIRUBIN,TOTAL 0.2 mg/dL (0.2-1); TOT PROT 6.5 g/dl (6.4-8.2)
[2021-08-27] MEDS: GABAPENTIN 100 MG CAPSULE PO SCH ×2 (13:45→22:56)
[2021-08-27] MEDS: FLUoxetine HCL 20 MG CAPSULE PO SCH (13:45)
[2021-08-27] MEDS: METHOCARBAMOL 500 MG TABLET PO PRN ×2 (17:55→22:57)
[2021-08-27] MEDS: hydrOXYzine PAMOATE 50 MG CAPSULE (FP) PO PRN ×2 (17:55→22:56)
[2021-08-27] MEDS: QUEtiapine FUMARATE 100 MG TABLET (FP) PO SCH (22:56)
[2021-08-27] MEDS: THIAMINE HCL 100 MG TABLET (FP) PO SCH (22:56)
[2021-08-27] MEDS: PRAZOSIN HCL 1 MG CAPSULE PO SCH (23:01)
[2021-08-28] MEDS: GABAPENTIN 100 MG CAPSULE PO SCH ×3 (05:29→22:47)
[2021-08-28] MEDS: hydrOXYzine PAMOATE 50 MG CAPSULE (FP) PO PRN ×4 (05:29→22:46)
[2021-08-28] MEDS: chlordiazePOXIDE HCL 25 MG CAPSULE PO SCH ×4 (05:29→22:47)
[2021-08-28] MEDS: NICOTINE 7 MG/24 HOURS TOPICAL PATCH TD SCH (10:42)
[2021-08-28] MEDS: PRENATAL VITAMINS W/ FOLIC ACID TABLET (FP) PO SCH (10:42)
[2021-08-28] MEDS: FLUoxetine HCL 20 MG CAPSULE PO SCH (10:43)
[2021-08-28] MEDS: METHOCARBAMOL 500 MG TABLET PO PRN ×2 (10:45→18:41)
[2021-08-28] MEDS: IBUPROFEN 600 MG TABLET (FP) PO PRN (18:40)
[2021-08-28] MEDS: ALBUTEROL SO4 HFA INHALER IH PRN (22:46)
[2021-08-28] MEDS: PRAZOSIN HCL 1 MG CAPSULE PO SCH (22:46)
[2021-08-28] MEDS: QUEtiapine FUMARATE 100 MG TABLET (FP) PO SCH (22:46)
[2021-08-28] MEDS: THIAMINE HCL 100 MG TABLET (FP) PO SCH (23:20)
[2021-08-29] MEDS ORDERED: chlordiazePOXIDE HCL 10 MG CAPSULE PO PRN
[2021-08-29] MEDS: GABAPENTIN 100 MG CAPSULE PO SCH ×3 (05:14→22:40)
[2021-08-29] MEDS: chlordiazePOXIDE HCL 10 MG CAPSULE PO SCH ×4 (05:14→22:41)
[2021-08-29] MEDS: hydrOXYzine PAMOATE 50 MG CAPSULE (FP) PO PRN ×3 (05:16→17:10)
[2021-08-29] MEDS: ALBUTEROL SO4 HFA INHALER IH PRN (10:16)
[2021-08-29] MEDS: FLUoxetine HCL 20 MG CAPSULE PO SCH (10:16)
[2021-08-29] MEDS: PRENATAL VITAMINS W/ FOLIC ACID TABLET (FP) PO SCH (10:16)
[2021-08-29] MEDS: NICOTINE 7 MG/24 HOURS TOPICAL PATCH TD SCH (10:17)
[2021-08-29] MEDS: IBUPROFEN 600 MG TABLET (FP) PO PRN (10:54)
[2021-08-29] MEDS: CYCLOBENZAPRINE HCL 5 MG TABLET PO SCH ×2 (14:32→22:41)
[2021-08-29] MEDS: ACETAMINOPHEN 325 MG TABLET (FP) PO PRN (14:33)
[2021-08-29] MEDS: THIAMINE HCL 100 MG TABLET (FP) PO SCH (22:40)
[2021-08-29] MEDS: QUEtiapine FUMARATE 100 MG TABLET (FP) PO SCH (22:41)
[2021-08-29] MEDS: PRAZOSIN HCL 1 MG CAPSULE PO SCH (22:41)
[2021-08-30] MEDS: chlordiazePOXIDE HCL 10 MG CAPSULE PO SCH ×2 (06:05→18:31)
[2021-08-30] MEDS: CYCLOBENZAPRINE HCL 5 MG TABLET PO SCH ×3 (06:05→22:36)
[2021-08-30] MEDS: GABAPENTIN 100 MG CAPSULE PO SCH ×3 (06:05→22:36)
[2021-08-30] MEDS: ALBUTEROL SO4 HFA INHALER IH PRN (06:07)
[2021-08-30] MEDS: ACETAMINOPHEN 325 MG TABLET (FP) PO PRN (06:11)
[2021-08-30] MEDS: FLUoxetine HCL 20 MG CAPSULE PO SCH (10:26)
[2021-08-30] MEDS: PRENATAL VITAMINS W/ FOLIC ACID TABLET (FP) PO SCH (10:26)
[2021-08-30] MEDS: NICOTINE 7 MG/24 HOURS TOPICAL PATCH TD SCH (10:26)
[2021-08-30] MEDS: hydrOXYzine PAMOATE 50 MG CAPSULE (FP) PO PRN ×3 (10:27→22:37)
[2021-08-30] MEDS: IBUPROFEN 600 MG TABLET (FP) PO PRN (18:30)
[2021-08-30] MEDS: THIAMINE HCL 100 MG TABLET (FP) PO SCH (22:36)
[2021-08-30] MEDS: PRAZOSIN HCL 1 MG CAPSULE PO SCH (22:36)
[2021-08-30] MEDS: QUEtiapine FUMARATE 100 MG TABLET (FP) PO SCH (22:36)
[2021-08-30] MEDS: MAG HYDROX/AL HYDROX/SIMETH 30 ML UNIT-DOSE CUP PO PRN (22:41)
[2021-08-31] MEDS ORDERED: chlordiazePOXIDE HCL 10 MG CAPSULE PO ONE (05:00)
[2021-08-31] MEDS: GABAPENTIN 100 MG CAPSULE PO SCH (06:04)
[2021-08-31] MEDS: CYCLOBENZAPRINE HCL 5 MG TABLET PO SCH (06:04)
[2021-08-31 07:21] VITALS: RESP 17
[2021-08-31] MEDS ORDERED: methaDONE HCL 40 MG DISPERSABLE TABLET PO ONE (09:31)
[2021-08-31 09:55] VITALS: BP 115/80; PULSE 91; TEMP 97.1
[2021-09-01] MEDS ORDERED: methaDONE HCL 10 MG TABLET PO SCH (06:00)
== END 2021-08-31 10:56 | disposition home or self-care (01) | DRG 774 ==
LOC: YASAS 16:07 → Y6N 19:04
PROVIDERS: ADMIT Allergy & Immunology; ATTEND Surgery
PROC: HZ2ZZZZ Detoxification Services for Substance Abuse Treatment (ICD-10-PCS; principal; 2021-08-26)
DX: F10.230 Alcohol dependence with withdrawal, uncomplicated (principal); F14.20 Cocaine dependence, uncomplicated; F12.20 Cannabis dependence, uncomplicated; F17.210 Nicotine dependence, cigarettes, uncomplicated; F19.280 Other psychoactive substance dependence with psychoactive substance-induced anxiety disorder; F19.282 Other psychoactive substance dependence with psychoactive substance-induced sleep disorder; F19.24 Other psychoactive substance dependence with psychoactive substance-induced mood disorder; F43.10 Post-traumatic stress disorder, unspecified; F32.9 Major depressive disorder, single episode, unspecified; E11.9 Type 2 diabetes mellitus without complications; K21.9 Gastro-esophageal reflux disease without esophagitis; J45.30 Mild persistent asthma, uncomplicated; M17.11 Unilateral primary osteoarthritis, right knee; M54.40 Lumbago with sciatica, unspecified side; G89.29 Other chronic pain; S69.91XA Unspecified injury of right wrist, hand and finger(s), initial encounter; S89.91XA Unspecified injury of right lower leg, initial encounter; Y08.89XA Assault by other specified means, initial encounter; Y92.89 Other specified places as the place of occurrence of the external cause; Z91.410 Personal history of adult physical and sexual abuse
CPT/HCPCS: 36415; 73110-TC-RT-FY; 73562-TC-RT-FY; 80053; 81025; 82962; 83036; 85027; 86593; 86780; C9803-CS; U0003; U0005

== ENCOUNTER 2023-03-28 12:24 | Inpatient (IN) | payer OTHER ==
[2023-03-28 13:25] VITALS: BMI 26.4
[2023-03-28] MEDS ORDERED: NALOXONE HCL (KLOXXADO) 8 MG SPRAY NS PRN (13:56)
[2023-03-28] MEDS ORDERED: diazePAM 5 MG TABLET PO PRN (13:56)
[2023-03-28] MEDS ORDERED: BENZOCAINE/MENTHOL (CHLORASEPTIC ) LOZENGE MM PRN (13:56)
[2023-03-28] MEDS ORDERED: NICOTINE POLACRILEX 2 MG GUM BUC PRN (13:56)
[2023-03-28] MEDS ORDERED: IBUPROFEN 400 MG TABLET (FP) PO PRN (13:56)
[2023-03-28] MEDS ORDERED: guaiFENesin 600 MG TABLET.ER (FP) PO PRN (13:56)
[2023-03-28] MEDS ORDERED: MAGNESIUM HYDROX 2400MG/30ML ORAL SUSPENSION 30 ML CUP PO PRN (13:56)
[2023-03-28] MEDS ORDERED: NALOXONE HCL 0.4 MG/ML VIAL IM PRN (13:56)
[2023-03-28] MEDS ORDERED: POLYETHYLENE GLYCOL (HEALTHYLAX) 3350 17 GM PACKET PO PRN (13:56)
[2023-03-28] MEDS ORDERED: DICYCLOMINE HCL 10 MG CAPSULE PO PRN (13:56)
[2023-03-28] MEDS ORDERED: BISMUTH SUBSALICYLATE 524 MG/30 ML PO PRN (13:56)
[2023-03-28] MEDS ORDERED: BENZONATATE 200 MG CAPSULE PO PRN (13:56)
[2023-03-28] MEDS ORDERED: methaDONE HCL 10 MG TABLET (FOR DETOX USE ONLY) ONE (16:39)
[2023-03-28] MEDS: diazePAM 5 MG TABLET PO SCH (16:40)
[2023-03-28] MEDS: methaDONE HCL 10 MG TABLET (FOR DETOX USE ONLY) PO ONE ×2 (16:40→16:47)
[2023-03-28] MEDS ORDERED: diazePAM 5 MG TABLET ONE (16:44)
[2023-03-28] MEDS: THIAMINE HCL 100 MG TABLET (FP) PO SCH (22:14)
[2023-03-28] MEDS: MELATONIN 5 MG TABLETS PO SCH (22:14)
[2023-03-29] MEDS: IBUPROFEN 600 MG TABLET (FP) PO PRN (01:42)
[2023-03-29] MEDS: METHOCARBAMOL 500 MG TABLET PO PRN (01:43)
[2023-03-29] MEDS: NICOTINE 14 MG/24 HOURS TOPICAL PATCH TD SCH (10:02)
[2023-03-29] MEDS: PRENATAL VITAMINS W/ FOLIC ACID TABLET (FP) PO SCH (10:03)
[2023-03-29] MEDS: FAMOTIDINE 20 MG TABLET PO SCH (10:03)
[2023-03-29 10:47] LABS: CHLORIDE 106 mmol/L (98-107); POTASSIUM 4.1 mmol/L (3.5-5.1); SODIUM 142 mmol/L (136-145)
[2023-03-29 10:49] LABS: CALCIUM 8.5 mg/dL (8.5-10.1)
[2023-03-29 10:50] LABS: ALBUMIN 2.9 g/dl (3.4-5.0); BLOOD UREA NITROGEN 16.9 mg/dL (7-18); GLUCOSE,RANDOM 110 mg/dL (74-106)
[2023-03-29 10:53] LABS: ANION GAP 5 mmol/L (4-13); CO2 32 mmol/L (21-32); CREATININE 0.8 mg/dL (0.55-1.3); HEMATOCRIT 37.4 % (32.4-45.2); HEMOGLOBIN 11.9 GM/dL (10.7-15.3); MCH 25.7 pg (25.7-33.7); MCHC 31.7 g/dl (32.0-36.0); MEAN CELL VOLUME 81.2 fl (80-96); RBC 4.61 M/mm3 (3.60-5.2); RDW 14.6 % (11.6-15.6); SGOT/AST 13 U/L (15-37); SGPT/ALT 16 U/L (13-61); WHITE BLOOD COUNT 6.5 K/mm3 (4.0-10.0)
[2023-03-29 10:54] LABS: BILIRUBIN,TOTAL 0.2 mg/dL (0.2-1)
[2023-03-29 10:56] LABS: ALK PHOS 66 U/L (45-117)
[2023-03-29] MEDS: COLLOIDAL OATMEAL 1 EACH PACKET TP SCH (18:57)
[2023-03-29] MEDS: ALBUTEROL SO4 HFA INHALER IH PRN (19:39)
[2023-03-29] MEDS ORDERED: PATIENT'S OWN MEDICATION (NON-FORMULARY) (Prazosin Hcl 2 MG Capsule) PO SCH (22:00)
[2023-03-29] MEDS: QUEtiapine FUMARATE 100 MG TABLET (FP) PO SCH (22:17)
[2023-03-30] MEDS: diazePAM 5 MG TABLET PO SCH (05:16)
[2023-03-30] MEDS: methaDONE HCL 10 MG TABLET (FOR DETOX USE ONLY) PO ONE (09:08)
[2023-03-30] MEDS: FLUoxetine HCL 20 MG CAPSULE PO SCH (09:10)
[2023-03-30] MEDS: cloNIDine HCL 0.1 MG TABLET PO PRN (15:45)
[2023-03-30] MEDS ORDERED: GABAPENTIN 300 MG CAPSULE PO SCH (22:00)
[2023-03-31] MEDS: diazePAM 5 MG TABLET PO SCH (05:23)
[2023-04-01] MEDS: diazePAM 5 MG TABLET PO ONE (05:25)
[2023-04-01] MEDS: methaDONE HCL 10 MG TABLET (FOR DETOX USE ONLY) PO ONE (09:56)
[2023-04-01] MEDS: MAG HYDROX/AL HYDROX/SIMETH 30 ML UNIT-DOSE CUP PO PRN (22:19)
[2023-04-01] MEDS: ACETAMINOPHEN 325 MG TABLET (FP) PO PRN (22:19)
[2023-04-02 08:58] VITALS: BP 106/65; PULSE 90; RESP 18; TEMP 97.4
== END 2023-04-02 08:57 | disposition other institution (70) | DRG 773 ==
LOC: YASAS 12:24 → Y3N 17:11
PROVIDERS: ADMIT Allergy & Immunology; ATTEND Allergy & Immunology
PROC: HZ2ZZZZ Detoxification Services for Substance Abuse Treatment (ICD-10-PCS; principal; 2023-03-28)
DX: F11.23 Opioid dependence with withdrawal (principal); F10.230 Alcohol dependence with withdrawal, uncomplicated; F14.20 Cocaine dependence, uncomplicated; F12.20 Cannabis dependence, uncomplicated; F17.220 Nicotine dependence, chewing tobacco, uncomplicated; F19.24 Other psychoactive substance dependence with psychoactive substance-induced mood disorder; J45.30 Mild persistent asthma, uncomplicated; K21.9 Gastro-esophageal reflux disease without esophagitis; R76.8 Other specified abnormal immunological findings in serum; Z86.19 Personal history of other infectious and parasitic diseases
CPT/HCPCS: 36415; 80053; 80305; 80307; 81025; 85027; 86593; 86780; 87635; 93005; 93010

== ENCOUNTER 2023-09-27 11:15 | Inpatient (IN) | payer OTHER ==
[2023-09-27 12:33] VITALS: BMI 30.6
[2023-09-27] MEDS ORDERED: MAG HYDROX/AL HYDROX/SIMETH 30 ML UNIT-DOSE CUP PO PRN (12:44)
[2023-09-27] MEDS ORDERED: guaiFENesin 600 MG TABLET.ER (FP) PO PRN (12:44)
[2023-09-27] MEDS ORDERED: MAGNESIUM HYDROX 2400MG/30ML ORAL SUSPENSION 30 ML CUP PO PRN (12:44)
[2023-09-27] MEDS ORDERED: IBUPROFEN 600 MG TABLET (FP) PO PRN (12:44)
[2023-09-27] MEDS ORDERED: POLYETHYLENE GLYCOL (HEALTHYLAX) 3350 17 GM PACKET PO PRN (12:44)
[2023-09-27] MEDS ORDERED: NICOTINE POLACRILEX 2 MG LOZENGE BC PRN (12:44)
[2023-09-27] MEDS ORDERED: P-EPHED 60MG/TRIPROLIDI 2.5MG TABLET PO PRN (12:44)
[2023-09-27] MEDS ORDERED: LOPERAMIDE HCL 2 MG CAPSULE PO PRN (12:44)
[2023-09-27] MEDS ORDERED: BENZOCAINE/MENTHOL (CHLORASEPTIC ) LOZENGE MM PRN (12:44)
[2023-09-27] MEDS ORDERED: BENZONATATE 200 MG CAPSULE PO PRN (12:44)
[2023-09-27] MEDS ORDERED: IBUPROFEN 400 MG TABLET (FP) PO PRN (12:44)
[2023-09-27] MEDS ORDERED: NICOTINE POLACRILEX 2 MG GUM BUC PRN (12:44)
[2023-09-27] MEDS: NAPROXEN 500 MG TABLET PO SCH (16:08)
[2023-09-27] MEDS: MELATONIN 5 MG TABLETS PO SCH (22:51)
[2023-09-27] MEDS: THIAMINE 100 MG TABLET PO SCH (22:51)
[2023-09-27] MEDS: FAMOTIDINE 20 MG TABLET PO SCH (22:52)
[2023-09-27] MEDS: GABAPENTIN 300 MG CAPSULE PO ONE (22:52)
[2023-09-27] MEDS: DIVALPROEX SODIUM 500 MG TABLET E.C. PO ONE (22:52)
[2023-09-27] MEDS: QUEtiapine FUMARATE 100 MG TABLET (FP) PO ONE (22:52)
[2023-09-27] MEDS: PRAZOSIN HCL 1 MG CAPSULE PO SCH (22:52)
[2023-09-27] MEDS: BACLOFEN 10 MG TABLET (FP) PO PRN (22:52)
[2023-09-28] MEDS: PRENATAL VITAMINS W/ FOLIC ACID TABLET (FP) PO SCH (09:32)
[2023-09-28 10:27] LABS: HEMATOCRIT 37.8 % (32.4-45.2); HEMOGLOBIN 12.2 GM/dL (10.7-15.3); MCH 27.1 pg (25.7-33.7); MCHC 32.3 g/dl (32.0-36.0); MEAN CELL VOLUME 83.9 fl (80-96); MEAN PLT VOLUME 9.7 fl (7.5-11.1); PLATELET COUNT 188 10^3/uL (134-434); RBC 4.51 M/mm3 (3.60-5.2); RDW 15.3 % (11.6-15.6); WHITE BLOOD COUNT 7.3 K/mm3 (4.0-10.0)
[2023-09-28 10:35] LABS: URINE APPEARANCE CLEAR; URINE BILIRUBIN NEGATIVE (NEGATIVE); URINE COLOR YELLOW; URINE GLUCOSE (UA) NEGATIVE (NEGATIVE); URINE KETONE NEGATIVE (NEGATIVE); URINE LEUK ESTERASE NEGATIVE (NEGATIVE); URINE NITRITE NEGATIVE (NEGATIVE); URINE PROTEIN NEGATIVE (NEGATIVE); URINE UROBILINOGEN 0.2 mg/dL (0.2-1.0)
[2023-09-28 10:48] LABS: POTASSIUM 4.6 mmol/L (3.5-5.1)
[2023-09-28 10:51] LABS: ALBUMIN 3.4 g/dl (3.4-5.0); BLOOD UREA NITROGEN 28.2 mg/dL (7-18)
[2023-09-28 10:54] LABS: CREATININE 0.9 mg/dL (0.55-1.3)
[2023-09-28 10:56] LABS: BILIRUBIN,TOTAL 0.6 mg/dL (0.2-1)
[2023-09-28] MEDS: DIVALPROEX NA *ER* EXTEND REL 500 MG TABLET.SA (FP) PO SCH (11:22)
[2023-09-28] MEDS: GABAPENTIN 300 MG CAPSULE PO SCH (11:22)
[2023-09-28 12:30] LABS: HIV INTERPRETATION NEGATIVE (NEGATIVE)
[2023-09-28] MEDS: hydrOXYzine PAMOATE 25 MG CAPSULE (FP) PO PRN (12:59)
[2023-09-28] MEDS: guaiFENesin 200 MG/10 ML 10 ML UNIT-DOSE CUPS PO PRN (13:17)
[2023-09-28] MEDS ORDERED: GABAPENTIN 300 MG CAPSULE PO SCH (14:00)
[2023-09-28] MEDS: METHYL SALICYLATE/MENTHOL 30 GM TUBE TP SCH (14:19)
[2023-09-28] MEDS: metroNIDAZOLE 250 MG TABLET PO SCH (14:19)
[2023-09-28] MEDS ORDERED: QUEtiapine FUMARATE 400 MG TABLET PO SCH (22:00)
[2023-09-28] MEDS: QUEtiapine FUMARATE 200 MG TABLET PO SCH (22:15)
[2023-09-29] MEDS: TUBERCULIN PPD 5 TU/0.1ML VIAL ID ONE (10:28)
[2023-09-29] MEDS ORDERED: TUBERCULIN PPD 5 TU/0.1ML VIAL ID ONE (10:33)
[2023-09-29] MEDS: VITAMINS A AND D TOPICAL OINTMENT TP SCH (18:09)
[2023-09-30] MEDS: VITAMINS A AND D TOPICAL OINTMENT TP PRN (12:14)
[2023-09-30] MEDS: NALTREXONE HCL 50 MG TABLET PO ONE (20:40)
[2023-10-01] MEDS ORDERED: NALTREXONE HCL 50 MG TABLET PO SCH (10:00)
[2023-10-01] MEDS: PENICILLIN G BENZATHINE 2,400,000 UNIT/4 ML PFS IM ONE (10:58)
[2023-10-01] MEDS: ALBUTEROL SO4 HFA INHALER IH PRN (12:56)
[2023-10-01 17:22] LABS: INR 0.96 (0.83-1.09); PROTHROMBIN TIME (PATIENT) 11.1 SEC (9.7-13.0)
[2023-10-02] MEDS: ACETAMINOPHEN 325 MG TABLET (FP) PO PRN (03:49)
[2023-10-02 06:56] VITALS: TEMP 97.2
[2023-10-02 09:48] VITALS: RESP 17
[2023-10-02 15:19] VITALS: BP 106/65; PULSE 112
[2023-10-02] MEDS: NAPROXEN 500 MG TABLET PO PRN (19:33)
[2023-10-02] MEDS ORDERED: MELATONIN 5 MG TABLETS PO SCH (22:00)
[2023-10-08] MEDS ORDERED: PENICILLIN G BENZATHINE 2,400,000 UNIT/4 ML PFS IM ONE (10:00)
== END 2023-10-02 19:46 | disposition left against medical advice (07) | DRG 770 ==
LOC: YASAS 11:15 → Y3NR 13:25 → Y5N 09-28 15:28
PROVIDERS: ADMIT Allergy & Immunology; ATTEND Psychiatry & Neurology Pain Medicine
PROC: HZ42ZZZ Group Counseling for Substance Abuse Treatment, Cognitive-Behavioral (ICD-10-PCS; principal; 2023-09-27)
DX: F10.20 Alcohol dependence, uncomplicated (principal); F11.20 Opioid dependence, uncomplicated; F14.20 Cocaine dependence, uncomplicated; F16.20 Hallucinogen dependence, uncomplicated; F17.210 Nicotine dependence, cigarettes, uncomplicated; F19.282 Other psychoactive substance dependence with psychoactive substance-induced sleep disorder; F19.280 Other psychoactive substance dependence with psychoactive substance-induced anxiety disorder; F19.24 Other psychoactive substance dependence with psychoactive substance-induced mood disorder; F41.9 Anxiety disorder, unspecified; F32.A Depression, unspecified; F43.10 Post-traumatic stress disorder, unspecified; E72.20 Disorder of urea cycle metabolism, unspecified; J45.909 Unspecified asthma, uncomplicated; K21.9 Gastro-esophageal reflux disease without esophagitis; M17.11 Unilateral primary osteoarthritis, right knee; Z91.410 Personal history of adult physical and sexual abuse
CPT/HCPCS: 36415; 80053; 80164; 80305; 81003; 82140; 82652; 82962; 83735; 85027; 85610; 86593; 86780; 87389; 87491; 87591; 87811; J0475

== ENCOUNTER 2023-11-25 13:19 | Inpatient (IN) | payer OTHER ==
[2023-11-25 14:00] VITALS: BMI 28.7
[2023-11-25] MEDS ORDERED: guaiFENesin 600 MG TABLET.ER (FP) PO PRN (16:32)
[2023-11-25] MEDS ORDERED: NICOTINE POLACRILEX 2 MG LOZENGE BC PRN (16:32)
[2023-11-25] MEDS ORDERED: NALOXONE (NARCAN) HCL 4 MG/0.1 ML SPRAY NS PRN (16:32)
[2023-11-25] MEDS ORDERED: MAG HYDROX/AL HYDROX/SIMETH 30 ML UNIT-DOSE CUP PO PRN (16:32)
[2023-11-25] MEDS ORDERED: MAGNESIUM HYDROX 2400MG/30ML ORAL SUSPENSION 30 ML CUP PO PRN (16:32)
[2023-11-25] MEDS ORDERED: LOPERAMIDE HCL 2 MG CAPSULE PO PRN (16:32)
[2023-11-25] MEDS ORDERED: ACETAMINOPHEN 325 MG TABLET (FP) PO PRN (16:32)
[2023-11-25] MEDS ORDERED: BENZONATATE 200 MG CAPSULE PO PRN (16:32)
[2023-11-25] MEDS ORDERED: ONDANSETRON *ODT* 4 MG TABLET SL PRN (16:32)
[2023-11-25] MEDS ORDERED: POLYETHYLENE GLYCOL (HEALTHYLAX) 3350 17 GM PACKET PO PRN (16:32)
[2023-11-25] MEDS ORDERED: BENZOCAINE/MENTHOL (CHLORASEPTIC ) LOZENGE MM PRN (16:32)
[2023-11-25] MEDS ORDERED: BISMUTH SUBSALICYLATE 524 MG/30 ML PO PRN (16:32)
[2023-11-25] MEDS ORDERED: NICOTINE POLACRILEX 2 MG GUM BUC PRN (16:32)
[2023-11-25] MEDS ORDERED: IBUPROFEN 400 MG TABLET (FP) PO PRN (16:32)
[2023-11-25] MEDS ORDERED: NALOXONE (NYS OPIOID OVERDOSE PROGRAM) 4 MG/0.1 ML SPRAY NS PRN (16:32)
[2023-11-25] MEDS ORDERED: DICYCLOMINE HCL 10 MG CAPSULE PO PRN (16:32)
[2023-11-25] MEDS: diazePAM 5 MG TABLET PO SCH (17:27)
[2023-11-25] MEDS: METHOCARBAMOL 500 MG TABLET PO PRN (18:03)
[2023-11-25] MEDS: BUPRENORPHINE/NALOXONE 8 MG/2 MG FILM PACKET SL SCH (22:12)
[2023-11-25] MEDS: THIAMINE 100 MG TABLET PO SCH (22:13)
[2023-11-25] MEDS: MELATONIN 5 MG TABLETS PO SCH (22:13)
[2023-11-25] MEDS: FAMOTIDINE 20 MG TABLET PO SCH (22:13)
[2023-11-25] MEDS: IBUPROFEN 600 MG TABLET (FP) PO PRN (23:41)
[2023-11-26] MEDS: diazePAM 5 MG TABLET PO PRN (02:39)
[2023-11-26] MEDS: diazePAM 5 MG TABLET PO SCH (05:39)
[2023-11-26] MEDS: PRENATAL VITAMINS W/ FOLIC ACID TABLET (FP) PO SCH (09:29)
[2023-11-26] MEDS: diphenhydrAMINE HCL 50 MG CAPSULE PO ONE (09:48)
[2023-11-26] MEDS: ALBUTEROL SO4 HFA INHALER IH PRN (10:26)
[2023-11-26] MEDS: DIVALPROEX NA *ER* EXTEND REL 500 MG TABLET.SA (FP) PO SCH (12:33)
[2023-11-26] MEDS: FLUoxetine HCL 20 MG CAPSULE PO SCH (12:33)
[2023-11-26 17:39] LABS: HEMATOCRIT 38.8 % (32.4-45.2); HEMOGLOBIN 12.2 GM/dL (10.7-15.3); MCH 26.7 pg (25.7-33.7); MCHC 31.6 g/dl (32.0-36.0); MEAN CELL VOLUME 84.7 fl (80-96); MEAN PLT VOLUME 10.9 fl (7.5-11.1); PLATELET COUNT 154 10^3/uL (134-434); RBC 4.58 M/mm3 (3.60-5.2); RDW 13.5 % (11.6-15.6); WHITE BLOOD COUNT 5.1 K/mm3 (4.0-10.0)
[2023-11-26 17:46] LABS: EPI CELLS >36 /uL (0-25.1); HYALINE CASTS 1 /uL (0-3.1); PH,URINE 5.5 (5.0-8.0); URINE APPEARANCE CLOUDY; URINE BACTERIA >9,000 /uL (0-1359); URINE BILIRUBIN NEGATIVE (NEGATIVE); URINE COLOR YELLOW; URINE GLUCOSE (UA) NEGATIVE (NEGATIVE); URINE KETONE NEGATIVE (NEGATIVE); URINE LEUK ESTERASE 2+ (NEGATIVE); URINE NITRITE POSITIVE (NEGATIVE); URINE PROTEIN NEGATIVE (NEGATIVE); URINE RBC 5 /uL (0-23.9); URINE UROBILINOGEN 0.2 mg/dL (0.2-1.0); URINE WBC 147 /uL (0-25.8)
[2023-11-26 18:09] LABS: CHLORIDE 108 mmol/L (98-107); POTASSIUM 4.4 mmol/L (3.5-5.1); SODIUM 141 mmol/L (136-145)
[2023-11-26 18:12] LABS: ALBUMIN 3.5 g/dl (3.4-5.0); ANION GAP 5 mmol/L (4-13); BLOOD UREA NITROGEN 21.8 mg/dL (7-18); CALCIUM 8.6 mg/dL (8.5-10.1); CO2 28 mmol/L (21-32)
[2023-11-26 18:13] LABS: GLUCOSE,RANDOM 126 mg/dL (74-106)
[2023-11-26 18:16] LABS: CREATININE 0.9 mg/dL (0.55-1.3); SGOT/AST 15 U/L (15-37); SGPT/ALT 15 U/L (13-61)
[2023-11-26 18:17] LABS: BILIRUBIN,TOTAL 0.2 mg/dL (0.2-1); TOT PROT 6.6 g/dl (6.4-8.2)
[2023-11-26 18:18] LABS: ALK PHOS 67 U/L (45-117)
[2023-11-26 19:02] LABS: HIV INTERPRETATION NEGATIVE (NEGATIVE)
[2023-11-26] MEDS: PRAZOSIN HCL 1 MG CAPSULE PO SCH (21:51)
[2023-11-26] MEDS: QUEtiapine FUMARATE 200 MG TABLET PO SCH (21:51)
[2023-11-26] MEDS: GABAPENTIN 300 MG CAPSULE PO SCH (21:52)
[2023-11-27] MEDS: diazePAM 5 MG TABLET PO SCH (05:47)
[2023-11-28] MEDS: diazePAM 5 MG TABLET PO ONE (06:00)
[2023-11-29 10:08] VITALS: RESP 18
[2023-11-29 13:19] VITALS: BP 109/63; PULSE 82; TEMP 97.8
== END 2023-11-29 12:55 | disposition home or self-care (01) | DRG 773 ==
LOC: YASAS 13:19 → Y6N 17:21
PROVIDERS: ADMIT Allergy & Immunology; ATTEND Surgery
PROC: HZ2ZZZZ Detoxification Services for Substance Abuse Treatment (ICD-10-PCS; principal; 2023-11-25)
DX: F10.230 Alcohol dependence with withdrawal, uncomplicated (principal); F11.20 Opioid dependence, uncomplicated; F17.210 Nicotine dependence, cigarettes, uncomplicated; F19.280 Other psychoactive substance dependence with psychoactive substance-induced anxiety disorder; F19.282 Other psychoactive substance dependence with psychoactive substance-induced sleep disorder; F31.9 Bipolar disorder, unspecified; F41.9 Anxiety disorder, unspecified; F43.10 Post-traumatic stress disorder, unspecified; J45.20 Mild intermittent asthma, uncomplicated; K21.9 Gastro-esophageal reflux disease without esophagitis; E11.9 Type 2 diabetes mellitus without complications; M17.11 Unilateral primary osteoarthritis, right knee
CPT/HCPCS: 36415; 80053; 80305; 80307; 81003; 81025; 85027; 86593; 86780; 86803; 87389

== ENCOUNTER 2024-09-28 09:01 | Inpatient (IN) | payer OTHER ==
[2024-09-28 09:30] VITALS: BMI 29.2
[2024-09-28] MEDS ORDERED: BISMUTH SUBSALICYLATE 524 MG/30 ML PO PRN (10:20)
[2024-09-28] MEDS ORDERED: MAGNESIUM HYDROX 2400MG/30ML ORAL SUSPENSION 30 ML CUP PO PRN (10:20)
[2024-09-28] MEDS ORDERED: BENZONATATE 200 MG CAPSULE PO PRN (10:20)
[2024-09-28] MEDS ORDERED: NICOTINE POLACRILEX 2 MG GUM BUC PRN (10:20)
[2024-09-28] MEDS ORDERED: IBUPROFEN 400 MG TABLET (FP) PO PRN (10:20)
[2024-09-28] MEDS ORDERED: DICYCLOMINE HCL 10 MG CAPSULE PO PRN (10:20)
[2024-09-28] MEDS ORDERED: POLYETHYLENE GLYCOL (HEALTHYLAX) 3350 17 GM PACKET PO PRN (10:20)
[2024-09-28] MEDS ORDERED: BENZOCAINE/MENTHOL (CHLORASEPTIC ) LOZENGE MM PRN (10:20)
[2024-09-28] MEDS ORDERED: guaiFENesin 600 MG TABLET.ER (FP) PO PRN (10:20)
[2024-09-28] MEDS ORDERED: LOPERAMIDE HCL 2 MG CAPSULE PO PRN (10:20)
[2024-09-28] MEDS ORDERED: ONDANSETRON *ODT* 4 MG TABLET SL PRN (10:20)
[2024-09-28] MEDS ORDERED: NALOXONE (NARCAN) HCL 4 MG/0.1 ML SPRAY NS PRN (10:20)
[2024-09-28] MEDS: METHOCARBAMOL 500 MG TABLET PO PRN (13:15)
[2024-09-28] MEDS: BUPRENORPHINE/NALOXONE 8 MG/2 MG FILM PACKET SL SCH (15:14)
[2024-09-28] MEDS: ACETAMINOPHEN 325 MG TABLET (FP) PO PRN (15:17)
[2024-09-28] MEDS: hydrOXYzine PAMOATE 25 MG CAPSULE (FP) PO PRN (17:26)
[2024-09-28] MEDS: IBUPROFEN 600 MG TABLET (FP) PO PRN (17:28)
[2024-09-28 19:57] LABS: URINE APPEARANCE CLOUDY; URINE BILIRUBIN NEGATIVE (NEGATIVE); URINE COLOR YELLOW; URINE GLUCOSE (UA) NEGATIVE (NEGATIVE); URINE KETONE NEGATIVE (NEGATIVE); URINE LEUK ESTERASE NEGATIVE (NEGATIVE); URINE NITRITE NEGATIVE (NEGATIVE); URINE PROTEIN NEGATIVE (NEGATIVE); URINE UROBILINOGEN 1.0 mg/dL (0.2-1.0)
[2024-09-28] MEDS: FAMOTIDINE 20 MG TABLET PO SCH (22:11)
[2024-09-28] MEDS: MELATONIN 5 MG TABLETS PO SCH (22:12)
[2024-09-28] MEDS: THIAMINE 100 MG TABLET PO SCH (22:12)
[2024-09-29] MEDS: amLODIPine BESYLATE 5 MG TABLET (FP) PO SCH (10:31)
[2024-09-29] MEDS: PRENATAL VITAMINS W/ FOLIC ACID TABLET (FP) PO SCH (10:31)
[2024-09-29 10:34] LABS: MCHC 30.9 g/dl (32.2-35.5); MEAN CELL VOLUME 84.4 fl (79.4-94.8); RDW 13.9 % (12.2-17.1)
[2024-09-29] MEDS: ALBUTEROL SO4 HFA INHALER IH PRN (10:47)
[2024-09-29 10:55] LABS: GLUCOSE,RANDOM 113.0 mg/dL (74-106)
[2024-09-29 10:56] LABS: TOT PROT 6.8 g/dl (6.4-8.2)
[2024-09-29 10:57] LABS: CO2 28.0 mmol/L (21-32)
[2024-09-29 10:58] LABS: ALK PHOS 73.0 U/L (40-150)
[2024-09-29 11:01] LABS: CREATININE 0.79 mg/dL (0.55-1.3); SGOT/AST 17.0 U/L (5-34); SGPT/ALT 11.0 U/L (0-55)
[2024-09-29 11:15] LABS: SYPHILIS W/ RPR CONF REACTIVE (NONREACTIVE)
[2024-09-29] MEDS: QUEtiapine FUMARATE 100 MG TABLET (FP) PO SCH ×2 (12:18→22:35)
[2024-09-29] MEDS: DIVALPROEX SODIUM 500 MG TABLET E.C. PO SCH (12:18)
[2024-09-29] MEDS: PRAZOSIN HCL 1 MG CAPSULE PO SCH (22:35)
[2024-09-30] MEDS: MAG HYDROX/AL HYDROX/SIMETH 30 ML UNIT-DOSE CUP PO PRN (10:20)
[2024-09-30 23:51] LABS: RPR REFLEX REACTIVE 1:1 (NONREACTIVE)
[2024-10-02 09:00] VITALS: BP 107/72; PULSE 90; RESP 14; TEMP 97.8
== END 2024-10-02 09:46 | disposition other institution (70) | DRG 773 ==
LOC: YASAS 09:01 → Y3N 11:44
PROVIDERS: ADMIT Allergy & Immunology; ATTEND Allergy & Immunology
PROC: HZ2ZZZZ Detoxification Services for Substance Abuse Treatment (ICD-10-PCS; principal; 2024-09-28)
DX: F10.230 Alcohol dependence with withdrawal, uncomplicated (principal); F11.20 Opioid dependence, uncomplicated; F14.20 Cocaine dependence, uncomplicated; F17.210 Nicotine dependence, cigarettes, uncomplicated; F31.9 Bipolar disorder, unspecified; F43.10 Post-traumatic stress disorder, unspecified; F41.9 Anxiety disorder, unspecified; I10 Essential (primary) hypertension; J45.20 Mild intermittent asthma, uncomplicated; K21.9 Gastro-esophageal reflux disease without esophagitis; M17.0 Bilateral primary osteoarthritis of knee; Z59.00 Homelessness unspecified
CPT/HCPCS: 36415; 80053; 80307; 81003; 85027; 86593; 86780; 93005; 93010